=== PATIENT | male | born 1960 ===

== ENCOUNTER 2017-01-07 10:37 | Observation (INO) | payer MEDICARE, MEDICAID ==
[2017-01-07 10:37] VITALS: BMI 26.6
[2017-01-07] MEDS ORDERED: Albuterol-Ipratrop 3 mg / 0.5 (3 ml) UD INH STA (11:18)
--- NOTE | 2017-01-07 12:00 | ED PDOC ---
HPI: Chest Pain Time Seen by Provider: 01/07/17 10:50 Chief Complaint (Nursing): Chest Pain Chief Complaint (Provider): Chest Pain History Per: Patient History/Exam Limitations: no limitations Onset/Duration Of Symptoms: Days Current Symptoms Are (Timing): Still Present Severity: Moderate Quality: "Pain" Associated Symptoms: denies: Nausea Modifying Factors: None Exacerbating Factors: None Alleviating Factors: None Additional Complaint(s): Patient is a 56 year old male who presents to ED for evaluation of chest pain for 2 days. Pain noted to be intermittent but became constant today, took Nitro yesterday with resolution but returned this morning. Pain radiates in the right shoulder, non exertional. Patient also reports SOB and cough for 2 weeks, this started after running out of his medication. Admits he should be taking Albuterol, ASA and Plavix daily but has not taken anything in 2 weeks. 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 Past Medical History Reviewed: Historical Data, Nursing Documentation, Vital Signs Vital Signs: Last Vital Signs Temp 98.2 F 01/07/17 10:46 Pulse 60 01/07/17 12:36 Resp 20 01/07/17 10:46 BP 100/65 01/07/17 12:12 Pulse Ox 97 01/07/17 12:36 - Medical History PMH: Asthma, CAD, COPD, Depression, Emphysema, HTN, Hypercholesterolemia, Schizophrenia Denies: Diabetes, Hepatitis, HIV, Chronic Kidney Disease, Seizures, Sexually Transmitted Disease - Surgical History Surgical History: Coronary Stent (x 4), Tonsillectomy - Family History Family History: States: Unknown Family Hx - Living Arrangements Living Arrangements: With Family - Immunization History Hx Tetanus Toxoid Vaccination: No Hx Influenza Vaccination: No Hx Pneumococcal Vaccination: No - Home Medications Home Medications: Ambulatory Orders Medication Instructions Recorded Albuterol Sulfate [Proair Hfa] 2 puff IH Q4H PRN 10/22/16 Budesonide/Formoterol Fumarate 2 puff IH Q12H 10/22/16 [Symbicort 160-4.5 Mcg Inhaler] Aspirin [Ecotrin] 81 mg PO DAILY #30 tabec 10/24/16 Clopidogrel [Plavix] 75 mg PO DAILY #30 tab 10/24/16 Valsartan [Diovan] 80 mg PO DAILY #30 tab 10/24/16 Multivitamin [Multi-Vitamin Daily] 1 tab PO DAILY 01/07/17 - Allergies Allergies/Adverse Reactions: Allergies Allergy/AdvReac Type Severity Reaction Status Date / Time No Known Allergies Allergy Verified 01/07/17 12:29 Review of Systems ROS Statement: Except As Marked, All Systems Reviewed And Found Negative Constitutional: Negative for: Fever, Chills Cardiovascular: Positive for: Chest Pain. Negative for: Palpitations, Light Headedness Respiratory: Positive for: Cough, Shortness of Breath. Negative for: Hemoptysis , Sputum Gastrointestinal: Negative for: Nausea, Vomiting, Abdominal Pain, Diarrhea Musculoskeletal: Positive for: Shoulder Pain. Negative for: Neck Pain, Back Pain Skin: Negative for: Rash Neurological: Negative for: Weakness, Numbness Physical Exam - Reviewed Nursing Documentation Reviewed: Yes Vital Signs Reviewed: Yes - Physical Exam Appears: Positive for: Non-toxic, No Acute Distress Skin: Positive for: Normal Color, Warm Eye Exam: Positive for: Normal appearance Neck: Positive for: Normal, Painless ROM Cardiovascular/Chest: Positive for: Regular Rate, Rhythm, Chest Non Tender. Negative for: Murmur Respiratory: Positive for: Wheezing (bilaterally ). Negative for: Accessory Muscle Use, Respiratory Distress Back: Positive for: Normal Inspection Extremity: Positive for: Normal ROM. Negative for: Pedal Edema, Calf Tenderness Neurologic/Psych: Positive for: Alert, Oriented - Laboratory Results Result Diagrams: 01/07/17 12:59 01/07/17 12:59 - ECG ECG: Positive for: Interpreted By Me ECG Rhythm: Positive for: Normal QRS, Sinus Rhythm. Negative for: ST/T Changes Interpretation Of Abn EKG: T wave inversions to lateral leads Rate: 60 O2 Sat by Pulse Oximetry: 97 (RA) Pulse Ox Interpretation: Normal - Radiology X-Ray: Viewed By Me, Read By Radiologist X-Ray Interpretation: No Acute Disease, COPD Medical Decision Making Medical Decision Making: Time: 1110 Initial impression: Chest pain r/o ACS, unsteady angina vs End Stemi vs. COPD exacerbation Initial plan: -- EKG -- BnP -- BMP -- Troponin -- CBC -- PT/PTT -- CXR -- ASA, Duoneb, Plavix, Solumedrol and Nitro Stat -- Cardiac monitoring Scribe Attestation: Documented by Zari Du acting as a scribe for GerMD MD Skye Cm Attestation: All medical record entries made by the Skye were at my direction and personally dictated by me. I have reviewed the chart and agree that the record accurately reflects my personal performance of the history, physical exam, medical decision making, and the department course for this patient. I have also personally directed, reviewed, and agree with the discharge instructions and disposition. Disposition - Clinical Impression Clinical Impression: Unstable angina pectoris, COPD exacerbation, Noncompliance with medication regimen - Patient ED Disposition Is Patient to be Admitted: Yes Discussed With DrCyril: Belkys Zelaya Doctor Will See Patient In The: ED Counseled Patient/Family Regarding: Studies Performed, Diagnosis - Disposition Disposition Time: 13:00 Condition: FAIR - Pt Status Changed To: Hospital Disposition Of: Inpatient - Admit Certification Admit to Inpatient:: After my assessment, the patient will require hospitalization for at least two midnights. This is because of the severity of symptoms shown, intensity of services needed, and/or the medical risk in this patient being treated as an outpatient. - POA Present On Arrival: None Core Measure Indicators: Chest Pain
[2017-01-07] MEDS ORDERED: Albuterol-Ipratrop 3 mg / 0.5 (3 ml) UD ONE (12:11)
--- NOTE | 2017-01-07 12:31 | RAD ---
PROCEDURE: CHEST RADIOGRAPH, 1 VIEW HISTORY: Chest pain COMPARISON: 10/22/2016 FINDINGS: LUNGS: The lungs are hyperinflated and there is peribronchial thickening with chronic changes in both lungs. There is no focal consolidation. PLEURA: No pneumothorax or pleural fluid seen. CARDIOVASCULAR: There is persistent mild cardiomegaly OSSEOUS STRUCTURES: No significant abnormalities. VISUALIZED UPPER ABDOMEN: Normal. OTHER FINDINGS: None. IMPRESSION: No active pulmonary disease. COPD.
[2017-01-07 13:28] LABS: BASO # 0.1 K/uL (0.0-0.2); BASO % 0.7 % (0.0-2.0); EOS # 0.5 K/uL (0.0-0.7); EOS % 6.8 % (0.0-4.0); LYMPH # 1.9 K/uL (1.0-4.3); LYMPH % 26.5 % (20.0-40.0); MEAN CELL VOLUME 98.7 fl (80.0-94.0); MEAN CORPUSCULAR HEMOGLOBIN 33.9 pg (27.0-31.0); MEAN CORPUSCULAR HGB CONC 34.4 g/dL (33.0-37.0); MEAN PLATELET VOLUME 9.1 fl (7.2-11.7); MONO # 0.7 K/uL (0.0-0.8); MONO % 10.2 % (0.0-10.0); NEUT % 55.8 % (50.0-75.0); NRBC % 0.1 % (0.0-0.0); RED CELL DISTRIBUTION WIDTH 13.2 % (11.5-14.5); WHITE BLOOD COUNT 7.2 K/uL (4.8-10.8)
[2017-01-07] MEDS ORDERED: Sodium Chloride 0.9% 1,000 ML IV STA (13:45)
[2017-01-07 13:48] LABS: PARTIAL THROMBOPLASTIN TIME 34.8 SECONDS (23.3-32.5)
[2017-01-07 14:07] LABS: POTASSIUM 4.1 MMOL/L (3.6-5.0); SODIUM 139 mmol/l (132-148)
[2017-01-07 14:10] LABS: GFR AFRICAN-AMERICAN > 60
[2017-01-07 14:11] LABS: BLOOD UREA NITROGEN 25 mg/dl (9-20); CALCIUM 9.3 mg/dL (8.4-10.2); CARBON DIOXIDE 24 mmol/L (22-30); GLUCOSE,RANDOM 130 mg/dL (75-110)
[2017-01-07 14:22] LABS: CHLORIDE 101 mmol/L (98-107)
[2017-01-07] MEDS ORDERED: Albuterol HFA 90 mcg/actuation (8 g) INH PRN (15:05)
[2017-01-07] MEDS ORDERED: Albuterol-Ipratrop 3 mg / 0.5 (3 ml) UD INH PRN (15:12)
--- NOTE | 2017-01-07 15:51 | CP.PCM.HP ---
History of Present Illness - History of Present Illness History of Present Illness: CC: Chest pain HPI: The patient is a 56 y/o man w/ pmh of HTN, CAD s/p 4 stents, COPD ( emphysema), and GERD presents with chest pain and shortness of breath. The patient reports chest pain for 2 days, mid-sternal with radiation to left shoulder, constant, stabbing in nature, 5/10 in intensity, relieved with standing up, and exacerbating factors. The patient has not taken regular medication for about 1 month due to running out of refills. The patient last had medications filled in 11/2016. The patient was admitted for similar complaints on 10/2016 and 06/2016. The patient reports mild headache and dizziness. The patient also complains of pain at surgical site from hernia repair done on 06/2016. The patient complains of nausea but no vomiting. The patient denies diarrhea, dysuria, and fevers. allergies: NKDA PMH: HTN, CAD, COPD, and GERD PSHx: left hernia repair 06/2016, coronary stents x4 2014 at [facility], tonsillectomy at 4yrs old FamHx: non-contributory SOC: smokes 1 pack/day for 45 years, drinks 1 case of beer/week, smoked marijuana 1 month ago, hasn't used cocaine in years ROS: negative except HPI ED course: vitals: 98.2 F, 60 beats/min, 100/65 mmHg, 20 breaths/min, O2 97% room air EKG, pro-BNP, CBC, BMP, troponin, Pt/PTT, CXR done given aspirin x1, duoneb x1, plavix x1, solumedrol x1, and nitro x1, levaquin x1 , bolus NS PMD: [facility] Pharmacy: [facility] Present on Admission - Present on Admission Any Indicators Present on Admission: No History of DVT/PE: No History of Uncontrolled Diabetes: No Urinary Catheter: No Decubitus Ulcer Present: No Review of Systems - Review of Systems All systems: reviewed and no additional remarkable complaints except - Constitutional Constitutional: absent: Fever - Cardiovascular Cardiovascular: As Per HPI - Respiratory Respiratory: As Per HPI - Gastrointestinal Gastrointestinal: Nausea. absent: Abdominal Pain, Vomiting - Genitourinary Genitourinary: absent: Dysuria Past Patient History - Infectious Disease Hx of Infectious Diseases: None - Past Social History Smoking Status: Heavy Smoker > 10 Cigarettes Daily - CARDIAC Hx Hypercholesterolemia: Yes Hx Hypertension: Yes - PULMONARY Hx Asthma: Yes Hx Chronic Obstructive Pulmonary Disease (COPD): Yes Hx Emphysema: Yes - NEUROLOGICAL Hx Seizures: No - HEENT Hx HEENT Problems: No - RENAL Hx Chronic Kidney Disease: No - ENDOCRINE/METABOLIC Hx Endocrine Disorders: No - HEMATOLOGICAL/ONCOLOGICAL Hx Human Immunodeficiency Virus (HIV): No - INTEGUMENTARY Hx Dermatological Problems: No - MUSCULOSKELETAL/RHEUMATOLOGICAL Hx Musculoskeletal Disorders: No Hx Falls: No - GASTROINTESTINAL Hx Gastrointestinal Disorders: Yes Other/Comment: igneal hernia - GENITOURINARY/GYNECOLOGICAL Hx Sexually Transmitted Disorders: No - PSYCHIATRIC Hx Depression: Yes Hx Schizophrenia: Yes - SURGICAL HISTORY Hx Coronary Stent: Yes (x 4) Hx Tonsillectomy: Yes - ANESTHESIA Hx Anesthesia: Yes Hx Anesthesia Reactions: No Hx Malignant Hyperthermia: No Meds Allergies/Adverse Reactions: Allergies Allergy/AdvReac Type Severity Reaction Status Date / Time No Known Allergies Allergy Verified 01/07/17 12:29 Physical Exam - Constitutional Appears: No Acute Distress - Head Exam Head Exam: ATRAUMATIC, NORMOCEPHALIC - Eye Exam Eye Exam: EOMI Pupil Exam: PERRL - Neck Exam Neck exam: Positive for: Full Rom. Negative for: Lymphadenopathy - Respiratory Exam Respiratory Exam: Decreased Breath Sounds, Clear to Auscultation Bilateral. absent: Rales, Wheezes, Respiratory Distress - Cardiovascular Exam Cardiovascular Exam: REGULAR RHYTHM, +S1, +S2. absent: Tachycardia - GI/Abdominal Exam GI & Abdominal Exam: Normal Bowel Sounds. absent: Tenderness Additional comments: voluntary guarding, obese abdomen, no ascites - Extremities Exam Extremities exam: Negative for: calf tenderness, tenderness - Neurological Exam Neurological exam: Alert, CN II-XII Intact, Oriented x3 - Skin Skin Exam: Dry, Intact, Warm Results - Vital Signs Recent Vital Signs: Last Vital Signs Temp 98.2 F 01/07/17 10:46 Pulse 60 01/07/17 13:46 Resp 20 01/07/17 10:46 BP 100/65 01/07/17 12:12 Pulse Ox 97 01/07/17 13:46 - Labs Result Diagrams: 01/07/17 12:59 01/07/17 12:59 Assessment & Plan - Assessment and Plan (Free Text) Assessment: The patient is a 56 y/o man w/ pmh of HTN, CAD s/p 4 stents, COPD (emphysema), and GERD presents with chest pain and shortness of breath Plan: 1. Chest Pain - rule out ACS - admit to Tele - 1st troponin: 0.0410 - follow up serial troponin Q8h - EKG: prelim, no acute [place], NSR, inverted T waves, prolonged QT at 472 (similar compared to previous EKG) - given aspirin x1, duoneb x1, plavix x1, solumedrol x1, and nitro x1, levaquin x1, bolus NS in ED - EKG, pro-BNP, CBC, BMP, troponin, Pt/PTT, CXR done in ED - cardiology consult ordered - drug screen ordered - follow up AM CBC, BMP - repeat EKG in AM 2. Dyspnea - history of COPD/emphysema - CXR: COPD, no active pulmonary disease - restarted home meds albuterol and pulmicort - duonebs Q4 prn - levoquin 500 mg IV daily - methylprednisone 40 mg IV Q12h 3. CAD - x4 stents - home meds: plavix 75 mg PO daily and aspirin 81 mg PO daily 4. HTN - controlled BP - home medication valsartan 80 mg PO daily 5.FEN - heart healthy diet - zofran prn for nausea 6. DVT prophylaxis - lovenox 40 mg SC daily - Date & Time Date: 01/07/17 Time: 16:24
--- NOTE | 2017-01-07 18:04 | CARD ---
APPROVED REPORT EKG Measurement Heart [id number] <Conclusion> Normal sinus rhythm Possible Left atrial enlargement ST & T wave abnormality, consider lateral ischemia Abnormal ECG
[2017-01-07] MEDS ORDERED: Budesonide 0.5 mg/2 ml Inhal Susp UD IH SCH (20:00)
[2017-01-07] MEDS: methylPREDNISolone 40 MG in Sodium Chloride 0.9% 50 ML IV SCH (20:17)
[2017-01-08 06:42] LABS: HEMATOCRIT 45.6 % (35.0-51.0); MEAN CELL VOLUME 100.3 fl (80.0-94.0); MEAN CORPUSCULAR HEMOGLOBIN 34.1 pg (27.0-31.0); RED CELL DISTRIBUTION WIDTH 13.1 % (11.5-14.5); WHITE BLOOD COUNT 6.3 K/uL (4.8-10.8)
[2017-01-08 07:27] LABS: BLOOD UREA NITROGEN 27 mg/dl (9-20); CALCIUM 9.6 mg/dL (8.4-10.2); CARBON DIOXIDE 24 mmol/L (22-30); CHLORIDE 103 mmol/L (98-107); GFR AFRICAN-AMERICAN > 60; GLUCOSE,RANDOM 264 mg/dL (75-110); POTASSIUM 4.1 MMOL/L (3.6-5.0); SODIUM 143 mmol/l (132-148)
[2017-01-08 08:06] VITALS: RESP 18
[2017-01-08] MEDS ORDERED: Enoxaparin 40 mg Syringe SC SCH (09:00)
[2017-01-08 11:52] VITALS: PULSE 76
[2017-01-08] MEDS: methylPREDNISolone 40 MG in Sodium Chloride 0.9% 50 ML IV SCH (12:27)
--- NOTE | 2017-01-08 12:38 | CP.PCM.DIS ---
Provider - Provider Date of Admission: 01/07/17 13:38 Attending physician: Nasreen Norman MD Time Spent in preparation of Discharge (in minutes): 30 Diagnosis - Discharge Diagnosis (1) Chest pain Status: Acute Comment: most likely muscular versus due to COPD exacerbation (2) Cocaine abuse Status: Acute (3) COPD exacerbation Status: Acute Comment: COPD bronchitis. emphysema seen on CXR Hospital Course - Lab Results Lab Results: Most Recent Lab Values WBC 6.3 K/uL (4.8-10.8) 01/08/17 04:45 RBC 4.54 Mil/uL (4.40-5.90) 01/08/17 04:45 Hgb 15.5 g/dL (12.0-18.0) 01/08/17 04:45 Hct 45.6 % (35.0-51.0) 01/08/17 04:45 MCV 100.3 fl (80.0-94.0) H 01/08/17 04:45 MCH 34.1 pg (27.0-31.0) H 01/08/17 04:45 MCHC 34.0 g/dL (33.0-37.0) 01/08/17 04:45 RDW 13.1 % (11.5-14.5) 01/08/17 04:45 Plt Count 166 K/uL (130-400) 01/08/17 04:45 MPV 9.1 fl (7.2-11.7) 01/07/17 12:59 Neut % (Auto) 55.8 % (50.0-75.0) 01/07/17 12:59 Lymph % (Auto) 26.5 % (20.0-40.0) 01/07/17 12:59 [place] % (Auto) 10.2 % (0.0-10.0) H 01/07/17 12:59 Eos % (Auto) 6.8 % (0.0-4.0) H 01/07/17 12:59 Baso % (Auto) 0.7 % (0.0-2.0) 01/07/17 12:59 Neut # 4.0 K/uL (1.8-7.0) 01/07/17 12:59 Lymph # 1.9 K/uL (1.0-4.3) 01/07/17 12:59 [place] # 0.7 K/uL (0.0-0.8) 01/07/17 12:59 Eos # 0.5 K/uL (0.0-0.7) 01/07/17 12:59 Baso # 0.1 K/uL (0.0-0.2) 01/07/17 12:59 PT 10.6 SECONDS (9.6-11.2) 01/07/17 12:59 INR 1.02 (0.92-1.08) 01/07/17 12:59 APTT 34.8 SECONDS (23.3-32.5) H 01/07/17 12:59 Sodium 143 mmol/l (132-148) 01/08/17 04:45 Potassium 4.1 MMOL/L (3.6-5.0) 01/08/17 04:45 Chloride 103 mmol/L (98-107) 01/08/17 04:45 Carbon Dioxide 24 mmol/L (22-30) 01/08/17 04:45 Anion Gap 19 (10-20) 01/08/17 04:45 BUN 27 mg/dl (9-20) H 01/08/17 04:45 Creatinine 1.3 mg/dL (0.8-1.5) 01/08/17 04:45 Est GFR ( Amer) > 60 01/08/17 04:45 Est GFR (Non-Af Amer) 57 01/08/17 04:45 Random Glucose 264 mg/dL (75-110) H 01/08/17 04:45 Calcium 9.6 mg/dL (8.4-10.2) 01/08/17 04:45 Troponin I 0.0160 ng/mL (0.00-0.120) 01/08/17 04:45 NT-Pro-B Natriuret Pep 708 pg/ml (0-900) 01/07/17 12:59 Urine Opiates Screen Positive (NEGATIVE) H 01/07/17 15:00 Urine Methadone Screen Negative (NEGATIVE) 01/07/17 15:00 Ur Barbiturates Screen Negative (NEGATIVE) 01/07/17 15:00 Ur Phencyclidine Scrn Negative (NEGATIVE) 01/07/17 15:00 Ur Amphetamines Screen Negative (NEGATIVE) 01/07/17 15:00 U Benzodiazepines Scrn Negative (NEGATIVE) 01/07/17 15:00 U Oth Cocaine Metabols Positive (NEGATIVE) H 01/07/17 15:00 U Cannabinoids Screen Negative (NEGATIVE) 01/07/17 15:00 - Hospital Course Hospital Course: The patient is a 56 y/o man w/ pmh of HTN, CAD s/p 4 stents, COPD (emphysema), and GERD presents with chest pain and shortness of breath. The patient reports chest pain for 2 days, mid-sternal with radiation to left shoulder, constant, stabbing in nature, 5/10 in intensity, relieved with standing up, and exacerbating factors. The patient has not taken regular medication for about 1 month due to running out of refills. The patient last had medications filled in 11/2016. The patient was admitted for similar complaints on 10/2016 and 2015. In the ED, the patient had EKG, pro-BNP, CBC, BMP, troponin, Pt/PTT, CXR done which were all WNL. The patient was given given aspirin x1, duoneb x1, plavix x1, solumedrol x1, and nitro x1, levaquin x1, bolus NS. The patient was sent to Tele 4N. The patient had no complaints overnight and had drastic improvement. Patient had drug screen done which was positive for opiates and cocaine. When asked about drug use while in ED, patient denied. Patient reports improved breathing and no more chest pain. The patient will be discharged to home on PO levaquin 500 mg PO for 5 days daily and oral prednisone 20 mg for 3 days daily. The patient will also be given 1 month refill of home meds. The patient has been seen, examined, and deemed medically fit with no contraindication for discharge home. The patient has a follow up appointment with [facility] on 12/20/2016 @ 14:[address] Taylor. - Date & Time of H&P Date of H&P: 01/07/17 Time of H&P: 15:28 Discharge Exam - Head Exam Head Exam: ATRAUMATIC, NORMOCEPHALIC - Eye Exam Eye Exam: EOMI Pupil Exam: PERRL - Neck Exam Neck exam: Full Rom - Respiratory Exam Respiratory Exam: Clear to PA & Lateral, Wheezes. absent: Accessory Muscle Use , Chest Wall Tenderness, Decreased Breath Sounds, Prolonged Expiratory Phase, Rales, Rhonchi, Respiratory Distress, Stridor Additional comments: faint transient diffuse wheeze - Cardiovascular Exam Cardiovascular Exam: REGULAR RHYTHM, RRR. absent: Tachycardia - GI/Abdominal Exam GI & Abdominal Exam: Distended, Normal Bowel Sounds, Soft. absent: Tenderness Additional comments: obese abdomen, no ascites - Neurological Exam Neurological exam: Alert, Normal Gait, Oriented x3 - Skin Skin Exam: Dry, Intact, Normal Color, Warm Discharge Plan - Discharge Medications Prescriptions: Prednisone [Deltasone] 20 mg PO DAILY #3 tablet Valsartan [Diovan] 80 mg PO DAILY #30 tab Aspirin [Ecotrin] 81 mg PO DAILY #30 tabec levoFLOXacin [Levaquin] 500 mg PO DAILY #5 tab Multivitamin [Multi-Vitamin Daily] 1 tab PO DAILY #30 tablet Clopidogrel [Plavix] 75 mg PO DAILY #30 tab Budesonide/Formoterol Fumarate [Symbicort 160-4.5 Mcg Inhaler] 2 puff IH Q12H # 1 hfa.aer.ad - Follow Up Plan Condition: STABLE Disposition: HOME/ ROUTINE Clinical Quality Measures - Date & Time of Discharge Summary Date of Discharge Summary: 01/08/17 Time of Discharge Summary: 14:59
--- NOTE | 2017-01-08 13:38 | PQF GENQUE ---
Dr. Norman, Etiology of the Chest Pain: if known? OR: Unable to determine H and P: 1.Chest Pain - rule out ACS - admit to Tele - EKG: prelim, no acute DC , NSR, inverted T waves, prolonged QT at 472 (similar compared to previous EKG) - given aspirin x1, duoneb x1, plavix x1, solumedrol x1, and nitro x1 - repeat EKG in AM 2. Dyspnea - history of COPD/emphysema - CXR: COPD, no active pulmonary disease - restarted home meds albuterol and pulmicort - duonebs Q4 prn - levoquin 500 mg IV daily - methylprednisone 40 mg IV Q12h 3. CAD - x4 stents - home meds: plavix 75 mg PO daily and aspirin 81 mg PO daily 4. HTN - controlled BP - home medication valsartan 80 mg PO draft D/C Summary: D/C Diagnosis: (1) Chest pain Status: Acute (2) Cocaine abuse Status: Acute trop x 3: negative cardiology consult ordered: record absent in EMR u/a toxicology: positive for opiates and cocaine This form is a permanent part of the medical record Clarification of your documentation is requested to better reflect the severity of illness and intensity of treatment of your patient. Indicators present [] Specify: [] [] Specify: [] [] Specify: [] [] Specify: [] Location in the medical record that reflects the above clinical findings: [] Treatment Provided: [] PHYSICIAN'S RESPONSE Unable to determine Based on your medical judgment of the clinical indicators outlined above please clarify the following: [] Practitioner response [] If unable to determine, please check the box, sign and date. Present On Admission (POA) Indicator: [] Present at the time of admission [] Not present at the time of admission [] Clinically Undetermined In responding to this query, please exercise your independent professional judgment. The fact that a question is asked does not imply that any particular answer is desired or expected. Thank you for your clarification on this documentation. If you have any questions please call. * Thank you, Paris Carrion RN BSN ext. #[phone] MTDD
--- NOTE | 2017-01-08 13:41 | PQF GENQUE ---
Dr. Norman, Etiology of Dyspnea? OR: please document:Unable to determine ER MD: Impression includes: COPD Exacerbation H and P: Dyspnea - history of COPD/emphysema - CXR: COPD, no active pulmonary disease - restarted home meds albuterol and pulmicort - duonebs Q4 prn - levoquin 500 mg IV daily - methylprednisone 40 mg IV Q12h This form is a permanent part of the medical record Clarification of your documentation is requested to better reflect the severity of illness and intensity of treatment of your patient. Indicators present [] Specify: [] [] Specify: [] [] Specify: [] [] Specify: [] Location in the medical record that reflects the above clinical findings: [] Treatment Provided: [] PHYSICIAN'S RESPONSE Copd exacerbation mild Based on your medical judgment of the clinical indicators outlined above please clarify the following: [] Practitioner response [] If unable to determine, please check the box, sign and date. Present On Admission (POA) Indicator: [] Present at the time of admission [] Not present at the time of admission [] Clinically Undetermined In responding to this query, please exercise your independent professional judgment. The fact that a question is asked does not imply that any particular answer is desired or expected. Thank you for your clarification on this documentation. If you have any questions please call. * Thank you, Paris Carrion RN BSN ext. #[phone] MTDD
--- NOTE | 2017-01-08 13:45 | PQF GENQUE ---
Dr. Julius Vargas, Please clarify type of asthma: versus past history of Asthma:not a current condition:etc. Childhood Cough variant Exercise induced Late onset Mild intermittent Mild persistent Moderate persistent Severe persistent With bronchitis(please clarify acuity of bronchitis) With chronic lung disease (please document specific chronic lung disease) Other (please specify) Unable to determine Unknown 2. Please clarify acuity of asthma: if this is a current condition Uncomplicated With exacerbation(acute) With status asthmaticus Other (please specify) Unable to determine Unknown -ER MD; PMH: Asthma -H and P: Past Patient History:- PULMONARY: Hx Asthma: Yes Hx Chronic Obstructive Pulmonary Disease (COPD): Yes Hx Emphysema: Yes This form is a permanent part of the medical record Clarification of your documentation is requested to better reflect the severity of illness and intensity of treatment of your patient. Indicators present [] Specify: [] [] Specify: [] [] Specify: [] [] Specify: [] Location in the medical record that reflects the above clinical findings: [] Treatment Provided: [] PHYSICIAN'S RESPONSE Pt does not have asthma current;y Based on your medical judgment of the clinical indicators outlined above please clarify the following: [] Practitioner response [] If unable to determine, please check the box, sign and date. Present On Admission (POA) Indicator: [] Present at the time of admission [] Not present at the time of admission [] Clinically Undetermined In responding to this query, please exercise your independent professional judgment. The fact that a question is asked does not imply that any particular answer is desired or expected. Thank you for your clarification on this documentation. If you have any questions please call. * Thank you, Paris Carrion RN BSN ext. #[phone] MTDD
[2017-01-08 16:11] VITALS: BP 148/84; TEMP 97.8; O2SAT 98
== END 2017-01-08 18:00 | disposition home or self-care (01) ==
LOC: H.ER 10:37 → H.ERHOLD 13:38 → INTOOBSV 13:38 → UNDOADMOB 13:38 → H.ERHOLD 17:11 → H.TEL 17:11
PROVIDERS: ADMIT Family Medicine Geriatric Medicine; ATTEND Family Medicine Geriatric Medicine
DX: J44.1 Chronic obstructive pulmonary disease with (acute) exacerbation (principal); I10 Essential (primary) hypertension; I25.110 Atherosclerotic heart disease of native coronary artery with unstable angina pectoris; Z95.5 Presence of coronary angioplasty implant and graft; K21.9 Gastro-esophageal reflux disease without esophagitis; Z87.891 Personal history of nicotine dependence; E78.00 Pure hypercholesterolemia, unspecified; F20.9 Schizophrenia, unspecified; F14.10 Cocaine abuse, uncomplicated
CPT/HCPCS: 36415; 71010; 80048; 83880; 84484; 85025; 85027; 85610; 85730; 86703; 93005; 94640; 96365; 96375; 99285; G0378; G0480; J1650; J2920; J2930; J7040

== ENCOUNTER 2017-04-21 15:00 | Inpatient (IN) | payer MEDICARE, MEDICAID ==
[2017-04-21 15:01] VITALS: BMI 26.6
[2017-04-21] MEDS ORDERED: Albuterol-Ipratrop 3 mg / 0.5 (3 ml) UD INH STA ×2 (15:41→16:57)
--- NOTE | 2017-04-21 15:52 | ED PDOC ---
HPI: Chest Pain History Per: Patient History/Exam Limitations: no limitations Onset/Duration Of Symptoms: Days (2) Current Symptoms Are (Timing): Still Present Quality: "Pain" Associated Symptoms: Dyspnea. denies: Nausea, Diaphoresis, Syncope Exacerbating Factors: Exertion Alleviating Factors: None Additional History Per: Patient <Shamar Ignacio - Last Filed: 04/21/17 17:26> <Susie Valente - Last Filed: 04/21/17 18:52> Time Seen by Provider: 04/21/17 15:16 Chief Complaint (Nursing): Chest Pain Additional Complaint(s): 56 year old male with history of emphysema, CAD s/p 4 stents in 2014, HTN presents with complaints of two day history of worsening chest pain and dyspnea. Pain is left sided, non radiating and feels chest pressure, no alleviating/exacerbating factors. He has dyspnea that has worsened in the past 2 days despite using his inhaler. Right leg pain exacerbated by walking. Pt endorses he ran out of his PO medications 3 weeks ago, and has not made an appointment for refills. Not taking any medications for cholesterol, unclear why. Hx of polysubstance abuse, he did a line of cocaine on Thursday and his heart was racing in his chest, he was also too intoxicated to remember if he had pain. Unsure how much he had to drink. 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 Denies any recent illness, fevers/chills, nausea, vomiting, diarrhea, constipation, pedal edema. PMH: CAD s/p stents x 4 in 2015, HTN, HLD, Emphysema, polysubstance abuse Medications: Diovan 80mg, Plavix 75mg, ASA 81mg, Budesonide/formoterol fumarate Allergies: NKDA Social: smoker, 1/2 PPD, cocaine, marijuana, etoh abuse. 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 Grey Rahman (Shamar Ignacio) Supervising Attending Note - Supervising Attending Note The Documented history was done by the: Physician Reed Fixer, Attending Physician The documented physical exam was done by the: Physician Reed Fixer, Attending Physician The documented procedures were done by the: Physician Reed Fixer, Attending Physician - Attestation: I have personally seen and examined this patient.: Yes I have fully participated in the care of the patient.: Yes I have reviewed all pertinent clinical information: Yes <Susie Valente - Last Filed: 04/21/17 18:52> Past Medical History - Medical History PMH: CAD, COPD, Depression, Emphysema, HTN, Hypercholesterolemia, Schizophrenia Denies: Diabetes, Hepatitis, HIV, Chronic Kidney Disease, Seizures, Sexually Transmitted Disease - Surgical History Surgical History: Coronary Stent (x 4), Tonsillectomy - Family History Family History: States: Unknown Family Hx - Immunization History Hx Tetanus Toxoid Vaccination: No Hx Influenza Vaccination: No Hx Pneumococcal Vaccination: No <Shamar Ignacio - Last Filed: 04/21/17 17:26> <Susie Valente - Last Filed: 04/21/17 18:52> Vital Signs: Last Vital Signs Temp 97.8 F 04/21/17 15:09 Pulse 81 04/21/17 18:14 Resp 19 04/21/17 17:07 BP 151/76 H 04/21/17 17:07 Pulse Ox 96 04/21/17 17:27 - Home Medications Home Medications: Ambulatory Orders Medication Instructions Recorded Aspirin [Ecotrin] 81 mg PO DAILY #30 tabec 01/08/17 Budesonide/Formoterol Fumarate 2 puff IH Q12H #1 hfa.aer.ad 01/08/17 [Symbicort 160-4.5 Mcg Inhaler] Clopidogrel [Plavix] 75 mg PO DAILY #30 tab 01/08/17 Multivitamin [Multi-Vitamin Daily] 1 tab PO DAILY #30 tablet 01/08/17 Valsartan [Diovan] 80 mg PO DAILY #30 tab 01/08/17 - Allergies Allergies/Adverse Reactions: Allergies Allergy/AdvReac Type Severity Reaction Status Date / Time No Known Allergies Allergy Verified 04/21/17 15:03 LISA Risk Score for UA/NSTEMI - LISA Risk Score Age > 64: NO 3 or more CAD Risk Factors: YES Known CAD (Stenosis greater than 50%): YES Aspirin use in past 7 days: NO Severe Angina: NO EKG ST changes greater than 0.5mm: NO LISA Score: 2 Risk %: 8% <Shamar Ignacio - Last Filed: 04/21/17 17:26> - LISA Risk Score Severe Angina: YES LISA Score: 1 Risk %: 5% <Susie Valente Nabeel - Last Filed: 04/21/17 18:52> Curb-65 Severity Score - CURB-65 Severity Score Confusion: No Bun >19mg/dl (>7mmol/L): No Respiratory Rate greater than/equal to 30: No Systolic BP <90 or Diastolic BP less than/equal 60mmHg: No Age >64: No Curb-65 Score: 0 Percentage 30-day mortality: 0.6% <Ignacio,Yangdenzelalee - Last Filed: 04/21/17 17:26> Wells Criteria for PE - Wells Criteria for Pulmonary Embolism Clinical Signs and Symptoms of DVT: No P.E is #1 Diagnosis, or Equally Likely: No Heart Rate >100: No Immobilization at least 3 days;Surgery previous 4 weeks: No Previous, objectively diagnosed PE or DVT: No Hemoptysis: No Malignancy w/treatment within 6 months, or palliative: No Total Score: 0 <Zoe Ignacioalee - Last Filed: 04/21/17 17:26> Review of Systems ROS Statement: Except As Marked, All Systems Reviewed And Found Negative <MateusYangdenzelalee - Last Filed: 04/21/17 17:26> Physical Exam - Reviewed Vital Signs Reviewed: Yes (BP 183/110) - Physical Exam Appears: Positive for: Uncomfortable, In Acute Distress (mild respiratory distress) Skin: Positive for: Warm, Pallor. Negative for: Diaphoresis, Rash, Cyanosis Eye Exam: Positive for: Normal appearance Neck: Positive for: Painless ROM, Trachea Midline. Negative for: Pain On Movement Of Neck Cardiovascular/Chest: Positive for: Regular Rate, Rhythm, Chest Non Tender, Murmur. Negative for: JVD, Bradycardia, Tachycardia Respiratory: Positive for: Decreased Breath Sounds, Accessory Muscle Use (mild supraclavicular retractions), Wheezing (expiratory), Respiratory Distress (mild) . Negative for: Crackles, Rales, Rhonchi Gastrointestinal/Abdominal: Positive for: Normal Exam, Soft. Negative for: Guarding Back: Positive for: Normal Inspection Rectal: Positive for: Deferred Extremity: Negative for: Tenderness, Pedal Edema Neurologic/Psych: Positive for: Alert, manager hospice II-XII, Oriented, Mood/Affect <Shamar Ignacio - Last Filed: 04/21/17 17:26> - Laboratory Results Result Diagrams: 04/21/17 15:44 04/21/17 15:44 - ECG ECG: Positive for: Viewed By Me ECG Rhythm: Positive for: Normal QRS Interpretation Of Abn EKG: left axis deviation Rate: 81 O2 Sat by Pulse Oximetry: 96 Pulse Ox Interpretation: Normal - Radiology X-Ray: Viewed By Me, Read By Radiologist X-Ray Interpretation: No Acute Disease - Progress Condition: Re-examined, Improving,but remains with symptoms (dyspnea improved but persists, chest pain persists) <Shamar Ignacio - Last Filed: 04/21/17 17:26> - Laboratory Results Result Diagrams: 04/21/17 15:44 04/21/17 15:44 <Susie Valente - Last Filed: 04/21/17 18:52> - Progress ED Course And Treament: 56 year old male with worsening chest pain and dyspnea. Workup: * CBC * BMP * BNP * TROPONINS * PT/PTT/INR * EKG * CXR * VENOUS DUPLEX MEDICATIONS: * ASA 325MG * PLAVIX 300MG * NITRO 0.4MG SL * DUONEB * SOLUMEDROL 125MG reassess Case d/w Dr. Valente 17:05 Pts breathing improved after duoneb x 1 and solumedrol, still has expiratory wheezing and mild dyspnea. Still has CP despite nitro SL x 2. * duoneb Labs reviewed: WNL except for the following CBC: MCV 94, no anemia, no leukocytosis CMP: GFR 57, Glucose: 149 Troponins :0.044 * Pending Venous doppler (Shamar Ignacio) Disposition - Patient ED Disposition Is Patient to be Admitted: Yes - Pt Status Changed To: Hospital Disposition Of: Inpatient - Admit Certification Admit to Inpatient:: After my assessment, the patient will require hospitalization for at least two midnights. This is because of the severity of symptoms shown, intensity of services needed, and/or the medical risk in this patient being treated as an outpatient. <Shamar Ignacio - Last Filed: 04/21/17 17:26> - Patient ED Disposition Is Patient to be Admitted: Yes Discussed With : Sheryl Nelson Doctor Will See Patient In The: ED Counseled Patient/Family Regarding: Studies Performed, Diagnosis - Disposition Disposition Time: 17:00 - Pt Status Changed To: Hospital Disposition Of: Inpatient - Admit Certification Admit to Inpatient:: After my assessment, the patient will require hospitalization for at least two midnights. This is because of the severity of symptoms shown, intensity of services needed, and/or the medical risk in this patient being treated as an outpatient. - POA Present On Arrival: None Core Measure Indicators: Chest Pain <Susie Valente - Last Filed: 04/21/17 18:52> - Clinical Impression Clinical Impression: Chest pain, COPD exacerbation - Disposition Condition: FAIR
[2017-04-21 16:00] LABS: BASO # 0.1 K/uL (0.0-0.2); BASO % 0.8 % (0.0-2.0); EOS # 0.3 K/uL (0.0-0.7); EOS % 3.8 % (0.0-4.0); HEMOGLOBIN 16.8 g/dL (12.0-18.0); LYMPH # 1.7 K/uL (1.0-4.3); LYMPH % 21.8 % (20.0-40.0); MEAN CELL VOLUME 97.8 fl (80.0-94.0); MEAN CORPUSCULAR HEMOGLOBIN 33.1 pg (27.0-31.0); MEAN CORPUSCULAR HGB CONC 33.8 g/dL (33.0-37.0); MEAN PLATELET VOLUME 9.1 fl (7.2-11.7); MONO # 0.7 K/uL (0.0-0.8); MONO % 8.8 % (0.0-10.0); NEUT # 4.9 K/uL (1.8-7.0); NEUT % 64.8 % (50.0-75.0); NRBC % 0.2 % (0.0-0.0); RBC 5.08 Mil/uL (4.40-5.90); RED CELL DISTRIBUTION WIDTH 13.7 % (11.5-14.5); WHITE BLOOD COUNT 7.6 K/uL (4.8-10.8)
[2017-04-21 16:09] LABS: BLOOD UREA NITROGEN 17 mg/dl (9-20); CALCIUM 9.1 mg/dL (8.4-10.2); GFR AFRICAN-AMERICAN > 60; GFR NON-AFRICAN AMERICAN 57
--- NOTE | 2017-04-21 16:15 | RAD ---
PROCEDURE: CHEST RADIOGRAPH, 1 VIEW HISTORY: chest pain COMPARISON: 01/07/2017 FINDINGS: LUNGS: Clear. PLEURA: No pneumothorax or pleural fluid seen. CARDIOVASCULAR: Normal. OSSEOUS STRUCTURES: No significant abnormalities. VISUALIZED UPPER ABDOMEN: Normal. OTHER FINDINGS: None. IMPRESSION: No active disease.
[2017-04-21 16:20] LABS: B-TYPE NATRIURETIC PEPTIDE 477 pg/ml (0-900); PARTIAL THROMBOPLASTIN TIME 33.5 Seconds (25.6-37.1); PROTHROMBIN TIME 11.5 Seconds (9.8-13.1)
[2017-04-21] MEDS ORDERED: Albuterol-Ipratrop 3 mg / 0.5 (3 ml) UD ONE (17:06)
--- NOTE | 2017-04-21 18:10 | US ---
PROCEDURE: Right lower extremity duplex venous sonography HISTORY: right leg pain COMPARISON: None available. TECHNIQUE: Common femoral, superficial femoral, popliteal and posterior tibial veins were evaluated. Flow was assessed with color Doppler, compressibility, assessment of phasic flow and augmentation response. FINDINGS: COMMON FEMORAL VEIN: Unremarkable. SUPERFICIAL FEMORAL VEIN: Unremarkable. POPLITEAL VEIN: Unremarkable. POSTERIOR TIBIAL VEIN: Unremarkable. OTHER FINDINGS: None. IMPRESSION: No evidence of deep venous thrombosis in the right lower extremity.
[2017-04-21] MEDS ORDERED: Albuterol-Ipratrop 3 mg / 0.5 (3 ml) UD INH PRN (19:02)
[2017-04-21 19:08] LABS: BARBITURATES, UR NEGATIVE (NEGATIVE); BENZODIAZEPINES, UR NEGATIVE (NEGATIVE); OPIATES, UR NEGATIVE (NEGATIVE); PHENCYCLIDINE, UR NEGATIVE (NEGATIVE)
[2017-04-21] MEDS ORDERED: Patient's Own Med (Budesonide/Formoterol Fumarate [Symbicort 160-4.5 Mcg Inhaler] 2 PUFF) IH SCH (19:15)
--- NOTE | 2017-04-21 20:02 | CP.PCM.HP ---
History of Present Illness - History of Present Illness History of Present Illness: 56 year old male smoker with history of emphysema, CAD s/p 4 stents in 2014, HTN , Cocaine abuse presented to ED with complaints of two day history of worsening chest pain and dyspnea. Pain is left sided, non radiating and described as pressure, no alleviating/exacerbating factors. He has dyspnea that has worsened in the past 2 days despite using his rescue inhaler. 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 Right leg pain exacerbated by walking for months , no trauma or swelling. States ran out of medications 3 weeks ago. He did cocaine on Thursday and his heart was racing in his chest, he was also too intoxicated to remember if he had pain. Last drink was yesterday evening, 6 pack of beer. Denies history of seizures/withdrawals from alcohol. Denies any recent illness, fevers/chills, nausea, vomiting, diarrhea, constipation, pedal edema. No cough present. PMH: CAD s/p stents x 4 in 2014, HTN, HLD, Emphysema, polysubstance abuse Medications: Diovan 80mg, Plavix 75mg, ASA 81mg, Budesonide/formoterol fumarate Allergies: NKDA Social: smoker, 1/2 PPD, cocaine, marijuana, etoh abuse. Surgical hx: stents x 4 PMD: [facility] [employer] Helper: Dr. Leach, Dr. Edmonds ED Course: Vitals stable with elevated BP PE notable for expiratory wheezing, decreased breath sounds and mild respiratory distress Labs: CBC, BMP, BNP, TROPONIN, PT/PTT/INR Labs reviewed: unremarkable EKG - NSR, regular rate, LAD, no acute changes CXR - NAD VENOUS DUPLEX - Neg for DVT (R) MEDS: ASA 325MG, PLAVIX 300MG, NITRO 0.4MG SL x 2, DUONEB x 2, SOLUMEDROL 125MG Breathing improved with mild dyspnea and expiratory wheezing and mild CP continued after interventions Present on Admission - Present on Admission Any Indicators Present on Admission: No Review of Systems - Review of Systems All systems: reviewed and no additional remarkable complaints except (mentioned in HPI) Past Patient History - Infectious Disease Hx of Infectious Diseases: None - Past Social History Smoking Status: Heavy Smoker > 10 Cigarettes Daily - CARDIAC Hx Cardiac Disorders: Yes (HTN,HLD,CAD+4 STENTS) - PULMONARY Hx Respiratory Disorders: Yes (COPD) - NEUROLOGICAL Hx Neurological Disorder: No - HEENT Hx HEENT Problems: No - RENAL Hx Chronic Kidney Disease: No - ENDOCRINE/METABOLIC Hx Endocrine Disorders: No - HEMATOLOGICAL/ONCOLOGICAL Hx Blood Disorders: No - INTEGUMENTARY Hx Dermatological Problems: No - MUSCULOSKELETAL/RHEUMATOLOGICAL Hx Musculoskeletal Disorders: No - GASTROINTESTINAL Hx Gastrointestinal Disorders: Yes Other/Comment: inguinal hernia - GENITOURINARY/GYNECOLOGICAL Hx Genitourinary Disorders: No - PSYCHIATRIC Hx Psychophysiologic Disorder: Yes (DEPRESSION,SCHIZO) - SURGICAL HISTORY Hx Coronary Stent: Yes (x 4) Hx Tonsillectomy: Yes - ANESTHESIA Hx Anesthesia: Yes Hx Anesthesia Reactions: No Hx Malignant Hyperthermia: No Meds Allergies/Adverse Reactions: Allergies Allergy/AdvReac Type Severity Reaction Status Date / Time No Known Allergies Allergy Verified 04/21/17 15:03 Physical Exam - Constitutional Appears: Non-toxic, No Acute Distress - Head Exam Head Exam: ATRAUMATIC, NORMAL INSPECTION, NORMOCEPHALIC - Eye Exam Eye Exam: EOMI, Normal appearance - ENT Exam ENT Exam: Mucous Membranes Moist - Neck Exam Neck exam: Positive for: Normal Inspection - Respiratory Exam Respiratory Exam: Wheezes (scattered expiratory wheezing noted bilaterally), NORMAL BREATHING PATTERN. absent: Respiratory Distress - Cardiovascular Exam Cardiovascular Exam: REGULAR RHYTHM, RRR, +S1, +S2 Additional comments: non-reproducible chest pain - GI/Abdominal Exam GI & Abdominal Exam: Normal Bowel Sounds, Soft. absent: Tenderness - Extremities Exam Extremities exam: Positive for: normal inspection, pedal pulses present. Negative for: calf tenderness, pedal edema - Back Exam Back exam: NORMAL INSPECTION - Neurological Exam Neurological exam: Alert, CN II-XII Intact, Oriented x3 - Psychiatric Exam Psychiatric exam: Normal Affect, Normal Mood - Skin Skin Exam: Dry, Intact, Normal Color, Warm Results - Vital Signs Recent Vital Signs: Last Vital Signs Temp 97.8 F 04/21/17 15:09 Pulse 81 04/21/17 18:14 Resp 19 04/21/17 17:07 BP 151/76 H 04/21/17 17:07 Pulse Ox 96 04/21/17 17:27 - Labs Result Diagrams: 04/21/17 15:44 04/21/17 15:44 Labs: Laboratory Results - last 24 hr 04/21/17 04/21/17 18:41 19:10 Urine Opiates Screen Negative Urine Methadone Screen Negative Ur Barbiturates Screen Negative Ur Phencyclidine Scrn Negative Ur Amphetamines Screen Negative U Benzodiazepines Scrn Negative U Oth Cocaine Metabols Positive H U Cannabinoids Screen Negative Alcohol, Quantitative < 10 Assessment & Plan (1) Chest pain Status: Acute (2) COPD exacerbation Status: Acute (3) Alcohol dependence Status: Chronic (4) Cocaine abuse Status: Chronic (5) Hypertension Status: Acute (6) CAD (coronary artery disease) Status: Chronic (7) DVT prophylaxis Status: Acute - Assessment and Plan (Free Text) Assessment: 56 year old male smoker with history of emphysema, CAD s/p 4 stents in 2014, HTN , Cocaine abuse with two day history of worsening chest pain and dyspnea. PE notable for wheezing. Improved symptoms with interventions. Last cocaine use Thursday, last etoh yesterday. Plan: (1) Chest pain - Asymptomatic at this time, improved with interventions (Nitro) - EKG/CXR/Doppler/labs reviewed, unremarkable - Multiple cardiac risk factors including multiple stents, poor followup, father with early AR - R/O ACS with serial Troponins x 3 (1 negative) - Continuous cardiac monitoring via telemetry unit - Repeat EKG in AM - Lipid panel in AM - O2 prn - Avoid B-Blockers due to cocaine abuse (2) COPD exacerbation - No increased cough/purulence - Mild exacerbation - Improving, mild expiratory wheezes scattered - c/w solumedrol 60mg q12 - duonebs q6h prn - Continue to monitor O2 status (3) Alcohol dependence - Last drink 16 hrs ago (6 pack of beer) - Alcohol serum ordered - CIWA O - No history of withdrawals though will monitor at this time (4) Cocaine abuse - Last use Thursday - UDS pending (5) Hypertension - 116/90 at this time - Continue home meds at this time, continue to monitor (6) CAD (coronary artery disease) - s/p 4 stents in 2014 - poor follow up with PCP, asbestos siding mechanic - No meds in 3 wks - Restart home meds - Ensure close outpatient followup (7) DVT prophylaxis - Lovenox 40mg due to multiple risk factors
[2017-04-21 20:04] LABS: ALBUMIN 4.6 g/dL (3.5-5.0)
[2017-04-21 20:05] LABS: ALB/GLOB RATIO 1.3 (1.0-2.1); BILIRUBIN,DIRECT 0.4 mg/ml (0.0-0.4)
[2017-04-22] MEDS ORDERED: methylPREDNISolone 60 MG in Sodium Chloride 0.9% 50 ML IVPB SCH (01:00)
[2017-04-22 07:36] LABS: HEMOGLOBIN 16.8 g/dL (12.0-18.0); MEAN CELL VOLUME 97.8 fl (80.0-94.0); MEAN CORPUSCULAR HEMOGLOBIN 33.8 pg (27.0-31.0); MEAN CORPUSCULAR HGB CONC 34.5 g/dL (33.0-37.0); RBC 4.99 Mil/uL (4.40-5.90); RED CELL DISTRIBUTION WIDTH 13.2 % (11.5-14.5); WHITE BLOOD COUNT 9.9 K/uL (4.8-10.8)
[2017-04-22 07:44] LABS: ALB/GLOB RATIO 1.4 (1.0-2.1); ALBUMIN 4.4 g/dL (3.5-5.0); ALT/SGPT 41 U/L (21-72); AST/SGOT 31 U/L (17-59); BLOOD UREA NITROGEN 19 mg/dl (9-20); CALCIUM 10.1 mg/dL (8.4-10.2); GFR AFRICAN-AMERICAN > 60; GFR NON-AFRICAN AMERICAN > 60; HDL CHOLESTEROL 51 MG/DL (30-70)
--- NOTE | 2017-04-22 07:53 | PQF CHESTP ---
This form is a permanent part of the medical record 04/22/17 Dr Julius Buchanan, Please clarify the possible etiology of the chest pain after workup. Patient presents with complaints of two day history of worsening chest pain and dyspnea. History of CAD s/p stents, HTN, Hyperlipidemia History of polysubstance abuse, he did a line of cocaine on Thursday and his heart was racing in his chest , he was also too intoxicated to remember if he had pain. Troponin x 2 negative. UDS + cocaine. Treated with aspirin, Plavix, nitro. There is clinical documentation of CHEST PAIN with evaluation, treatment, and / or monitoring present in the medical record. Please clarify the possible / probable cause of CHEST PAIN. Source Documentation: Chart Location: [] Progress Notes [] Consults [] Radiology Results Date: [] Date: [] Date:[] ED Records: [] H&P: [] Other: [] PHYSICIAN RESPONSE CAUSE OF CHEST PAIN: [place] Check [] Documentation: [] CAD with angina [] CAD [] NM [] Musculoskeletal Chest Pain [] Costochondritis [] Gastroesophageal Reflux Disease (GERD) [] Acute Gastritis [] Drug induced [] Other [] Please specify [] Unknown [] In responding to this query, please exercise your independent professional judgment. The fact that a question is asked does not imply that any particular answer is desired or expected. Thank you for your clarification on this documentation. If you have any questions please call:ext [phone] * Thank you, Ebony Magana RN CDMP [facility]
[2017-04-22 07:55] LABS: LDL CHOLESTEROL 174 mg/dL (0-129)
[2017-04-22] MEDS: Enoxaparin 40 mg Syringe SC SCH (08:31)
[2017-04-22] MEDS: Multivitamin With Minerals Tab PO SCH (08:32)
[2017-04-22] MEDS ORDERED: Patient's Own Med (Multivitamin [Multi-Vitamin Daily] 1 TAB) PO SCH (09:00)
[2017-04-22] MEDS: Fluticasone-Salmeterol 250-50mcg Diskus IH SCH ×2 (10:00→22:05)
[2017-04-22 12:23] LABS: AMYLASE 156 U/L (30-110); LIPASE 179 U/L (23-300)
--- NOTE | 2017-04-22 12:41 | CARD ---
APPROVED REPORT EKG Measurement Heart [id number] <Conclusion> Normal sinus rhythm Biatrial enlargement Left axis deviation Septal infarct, age undetermined Inferior infarct, age undetermined T wave abnormality, consider lateral ischemia Abnormal ECG
[2017-04-22] MEDS: methylPREDNISolone 60 MG in Sodium Chloride 0.9% 50 ML IVPB SCH ×2 (12:50→20:43)
--- NOTE | 2017-04-22 16:32 | CP.PCM.PN ---
Subjective - Date & Time of Evaluation Date of Evaluation: 04/22/17 Time of Evaluation: 08:00 - Subjective Subjective: Pt was seen this morning lying in bed in no acute distress. Earlier in the morning he had experienced some chest pain and was given sublingual nitroglycerin. At the time of exam today, he denied chest pain and shortness of breath, but stated that he has shortness of breath on exertion. Pt also complained of RUQ abdominal pain. Denied nausea, vomiting, difficulty urinating or moving bowels, calf/leg pain/swelling. Objective - Vital Signs/Intake and Output Vital Signs (last 24 hours): Temp Pulse Resp BP Pulse Ox 98.1 F 70 20 163/87 H 97 04/22/17 16:09 04/22/17 16:09 04/22/17 16:09 04/22/17 16:09 04/22/17 16:09 - Medications Medications: Current Medications Albuterol/Ipratropium (Duoneb 3 Mg/0.5 Mg (3 Ml) Ud) 3 ml INH RQ6 PRN PRN Reason: Shortness of Breath Aspirin (Ecotrin) 81 mg PO DAILY [facility] Last Admin: 04/22/17 08:31 Dose: 81 mg Clopidogrel Bisulfate (Plavix) 75 mg PO DAILY [facility] Last Admin: 04/22/17 08:31 Dose: 75 mg Enoxaparin Sodium (Lovenox) 40 mg SC DAILY [facility] PRN Reason: Protocol Last Admin: 04/22/17 08:31 Dose: 40 mg Methylprednisolone 60 mg/ (Sodium Chloride) 50 mls @ 100 mls/hr IVPB Q12 [facility] Last Admin: 04/22/17 12:50 Dose: 100 mls/hr Multivitamins/Minerals (Therapeutic-M Tab) 1 tab PO DAILY [facility] Last Admin: 04/22/17 08:32 Dose: 1 tab Nitroglycerin (Nitrostat Sl Tab) 0.4 mg SL Q5M PRN PRN Reason: Other Last Admin: 04/22/17 12:34 Dose: 0.4 mg Fluticasone/Salmeterol (Advair Diskus 250/50) 1 puff IH Q12 [facility] Last Admin: 04/22/17 10:00 Dose: Not Given Valsartan (Diovan) 80 mg PO DAILY [facility] Last Admin: 04/22/17 08:31 Dose: 80 mg - Labs Labs: 07/19/17 06:25 04/22/17 06:25 PT 11.5 Seconds (9.8-13.1) 04/21/17 15:44 INR 1.0 (0.9-1.2) 04/21/17 15:44 APTT 33.5 Seconds (25.6-37.1) 04/21/17 15:44 - Constitutional Appears: Non-toxic - Head Exam Head Exam: ATRAUMATIC - Eye Exam Eye Exam: EOMI, Normal appearance, PERRL - ENT Exam ENT Exam: Mucous Membranes Moist - Neck Exam Neck Exam: Full ROM, Normal Inspection - Respiratory Exam Respiratory Exam: absent: Respiratory Distress Additional comments: coarse lung sounds in anterior lung crouch, clear breath sounds in posterior lung crouch and at bases - Cardiovascular Exam Cardiovascular Exam: REGULAR RHYTHM, +S1, +S2 - GI/Abdominal Exam GI & Abdominal Exam: Guarding, Soft, Tenderness, Normal Bowel Sounds. absent: Distended Additional comments: mild guarding and tenderness upon palpation of RUQ - Extremities Exam Extremities Exam: Normal Capillary Refill, Normal Inspection. absent: Calf Tenderness, Joint Swelling, Pedal Edema, Tenderness - Back Exam Back Exam: NORMAL INSPECTION. absent: CVA tenderness (L), CVA tenderness (R) - Neurological Exam Neurological Exam: Alert, Awake, CN II-XII Intact, Oriented x3 - Psychiatric Exam Psychiatric exam: Normal Mood - Skin Skin Exam: Dry, Intact, Normal Color, Warm Assessment and Plan - Assessment and Plan (Free Text) Assessment: 56 yo M with PMH of emphysema, coronary artery disease, s/p 4 stents in 2014, HTN, cocaine abuse, cigarette smoker who presented to ED with 2 day history of chest pain and shortness of breath, still experiencing symptoms on exertion Plan: 1) Coronary Artery Disease -S/p 4 stents in 2014 -Poor follow up; encourage close follow up -Poor compliance with medications at home; encourage compliance -Aspirin 81mg PO daily, clopidogrel 75mg PO daily, Nitroglycerin 0.4mg SL Q5 PRN -Avoid B-blockers due to cocaine use -Continue cardiac monitoring -Lipid panel results: Cholesterol 233, LDL 174, HDL 53, TG114 -CXR/Doppler unremarkable -f/u serial troponins -f/u repeat EKG 2)COPD exacerbation -Mild exacerbation -Improving -Continue salumedrol -Duonebs Q6 PRN -Monitor O2 sat 3) Hypertension -Valsartan 80mg PO daily -Monitor BP 4) RUQ pain -U/s abdomen -Amylase: 156 -Lipase: 179 4)Alcohol dependence -Last drink last night, 6 beers -Serum alcohol <10 5)Cocaine abuse -last use Thursday -Utox +ve for cocaine 6) DVT prophylaxis Lovenox 40mg
--- NOTE | 2017-04-23 08:28 | US ---
HISTORY: RUQ pain, epigastric pain COMPARISON: None. TECHNIQUE: Sonographic evaluation of the right upper quadrant of the abdomen. FINDINGS: LIVER: Measures 16.8 cm in length. Diffusely increased echogenicity of the liver parenchyma. Consistent with fatty infiltration. No mass. No biliary ductal dilatation. Smooth contour. Normal hepatopetal portal venous flow demonstrated. GALLBLADDER: Contracted. No evidence of cholelithiasis. Mild nonspecific mural thickening up to 4 mm. No pericholecystic fluid. Negative sonographic Martin sign. COMMON BILE DUCT: Measures 4 mm. No stones. No dilatation. PANCREAS: Suboptimally visualized RIGHT KIDNEY: Measures 11.0 cm in length. Normal echogenicity. No calculus, mass, or hydronephrosis. AORTA: No aneurysmal dilatation. IVC: Not evaluated OTHER FINDINGS: Not evaluated IMPRESSION: No evidence of cholelithiasis or cholecystitis. Fatty infiltration of the liver.
[2017-04-23] MEDS: Enoxaparin 40 mg Syringe SC SCH (08:46)
[2017-04-23] MEDS: Multivitamin With Minerals Tab PO SCH (08:47)
[2017-04-23] MEDS: Fluticasone-Salmeterol 250-50mcg Diskus IH SCH (09:39)
[2017-04-23] MEDS: methylPREDNISolone 60 MG in Sodium Chloride 0.9% 50 ML IVPB SCH (09:39)
[2017-04-23 12:13] VITALS: TEMP 97.6
[2017-04-23 15:46] VITALS: RESP 20; O2SAT 96
[2017-04-23] MEDS ORDERED: Labetalol 5 mg/ml Inj 20ML IVP ONE (16:00)
--- NOTE | 2017-04-23 16:35 | CP.PCM.DIS ---
Provider - Provider Date of Admission: 04/21/17 17:15 Attending physician: Nasreen Norman MD [facility] Time Spent in preparation of Discharge (in minutes): 40 Diagnosis - Discharge Diagnosis (1) COPD exacerbation Status: Acute Hospital Course - Lab Results Lab Results: Most Recent Lab Values WBC 9.9 K/uL (4.8-10.8) 04/22/17 06:25 RBC 4.99 Mil/uL (4.40-5.90) 04/22/17 06:25 Hgb 16.8 g/dL (12.0-18.0) 04/22/17 06:25 Hct 48.8 % (35.0-51.0) 04/22/17 06:25 MCV 97.8 fl (80.0-94.0) H 04/22/17 06:25 MCH 33.8 pg (27.0-31.0) H 04/22/17 06:25 MCHC 34.5 g/dL (33.0-37.0) 04/22/17 06:25 RDW 13.2 % (11.5-14.5) 04/22/17 06:25 Plt Count 207 K/uL (130-400) 04/22/17 06:25 MPV 9.1 fl (7.2-11.7) 04/21/17 15:44 Neut % (Auto) 64.8 % (50.0-75.0) 04/21/17 15:44 Lymph % (Auto) 21.8 % (20.0-40.0) 04/21/17 15:44 Kane % (Auto) 8.8 % (0.0-10.0) 04/21/17 15:44 Eos % (Auto) 3.8 % (0.0-4.0) 04/21/17 15:44 Baso % (Auto) 0.8 % (0.0-2.0) 04/21/17 15:44 Neut # 4.9 K/uL (1.8-7.0) 04/21/17 15:44 Lymph # 1.7 K/uL (1.0-4.3) 04/21/17 15:44 Kane # 0.7 K/uL (0.0-0.8) 04/21/17 15:44 Eos # 0.3 K/uL (0.0-0.7) 04/21/17 15:44 Baso # 0.1 K/uL (0.0-0.2) 04/21/17 15:44 PT 11.5 Seconds (9.8-13.1) 04/21/17 15:44 INR 1.0 (0.9-1.2) 04/21/17 15:44 APTT 33.5 Seconds (25.6-37.1) 04/21/17 15:44 Sodium 139 mmol/l (132-148) 04/22/17 06:25 Potassium 4.1 MMOL/L (3.6-5.0) 04/22/17 06:25 Chloride 105 mmol/L (98-107) 04/22/17 06:25 Carbon Dioxide 26 mmol/L (22-30) 04/22/17 06:25 Anion Gap 12 (10-20) 04/22/17 06:25 BUN 19 mg/dl (9-20) 04/22/17 06:25 Creatinine 1.1 mg/dL (0.8-1.5) 04/22/17 06:25 Est GFR ( Amer) > 60 04/22/17 06:25 Est GFR (Non-Af Amer) > 60 04/22/17 06:25 Random Glucose 153 mg/dL (75-110) H 04/22/17 06:25 Calcium 10.1 mg/dL (8.4-10.2) 04/22/17 06:25 Total Bilirubin 0.5 mg/dl (0.2-1.3) 04/22/17 06:25 Direct Bilirubin 0.4 mg/ml (0.0-0.4) 04/21/17 19:00 AST 31 U/L (17-59) 04/22/17 06:25 ALT 41 U/L (21-72) 04/22/17 06:25 Alkaline Phosphatase 93 U/L (38-126) 04/22/17 06:25 Troponin I 0.0350 ng/mL (0.00-0.120) 04/23/17 06:45 NT-Pro-B Natriuret Pep 477 pg/ml (0-900) 04/21/17 15:44 Total Protein 7.6 G/DL (6.3-8.2) 04/22/17 06:25 Albumin 4.4 g/dL (3.5-5.0) 04/22/17 06:25 Globulin 3.2 gm/dL (2.2-3.9) 04/22/17 06:25 Albumin/Globulin Ratio 1.4 (1.0-2.1) 04/22/17 06:25 Triglycerides 114 mg/DL (0-149) 04/22/17 06:25 Cholesterol 233 mg/dL (0-199) H 04/22/17 06:25 LDL Cholesterol Direct 174 mg/dL (0-129) H 04/22/17 06:25 HDL Cholesterol 51 MG/DL (30-70) 04/22/17 06:25 Amylase 156 U/L (30-110) H 04/22/17 12:11 Lipase 179 U/L (23-300) 04/22/17 12:11 TSH 3rd Generation 0.31 mIU/ML (0.46-4.68) L 04/22/17 06:25 Urine Opiates Screen Negative (NEGATIVE) 04/21/17 18:41 Urine Methadone Screen Negative (NEGATIVE) 04/21/17 18:41 Ur Barbiturates Screen Negative (NEGATIVE) 04/21/17 18:41 Ur Phencyclidine Scrn Negative (NEGATIVE) 04/21/17 18:41 Ur Amphetamines Screen Negative (NEGATIVE) 04/21/17 18:41 U Benzodiazepines Scrn Negative (NEGATIVE) 04/21/17 18:41 U Oth Cocaine Metabols Positive (NEGATIVE) H 04/21/17 18:41 U Cannabinoids Screen Negative (NEGATIVE) 04/21/17 18:41 Alcohol, Quantitative < 10 mg/dl (0-10) 04/21/17 19:10 - Hospital Course Hospital Course: Patient with PMH htn, s/p stents in 2014, COPD, polysubstance abuse with poor medication compliance and poor follow up presented to the ED with 2day hx of chest pain and dyspnea. Vital signs in the ED were stable with elevated BP. EKG showed no acute changes from previous EKG, CXR and lower extremity doppler were unremarkable. Labs drawn in ED: troponin, CBC, CMP, BNP, PT/PTT/INR unremarkable. Pt was admitted due to cardiac history and to r/o ACS. Once on the floor, pt experienced intermittent chest pain, getting relief from sublingual nitroglycerin. Pt's home meds were given for BP control. Troponin x3 negative. Salumedrol infusion given on the floor, dyspnea improved. Pt started c /o RUQ abdominal pain- on exam pt endorsed pain to palpation but no grimacing or other signs of discomfort were noted. U/s was ordered to r/o acute issue, was unremarkable. Pt was able to tolerate multiple meals during the day without c/o abdominal discomfort, nausea, vomiting, diarrhea, constipation. Pt continued to c/o vague chest pain, but was seen ambulating easily around his room, and the floor, sitting in bed comfortably chatting with this friend, appeared in no distress. When pt was approached about discharge and f/u appointments, he became very persistent about staying in the hospital until his electric bill could get taken care of, as the electricity in his living space was turned off. It was explained to pt that it is inppropriate to keep a pt admitted for that reason. Pt given appts with PCP and summer clerk and strongly encouraged to attend these appts. - Date & Time of H&P Date of H&P: 04/21/17 Time of H&P: 20:02 Discharge Exam - Head Exam Head Exam: ATRAUMATIC - Eye Exam Eye Exam: EOMI, Normal appearance Pupil Exam: PERRL - ENT Exam ENT Exam: Mucous Membranes Moist - Neck Exam Neck exam: Normal Inspection - Respiratory Exam Respiratory Exam: NORMAL BREATHING PATTERN. absent: Respiratory Distress - Cardiovascular Exam Cardiovascular Exam: REGULAR RHYTHM, +S1, +S2 - GI/Abdominal Exam GI & Abdominal Exam: Normal Bowel Sounds, Soft, Unremarkable - Extremities Exam Extremities exam: full ROM, normal inspection - Back Exam Back exam: NORMAL INSPECTION - Neurological Exam Neurological exam: Alert, CN II-XII Intact, Normal Gait, Oriented x3 - Psychiatric Exam Psychiatric exam: Normal Mood - Skin Skin Exam: Dry, Intact, Normal Color, Warm Discharge Plan - Discharge Medications Prescriptions: Aspirin [Ecotrin] 81 mg PO DAILY #30 tabec Budesonide/Formoterol Fumarate [Symbicort 160-4.5 Mcg Inhaler] 2 puff IH Q12H # 1 hfa.aer.ad Clopidogrel [Plavix] 75 mg PO DAILY #30 tab Valsartan [Diovan] 80 mg PO DAILY #30 tab - Follow Up Plan Condition: FAIR Disposition: HOME/ ROUTINE Instructions: Coronary Artery Disease (DC), Emphysema (DC), COPD (Chronic Obstructive Pulmonary Disease) (DC) Additional Instructions: Please follow up with your PCP (Dr. Taylor)- May 01 @10:20am Please follow up with cardiology- Dr. Leach on - May 12 at 11:15am Your medications have been transcribed to your pharmacy, please make it point to pick them up and take it as prescribed every day. Referrals: Tonny Leach MD [Staff Provider] - Evangelist Taylor MD [Resident] -
[2017-04-23 17:25] VITALS: BP 146/74; PULSE 78
== END 2017-04-23 17:26 | disposition home or self-care (01) | DRG 303 ==
LOC: H.ER 15:00 → H.ERHOLD 17:15 → H.TEL 21:04
PROVIDERS: ADMIT Family Medicine Geriatric Medicine; ATTEND Family Medicine Geriatric Medicine
DX: I25.10 Atherosclerotic heart disease of native coronary artery without angina pectoris (principal); J44.1 Chronic obstructive pulmonary disease with (acute) exacerbation; I10 Essential (primary) hypertension; E78.00 Pure hypercholesterolemia, unspecified; F20.9 Schizophrenia, unspecified; E78.5 Hyperlipidemia, unspecified; F10.20 Alcohol dependence, uncomplicated; F14.10 Cocaine abuse, uncomplicated; F17.210 Nicotine dependence, cigarettes, uncomplicated; I25.119 Atherosclerotic heart disease of native coronary artery with unspecified angina pectoris; Z79.02 Long term (current) use of antithrombotics/antiplatelets; Z79.51 Long term (current) use of inhaled steroids; Z79.82 Long term (current) use of aspirin; Z91.14 Patient's other noncompliance with medication regimen; Z95.5 Presence of coronary angioplasty implant and graft; R07.9 Chest pain, unspecified

== ENCOUNTER 2017-05-26 11:30 | Emergency (ER) | payer MEDICARE, MEDICAID ==
[2017-05-26 11:30] VITALS: BMI 26.6
[2017-05-26 11:52] VITALS: RESP 18
[2017-05-26] MEDS ORDERED: Oxycodone/Acetaminophen 5/325 mg Tab PO STA (12:02)
--- NOTE | 2017-05-26 12:06 | ED PDOC ---
HPI: Back Time Seen by Provider: 05/26/17 11:40 Chief Complaint (Nursing): Back Pain Chief Complaint (Provider): Back pain History Per: Patient Additional Complaint(s): 56 yo male, PMH of CAD s/p Stent placement, HTN, High Cholesterol, presents to ED with complaints of severe lower back pain x 4 days. back pain developed when he caught his friend who fell while having a seizure. Past Medical History Reviewed: Nursing Documentation, Vital Signs Vital Signs: Last Vital Signs Temp 97.8 F 05/26/17 11:47 Pulse 75 05/26/17 11:47 Resp 18 05/26/17 11:47 BP 149/76 05/26/17 11:47 Pulse Ox 99 05/26/17 11:47 - Medical History PMH: Asthma, CAD, COPD, Depression, Emphysema, HTN, Hypercholesterolemia, Schizophrenia Denies: Diabetes, Hepatitis, HIV, Chronic Kidney Disease, Seizures, Sexually Transmitted Disease - Surgical History Surgical History: Coronary Stent (x 4), Tonsillectomy - Family History Family History: States: Unknown Family Hx - Living Arrangements Living Arrangements: With Family - Social History Current smoker - smoking cessation education provided: Yes Alcohol: Social Drugs: Denies - Immunization History Hx Tetanus Toxoid Vaccination: No Hx Influenza Vaccination: No Hx Pneumococcal Vaccination: No - Home Medications Home Medications: Ambulatory Orders Medication Instructions Recorded Multivitamin [Multi-Vitamin Daily] 1 tab PO DAILY #30 tablet 01/08/17 Aspirin [Ecotrin] 81 mg PO DAILY #30 tabec 04/23/17 Budesonide/Formoterol Fumarate 2 puff IH Q12H #1 hfa.aer.ad 04/23/17 [Symbicort 160-4.5 Mcg Inhaler] Clopidogrel [Plavix] 75 mg PO DAILY #30 tab 04/23/17 Valsartan [Diovan] 80 mg PO DAILY #30 tab 04/23/17 Cyclobenzaprine [Cyclobenzaprine 10 mg PO TID #20 tab 05/26/17 HCl] Ibuprofen [Motrin] 600 mg PO Q6 #20 tab 05/26/17 oxyCODONE/Acetaminophen [Percocet 1 ea PO Q6 PRN #5 tab 05/26/17 5/325 mg Tab] - Allergies Allergies/Adverse Reactions: Allergies Allergy/AdvReac Type Severity Reaction Status Date / Time No Known Allergies Allergy Verified 05/26/17 11:47 Review of Systems ROS Statement: Except As Marked, All Systems Reviewed And Found Negative Musculoskeletal: Positive for: Back Pain Physical Exam - Reviewed Nursing Documentation Reviewed: Yes Vital Signs Reviewed: Yes - Physical Exam Appears: Positive for: Well, Non-toxic, No Acute Distress Head Exam: Positive for: ATRAUMATIC, NORMAL INSPECTION, NORMOCEPHALIC Skin: Positive for: Normal Color, Warm, DRY Eye Exam: Positive for: EOMI, Normal appearance, PERRL ENT: Positive for: Normal ENT Inspection Neck: Positive for: Normal, Painless ROM Cardiovascular/Chest: Positive for: Regular Rate, Rhythm Respiratory: Positive for: CNT, Normal Breath Sounds Gastrointestinal/Abdominal: Positive for: Normal Exam, Bowel Sounds, Soft Back: Positive for: Normal Inspection. Negative for: L CVA Tenderness, R CVA Tenderness, Vertebral Tenderness Extremity: Positive for: Normal ROM Neurologic/Psych: Positive for: Alert, Oriented - ECG O2 Sat by Pulse Oximetry: 99 Medical Decision Making Medical Decision Making: Medicated with Perc and Flexeril, reports feeling improved on re-eval Disposition - Clinical Impression Clinical Impression: Back pain - Patient ED Disposition Is Patient to be Admitted: No - Disposition Disposition: Routine/Home Disposition Time: 13:43 Condition: STABLE Prescriptions: Cyclobenzaprine [Cyclobenzaprine HCl] 10 mg PO TID #20 tab Ibuprofen [Motrin] 600 mg PO Q6 #20 tab oxyCODONE/Acetaminophen [Percocet 5/325 mg Tab] 1 ea PO Q6 PRN #5 tab PRN Reason: Pain, Severe (8-10) Instructions: Back Pain (ED) Forms: [employer] (French)
[2017-05-26] MEDS ORDERED: Oxycodone/Acetaminophen 5/325 mg Tab ONE (12:14)
[2017-05-26 13:19] VITALS: BP 154/79; PULSE 78; TEMP 98
[2017-05-26 13:44] VITALS: O2SAT 99
== END 2017-05-26 13:19 | disposition home or self-care (01) ==
LOC: H.ER 11:30
DX: M54.9 Dorsalgia, unspecified (principal); F20.9 Schizophrenia, unspecified; I10 Essential (primary) hypertension; I25.10 Atherosclerotic heart disease of native coronary artery without angina pectoris; Z79.82 Long term (current) use of aspirin; Z95.5 Presence of coronary angioplasty implant and graft

== ENCOUNTER 2017-06-26 05:55 | Inpatient (IN) | payer OTHER, MEDICAID ==
[2017-06-26] MEDS ORDERED: Albuterol-Ipratrop 3 mg / 0.5 (3 ml) UD INH STA ×3 (06:07→06:14)
[2017-06-26] MEDS ORDERED: Nitroglycerin 2% 15 INCH/30 GM TUBE TOP STA (06:14)
[2017-06-26] MEDS ORDERED: Nitroglycerin 2% Ointment Foilpak UD TOP ONE (06:18)
--- NOTE | 2017-06-26 06:22 | ED PDOC ---
HPI: Chest Pain Time Seen by Provider: 06/26/17 05:59 Chief Complaint (Nursing): Shortness Of Breath Chief Complaint (Provider): Chest pain History Per: Patient, EMS History/Exam Limitations: no limitations Onset/Duration Of Symptoms: Hrs (4) Quality: Pressure Additional Complaint(s): Patient is a 56 y/o male with a past medical history of coronary artery disease, hypertension, and PTCA with stents, brought to the emergency department by ALS for pressure-like, substernal and non-radiating chest pain with associated shortness of breath x4 hours. Also complains of nasal congestion. Denies vomiting, diarrhea, or other complaints. Of note, patient was given nitroglycerin, duoneb, and aspirin in the field by ALS. PCP: none provided. Past Medical History Reviewed: Historical Data, Nursing Documentation, Vital Signs Vital Signs: Last Vital Signs Temp 98.3 F 06/26/17 19:16 Pulse 82 06/26/17 20:10 Resp 20 06/26/17 19:16 BP 167/80 H 06/26/17 19:16 Pulse Ox 94 L 06/26/17 19:16 - Medical History PMH: Asthma, CAD, COPD, Depression, Emphysema, HTN, Hypercholesterolemia, Schizophrenia Denies: Diabetes, Hepatitis, HIV, Chronic Kidney Disease, Seizures, Sexually Transmitted Disease - Surgical History Surgical History: Coronary Stent (x 4), Tonsillectomy - Family History Family History: States: Unknown Family Hx - Social History Current smoker - smoking cessation education provided: Yes (one pack/day) Ex-Smoker (has not smoked in the last 12 months): No Alcohol: None - Immunization History Hx Tetanus Toxoid Vaccination: No Hx Influenza Vaccination: No Hx Pneumococcal Vaccination: No - Home Medications Home Medications: Ambulatory Orders Medication Instructions Recorded Multivitamin [Multi-Vitamin Daily] 1 tab PO DAILY #30 tablet 01/08/17 Aspirin [Ecotrin] 81 mg PO DAILY #30 tabec 04/23/17 Budesonide/Formoterol Fumarate 2 puff IH Q12H #1 hfa.aer.ad 04/23/17 [Symbicort 160-4.5 Mcg Inhaler] Clopidogrel [Plavix] 75 mg PO DAILY #30 tab 04/23/17 Valsartan [Diovan] 80 mg PO DAILY #30 tab 04/23/17 Cyclobenzaprine [Cyclobenzaprine 10 mg PO TID #20 tab 05/26/17 HCl] Ibuprofen [Motrin] 600 mg PO Q6 #20 tab 05/26/17 oxyCODONE/Acetaminophen [Percocet 1 ea PO Q6 PRN #5 tab 05/26/17 5/325 mg Tab] - Allergies Allergies/Adverse Reactions: Allergies Allergy/AdvReac Type Severity Reaction Status Date / Time No Known Allergies Allergy Verified 05/26/17 11:47 Review of Systems ROS Statement: Except As Marked, All Systems Reviewed And Found Negative ENT: Positive for: Nose Congestion Cardiovascular: Positive for: Chest Pain (non-radiating, substernal, presssure- like) Respiratory: Positive for: Shortness of Breath Gastrointestinal: Negative for: Vomiting, Diarrhea Physical Exam - Reviewed Nursing Documentation Reviewed: Yes Vital Signs Reviewed: Yes - Physical Exam Appears: Positive for: Uncomfortable (and in mild distress) Head Exam: Positive for: ATRAUMATIC, NORMAL INSPECTION, NORMOCEPHALIC Skin: Positive for: Normal Color, Warm, Dry Eye Exam: Positive for: Normal appearance Neck: Positive for: Normal Cardiovascular/Chest: Positive for: Regular Rate, Rhythm. Negative for: Murmur Respiratory: Positive for: Crackles (bilateral bases), Wheezing (bilateral). Negative for: Normal Breath Sounds Extremity: Positive for: Normal ROM. Negative for: Pedal Edema Neurologic/Psych: Positive for: Alert, Oriented (x3) - Laboratory Results Result Diagrams: 06/26/17 06:23 06/26/17 06:23 - ECG ECG: Positive for: Interpreted By Me, Viewed By Me ECG Rhythm: Positive for: Sinus Tachycardia Interpretation Of Abn EKG: Non-specific ST abnormalities in the lateral leads at 6-10. Rate: 104 O2 Sat by Pulse Oximetry: 96 (RA) Pulse Ox Interpretation: Normal - Radiology X-Ray: Interpreted by Me, Viewed By Me X-Ray Interpretation: Cardiomegaly, Other (Mild pulmonary vascular congestion) Medical Decision Making Medical Decision Making: Time: 06:07 Initial impression: 56 y/o male with chest pain and dyspnea in setting of known coronary artery disease. Initial plan: EKG Labs Chest X-Ray Duoneb 3 mL IN Lasix 40 mg IV SOLU-medrol 125 mg IVP Morphine 4 mg IVP Nitroglycerin 1 Blood Culture Heplock Insertion Peak flow assessment pre/post treatment Reevaluation Scribe Attestation: Documented by Skye Velez, acting as a scribe for Eliazar Lanier MD. Provider Scribe Attestation: All medical record entries made by the Scribe were at my direction and personally dictated by me. I have reviewed the chart and agree that the record accurately reflects my personal performance of the history, physical exam, medical decision making, and the department course for this patient. I have also personally directed, reviewed, and agree with the discharge instructions and disposition. Disposition - Clinical Impression Clinical Impression: Chest pain - Patient ED Disposition Is Patient to be Admitted: Transfer of Care - Disposition Disposition: Transfer of Care Disposition Time: 07:00 Condition: STABLE Patient Signed Over To: Frank Flynn III
[2017-06-26 06:32] LABS: BASO % 0.6 % (0.0-2.0); HEMATOCRIT 45.4 % (35.0-51.0); LYMPH # 0.6 K/uL (1.0-4.3); MEAN CELL VOLUME 97.5 fl (80.0-94.0); MEAN CORPUSCULAR HGB CONC 34.9 g/dL (33.0-37.0); MEAN PLATELET VOLUME 8.7 fl (7.2-11.7); MONO # 0.5 K/uL (0.0-0.8); MONO % 7.3 % (0.0-10.0); NEUT # 5.1 K/uL (1.8-7.0); NEUT % 82.1 % (50.0-75.0); NRBC % 0.3 % (0.0-0.0); RED CELL DISTRIBUTION WIDTH 13.7 % (11.5-14.5); WHITE BLOOD COUNT 6.3 K/uL (4.8-10.8)
[2017-06-26] MEDS ORDERED: Nitroglycerin 2% Ointment Foilpak UD TOP STA (06:43)
[2017-06-26 06:59] LABS: ALCOHOL SERUM < 10 mg/dl (0-10); BLOOD UREA NITROGEN 12 mg/dl (9-20); CALCIUM 9.3 mg/dL (8.4-10.2); CARBON DIOXIDE 22 mmol/L (22-30); CHLORIDE 102 mmol/L (98-107); GFR AFRICAN-AMERICAN > 60; GLUCOSE,RANDOM 117 mg/dL (75-110); POTASSIUM 3.9 MMOL/L (3.6-5.0); SODIUM 139 mmol/l (132-148)
--- NOTE | 2017-06-26 07:06 | ED PDOC ---
- Laboratory Results Result Diagrams: 06/26/17 06:23 06/26/17 06:23 - ECG O2 Sat by Pulse Oximetry: 96 (RA) Medical Decision Making Medical Decision Makinam pending labs, re-eval, dispo Pt received pre hospital ASA. Troponin reported elevated. Admit 4N, FP residents. Disposition - Disposition Condition: STABLE Forms: [facility] (Estonian)
[2017-06-26 07:17] LABS: PARTIAL THROMBOPLASTIN TIME 32.2 Seconds (25.6-37.1)
[2017-06-26 07:30] VITALS: BMI 26.4
[2017-06-26] MEDS ORDERED: Aspirin 325 mg EC Tablets PO STA (07:56)
[2017-06-26] MEDS ORDERED: Sodium Chloride 0.9% 1,000 ML IV SCH (08:00)
--- NOTE | 2017-06-26 08:06 | CT ---
EXAM: CT Head Without Intravenous Contrast CLINICAL HISTORY: 56 years old, male; Pain; Headache; Tension TECHNIQUE: Axial computed tomography images of the head/brain without intravenous contrast. All CT scans at this facility use one or more dose reduction techniques, viz.: automated exposure control; ma/kV adjustment per patient size (including targeted exams where dose is matched to indication; i.e. head); or iterative reconstruction technique. 343 images are submitted. Coronal and sagittal reformatted images were created and reviewed. COMPARISON: No relevant prior studies available. FINDINGS: Brain: Prominent cisterna magna. No hemorrhage. No significant white matter disease. No edema. Ventricles: Unremarkable. No ventriculomegaly. Bones/joints: Ossific density near the left anterior maxillary spine. Correlation with clinical history is recommended if a remote fracture deformity is suspected. Soft tissues: Unremarkable. Vasculature: Vascular calcifications. Sinuses: Patchy sinus disease. Mastoid air cells: Patchy right mastoid disease. IMPRESSION: No evidence of an acute intracranial hemorrhage, midline shift or mass effect is identified.
--- NOTE | 2017-06-26 08:28 | RAD ---
HISTORY: chest pain COMPARISON: Chest x-ray 04/21/17 TECHNIQUE: Chest, one view. FINDINGS: LUNGS: Linear atelectasis, left lower lobe. Mild biapical pleural thickening. Please note that chest x-ray has limited sensitivity for the detection of pulmonary masses. PLEURA: No significant pleural effusion identified. No definite pneumothorax . CARDIOVASCULAR: Heart size appears top normal. Atherosclerotic calcifications of the aortic knob. OSSEOUS STRUCTURES: Degenerative changes of the spine. VISUALIZED UPPER ABDOMEN: Unremarkable. OTHER FINDINGS: None. IMPRESSION: Linear atelectasis, left lower lobe. Mild biapical pleural thickening.
[2017-06-26] MEDS ORDERED: Enoxaparin 80 mg Syringe SC STA (08:31)
--- NOTE | 2017-06-26 08:44 | CARD ---
APPROVED REPORT EKG Measurement Heart [id number] <Conclusion> Sinus tachycardia Biatrial enlargement Left axis deviation ST & T wave abnormality, consider lateral ischemia Abnormal ECG
[2017-06-26] MEDS ORDERED: Enoxaparin 40 mg Syringe SC SCH (09:00)
[2017-06-26 10:20] LABS: CHOLESTEROL 174 mg/dL (0-199)
[2017-06-26 10:53] LABS: THYROID STIMULATING HORMONE 0.86 mIU/ML (0.46-4.68)
--- NOTE | 2017-06-26 11:26 | CP.PCM.HP ---
History of Present Illness - History of Present Illness History of Present Illness: 56yo M smoker with PMHx CAD (stents x5), HTN admitted for NSTEMI. chest pain x5 hours today, started at 2AM, burning, continuous, no radiation, 05/14, currently 11/14. Last cocaine use 2 days ago, snorts drugs, denies IVDA. PMHx: HTN, CAD, COPD FHX: NC Social Hx: smokes 1ppd, cocaine use, EtOH use Allergies: NKDA Meds: checked in [facility] ED course: EKG no ST elevation Troponin elevated ASA in the field lovenox 80 SC x1 Present on Admission - Present on Admission Any Indicators Present on Admission: No Review of Systems - Constitutional Constitutional: absent: Chills, Fever - Cardiovascular Cardiovascular: Chest Pain - Respiratory Respiratory: absent: Cough - Gastrointestinal Gastrointestinal: absent: Abdominal Pain - Genitourinary Genitourinary: absent: Dysuria, Hematuria - Musculoskeletal Musculoskeletal: absent: Back Pain - Neurological Neurological: absent: Headaches, Weakness Past Patient History - Infectious Disease Hx of Infectious Diseases: None - Past Medical History & Family History Past Medical History?: Yes - Past Social History Smoking Status: Heavy Smoker > 10 Cigarettes Daily Alcohol: None Drugs: Cocaine - CARDIAC Hx Hypercholesterolemia: Yes Hx Hypertension: Yes - PULMONARY Hx Asthma: Yes Hx Chronic Obstructive Pulmonary Disease (COPD): Yes Hx Emphysema: Yes - NEUROLOGICAL Hx Seizures: No - HEENT Hx HEENT Problems: No - RENAL Hx Chronic Kidney Disease: No - ENDOCRINE/METABOLIC Hx Endocrine Disorders: No - HEMATOLOGICAL/ONCOLOGICAL Hx Blood Disorders: No Hx Human Immunodeficiency Virus (HIV): No - INTEGUMENTARY Hx Dermatological Problems: No - MUSCULOSKELETAL/RHEUMATOLOGICAL Hx Musculoskeletal Disorders: No Hx Falls: No - GASTROINTESTINAL Hx Gastrointestinal Disorders: Yes Other/Comment: left inguinal hernia - GENITOURINARY/GYNECOLOGICAL Hx Genitourinary Disorders: No Hx Sexually Transmitted Disorders: No - PSYCHIATRIC Hx Anxiety: Yes Hx Depression: Yes Hx Schizophrenia: Yes - SURGICAL HISTORY Hx Coronary Stent: Yes (x 4) Hx Tonsillectomy: Yes - ANESTHESIA Hx Anesthesia: Yes Hx Anesthesia Reactions: No Hx Malignant Hyperthermia: No Meds Allergies/Adverse Reactions: Allergies Allergy/AdvReac Type Severity Reaction Status Date / Time No Known Allergies Allergy Verified 05/26/17 11:47 Physical Exam - Constitutional Appears: Non-toxic, No Acute Distress - Head Exam Head Exam: ATRAUMATIC, NORMAL INSPECTION - Eye Exam Eye Exam: Normal appearance - ENT Exam ENT Exam: Mucous Membranes Moist - Neck Exam Neck exam: Positive for: Normal Inspection - Respiratory Exam Respiratory Exam: Clear to Auscultation Bilateral - Cardiovascular Exam Cardiovascular Exam: REGULAR RHYTHM. absent: Systolic Murmur - GI/Abdominal Exam GI & Abdominal Exam: Normal Bowel Sounds, Soft - Extremities Exam Extremities exam: Positive for: normal inspection. Negative for: pedal edema - Back Exam Back exam: NORMAL INSPECTION - Neurological Exam Neurological exam: Alert, Oriented x3 - Skin Skin Exam: Dry, Warm Results - Vital Signs Recent Vital Signs: Last Vital Signs Temp 99.7 F H 06/26/17 09:15 Pulse 93 H 06/26/17 09:34 Resp 18 06/26/17 09:34 BP 137/74 06/26/17 09:34 Pulse Ox 94 L 06/26/17 09:34 - Labs Result Diagrams: 06/26/17 06:23 06/26/17 06:23 Labs: Laboratory Results - last 24 hr 06/26/17 06/26/17 06/26/17 06:23 06:23 06:23 WBC 6.3 RBC 4.65 Hgb 15.8 Hct 45.4 MCV 97.5 H MCH 34.0 H MCHC 34.9 RDW 13.7 Plt Count 135 MPV 8.7 Neut % (Auto) 82.1 H Lymph % (Auto) 10.0 L Cross % (Auto) 7.3 Eos % (Auto) 0.0 Baso % (Auto) 0.6 Neut # 5.1 Lymph # 0.6 L Cross # 0.5 Eos # 0.0 Baso # 0.0 PT 12.2 INR 1.2 APTT 32.2 Sodium 139 Potassium 3.9 Chloride 102 Carbon Dioxide 22 Anion Gap 18 BUN 12 Creatinine 1.1 Est GFR ( Amer) > 60 Est GFR (Non-Af Amer) > 60 Random Glucose 117 H Lactic Acid Calcium 9.3 Troponin I 0.2640 H* Triglycerides Cholesterol LDL Cholesterol Direct HDL Cholesterol Urine Opiates Screen Urine Methadone Screen Ur Barbiturates Screen Ur Phencyclidine Scrn Ur Amphetamines Screen U Benzodiazepines Scrn U Oth Cocaine Metabols U Cannabinoids Screen Alcohol, Quantitative < 10 06/26/17 06/26/17 06/26/17 06:23 06:57 09:15 WBC RBC Hgb Hct MCV MCH MCHC RDW Plt Count MPV Neut % (Auto) Lymph % (Auto) Cross % (Auto) Eos % (Auto) Baso % (Auto) Neut # Lymph # Cross # Eos # Baso # PT INR APTT Sodium Potassium Chloride Carbon Dioxide Anion Gap BUN Creatinine Est GFR ( Amer) Est GFR (Non-Af Amer) Random Glucose Lactic Acid 1.3 Calcium Troponin I Triglycerides 172 H D Cholesterol 174 LDL Cholesterol Direct 109 HDL Cholesterol 40 Urine Opiates Screen Positive H Urine Methadone Screen Negative Ur Barbiturates Screen Negative Ur Phencyclidine Scrn Negative Ur Amphetamines Screen Negative U Benzodiazepines Scrn Negative U Oth Cocaine Metabols Positive H U Cannabinoids Screen Negative Alcohol, Quantitative Assessment & Plan - Assessment and Plan (Free Text) Assessment: 56yo M with PMHx HTN and CAD admitted for NSTEMI. NSTEMI -cardio on board, appreciate input -lovenox 75mg SC BID -statin high dose -ASA -plavix -trend troponin -ECHO -cardiac cath Thursday -nitro h/o HTN -metoprolol 25 q8 -valsartan h/o asthma -duoneb prn DVT ppx -lovenox Decision To Admit - Pt Status Changed To: Hospital Disposition Of: Inpatient - Admit Certification Admit to Inpatient:: After my assessment, the patient will require hospitalization for at least two midnights. This is because of the severity of symptoms shown, intensity of services needed, and/or the medical risk in this patient being treated as an outpatient. - . Bed Request Type: Telemetry Admitting Physician: Jace Herrmann
[2017-06-26] MEDS: Fluticasone-Salmeterol 250-50mcg Diskus IH SCH ×2 (11:53→21:57)
--- NOTE | 2017-06-26 11:54 | CARD ---
APPROVED REPORT EXAM: Two-dimensional and M-mode echocardiogram with Doppler and color Doppler. Other Information Quality : GoodRhythm : NSR INDICATION LV Function:SystolicDiastolic 2D DIMENSIONS Left Atrium (2D)3.82 (1.6-4.0cm)IVSd1.60 (0.7-1.1cm) Aortic Root (2D)3.06 (2.0-3.7cm)LVDd5.19 (3.9-5.9cm) LVOT Diameter2.33 (1.8-2.4cm)PWd1.42 (0.7-1.1cm) IVSs1.50 (0.8-1.2cm)LVDs4.14 (2.5-4.0cm) FS (%) 20.2 %PWs1.74 (0.8-1.2cm) M-Mode DIMENSIONS Left Atrium (MM)3.74 (2.5-4.0cm)IVSd1.09 (0.7-1.1cm) Aortic Root3.08 (2.2-3.7cm)LVDd5.56 (4.0-5.6cm) Aortic Cusp Exc.2.25 (1.5-2.0cm)PWd0.96 (0.7-1.1cm) IVSs1.09 cmFS (%) 20 % LVDs4.43 (2.0-3.8cm) Mitral Valve MV E Piwmrdfe73.6cm/sMV DECEL [id number] A Rkovbsjt01.6cm/s MV BZT05duV/A ratio0.8MVA (PHT)4.52cm2 TDI Lateral E' Peak V14.75cm/sMedial E' Peak V7.99cm/sE/Lateral E'3.4 E/Medial E'6.3 Pulmonary Valve PV Peak Cxruibsp133.1cm/s Tricuspid Valve TR Peak Ciufhiro342dk/sRAP [id number] Peak Gr.28mmHg [id number] LEFT VENTRICLE The left ventricle is normal size. There is normal left ventricular wall thickness. The left ventricular function is normal. The left ventricular ejection fraction is within the normal range. The Ejection Fraction is 50-55%. There is normal LV segmental wall motion. The left ventricular diastolic function is normal. No left ventricle thrombus noted on this study. There is no mass noted in the left ventricle. RIGHT VENTRICLE The right ventricle is normal size. There is normal right ventricular wall thickness. The right ventricular systolic function is normal. ATRIA The left atrium size is normal. The right atrium size is normal. The interatrial septum is intact with no evidence for an atrial septal defect. AORTIC VALVE The aortic valve is normal in structure and function. No aortic regurgitation is present. There is no aortic valvular stenosis. There is no aortic valvular vegetation. MITRAL VALVE The mitral valve is normal in structure and function. There is no evidence of mitral valve prolapse. There is no mitral valve stenosis. There is no mitral valve regurgitation noted. TRICUSPID VALVE The tricuspid valve is normal in structure and function. There is no tricuspid valve regurgitation noted. There is no tricuspid valve prolapse or vegetation. There is no tricuspid valve stenosis. PULMONIC VALVE The pulmonary valve is normal in structure and function. There is no pulmonic valvular regurgitation. There is no pulmonic valvular stenosis. GREAT VESSELS The aortic root is normal in size. The IVC is normal in size and collapses >50% with inspiration. PERICARDIAL EFFUSION The pericardium appears normal. There is no pleural effusion. <Conclusion> The left ventricle is normal size. The left ventricular function is normal. The left ventricular ejection fraction is within the normal range. The Ejection Fraction is 50-55%.
--- NOTE | 2017-06-26 17:46 | CP.PCM.CON ---
History of Present Illness - History of Present Illness History of Present Illness: pt with multiple hours of chest pressure and lue pain. pt has a hx of pci x 4. he is reportedly noncompliant with medical therapy. he denies following up w cardiology outpt. pt is cp free at time of eval. ekg shows no st elevation. THERE IS HOWEVER, MINIMAL ST DEPRESSIONS LATERALLY AND INVERTED T WAVES IN LAT AND HIGH LAT LEADS. Pt states sx are similar to his prior attacks. he has htn, dyslipidemia, and hx of tobacco and coccaine use. Review of Systems - Constitutional Constitutional: As Per HPI. absent: Anorexia, Chills, Daytime Sleepiness, Excessive Sweating, Fatigue, Fever, Frequent Falls, Headache, Increased Appetite , Lethargy, Malaise, Night Sweats, Snoring, Sleep Apnea, Weight Gain, Weight Loss, Weakness, Other - EENT Eyes: As Per HPI. absent: Blind Spots, Blurred Vision, Change in Vision, Decreased Night Vision, Diplopia, Discharge, Dry Eye, Exophthalmos, Floaters, Irritation, Itchy Eyes, Loss of Peripheral Vision, Pain, Photophobia, Requires Corrective Lenses, Sees Flashes, Spots in Vision, Tunnel Vision, Other Visual Disturbances, Loss of Vision, Other Ears: As Per HPI. absent: Decreased Hearing, Ear Discharge, Ear Pain, Tinnitus , Abnormal Hearing, Disequilibrium, Dizziness, Other Nose/Mouth/Throat: As Per HPI. absent: Epistaxis, Nasal Congestion, Nasal Discharge, Nasal Obstruction, Nasal Trauma, Nose Pain, Post Nasal Drip, Sinus Pain, Sinus Pressure, Bleeding Gums, Change in Voice, Dental Pain, Dry Mouth, Dysphagia, Halitosis, Hoarsness, Lip Swelling, Mouth Lesions, Mouth Pain, Odynophagia, Sore Throat, Throat Swelling, Tongue Swelling, Facial Pain, Neck Pain, Neck Mass, Other - Cardiovascular Cardiovascular: Chest Pain, Chest Pain with Activity, Dyspnea on Exertion, Pain Radiating to Arm/Neck/Jaw. absent: As Per HPI, Acrocyanosis, Chest Pain at Rest , Claudication, Diaphoresis, Dyspnea, Edema, Irregular Heart Rhythm, Leg Edema, Leg Ulcers, Lightheadedness, Orthopnea, Palpitations, Paroxysmal Nocturnal Dyspnea, Pedal Edema, Radiating Pain, Rapid Heart Rate, Slow Heart Rate, Syncope , Other - Respiratory Respiratory: As Per HPI. absent: Cough, Dyspnea, Hemoptysis, Dyspnea on Exertion, Wheezing, Snoring, Stridor, Pain on Inspiration, Chest Congestion, Excessive Mucous Production, Change in Mucous Color, Pain with Coughing, Other - Gastrointestinal Gastrointestinal: As Per HPI. absent: Abdominal Pain, Belching, Bloating, Change in Bowel Habits, Change in Stool Character, Coffee Ground Emesis, Constipation, Cramping, Diarrhea, Dyspepsia, Dysphagia, Early Satiety, Excessive Flatus, Fecal Incontinence, Heartburn, Hematemesis, Hematochezia, Loose Stools, Melena, Nausea, Odynophagia, Temesmus, Vomiting, Other - Genitourinary Genitourinary: As Per HPI. absent: Change in Urinary Stream, Difficulty Urinating, Dysuria, Flank Pain, Hematuria, Pyuria, Nocturia, Urinary Incontinence, Urinary Frequency, Urinary Hesitance, Urinary Urgency, Voiding Freq/Small Amts, Freq UTI, Hx Renal/Bladder Calculi, Hx /Renal Surgery, Bladder Distension, Other - Musculoskeletal Musculoskeletal: As Per HPI. absent: Abnormal Gait, Arthralgias, Atrophy, Back Pain, Deformity, Joint Swelling, Limited Range of Motion, Loss of Height, Muscle Cramps, Muscle Weakness, Myalgias, Neck Pain, Numbness, Radiating Pain into Limb, Stiffness, Tingling, Other - Integumentary Integumentary: As Per HPI. absent: Acne, Alopecia, Bleeding Lesions, Change in Hair, Change in Nails, Change in Pigmentation, Changing Lesions, Dry Skin, Erythema, Furuncle, Hirsutism, Lesions, New Lesions, Non-Healing Lesions, Photosensitivity, Pruritus, Rash, Skin Pain, Skin Ulcer, Sores, Striae, Swelling , Unusual Bruising, Wounds, Jaundice, Other - Neurological Neurological: As Per HPI. absent: Abnormal Gait, Abnormal Hearing, Abnormal Movements, Abnormal Speech, Behavioral Changes, Burning Sensations, Confusion, Convulsions, Disequilibrium, Dizziness, Numbness, Focal Weakness, Frequent Falls , Headaches, Lack of Coordination, Loss of Vision, Memory Loss, Paresthesias, Radicular Pain, Restless Legs, Sensory Deficit, Syncope, Tingling, Tremor, Vertigo, Weakness, Other Visual Disturbances, Other - Psychiatric Psychiatric: As Per HPI. absent: Abnormal Sleep Pattern, Anhedonia, Anxiety, Auditory Hallucinations, Behavioral Changes, Change in Appetite, Change in Libido, Confusion, Depression, Difficulty Concentrating, Hallucinations, Homicidal Ideation, Hopelessness, Irritability, Memory Loss, Mood Swings, Panic Attacks, Paranoia, Suicidal Ideation, Visual Hallucinations, Tactile Hallucinations, Other - Endocrine Endocrine: As Per HPI. absent: Change in Body Appearance, Change in Libido, Cold Intolorance, Deepening of Voice, Excessive Sweating, Fatigue, Flushing, Heat Intolorance, Increase in Ring/Shoe/Hat Size, Palpitations, Polydipsia, Polyphagia, Polyuria, Other - Hematologic/Lymphatic Hematologic: As Per HPI. absent: Easy Bleeding, Easy Bruising, Lymphadenopathy , Other Past Patient History - Infectious Disease Hx of Infectious Diseases: None - Past Medical History & Family History Past Medical History?: Yes - Past Social History Smoking Status: Heavy Smoker > 10 Cigarettes Daily Chewing Tobacco Use: No Cigar Use: No Alcohol: None Drugs: Cocaine - CARDIAC Hx Hypercholesterolemia: Yes Hx Hypertension: Yes - PULMONARY Hx Asthma: Yes Hx Chronic Obstructive Pulmonary Disease (COPD): Yes Hx Emphysema: Yes - NEUROLOGICAL Hx Seizures: No - HEENT Hx HEENT Problems: No - RENAL Hx Chronic Kidney Disease: No - ENDOCRINE/METABOLIC Hx Endocrine Disorders: No - HEMATOLOGICAL/ONCOLOGICAL Hx Blood Disorders: No Hx Human Immunodeficiency Virus (HIV): No - INTEGUMENTARY Hx Dermatological Problems: No - MUSCULOSKELETAL/RHEUMATOLOGICAL Hx Musculoskeletal Disorders: No Hx Falls: No - GASTROINTESTINAL Hx Gastrointestinal Disorders: Yes Other/Comment: left inguinal hernia - GENITOURINARY/GYNECOLOGICAL Hx Genitourinary Disorders: No Hx Sexually Transmitted Disorders: No - PSYCHIATRIC Hx Anxiety: Yes Hx Depression: Yes Hx Schizophrenia: Yes - SURGICAL HISTORY Hx Coronary Stent: Yes (x 4) Hx Tonsillectomy: Yes - ANESTHESIA Hx Anesthesia: Yes Hx Anesthesia Reactions: No Hx Malignant Hyperthermia: No Meds Allergies/Adverse Reactions: Allergies Allergy/AdvReac Type Severity Reaction Status Date / Time No Known Allergies Allergy Verified 05/26/17 11:47 - Medications Medications: Current Medications Albuterol/Ipratropium (Duoneb 3 Mg/0.5 Mg (3 Ml) Ud) 3 ml INH RQ4 PRN PRN Reason: Shortness of Breath Aspirin (Aspirin Chewable) 81 mg PO DAILY [facility] Atorvastatin Calcium (Lipitor) 80 mg PO DAILY [facility] Clopidogrel Bisulfate (Plavix) 75 mg PO DAILY [facility] Enoxaparin Sodium (Lovenox) 70 mg SC Q12 [facility] PRN Reason: Protocol Metoprolol Tartrate (Lopressor) 25 mg PO Q8 [facility] Nitroglycerin (Nitrostat Sl Tab) 0.4 mg SL Q5M PRN PRN Reason: ANGINA Fluticasone/Salmeterol (Advair Diskus 250/50) 1 puff IH Q12 [facility] Last Admin: 06/26/17 11:53 Dose: 1 puff Valsartan (Diovan) 80 mg PO DAILY [facility] Last Admin: 06/26/17 11:52 Dose: 80 mg Physical Exam - Constitutional Appears: Well - Head Exam Head Exam: ATRAUMATIC, NORMAL INSPECTION, NORMOCEPHALIC - Eye Exam Eye Exam: EOMI, Normal appearance, PERRL. absent: Conjunctival injection, Nystagmus, Periorbital swelling, Periorbital tenderness, Scleral icterus Pupil Exam: NORMAL ACCOMODATION, PERRL. absent: Fixed, Irregular, Miosis, Mydriatic, Unequal - ENT Exam ENT Exam: Mucous Membranes Moist, Normal Exam. absent: Mucous Membranes Dry, Normal External Ear Exam, Normal Oropharynx, TM's Normal Bilaterally - Neck Exam Neck exam: Positive for: Normal Inspection. Negative for: Full Rom, Lymphadenopathy, Meningismus, Tenderness, Thyromegaly - Respiratory Exam Respiratory Exam: Clear to Auscultation Bilateral, NORMAL BREATHING PATTERN. absent: Accessory Muscle Use, Chest Wall Tenderness, Decreased Breath Sounds, Prolonged Expiratory Phase, Rales, Rhonchi, Wheezes, Respiratory Distress, Stridor - Cardiovascular Exam Cardiovascular Exam: REGULAR RHYTHM, +S1, +S2, Systolic Murmur. absent: Bradycardia, Tachycardia, Clicks, Diastolic murmur, Gallop, Irregular Rhythm, JVD, RRR, Rubs, +S4 - GI/Abdominal Exam GI & Abdominal Exam: Normal Bowel Sounds, Soft. absent: Bruit, Diminished Bowel Sounds, Distended, Firm, Guarding, Hernia, Hyperactive Bowel Sounds, Hypoactive Bowel Sounds, Mass, Organomegaly, Pulsatile Mass, Rebound, Rigid, Tenderness - Rectal Exam Rectal Exam: Deferred - Extremities Exam Extremities exam: Positive for: normal inspection. Negative for: calf tenderness, full ROM, joint swelling, normal capillary refill, pedal edema, tenderness, pedal pulses present - Back Exam Back exam: NORMAL INSPECTION. absent: CVA tenderness (L), CVA tenderness (R), FULL ROM, muscle spasm, paraspinal tenderness, rash noted, tenderness, vertebral tenderness - Neurological Exam Neurological exam: Alert, CN II-XII Intact, Normal Gait, Oriented x3, Reflexes Normal - Psychiatric Exam Psychiatric exam: Normal Affect, Normal Mood - Skin Skin Exam: Dry, Intact, Normal Color, Warm Results - Vital Signs Recent Vital Signs: Last Vital Signs Temp 98.4 F 06/26/17 15:35 Pulse 88 06/26/17 15:35 Resp 20 06/26/17 15:35 BP 155/73 H 06/26/17 15:35 Pulse Ox 99 06/26/17 15:35 - Labs Result Diagrams: 06/26/17 06:23 06/28/17 05:30 Labs: Laboratory Results - last 24 hr 06/26/17 06/26/17 06/26/17 06:23 06:23 06:23 WBC 6.3 RBC 4.65 Hgb 15.8 Hct 45.4 MCV 97.5 H MCH 34.0 H MCHC 34.9 RDW 13.7 Plt Count 135 MPV 8.7 Neut % (Auto) 82.1 H Lymph % (Auto) 10.0 L [place] % (Auto) 7.3 Eos % (Auto) 0.0 Baso % (Auto) 0.6 Neut # 5.1 Lymph # 0.6 L [place] # 0.5 Eos # 0.0 Baso # 0.0 PT 12.2 INR 1.2 APTT 32.2 Sodium 139 Potassium 3.9 Chloride 102 Carbon Dioxide 22 Anion Gap 18 BUN 12 Creatinine 1.1 Est GFR ( Amer) > 60 Est GFR (Non-Af Amer) > 60 Random Glucose 117 H Hemoglobin A1c Lactic Acid Calcium 9.3 Troponin I 0.2640 H* Triglycerides Cholesterol LDL Cholesterol Direct HDL Cholesterol Vitamin B12 25-OH Vitamin D Total TSH 3rd Generation Urine Opiates Screen Urine Methadone Screen Ur Barbiturates Screen Ur Phencyclidine Scrn Ur Amphetamines Screen U Benzodiazepines Scrn U Oth Cocaine Metabols U Cannabinoids Screen Alcohol, Quantitative < 10 Hepatitis A IgM Ab Hep Bs Antigen Hep B Core IgM Ab Hepatitis C Antibody 06/26/17 06/26/17 06/26/17 06:23 06:57 09:15 WBC RBC Hgb Hct MCV MCH MCHC RDW Plt Count MPV Neut % (Auto) Lymph % (Auto) [place] % (Auto) Eos % (Auto) Baso % (Auto) Neut # Lymph # [place] # Eos # Baso # PT INR APTT Sodium Potassium Chloride Carbon Dioxide Anion Gap BUN Creatinine Est GFR ( Amer) Est GFR (Non-Af Amer) Random Glucose Hemoglobin A1c Lactic Acid 1.3 Calcium Troponin I Triglycerides 172 H D Cholesterol 174 LDL Cholesterol Direct 109 HDL Cholesterol 40 Vitamin B12 744 25-OH Vitamin D Total TSH 3rd Generation 0.86 Urine Opiates Screen Positive H Urine Methadone Screen Negative Ur Barbiturates Screen Negative Ur Phencyclidine Scrn Negative Ur Amphetamines Screen Negative U Benzodiazepines Scrn Negative U Oth Cocaine Metabols Positive H U Cannabinoids Screen Negative Alcohol, Quantitative Hepatitis A IgM Ab Hep Bs Antigen Hep B Core IgM Ab Hepatitis C Antibody Negative 06/26/17 06/26/17 06/26/17 09:15 09:15 09:15 WBC RBC Hgb Hct MCV MCH MCHC RDW Plt Count MPV Neut % (Auto) Lymph % (Auto) [place] % (Auto) Eos % (Auto) Baso % (Auto) Neut # Lymph # [place] # Eos # Baso # PT INR APTT Sodium Potassium Chloride Carbon Dioxide Anion Gap BUN Creatinine Est GFR ( Amer) Est GFR (Non-Af Amer) Random Glucose Hemoglobin A1c 5.7 Lactic Acid Calcium Troponin I Triglycerides Cholesterol LDL Cholesterol Direct HDL Cholesterol Vitamin B12 25-OH Vitamin D Total 32.1 TSH 3rd Generation Urine Opiates Screen Urine Methadone Screen Ur Barbiturates Screen Ur Phencyclidine Scrn Ur Amphetamines Screen U Benzodiazepines Scrn U Oth Cocaine Metabols U Cannabinoids Screen Alcohol, Quantitative Hepatitis A IgM Ab Negative Hep Bs Antigen Negative Hep B Core IgM Ab Negative Hepatitis C Antibody Negative Assessment & Plan (1) History of percutaneous coronary intervention Status: Acute (2) NSTEMI (non-ST elevated myocardial infarction) Status: Acute (3) Hypertension Status: Acute (4) Noncompliance with medication regimen Status: Acute (5) CAD (coronary artery disease) Status: Chronic (6) Cocaine abuse Status: Chronic - Assessment and Plan (Free Text) Plan: pt needs anticoag, asa, and plavix monitor on tele prn sl ntg hr and bp contol bb's, o2 cath in near future trend trop
[2017-06-26 17:48] LABS: FOLATE > 20.0 ng/mL
[2017-06-26] MEDS: Albuterol-Ipratrop 3 mg / 0.5 (3 ml) UD INH PRN (20:10)
[2017-06-26] MEDS ORDERED: Enoxaparin 80 mg Syringe SC SCH (21:00)
[2017-06-26] MEDS: Enoxaparin 80 mg Syringe SC SCH (21:58)
--- NOTE | 2017-06-27 03:19 | CP.PCM.PCO ---
Physician Communication Note - Physician Communication Note Physician Communication Note: Pt continues to refuse blood draws Hospital Course - Lab Results Lab Results: Most Recent Lab Values WBC 6.3 K/uL (4.8-10.8) 06/26/17 06:23 RBC 4.65 Mil/uL (4.40-5.90) 06/26/17 06:23 Hgb 15.8 g/dL (12.0-18.0) 06/26/17 06:23 Hct 45.4 % (35.0-51.0) 06/26/17 06:23 MCV 97.5 fl (80.0-94.0) H 06/26/17 06:23 MCH 34.0 pg (27.0-31.0) H 06/26/17 06:23 MCHC 34.9 g/dL (33.0-37.0) 06/26/17 06:23 RDW 13.7 % (11.5-14.5) 06/26/17 06:23 Plt Count 135 K/uL (130-400) 06/26/17 06:23 MPV 8.7 fl (7.2-11.7) 06/26/17 06:23 Neut % (Auto) 82.1 % (50.0-75.0) H 06/26/17 06:23 Lymph % (Auto) 10.0 % (20.0-40.0) L 06/26/17 06:23 [place] % (Auto) 7.3 % (0.0-10.0) 06/26/17 06:23 Eos % (Auto) 0.0 % (0.0-4.0) 06/26/17 06:23 Baso % (Auto) 0.6 % (0.0-2.0) 06/26/17 06:23 Neut # 5.1 K/uL (1.8-7.0) 06/26/17 06:23 Lymph # 0.6 K/uL (1.0-4.3) L 06/26/17 06:23 [place] # 0.5 K/uL (0.0-0.8) 06/26/17 06:23 Eos # 0.0 K/uL (0.0-0.7) 06/26/17 06:23 Baso # 0.0 K/uL (0.0-0.2) 06/26/17 06:23 PT 12.2 Seconds (9.8-13.1) 06/26/17 06:23 INR 1.2 (0.9-1.2) 06/26/17 06:23 APTT 32.2 Seconds (25.6-37.1) 06/26/17 06:23 Sodium 139 mmol/l (132-148) 06/26/17 06:23 Potassium 3.9 MMOL/L (3.6-5.0) 06/26/17 06:23 Chloride 102 mmol/L (98-107) 06/26/17 06:23 Carbon Dioxide 22 mmol/L (22-30) 06/26/17 06:23 Anion Gap 18 (10-20) 06/26/17 06:23 BUN 12 mg/dl (9-20) 06/26/17 06:23 Creatinine 1.1 mg/dL (0.8-1.5) 06/26/17 06:23 Est GFR ( Amer) > 60 06/26/17 06:23 Est GFR (Non-Af Amer) > 60 06/26/17 06:23 Random Glucose 117 mg/dL (75-110) H 06/26/17 06:23 Hemoglobin A1c 5.7 % (4.2-6.5) 06/26/17 09:15 Lactic Acid 1.3 MMOL/L (0.7-2.1) 06/26/17 06:23 Calcium 9.3 mg/dL (8.4-10.2) 06/26/17 06:23 Troponin I 0.1780 ng/mL (0.00-0.120) H* 06/26/17 19:00 Triglycerides 172 mg/DL (0-149) H D 06/26/17 09:15 Cholesterol 174 mg/dL (0-199) 06/26/17 09:15 LDL Cholesterol Direct 109 mg/dL (0-129) 06/26/17 09:15 HDL Cholesterol 40 MG/DL (30-70) 06/26/17 09:15 Vitamin B12 744 pg/mL (239-931) 06/26/17 09:15 25-OH Vitamin D Total 32.1 NG/ML (30.0-100.0) 06/26/17 09:15 Folate > 20.0 ng/mL 06/26/17 09:15 TSH 3rd Generation 0.86 mIU/ML (0.46-4.68) 06/26/17 09:15 Urine Opiates Screen Positive (NEGATIVE) H 06/26/17 06:57 Urine Methadone Screen Negative (NEGATIVE) 06/26/17 06:57 Ur Barbiturates Screen Negative (NEGATIVE) 06/26/17 06:57 Ur Phencyclidine Scrn Negative (NEGATIVE) 06/26/17 06:57 Ur Amphetamines Screen Negative (NEGATIVE) 06/26/17 06:57 U Benzodiazepines Scrn Negative (NEGATIVE) 06/26/17 06:57 U Oth Cocaine Metabols Positive (NEGATIVE) H 06/26/17 06:57 U Cannabinoids Screen Negative (NEGATIVE) 06/26/17 06:57 Alcohol, Quantitative < 10 mg/dl (0-10) 06/26/17 06:23 Hepatitis A IgM Ab Negative (NEGATIVE) 06/26/17 09:15 Hep Bs Antigen Negative (NEGATIVE) 06/26/17 09:15 Hep B Core IgM Ab Negative (NEGATIVE) 06/26/17 09:15 Hepatitis C Antibody Negative (NEGATIVE) 06/26/17 09:15 - Hospital Course Hospital Course: Pt's 2pm troponin was not drawn till after 6 because he initially refused the 2pm, nurse did not make day team aware until lab was called regarding the results at 6pm. Pt was seen by 6:30pm discussed with pt the importance of having these labs drawn he agreed to have labs, done. Pt nurse just paged me stating he refused 3am troponin again.
[2017-06-27 08:08] LABS: BLOOD UREA NITROGEN 24 mg/dl (9-20); CALCIUM 10.1 mg/dL (8.4-10.2); CARBON DIOXIDE 27 mmol/L (22-30); CHLORIDE 101 mmol/L (98-107); GFR AFRICAN-AMERICAN > 60; GLUCOSE,RANDOM 136 mg/dL (75-110); POTASSIUM 4.2 MMOL/L (3.6-5.0); SODIUM 146 mmol/l (132-148)
[2017-06-27] MEDS: Enoxaparin 80 mg Syringe SC SCH ×2 (09:33→21:13)
[2017-06-27] MEDS: Fluticasone-Salmeterol 250-50mcg Diskus IH SCH ×2 (09:34→21:11)
[2017-06-27] MEDS: guaiFENesin-DM 600-30 mg ER Tab PO SCH ×2 (10:14→16:34)
--- NOTE | 2017-06-27 10:24 | CP.PCM.PN ---
Subjective - Date & Time of Evaluation Date of Evaluation: 06/27/17 Time of Evaluation: 10:24 Objective - Vital Signs/Intake and Output Vital Signs (last 24 hours): Temp Pulse Resp BP Pulse Ox 98 F 65 18 135/77 94 L 06/27/17 08:22 06/27/17 09:35 06/27/17 08:22 06/27/17 09:35 06/27/17 08:22 - Medications Medications: Current Medications Acetaminophen (Tylenol 325mg Tab) 325 mg PO Q6 PRN PRN Reason: Pain, Mild (1-3) Albuterol/Ipratropium (Duoneb 3 Mg/0.5 Mg (3 Ml) Ud) 3 ml INH RQ4 PRN PRN Reason: Shortness of Breath Last Admin: 06/26/17 20:10 Dose: 3 ml Aspirin (Aspirin Chewable) 81 mg PO DAILY [facility] Last Admin: 06/27/17 09:35 Dose: 81 mg Atorvastatin Calcium (Lipitor) 80 mg PO DAILY [facility] Last Admin: 06/27/17 09:34 Dose: 80 mg Clopidogrel Bisulfate (Plavix) 75 mg PO DAILY [facility] Last Admin: 06/27/17 09:35 Dose: 75 mg Enoxaparin Sodium (Lovenox) 70 mg SC Q12 [facility] PRN Reason: Protocol Last Admin: 06/27/17 09:33 Dose: 70 mg Guaifenesin/Dextromethorphan (Mucinex-Dm 600-30 Mg) 1 tab PO BID [facility] Last Admin: 06/27/17 10:14 Dose: 1 tab Metoprolol Tartrate (Lopressor) 25 mg PO Q8 [facility] Last Admin: 06/27/17 09:35 Dose: 25 mg Nicotine (Nicoderm Cq) 1 patch TD DAILY [facility] Last Admin: 06/27/17 09:36 Dose: 1 patch Nitroglycerin (Nitrostat Sl Tab) 0.4 mg SL Q5M PRN PRN Reason: ANGINA Fluticasone/Salmeterol (Advair Diskus 250/50) 1 puff IH Q12 [facility] Last Admin: 06/27/17 09:34 Dose: 1 puff Valsartan (Diovan) 80 mg PO DAILY [facility] Last Admin: 06/27/17 09:35 Dose: 80 mg - Labs Labs: 06/26/17 06:23 06/27/17 05:30 PT 12.2 Seconds (9.8-13.1) 06/26/17 06:23 INR 1.2 (0.9-1.2) 06/26/17 06:23 APTT 32.2 Seconds (25.6-37.1) 06/26/17 06:23
--- NOTE | 2017-06-27 12:26 | CP.PCM.PN ---
Subjective - Date & Time of Evaluation Date of Evaluation: 06/27/17 Time of Evaluation: 12:23 - Subjective Subjective: overnight, pt declined blood draw for troponin. eating/drinking well. Denies chest pain, SOB, abd pain. making urine and BM. Getting duonebs prn. c/o cough and post tussive abd pain Objective - Vital Signs/Intake and Output Vital Signs (last 24 hours): Temp Pulse Resp BP Pulse Ox 98 F 65 18 135/77 94 L 06/27/17 08:22 06/27/17 09:35 06/27/17 08:22 06/27/17 09:35 06/27/17 08:22 - Medications Medications: Current Medications Acetaminophen (Tylenol 325mg Tab) 325 mg PO Q6 PRN PRN Reason: Pain, Mild (1-3) Albuterol/Ipratropium (Duoneb 3 Mg/0.5 Mg (3 Ml) Ud) 3 ml INH RQ4 PRN PRN Reason: Shortness of Breath Last Admin: 06/26/17 20:10 Dose: 3 ml Aspirin (Aspirin Chewable) 81 mg PO DAILY [facility] Last Admin: 06/27/17 09:35 Dose: 81 mg Atorvastatin Calcium (Lipitor) 80 mg PO DAILY [facility] Last Admin: 06/27/17 09:34 Dose: 80 mg Clopidogrel Bisulfate (Plavix) 75 mg PO DAILY [facility] Last Admin: 06/27/17 09:35 Dose: 75 mg Enoxaparin Sodium (Lovenox) 70 mg SC Q12 [facility] PRN Reason: Protocol Last Admin: 06/27/17 09:33 Dose: 70 mg Guaifenesin/Dextromethorphan (Mucinex-Dm 600-30 Mg) 1 tab PO BID [facility] Last Admin: 06/27/17 10:14 Dose: 1 tab Losartan Potassium (Cozaar) 50 mg PO DAILY [facility] Metoprolol Tartrate (Lopressor) 50 mg PO Q6 [facility] Nicotine (Nicoderm Cq) 1 patch TD DAILY [facility] Last Admin: 06/27/17 09:36 Dose: 1 patch Nitroglycerin (Nitrostat Sl Tab) 0.4 mg SL Q5M PRN PRN Reason: ANGINA Fluticasone/Salmeterol (Advair Diskus 250/50) 1 puff IH Q12 [facility] Last Admin: 09/23/17 09:34 Dose: 1 puff - Labs Labs: 06/26/17 06:23 06/27/17 05:30 PT 12.2 Seconds (9.8-13.1) 06/26/17 06:23 INR 1.2 (0.9-1.2) 06/26/17 06:23 APTT 32.2 Seconds (25.6-37.1) 06/26/17 06:23 - Constitutional Appears: Non-toxic, No Acute Distress - Head Exam Head Exam: ATRAUMATIC, NORMAL INSPECTION - Eye Exam Eye Exam: Normal appearance - ENT Exam ENT Exam: Mucous Membranes Moist - Neck Exam Neck Exam: Tenderness - Respiratory Exam Respiratory Exam: Rhonchi, Wheezes - Cardiovascular Exam Cardiovascular Exam: REGULAR RHYTHM - GI/Abdominal Exam GI & Abdominal Exam: Soft, Tenderness - Neurological Exam Neurological Exam: Alert, Oriented x3 Assessment and Plan - Assessment and Plan (Free Text) Assessment: 56yo M with PMHx HTN and CAD admitted for NSTEMI. Plan: cardiac cath Thursday NSTEMI -cardio on board, appreciate input -lovenox 70mg SC BID -statin high dose -ASA -plavix -ECHO LVEF 50-55, otherwise normal -cardiac cath Thursday -nitro h/o HTN -metoprolol 25mg increased frequency to q6 from q8 -valsartan stopped -start cozaar h/o asthma -duoneb prn DVT ppx -lovenox
[2017-06-27] MEDS: Albuterol-Ipratrop 3 mg / 0.5 (3 ml) UD INH PRN ×2 (16:58→23:56)
[2017-06-28 07:44] LABS: BLOOD UREA NITROGEN 28 mg/dl (9-20); CALCIUM 9.4 mg/dL (8.4-10.2); CHLORIDE 105 mmol/L (98-107); GFR AFRICAN-AMERICAN > 60; GLUCOSE,RANDOM 159 mg/dL (75-110); MAGNESIUM 1.9 MG/DL (1.6-2.3); PHOSPHOROUS 4.4 mg/dl (2.5-4.5); POTASSIUM 3.9 MMOL/L (3.6-5.0); SODIUM 144 mmol/l (132-148)
[2017-06-28 08:00] LABS: CARBON DIOXIDE 22 mmol/L (22-30)
--- NOTE | 2017-06-28 09:05 | CP.PCM.PN ---
Subjective - Date & Time of Evaluation Date of Evaluation: 06/28/17 Time of Evaluation: 09:00 - Subjective Subjective: no overnight events. tolerating PO. Making urine and BM. Denies chest pain, SOB. Abd pain and cough improved. Waiting for cath tomorrow Objective - Vital Signs/Intake and Output Vital Signs (last 24 hours): Temp Pulse Resp BP Pulse Ox 98.1 F 61 18 138/82 98 06/28/17 08:11 06/28/17 08:11 06/28/17 08:11 06/28/17 08:11 06/28/17 08:11 - Medications Medications: Current Medications Acetaminophen (Tylenol 325mg Tab) 650 mg PO Q6 PRN PRN Reason: Pain, Mild (1-3) Last Admin: 06/28/17 06:49 Dose: 650 mg Albuterol/Ipratropium (Duoneb 3 Mg/0.5 Mg (3 Ml) Ud) 3 ml INH RQ4 PRN PRN Reason: Shortness of Breath Last Admin: 06/27/17 23:56 Dose: 3 ml Aspirin (Aspirin Chewable) 81 mg PO DAILY [facility] Last Admin: 06/27/17 09:35 Dose: 81 mg Atorvastatin Calcium (Lipitor) 80 mg PO DAILY [facility] Last Admin: 06/27/17 09:34 Dose: 80 mg Clopidogrel Bisulfate (Plavix) 75 mg PO DAILY [facility] Last Admin: 06/27/17 09:35 Dose: 75 mg Enoxaparin Sodium (Lovenox) 70 mg SC Q12 [facility] PRN Reason: Protocol Last Admin: 06/27/17 21:13 Dose: 70 mg Guaifenesin/Dextromethorphan (Mucinex-Dm 600-30 Mg) 1 tab PO BID [facility] Last Admin: 06/27/17 16:34 Dose: 1 tab Losartan Potassium (Cozaar) 50 mg PO DAILY [facility] Metoprolol Tartrate (Lopressor) 50 mg PO Q6 [facility] Last Admin: 06/28/17 04:05 Dose: Not Given Nicotine (Nicoderm Cq) 1 patch TD DAILY [facility] Last Admin: 06/27/17 09:36 Dose: 1 patch Nitroglycerin (Nitrostat Sl Tab) 0.4 mg SL Q5M PRN PRN Reason: ANGINA Last Admin: 06/27/17 23:27 Dose: 0.4 mg Fluticasone/Salmeterol (Advair Diskus 250/50) 1 puff IH Q12 [facility] Last Admin: 06/27/17 21:11 Dose: 1 puff - Labs Labs: 06/26/17 06:23 06/28/17 05:30 PT 12.2 Seconds (9.8-13.1) 06/26/17 06:23 INR 1.2 (0.9-1.2) 06/26/17 06:23 APTT 32.2 Seconds (25.6-37.1) 06/26/17 06:23 - Constitutional Appears: Non-toxic, No Acute Distress - Head Exam Head Exam: ATRAUMATIC, NORMAL INSPECTION - Eye Exam Eye Exam: Normal appearance - ENT Exam ENT Exam: Mucous Membranes Moist - Neck Exam Neck Exam: Normal Inspection - Respiratory Exam Respiratory Exam: Wheezes - Cardiovascular Exam Cardiovascular Exam: REGULAR RHYTHM - GI/Abdominal Exam GI & Abdominal Exam: Soft, Normal Bowel Sounds. absent: Tenderness - Extremities Exam Extremities Exam: Normal Inspection. absent: Pedal Edema - Back Exam Back Exam: NORMAL INSPECTION - Neurological Exam Neurological Exam: Alert, Oriented x3 - Skin Skin Exam: Dry, Warm Assessment and Plan - Assessment and Plan (Free Text) Assessment: 56yo M with PMHx HTN and CAD admitted for NSTEMI. Plan: cardiac cath Thursday, for asthma NSTEMI -cardio on board, appreciate input -lovenox 70mg SC BID -statin high dose -ASA -plavix -ECHO LVEF 50-55, otherwise normal -cardiac cath Thursday, NPO, hold lovenox for tomorrow -nitro acute asthma exacerbation -likely 2/2 smoking -methylprednisolone 125mg x1 today, then start 40mg IV tomorrow -duoneb QID -advair -mucinex -tylenol for post tussive abd pain h/o HTN -metoprolol 25mg q6 -c/w cozaar 50mg daily smoker -nicotine patch DVT ppx -lovenox
[2017-06-28] MEDS: Enoxaparin 80 mg Syringe SC SCH ×2 (09:36→21:38)
[2017-06-28] MEDS: guaiFENesin-DM 600-30 mg ER Tab PO SCH ×2 (09:37→16:58)
[2017-06-28] MEDS: Fluticasone-Salmeterol 250-50mcg Diskus IH SCH ×2 (09:37→21:37)
--- NOTE | 2017-06-28 13:19 | CP.PCM.PN ---
Subjective - Date & Time of Evaluation Date of Evaluation: 06/28/17 Time of Evaluation: 12:00 - Subjective Subjective: no cp or sob. trop decreasing. Objective - Vital Signs/Intake and Output Vital Signs (last 24 hours): Temp Pulse Resp BP Pulse Ox 97.5 F L 56 L 18 132/80 100 06/28/17 12:21 06/28/17 12:21 06/28/17 12:21 06/28/17 12:21 06/28/17 12:21 - Medications Medications: Current Medications Acetaminophen (Tylenol 325mg Tab) 650 mg PO Q6 PRN PRN Reason: Pain, Mild (1-3) Last Admin: 06/28/17 06:49 Dose: 650 mg Albuterol/Ipratropium (Duoneb 3 Mg/0.5 Mg (3 Ml) Ud) 3 ml INH QID [facility] Aspirin (Aspirin Chewable) 81 mg PO DAILY [facility] Last Admin: 06/28/17 09:38 Dose: 81 mg Atorvastatin Calcium (Lipitor) 80 mg PO DAILY [facility] Last Admin: 06/28/17 09:38 Dose: 80 mg Clopidogrel Bisulfate (Plavix) 75 mg PO DAILY [facility] Last Admin: 06/28/17 09:37 Dose: 75 mg Enoxaparin Sodium (Lovenox) 70 mg SC Q12 [facility] PRN Reason: Protocol Last Admin: 06/28/17 09:36 Dose: 70 mg Guaifenesin/Dextromethorphan (Mucinex-Dm 600-30 Mg) 1 tab PO BID [facility] Last Admin: 06/28/17 09:37 Dose: 1 tab Methylprednisolone 40 mg/ (Sodium Chloride) 50 mls @ 100 mls/hr IV DAILY [facility] Losartan Potassium (Cozaar) 50 mg PO DAILY [facility] Last Admin: 06/28/17 09:38 Dose: 50 mg Metoprolol Tartrate (Lopressor) 50 mg PO Q6 [facility] Last Admin: 06/28/17 09:37 Dose: 50 mg Nicotine (Nicoderm Cq) 1 patch TD DAILY [facility] Last Admin: 06/28/17 09:36 Dose: 1 patch Nitroglycerin (Nitrostat Sl Tab) 0.4 mg SL Q5M PRN PRN Reason: ANGINA Last Admin: 06/27/17 23:27 Dose: 0.4 mg Fluticasone/Salmeterol (Advair Diskus 250/50) 1 puff IH Q12 [facility] Last Admin: 06/28/17 09:37 Dose: 1 puff - Labs Labs: 06/26/17 06:23 06/28/17 05:30 PT 12.2 Seconds (9.8-13.1) 06/26/17 06:23 INR 1.2 (0.9-1.2) 06/26/17 06:23 APTT 32.2 Seconds (25.6-37.1) 06/26/17 06:23 - Constitutional Appears: Well - Head Exam Head Exam: ATRAUMATIC, NORMAL INSPECTION, NORMOCEPHALIC - Eye Exam Eye Exam: EOMI, Normal appearance, PERRL. absent: Conjunctival injection, Nystagmus, Periorbital swelling, Periorbital tenderness, Scleral icterus Pupil Exam: NORMAL ACCOMODATION, PERRL - ENT Exam ENT Exam: Mucous Membranes Moist, Normal Exam. absent: Mucous Membranes Dry, Normal External Ear Exam, Normal Oropharynx, TM's Normal Bilaterally - Neck Exam Neck Exam: Full ROM, Normal Inspection. absent: Lymphadenopathy - Respiratory Exam Respiratory Exam: Clear to Ausculation Bilateral, NORMAL BREATHING PATTERN. absent: Accessory Muscle Use, Chest Wall Tenderness, Decreased Breath Sounds, Prolonged Expiratory Phase, Rales, Rhonchi, Wheezes, Respiratory Distress, Stridor - Cardiovascular Exam Cardiovascular Exam: REGULAR RHYTHM, +S1, +S2, Murmur. absent: Bradycardia, Tachycardia, Clicks, Diastolic murmur, Gallop, Irregular Rhythm, JVD, RRR, Rubs , +S4 - GI/Abdominal Exam GI & Abdominal Exam: Soft, Normal Bowel Sounds. absent: Bruit, Distended, Firm , Guarding, Rigid, Tenderness, Diminished Bowel Sounds, Hernia, Hyperactive Bowel Sounds, Hypoactive Bowel Sounds, Organomegaly, Pulsatile Mass, Rebound, Mass - Rectal Exam Rectal Exam: Deferred. absent: Black Stool, Bloody Stool, Hemorrhoids, Fecal Impaction - Extremities Exam Extremities Exam: Full ROM, Normal Capillary Refill, Normal Inspection. absent : Calf Tenderness, Joint Swelling, Pedal Edema, Tenderness - Back Exam Back Exam: NORMAL INSPECTION. absent: CVA tenderness (L), CVA tenderness (R), Full ROM, muscle spasm, paraspinal tenderness, rash noted, tenderness, vertebral tenderness - Neurological Exam Neurological Exam: Alert, Awake, CN II-XII Intact, Normal Gait, Oriented x3. absent: Abnormal Gait, Altered, Motor Sensory Deficit, Reflexes Normal - Psychiatric Exam Psychiatric exam: Normal Affect, Normal Mood. absent: Agitated, Anxious, Depressed, Flat Affect, Homicidal Ideation, Manic, Suicidal Ideation - Skin Skin Exam: Dry, Intact, Normal Color, Warm. absent: Abrasion, Cyanosis, Diaphoretic, Erythema, Mottled, Pallor, Pallor, Petechiae, Rash, Urticaria, Vesicles Assessment and Plan (1) NSTEMI (non-ST elevated myocardial infarction) Status: Acute (2) History of percutaneous coronary intervention Status: Acute (3) Chest pain Status: Acute (4) Hypertension Status: Acute (5) Noncompliance with medication regimen Status: Acute (6) Alcohol dependence Status: Chronic (7) CAD (coronary artery disease) Status: Chronic (8) Cocaine abuse Status: Chronic - Assessment and Plan (Free Text) Plan: pt has hx of 4 prior pcis. for cardiac cath tomorrow npo p mn hold anticoag cr and plt stable
[2017-06-28] MEDS: Albuterol-Ipratrop 3 mg / 0.5 (3 ml) UD INH SCH ×2 (13:43→19:10)
[2017-06-28 15:45] VITALS: RESP 20
[2017-06-29 06:31] LABS: BLOOD UREA NITROGEN 28 mg/dl (9-20); CALCIUM 10.4 mg/dL (8.4-10.2); CARBON DIOXIDE 24 mmol/L (22-30); CHLORIDE 104 mmol/L (98-107); GFR AFRICAN-AMERICAN > 60; GLUCOSE,RANDOM 198 mg/dL (75-110); PHOSPHOROUS 4.1 mg/dl (2.5-4.5); POTASSIUM 4.8 MMOL/L (3.6-5.0); SODIUM 144 mmol/l (132-148)
[2017-06-29 06:46] LABS: PARTIAL THROMBOPLASTIN TIME 34.8 Seconds (25.6-37.1)
[2017-06-29 07:07] LABS: MEAN CELL VOLUME 98.5 fl (80.0-94.0); MEAN CORPUSCULAR HEMOGLOBIN 33.4 pg (27.0-31.0); MEAN CORPUSCULAR HGB CONC 33.9 g/dL (33.0-37.0); RED CELL DISTRIBUTION WIDTH 13.3 % (11.5-14.5)
[2017-06-29] MEDS: Albuterol-Ipratrop 3 mg / 0.5 (3 ml) UD INH SCH ×2 (07:27→11:26)
[2017-06-29 08:15] VITALS: BP 145/86; PULSE 67; TEMP 96.8; O2SAT 96
[2017-06-29] MEDS ORDERED: Sodium Chloride 0.9% 1,000 ML IV SCH (08:15)
[2017-06-29] MEDS ORDERED: methylPREDNISolone 40 MG in Sodium Chloride 0.9% 50 ML IV SCH (09:00)
--- NOTE | 2017-06-29 09:22 | CP.PCM.PN ---
Subjective - Date & Time of Evaluation Date of Evaluation: 06/29/17 Time of Evaluation: 07:55 - Subjective Subjective: Patient seen and examined in Telemetry unit this morning. Feeling better this morning. Denies Cp, SOB, N/V, abdominal pain, dizziness, or other complains. NPO for Cardiac Cath at [facility] (Former[facility]) per Dr. Anderson Afebrile, stable VS Objective - Vital Signs/Intake and Output Vital Signs (last 24 hours): Temp Pulse Resp BP Pulse Ox 96.8 F L 67 20 145/86 96 06/29/17 08:14 06/29/17 08:14 06/29/17 08:14 06/29/17 08:14 06/29/17 08:14 - Medications Medications: Current Medications Acetaminophen (Tylenol 325mg Tab) 650 mg PO Q6 PRN PRN Reason: Pain, Mild (1-3) Last Admin: 06/28/17 14:27 Dose: 650 mg Albuterol/Ipratropium (Duoneb 3 Mg/0.5 Mg (3 Ml) Ud) 3 ml INH QID [facility] Last Admin: 06/29/17 07:27 Dose: 3 ml Aspirin (Aspirin Chewable) 81 mg PO DAILY [facility] Last Admin: 06/28/17 09:38 Dose: 81 mg Atorvastatin Calcium (Lipitor) 80 mg PO DAILY [facility] Last Admin: 06/28/17 09:38 Dose: 80 mg Clopidogrel Bisulfate (Plavix) 75 mg PO DAILY [facility] Last Admin: 06/28/17 09:37 Dose: 75 mg Enoxaparin Sodium (Lovenox) 70 mg SC Q12 [facility] PRN Reason: Protocol Last Admin: 06/28/17 21:38 Dose: 70 mg Guaifenesin/Dextromethorphan (Mucinex-Dm 600-30 Mg) 1 tab PO BID [facility] Last Admin: 06/28/17 16:58 Dose: 1 tab Methylprednisolone 40 mg/ (Sodium Chloride) 50 mls @ 100 mls/hr IV DAILY [facility] Sodium Chloride (Sodium Chloride 0.9%) 1,000 mls @ 100 mls/hr IV .Q10H [facility] Stop: 06/30/17 08:03 Losartan Potassium (Cozaar) 50 mg PO DAILY [facility] Last Admin: 06/28/17 09:38 Dose: 50 mg Metoprolol Tartrate (Lopressor) 50 mg PO Q6 [facility] Last Admin: 06/29/17 04:15 Dose: 50 mg Nicotine (Nicoderm Cq) 1 patch TD DAILY [facility] Last Admin: 06/28/17 09:36 Dose: 1 patch Nitroglycerin (Nitrostat Sl Tab) 0.4 mg SL Q5M PRN PRN Reason: ANGINA Last Admin: 06/27/17 23:27 Dose: 0.4 mg Fluticasone/Salmeterol (Advair Diskus 250/50) 1 puff IH Q12 [facility] Last Admin: 06/28/17 21:37 Dose: 1 puff - Labs Labs: 06/29/17 05:35 06/29/17 05:35 PT 11.0 Seconds (9.8-13.1) 06/29/17 05:35 INR 1.1 (0.9-1.2) 06/29/17 05:35 APTT 34.8 Seconds (25.6-37.1) 06/29/17 05:35 - Constitutional Appears: No Acute Distress - ENT Exam ENT Exam: Mucous Membranes Moist - Respiratory Exam Respiratory Exam: Clear to Ausculation Bilateral, NORMAL BREATHING PATTERN - Cardiovascular Exam Cardiovascular Exam: REGULAR RHYTHM, +S1, +S2 - GI/Abdominal Exam GI & Abdominal Exam: Soft, Normal Bowel Sounds. absent: Distended, Guarding, Rigid, Tenderness - Extremities Exam Extremities Exam: Normal Inspection. absent: Calf Tenderness, Pedal Edema - Neurological Exam Neurological Exam: Alert, Awake, Oriented x3 Assessment and Plan - Assessment and Plan (Free Text) Assessment: 56 y/o M with PMHx HTN and CAD admitted for NSTEMI. Plan: Plan: cardiac cath for asthma NSTEMI NPO after midnight for Cardiac Cath today -cardio on board, appreciate input -Held lovenox 70 mg SC this morning for Cardiac cath today. Patient on Lovenox 70 mg SC Q12 -c/w Atorvastatin 80 mg -c/w aspirin 81 mg PO -c/w plavix 75 mg PO -Nitroglycerine SL as needed x 3 doses max -IV fluids while NPO -ECHO LVEF 50-55, otherwise normal Acute asthma exacerbation -likely 2/2 smoking, improving -Methylprednisolone 40mg IV started today -Duoneb QID -advair Diskus Q12 -mucinex 1 tab po BID -tylenol for post tussive abd pain h/o HTN -c/w metoprolol 25mg q6 PO -c/w Losartan 50 mg daily PO smoker -nicotine patch DVT ppx -Therapeutic Lovenox Held today morning dose for Cardiac cath
[2017-06-29] MEDS: Fluticasone-Salmeterol 250-50mcg Diskus IH SCH (09:41)
[2017-06-29] MEDS: guaiFENesin-DM 600-30 mg ER Tab PO SCH (10:30)
--- NOTE | 2017-06-30 12:31 | CP.PCM.DIS ---
Provider - Provider Date of Admission: 06/26/17 07:21 Attending physician: Jace Herrmann MD Time Spent in preparation of Discharge (in minutes): 30 Hospital Course - Lab Results Lab Results: Micro Results 06/26/17 06:53 Blood Blood Culture - Preliminary NO GROWTH AFTER 4 DAYS 06/26/17 19:00 Blood Blood Culture - Preliminary NO GROWTH AFTER 3 DAYS 06/26/17 18:50 Blood Blood Culture - Preliminary NO GROWTH AFTER 3 DAYS Most Recent Lab Values WBC 8.0 K/uL (4.8-10.8) 06/29/17 05:35 RBC 5.18 Mil/uL (4.40-5.90) 06/29/17 05:35 Hgb 17.3 g/dL (12.0-18.0) 06/29/17 05:35 Hct 51.0 % (35.0-51.0) 06/29/17 05:35 MCV 98.5 fl (80.0-94.0) H 06/29/17 05:35 MCH 33.4 pg (27.0-31.0) H 06/29/17 05:35 MCHC 33.9 g/dL (33.0-37.0) 06/29/17 05:35 RDW 13.3 % (11.5-14.5) 06/29/17 05:35 Plt Count 157 K/uL (130-400) 06/29/17 05:35 MPV 8.7 fl (7.2-11.7) 06/26/17 06:23 Neut % (Auto) 82.1 % (50.0-75.0) H 06/26/17 06:23 Lymph % (Auto) 10.0 % (20.0-40.0) L 06/26/17 06:23 [place] % (Auto) 7.3 % (0.0-10.0) 06/26/17 06:23 Eos % (Auto) 0.0 % (0.0-4.0) 06/26/17 06:23 Baso % (Auto) 0.6 % (0.0-2.0) 06/26/17 06:23 Neut # 5.1 K/uL (1.8-7.0) 06/26/17 06:23 Lymph # 0.6 K/uL (1.0-4.3) L 06/26/17 06:23 [place] # 0.5 K/uL (0.0-0.8) 06/26/17 06:23 Eos # 0.0 K/uL (0.0-0.7) 06/26/17 06:23 Baso # 0.0 K/uL (0.0-0.2) 06/26/17 06:23 PT 11.0 Seconds (9.8-13.1) 06/29/17 05:35 INR 1.1 (0.9-1.2) 06/29/17 05:35 APTT 34.8 Seconds (25.6-37.1) 06/29/17 05:35 Sodium 144 mmol/l (132-148) 06/29/17 05:35 Potassium 4.8 MMOL/L (3.6-5.0) 06/29/17 05:35 Chloride 104 mmol/L (98-107) 06/29/17 05:35 Carbon Dioxide 24 mmol/L (22-30) 06/29/17 05:35 Anion Gap 20 (10-20) 06/29/17 05:35 BUN 28 mg/dl (9-20) H 06/29/17 05:35 Creatinine 1.2 mg/dL (0.8-1.5) 06/29/17 05:35 Est GFR ( Amer) > 60 06/29/17 05:35 Est GFR (Non-Af Amer) > 60 06/29/17 05:35 Random Glucose 198 mg/dL (75-110) H 06/29/17 05:35 Hemoglobin A1c 5.7 % (4.2-6.5) 06/26/17 09:15 Lactic Acid 1.3 MMOL/L (0.7-2.1) 06/26/17 06:23 Calcium 10.4 mg/dL (8.4-10.2) H 06/29/17 05:35 Phosphorus 4.1 mg/dl (2.5-4.5) 06/29/17 05:35 Magnesium 2.0 MG/DL (1.6-2.3) 06/29/17 05:35 Troponin I 0.1780 ng/mL (0.00-0.120) H* 06/26/17 19:00 Triglycerides 172 mg/DL (0-149) H D 06/26/17 09:15 Cholesterol 174 mg/dL (0-199) 06/26/17 09:15 LDL Cholesterol Direct 109 mg/dL (0-129) 06/26/17 09:15 HDL Cholesterol 40 MG/DL (30-70) 06/26/17 09:15 Vitamin B12 744 pg/mL (239-931) 06/26/17 09:15 25-OH Vitamin D Total 32.1 NG/ML (30.0-100.0) 06/26/17 09:15 Folate > 20.0 ng/mL 06/26/17 09:15 TSH 3rd Generation 0.86 mIU/ML (0.46-4.68) 06/26/17 09:15 Urine Opiates Screen Positive (NEGATIVE) H 06/26/17 06:57 Urine Methadone Screen Negative (NEGATIVE) 06/26/17 06:57 Ur Barbiturates Screen Negative (NEGATIVE) 06/26/17 06:57 Ur Phencyclidine Scrn Negative (NEGATIVE) 06/26/17 06:57 Ur Amphetamines Screen Negative (NEGATIVE) 06/26/17 06:57 U Benzodiazepines Scrn Negative (NEGATIVE) 06/26/17 06:57 U Oth Cocaine Metabols Positive (NEGATIVE) H 06/26/17 06:57 U Cannabinoids Screen Negative (NEGATIVE) 06/26/17 06:57 Alcohol, Quantitative < 10 mg/dl (0-10) 06/26/17 06:23 Hepatitis A IgM Ab Negative (NEGATIVE) 06/26/17 09:15 Hep Bs Antigen Negative (NEGATIVE) 06/26/17 09:15 Hep B Core IgM Ab Negative (NEGATIVE) 06/26/17 09:15 Hepatitis C Antibody Negative (NEGATIVE) 06/26/17 09:15 HIV 1&2 Ag/Ab, 4th Gen Nonreactive (Nonreactive) 06/26/17 09:15 - Hospital Course Hospital Course: 56 y/o M with PMHx HTN and CAD admitted for NSTEMI. - Date & Time of H&P Date of H&P: 06/29/17 Discharge Exam - Head Exam Head Exam: ATRAUMATIC, NORMAL INSPECTION, NORMOCEPHALIC Discharge Plan - Follow Up Plan Condition: STABLE Disposition: Trans to Other Acute Care Hosp
== END 2017-06-29 18:30 | disposition short-term general hospital (02) | DRG 281 ==
LOC: H.ER 05:55 → H.ERHOLD 07:21 → H.TEL 09:39 → H.ICU/CCU 06-29 17:41
PROVIDERS: ADMIT Family Medicine; ATTEND Family Medicine
DX: I21.4 Non-ST elevation (NSTEMI) myocardial infarction (principal); J45.901 Unspecified asthma with (acute) exacerbation; J43.9 Emphysema, unspecified; I10 Essential (primary) hypertension; I25.10 Atherosclerotic heart disease of native coronary artery without angina pectoris; Z95.5 Presence of coronary angioplasty implant and graft; Z91.14 Patient's other noncompliance with medication regimen; F14.10 Cocaine abuse, uncomplicated; F10.20 Alcohol dependence, uncomplicated; Y90.0 Blood alcohol level of less than 20 mg/100 ml; E78.5 Hyperlipidemia, unspecified; F17.210 Nicotine dependence, cigarettes, uncomplicated; E78.00 Pure hypercholesterolemia, unspecified; F20.9 Schizophrenia, unspecified

== ENCOUNTER 2017-07-29 12:09 | Observation (INO) | payer OTHER, MEDICAID ==
[2017-07-29 12:11] VITALS: BMI 24.7
--- NOTE | 2017-07-29 12:46 | ED PDOC ---
HPI: Chest Pain Time Seen by Provider: 07/29/17 12:32 Chief Complaint (Nursing): Chest Pain History Per: Patient History/Exam Limitations: no limitations Onset/Duration Of Symptoms: Gradual (2 weeks worse today) Current Symptoms Are (Timing): Still Present Severity: Mild Quality: Dull Associated Symptoms: denies: Nausea, Dyspnea, Diaphoresis, Syncope Modifying Factors: None Exacerbating Factors: Movement Alleviating Factors: None Additional History Per: Patient Past Medical History Reviewed: Historical Data, Nursing Documentation, Vital Signs Vital Signs: Last Vital Signs Temp 98.4 F 07/29/17 12:12 Pulse 77 07/29/17 12:29 Resp 20 07/29/17 12:12 BP 158/96 H 07/29/17 12:12 Pulse Ox 98 07/29/17 12:46 - Medical History PMH: Anxiety, Asthma, CAD, COPD, Depression, Emphysema, HTN, Hypercholesterolemia, Schizophrenia Denies: Diabetes, Hepatitis, HIV, Chronic Kidney Disease, Seizures, Sexually Transmitted Disease - Surgical History Surgical History: Coronary Stent (x 4), Tonsillectomy - Family History Family History: States: Unknown Family Hx - Living Arrangements Living Arrangements: With Family - Social History Current smoker - smoking cessation education provided: Yes Drugs: Denies - Immunization History Hx Tetanus Toxoid Vaccination: No Hx Influenza Vaccination: No Hx Pneumococcal Vaccination: No - Home Medications Home Medications: Ambulatory Orders Medication Instructions Recorded Multivitamin [Multi-Vitamin Daily] 1 tab PO DAILY #30 tablet 01/08/17 Aspirin [Ecotrin] 81 mg PO DAILY #30 tabec 04/23/17 Budesonide/Formoterol Fumarate 2 puff IH Q12H #1 hfa.aer.ad 04/23/17 [Symbicort 160-4.5 Mcg Inhaler] Clopidogrel [Plavix] 75 mg PO DAILY #30 tab 04/23/17 Valsartan [Diovan] 80 mg PO DAILY #30 tab 04/23/17 Cyclobenzaprine [Cyclobenzaprine 10 mg PO TID #20 tab 05/26/17 HCl] Ibuprofen [Motrin] 600 mg PO Q6 #20 tab 05/26/17 oxyCODONE/Acetaminophen [Percocet 1 ea PO Q6 PRN #5 tab 05/26/17 5/325 mg Tab] - Allergies Allergies/Adverse Reactions: Allergies Allergy/AdvReac Type Severity Reaction Status Date / Time No Known Allergies Allergy Verified 07/29/17 12:21 Review of Systems ROS Statement: Except As Marked, All Systems Reviewed And Found Negative Constitutional: Negative for: Fever, Chills Cardiovascular: Positive for: Chest Pain. Negative for: Palpitations, Paroxysmal Noc. Dyspnea, Edema, Light Headedness Respiratory: Negative for: Cough, Shortness of Breath Gastrointestinal: Negative for: Nausea, Vomiting, Abdominal Pain Neurological: Negative for: Weakness, Numbness Physical Exam - Reviewed Nursing Documentation Reviewed: Yes Vital Signs Reviewed: Yes - Physical Exam Appears: Positive for: Uncomfortable Head Exam: Positive for: ATRAUMATIC, NORMAL INSPECTION, NORMOCEPHALIC Eye Exam: Positive for: Normal appearance, EOMI, PERRL Neck: Positive for: Normal, Painless ROM, Supple Cardiovascular/Chest: Positive for: Regular Rate, Rhythm. Negative for: Chest Non Tender (reporduces complaints, multiple well healing surgical wound to chest ), Bradycardia, Ectopy, Friction Rub, Irregularly Irregular Respiratory: Positive for: Normal Breath Sounds. Negative for: Decreased Breath Sounds, Accessory Muscle Use, Crackles, Rales, Rhonchi, Stridor, Wheezing , Respiratory Distress Pulses-Radial (L): 2+ Pulses-Radial (R): 2+ Gastrointestinal/Abdominal: Positive for: Normal Exam, Bowel Sounds, Soft. Negative for: Tenderness Back: Positive for: Normal Inspection. Negative for: L CVA Tenderness, R CVA Tenderness Extremity: Positive for: Normal ROM, Other (right lower leg and thigh with sugical wound with mod erythema). 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 Negative for: Motor/Sensory Deficits - ECG O2 Sat by Pulse Oximetry: 98 Disposition - Disposition Forms: [employer] ([place])
[2017-07-29] MEDS ORDERED: Oxycodone/Acetaminophen 5/325 mg Tab PO STA (13:04)
[2017-07-29] MEDS ORDERED: Vancomycin 1 g Inj ONE (13:39)
[2017-07-29 13:45] LABS: BASO # 0.1 K/uL (0.0-0.2); BASO % 0.8 % (0.0-2.0); EOS % 12.1 % (0.0-4.0); HEMATOCRIT 39.3 % (35.0-51.0); LYMPH # 1.3 K/uL (1.0-4.3); LYMPH % 15.7 % (20.0-40.0); MEAN CELL VOLUME 92.6 fl (80.0-94.0); MEAN CORPUSCULAR HGB CONC 34.6 g/dL (33.0-37.0); MEAN PLATELET VOLUME 7.8 fl (7.2-11.7); MONO # 0.7 K/uL (0.0-0.8); MONO % 7.8 % (0.0-10.0); NEUT # 5.4 K/uL (1.8-7.0); NEUT % 63.6 % (50.0-75.0); WHITE BLOOD COUNT 8.6 K/uL (4.8-10.8)
[2017-07-29 14:00] LABS: ALB/GLOB RATIO 1.2 (1.0-2.1); ALKALINE PHOSPHATASE 187 U/L (38-126); ALT/SGPT 31 U/L (21-72); AST/SGOT 35 U/L (17-59); BILIRUBIN,TOTAL 0.3 mg/dl (0.2-1.3); BLOOD UREA NITROGEN 17 mg/dl (9-20); CALCIUM 9.6 mg/dL (8.4-10.2); CARBON DIOXIDE 25 mmol/L (22-30); CHLORIDE 105 mmol/L (98-107); GFR AFRICAN-AMERICAN > 60; GLUCOSE,RANDOM 96 mg/dL (75-110); LIPASE 477 U/L (23-300); POTASSIUM 4.5 MMOL/L (3.6-5.0); SODIUM 143 mmol/l (132-148)
--- NOTE | 2017-07-29 14:08 | RAD ---
PROCEDURE: CHEST RADIOGRAPH, 1 VIEW HISTORY: Chest pain COMPARISON: 06/26/2017. FINDINGS: LUNGS: There is mild pulmonary venous congestion. There is linear scarring in the left lung base. No focal consolidation. PLEURA: No pneumothorax or pleural fluid seen. CARDIOVASCULAR: There is persistent mild cardiomegaly. Status post CABG. OSSEOUS STRUCTURES: No significant abnormalities. VISUALIZED UPPER ABDOMEN: Normal. OTHER FINDINGS: None. IMPRESSION: Mild cardiomegaly and pulmonary venous congestion. No focal consolidation.
[2017-07-29] MEDS ORDERED: HYDROmorphone 1 mg/ml ISec IVP STA (15:33)
[2017-07-29 15:42] LABS: PARTIAL THROMBOPLASTIN TIME 34.4 Seconds (25.6-37.1)
[2017-07-29] MEDS ORDERED: HYDROmorphone 0.5 mg/0.5 ml ISec IVP STA (15:57)
[2017-07-29] MEDS ORDERED: HYDROmorphone 0.5 mg/0.5 ml ISec ONE (16:01)
[2017-07-29] MEDS ORDERED: Iodixanol 320 MG/ML 100 ML BOTTLE IV ONE (16:03)
[2017-07-29] MEDS ORDERED: Sodium Chloride 0.9% 50 ML IV ONE (16:03)
--- NOTE | 2017-07-29 17:16 | CT ---
PROCEDURE: CT Chest with contrast (Pulmonary Angiogram) HISTORY: Chest pain recent cardiac surgery r/o PE COMPARISON: None available. TECHNIQUE: Axial computed tomography images were obtained of the chest in the pulmonary arterial phase of enhancement. Coronal and sagittal reformatted images were created and reviewed. Intravenous contrast dose: 95 mL Visipaque 320 Radiation dose: Total exam DLP = 407.00 mGy-cm. This CT exam was performed using one or more of the following dose reduction techniques: Automated exposure control, adjustment of the mA and/or kV according to patient size, and/or use of iterative reconstruction technique. FINDINGS: PULMONARY ARTERIES: There are no central filling defects in the pulmonary arteries to suggest acute pulmonary embolism. AORTA: No aortic dissection. No thoracic aortic aneurysm. LUNGS: There is moderate right and mild left paraseptal emphysema in the upper lobes. There is mild diffuse centrilobular emphysema, worse in the right upper and middle lobes. PLEURAL SPACES: Small left pleural effusion. No pneumothorax. HEART: There is mild cardiomegaly and trace pericardial effusion. There atherosclerotic coronary artery calcifications. Status post CABG. LYMPH NODES: There are subcentimeter mediastinal lymph nodes. A prominent prevascular lymph node measures 11 mm in short axis. These are likely reactive in etiology. BONES, CHEST WALL: There are multilevel degenerative changes in the lower thoracic spine. No fracture or destructive lesion OTHER FINDINGS: There is mild thickening of the adrenal glands without discrete nodules. Otherwise the visualized upper abdomen is unremarkable. IMPRESSION: 1. No CT evidence for acute pulmonary embolism. No aortic aneurysm or aortic dissection. 2. Mild cardiomegaly, trace pericardial effusion and small left pleural effusion
--- NOTE | 2017-07-29 17:23 | US ---
HISTORY: Pain in right upper quadrant COMPARISON: None. TECHNIQUE: Grayscale imaging was performed. FINDINGS: LIVER: Measures 17.8 cm in length. There is diffuse increased echogenicity of the liver parenchyma. No mass. No intrahepatic bile duct dilatation. GALLBLADDER: The gallbladder is contracted. COMMON BILE DUCT: Measures 5.0 mm. No stones. No dilatation. PANCREAS: Unremarkable as visualized. No mass. No ductal dilatation. RIGHT KIDNEY: Measures 10.0 cm in length. Normal echogenicity. No calculus, mass, or hydronephrosis. AORTA: No aneurysmal dilatation. IVC: Unremarkable. OTHER FINDINGS: None . IMPRESSION: Mild hepatomegaly. Diffuse increased echogenicity in the liver may reflect hepatic steatosis however parenchymal infectious/ inflammatory etiologies cannot be entirely excluded. Clinical and laboratory correlation is advised. . Contracted gallbladder with
--- NOTE | 2017-07-29 17:33 | CP.PCM.HP ---
History of Present Illness - History of Present Illness History of Present Illness: 56 y/o male with a PMHx remarkable for s/p triple bypass surgery 06/2017, HTN, COPD presented to ED with 2 day history of neck pain. Pt reports he had an episode of posterior neck pain the day before that started when he woke up without any inciting event and sponateously resolved without any intervention. Pt reports neck pain returned early this morning around 2am while he was sleeping. pain woke him up and was "20 out of 10". He reports taking an aspirin and that alleviated the pain somewhat, however it was still constant. It is located specifically to his posterior neck, and radiates up to his occipital prominence. He denies inciting event. He reports it is alleviated with rest and not moving and exacerbated with movement. The pain did not improve during the morning so he called an ambulance to bring him in for further evaluation. -Upon further questioning, pt reports he has chest pain, however this is a dull , constant, nonradiating, 2/10 chest pain, located phuc-incisionally around where he had his triple bypass surgery. He reports this pain is chronic since discharge from [place] and has gradually been improving. He denies any acute changes in the chest pain. He denies any associated diaphoreis, N/V, left arm/jaw pain. He has no other complaints. Denies fever/chills, headaches, changes in vision, dizziness/lightheadedness, N/V/D/C, urinary symtpoms, numbness/tingling. ROS: 12 points reviewed, found to be negative unless mentioned above PMD: [facility], last visit April 2017, pt was supposed to follow up with cardiac surgeon but did not go due to neck pain, rescheduled for next Thursday. 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 Lives in [place] with his son, currently on diability. FamilyHx: denies familial history. ED Course: vitals: T 98.4, HR 84, BP 158/96, RR 20, POX 98% on RA Labs: CBC:wnl CMP: wnl Lipase: 477 P-BNP: 2320 D-dimer: 1777 Troponin I: >0.0120 Imaging: CT Angio: no PE Abd u/s: poss hepatic steatosis admitted to telemetry Present on Admission - Present on Admission Any Indicators Present on Admission: No Past Patient History - Infectious Disease Hx of Infectious Diseases: None - Past Medical History & Family History Past Medical History?: Yes - Past Social History Drugs: Denies - CARDIAC Hx Hypercholesterolemia: Yes Hx Hypertension: Yes - PULMONARY Hx Asthma: Yes Hx Chronic Obstructive Pulmonary Disease (COPD): Yes Hx Emphysema: Yes - NEUROLOGICAL Hx Seizures: No - HEENT Hx HEENT Problems: No - RENAL Hx Chronic Kidney Disease: No - ENDOCRINE/METABOLIC Hx Endocrine Disorders: No - HEMATOLOGICAL/ONCOLOGICAL Hx Human Immunodeficiency Virus (HIV): No - INTEGUMENTARY Hx Dermatological Problems: No - MUSCULOSKELETAL/RHEUMATOLOGICAL Hx Musculoskeletal Disorders: No Hx Falls: No - GASTROINTESTINAL Hx Gastrointestinal Disorders: Yes Other/Comment: left inguinal hernia - GENITOURINARY/GYNECOLOGICAL Hx Sexually Transmitted Disorders: No - PSYCHIATRIC Hx Anxiety: Yes Hx Depression: Yes Hx Schizophrenia: Yes - SURGICAL HISTORY Hx Coronary Stent: Yes (x 4) Hx Tonsillectomy: Yes - ANESTHESIA Hx Anesthesia: Yes Hx Anesthesia Reactions: No Hx Malignant Hyperthermia: No Meds Allergies/Adverse Reactions: Allergies Allergy/AdvReac Type Severity Reaction Status Date / Time No Known Allergies Allergy Verified 07/29/17 12:21 Physical Exam - Constitutional Appears: Non-toxic, No Acute Distress - Head Exam Head Exam: ATRAUMATIC, NORMOCEPHALIC - Eye Exam Eye Exam: EOMI. absent: Conjunctival injection, Scleral icterus - ENT Exam ENT Exam: Mucous Membranes Moist - Neck Exam Neck exam: Positive for: Tenderness. Negative for: Full Rom, Lymphadenopathy, Meningismus Additional comments: tenderness to palpation along cervical spine from T1 up to C3 decreased ROM - Respiratory Exam Respiratory Exam: Chest Wall Tenderness (reproducible chest wall tenderness around incision sites ), Clear to Auscultation Bilateral, NORMAL BREATHING PATTERN. absent: Accessory Muscle Use, Rales, Rhonchi, Wheezes - Cardiovascular Exam Cardiovascular Exam: REGULAR RHYTHM, RRR, +S1, +S2. absent: JVD, Rubs - GI/Abdominal Exam GI & Abdominal Exam: Distended (distention secondary to truncal obesity ), Normal Bowel Sounds, Soft. absent: Firm, Guarding, Rebound, Rigid, Tenderness - Extremities Exam Extremities exam: Positive for: normal capillary refill, normal inspection, pedal pulses present. Negative for: calf tenderness, pedal edema, tenderness - Back Exam Back exam: NORMAL INSPECTION. absent: muscle spasm, paraspinal tenderness, tenderness - Neurological Exam Neurological exam: Alert, CN II-XII Intact, Normal Gait, Oriented x3, Reflexes Normal - Psychiatric Exam Psychiatric exam: Normal Affect, Normal Mood - Skin Skin Exam: Dry, Intact, Normal Color, Warm Results - Vital Signs Recent Vital Signs: Last Vital Signs Temp 98.4 F 07/29/17 12:12 Pulse 85 07/29/17 16:05 Resp 19 07/29/17 16:05 BP 134/86 07/29/17 16:05 Pulse Ox 96 07/29/17 16:05 - Labs Result Diagrams: 07/29/17 13:39 07/29/17 13:39 Labs: Laboratory Results - last 24 hr 07/29/17 07/29/17 07/29/17 13:39 13:39 13:39 WBC 8.6 RBC 4.25 L Hgb 13.6 D Hct 39.3 MCV 92.6 D MCH 32.0 H MCHC 34.6 RDW 15.0 H Plt Count 229 MPV 7.8 Neut % (Auto) 63.6 Lymph % (Auto) 15.7 L [place] % (Auto) 7.8 Eos % (Auto) 12.1 H Baso % (Auto) 0.8 Neut # 5.4 Lymph # 1.3 [place] # 0.7 Eos # 1.0 H Baso # 0.1 PT 12.0 INR 1.1 APTT 34.4 D-Dimer, Quantitative 1777 H Sodium 143 Potassium 4.5 Chloride 105 Carbon Dioxide 25 Anion Gap 17 BUN 17 Creatinine 1.0 Est GFR ( Amer) > 60 Est GFR (Non-Af Amer) > 60 Random Glucose 96 Calcium 9.6 Total Bilirubin 0.3 AST 35 ALT 31 Alkaline Phosphatase 187 H Troponin I 0.0270 NT-Pro-B Natriuret Pep 2320 H Total Protein 8.0 Albumin 4.4 Globulin 3.5 Albumin/Globulin Ratio 1.2 Lipase 477 H Assessment & Plan - Assessment and Plan (Free Text) Assessment: 56 y/o male with PMHx remarkable for CAD s/p triple bypass, HTN, COPD admitted for neck pain and elevated lipase. Plan: 2) Acute Pancreatitis -Lipase: 477 -BISAP score: 1 (pleural effusion found to Chest CTA) -NPO -LR @ 100mls/hr -Zofran 4mg Q6 PRN -pain control 2) Neck pain -lidocaine transdermal patch TID -Pain control 3) Elevated BNP: -2340 -likely secondary to recent cardiac bypass surgery 3) Elevated D-Dimer -[place] secondary to post-op status -Chest CTA negative 4) COPD -controlled -c/w home meds 5) HTN -controlled -c/w home meds 6) Prophylaxis CrCl: 83 -Lovenox 40mg SC QD -SCDs
[2017-07-29] MEDS ORDERED: ARFORMOTEROL IH SCH (18:00)
[2017-07-29] MEDS: Lactated Ringer's 1,000 ML IV SCH (18:44)
[2017-07-29] MEDS ORDERED: Lidocaine 5% Patch TD SCH (19:45)
[2017-07-29] MEDS: Budesonide 0.5 mg/2 ml Inhal Susp UD IH SCH (20:30)
[2017-07-30 01:01] LABS: ALCOHOL SERUM < 10 mg/dl (0-10)
[2017-07-30] MEDS: Lactated Ringer's 1,000 ML IV SCH (05:02)
[2017-07-30] MEDS ORDERED: Influenza Vaccine 18yr & older 0.5 ML/45 MCG SYR IM ONE (07:00)
[2017-07-30] MEDS ORDERED: Pneumococcal 23-Valent Vaccine IM ONE (07:00)
[2017-07-30] MEDS: Budesonide 0.5 mg/2 ml Inhal Susp UD IH SCH (07:36)
--- NOTE | 2017-07-30 08:15 | CARD ---
APPROVED REPORT EKG Measurement Heart [id number] <Conclusion> Normal sinus rhythm Possible Left atrial enlargement Anterior infarct, age undetermined T wave abnormality, consider lateral ischemia Abnormal ECG
[2017-07-30] MEDS ORDERED: Fluticasone-Salmeterol 250-50mcg Diskus IH SCH (09:00)
[2017-07-30] MEDS ORDERED: Enoxaparin 40 mg Syringe SC SCH (09:00)
[2017-07-30] MEDS ORDERED: Multivitamin With Minerals Tab PO SCH (09:00)
--- NOTE | 2017-07-30 11:33 | CP.PCM.DIS ---
Provider - Provider Date of Admission: 07/29/17 16:12 Attending physician: Nasreen Norman MD Time Spent in preparation of Discharge (in minutes): 35 Hospital Course - Lab Results Lab Results: Most Recent Lab Values WBC 8.6 K/uL (4.8-10.8) 07/29/17 13:39 RBC 4.25 Mil/uL (4.40-5.90) L 07/29/17 13:39 Hgb 13.6 g/dL (12.0-18.0) D 07/29/17 13:39 Hct 39.3 % (35.0-51.0) 07/29/17 13:39 MCV 92.6 fl (80.0-94.0) D 07/29/17 13:39 MCH 32.0 pg (27.0-31.0) H 07/29/17 13:39 MCHC 34.6 g/dL (33.0-37.0) 07/29/17 13:39 RDW 15.0 % (11.5-14.5) H 07/29/17 13:39 Plt Count 229 K/uL (130-400) 07/29/17 13:39 MPV 7.8 fl (7.2-11.7) 07/29/17 13:39 Neut % (Auto) 63.6 % (50.0-75.0) 07/29/17 13:39 Lymph % (Auto) 15.7 % (20.0-40.0) L 07/29/17 13:39 Bennett % (Auto) 7.8 % (0.0-10.0) 07/29/17 13:39 Eos % (Auto) 12.1 % (0.0-4.0) H 07/29/17 13:39 Baso % (Auto) 0.8 % (0.0-2.0) 07/29/17 13:39 Neut # 5.4 K/uL (1.8-7.0) 07/29/17 13:39 Lymph # 1.3 K/uL (1.0-4.3) 07/29/17 13:39 Bennett # 0.7 K/uL (0.0-0.8) 07/29/17 13:39 Eos # 1.0 K/uL (0.0-0.7) H 07/29/17 13:39 Baso # 0.1 K/uL (0.0-0.2) 07/29/17 13:39 PT 12.0 Seconds (9.8-13.1) 07/29/17 13:39 INR 1.1 (0.9-1.2) 07/29/17 13:39 APTT 34.4 Seconds (25.6-37.1) 07/29/17 13:39 D-Dimer, Quantitative 1777 ng/mlDDU (0-230) H 07/29/17 13:39 Sodium 143 mmol/l (132-148) 07/29/17 13:39 Potassium 4.5 MMOL/L (3.6-5.0) 07/29/17 13:39 Chloride 105 mmol/L (98-107) 07/29/17 13:39 Carbon Dioxide 25 mmol/L (22-30) 07/29/17 13:39 Anion Gap 17 (10-20) 07/29/17 13:39 BUN 17 mg/dl (9-20) 07/29/17 13:39 Creatinine 1.0 mg/dL (0.8-1.5) 07/29/17 13:39 Est GFR ( Amer) > 60 07/29/17 13:39 Est GFR (Non-Af Amer) > 60 07/29/17 13:39 Random Glucose 96 mg/dL (75-110) 07/29/17 13:39 Calcium 9.6 mg/dL (8.4-10.2) 07/29/17 13:39 Total Bilirubin 0.3 mg/dl (0.2-1.3) 07/29/17 13:39 AST 35 U/L (17-59) 07/29/17 13:39 ALT 31 U/L (21-72) 07/29/17 13:39 Alkaline Phosphatase 187 U/L (38-126) H 07/29/17 13:39 Troponin I 0.0270 ng/mL (0.00-0.120) 07/29/17 13:39 NT-Pro-B Natriuret Pep 2320 pg/ml (0-900) H 07/29/17 13:39 Total Protein 8.0 G/DL (6.3-8.2) 07/29/17 13:39 Albumin 4.4 g/dL (3.5-5.0) 07/29/17 13:39 Globulin 3.5 gm/dL (2.2-3.9) 07/29/17 13:39 Albumin/Globulin Ratio 1.2 (1.0-2.1) 07/29/17 13:39 Lipase 477 U/L (23-300) H 07/29/17 13:39 Urine Opiates Screen Positive (NEGATIVE) H 07/30/17 08:45 Urine Methadone Screen Negative (NEGATIVE) 07/30/17 08:45 Ur Barbiturates Screen Negative (NEGATIVE) 07/30/17 08:45 Ur Phencyclidine Scrn Negative (NEGATIVE) 07/30/17 08:45 Ur Amphetamines Screen Negative (NEGATIVE) 07/30/17 08:45 U Benzodiazepines Scrn Positive (NEGATIVE) 07/30/17 08:45 U Oth Cocaine Metabols Positive (NEGATIVE) H 07/30/17 08:45 U Cannabinoids Screen Negative (NEGATIVE) 07/30/17 08:45 Alcohol, Quantitative < 10 mg/dl (0-10) 07/30/17 00:42 Discharge Exam - Head Exam Head Exam: ATRAUMATIC, NORMOCEPHALIC Discharge Plan - Follow Up Plan Condition: STABLE Disposition: HOME/ ROUTINE Patient education suggested?: Yes Instructions: Chest Pain (DC), Pancreatitis (DC) Additional Instructions: f/u with judge and [facility] cardiac surgeon within 1 week as pt reports he already has an appointment. Referrals: Salazar Anderson MD [Staff Provider] -
[2017-07-30 15:50] VITALS: BP 130/69; PULSE 67; RESP 20; TEMP 97.6; O2SAT 97
[2017-07-30] MEDS ORDERED: Lidocaine 5% Patch TD SCH ×2 (17:39→20:00)
== END 2017-07-30 17:50 | disposition home or self-care (01) ==
LOC: H.ER 12:09 → H.ERHOLD 16:12 → H.TEL 18:05
PROVIDERS: ADMIT Family Medicine Geriatric Medicine; ATTEND Family Medicine Geriatric Medicine
DX: K85.90 Acute pancreatitis without necrosis or infection, unspecified (principal); E78.00 Pure hypercholesterolemia, unspecified; F17.200 Nicotine dependence, unspecified, uncomplicated; F20.9 Schizophrenia, unspecified; I10 Essential (primary) hypertension; I25.10 Atherosclerotic heart disease of native coronary artery without angina pectoris; Z95.5 Presence of coronary angioplasty implant and graft; Z95.1 Presence of aortocoronary bypass graft; J43.9 Emphysema, unspecified; J45.909 Unspecified asthma, uncomplicated; M54.2 Cervicalgia; F32.9 Major depressive disorder, single episode, unspecified; F41.9 Anxiety disorder, unspecified; R79.89 Other specified abnormal findings of blood chemistry; R79.1 Abnormal coagulation profile
CPT/HCPCS: 36415; 71010; 71275; 76705; 80053; 82977; 83690; 83880; 84484; 85025; 85378; 85610; 85730; 93005; 94640; 96365; 96374; 99285; G0378; G0480; J1170; J1650; J1885; J7120; Q9967

== ENCOUNTER 2017-09-23 01:35 | Observation (INO) | payer MEDICARE, MEDICAID ==
[2017-09-23 01:56] VITALS: BMI 27.4
[2017-09-23] MEDS ORDERED: Nitroglycerin 2% 15 INCH/30 GM TUBE TOP STA (01:56)
[2017-09-23] MEDS ORDERED: Iohexol 240 (50 ml) PO ONE (02:06)
[2017-09-23] MEDS ORDERED: Albuterol-Ipratrop 3 mg / 0.5 (3 ml) UD INH STA (02:10)
[2017-09-23] MEDS ORDERED: Morphine 4 MG/ML VIAL ONE (02:13)
[2017-09-23] MEDS ORDERED: Nitroglycerin 2% Ointment Foilpak UD TOP ONE (02:14)
--- NOTE | 2017-09-23 02:24 | ED PDOC ---
HPI: Chest Pain Time Seen by Provider: 09/23/17 01:48 Chief Complaint (Nursing): Chest Pain Chief Complaint (Provider): Chest Pain History Per: Patient History/Exam Limitations: no limitations Onset/Duration Of Symptoms: Days (x2) Current Symptoms Are (Timing): Still Present Quality: Sharp, Other (Stabbing) Associated Symptoms: Dyspnea Nitro Therapy Administered: 1, Per ED Additional Complaint(s): 57 year old male presents to ED with complaints of chest pain and abdominal pain x2 days and has a past medical history of CAD, HTN, bilateral inguinal hernias, substance abuse, and pancreatitis. Patient admits to cocaine, heroin, and EtOH abuse within the last 24 hours. Notes right inguinal hernia is causing worsening pain, which is why he abused substances. Describes pain as sharp and stabbing. (+) SOB and chest tightness. Reports that he usually can reduce the hernia himself, but is unable to do so with this one. PCP: WENDY - Risk Factors TAD Risk Factors: Pos: Hypertension Past Medical History Reviewed: Historical Data, Nursing Documentation, Vital Signs Vital Signs: Last Vital Signs Temp 98.4 F 09/23/17 02:00 Pulse 83 09/23/17 02:32 Resp 20 09/23/17 02:00 BP 116/65 09/23/17 02:32 Pulse Ox 92 L 09/23/17 06:01 - Medical History PMH: Anxiety, Asthma, CAD, COPD, Depression, Emphysema, HTN, Hypercholesterolemia, Schizophrenia Denies: Diabetes, Hepatitis, HIV, Chronic Kidney Disease, Seizures, Sexually Transmitted Disease - Surgical History Surgical History: Coronary Stent (x 4), Tonsillectomy - Family History Family History: States: Unknown Family Hx - Social History Current smoker - smoking cessation education provided: Yes Ex-Smoker (has not smoked in the last 12 months): No Alcohol: > 2 Drinks/Day Drugs: Cocaine, Opiates - Immunization History Hx Tetanus Toxoid Vaccination: No Hx Influenza Vaccination: No Hx Pneumococcal Vaccination: No - Home Medications Home Medications: Ambulatory Orders Medication Instructions Recorded ALPRAZolam [Xanax] 0.25 mg PO BID PRN 07/29/17 Arformoterol [Brovana] 2 ml IH Q12H 07/29/17 Aspirin [Ecotrin] 81 mg PO DAILY 07/29/17 Atorvastatin [Lipitor] 40 mg PO DAILY 07/29/17 Bisacodyl [Dulcolax] 10 mg VA DAILY PRN 07/29/17 Budesonide [Pulmicort Respules] 2 ml IH Q12H 07/29/17 Docusate [Colace] 100 mg PO TID PRN 07/29/17 Fluticasone/Vilanterol [Breo 1 puff IH DAILY 07/29/17 Ellipta 200-25 Mcg INH] Folic Acid 1 mg PO DAILY 07/29/17 Furosemide [Lasix] 20 mg PO DAILY 07/29/17 Metoprolol Tartrate [Lopressor] 25 mg PO Q12H 07/29/17 Multivitamin [Multi-Vitamin Daily] 1 tab PO DAILY 07/29/17 Nitroglycerin [Nitrostat] 0.4 mg SL Q5MIN PRN 07/29/17 Pantoprazole Sodium [Protonix] 40 mg PO DAILY 07/29/17 Potassium Chloride [K-Dur 20 mEq 20 meq PO DAILY 07/29/17 ER Tab] Thiamine [Vitamin B1 Tab] 100 mg PO DAILY 07/29/17 oxyCODONE/Acetaminophen [Percocet 1 tab PO Q4H PRN 07/29/17 5/325 mg Tab] - Allergies Allergies/Adverse Reactions: Allergies Allergy/AdvReac Type Severity Reaction Status Date / Time No Known Allergies Allergy Verified 09/23/17 02:00 LISA Risk Score for UA/NSTEMI - LISA Risk Score Age > 64: NO Known CAD (Stenosis greater than 50%): YES LISA Score: 1 Risk %: 5% Curb-65 Severity Score - CURB-65 Severity Score Confusion: No Respiratory Rate greater than/equal to 30: No Systolic BP <90 or Diastolic BP less than/equal 60mmHg: No Age >64: No Curb-65 Score: 0 Percentage 30-day mortality: 0.6% Wells Criteria for PE - Wells Criteria for Pulmonary Embolism P.E is #1 Diagnosis, or Equally Likely: No Heart Rate >100: No Immobilization at least 3 days;Surgery previous 4 weeks: No Previous, objectively diagnosed PE or DVT: No Hemoptysis: No Total Score: 0 Review of Systems ROS Statement: Except As Marked, All Systems Reviewed And Found Negative Cardiovascular: Positive for: Chest Pain Respiratory: Positive for: Shortness of Breath Gastrointestinal: Positive for: Abdominal Pain Physical Exam - Reviewed Nursing Documentation Reviewed: Yes Vital Signs Reviewed: Yes - Physical Exam Appears: Positive for: Non-toxic, Uncomfortable Skin: Positive for: Normal Color, Warm, Dry Eye Exam: Positive for: Normal appearance ENT: Positive for: Normal ENT Inspection Cardiovascular/Chest: Positive for: Regular Rate, Rhythm. Negative for: Murmur Respiratory: Positive for: Wheezing (bilateral wheeze), Respiratory Distress ( mild), Other (hypoxic) Gastrointestinal/Abdominal: Positive for: Soft, Tenderness (RLQ tenderness), Hernia (right inguinal hernia) Back: Positive for: Normal Inspection Neurologic/Psych: Positive for: Alert, Oriented. Negative for: Motor/Sensory Deficits - Laboratory Results Result Diagrams: 09/23/17 02:20 09/23/17 02:20 - ECG O2 Sat by Pulse Oximetry: 92 (RA) Pulse Ox Interpretation: Abnormal - Critical Care Total Time (In Min): 30 Medical Decision Making Medical Decision Makin Initial impression: chest pain and RLQ pain in setting of known hernia and CAD Initial plan: * CTA A/P * EKG * EtOH serum * BNP * UDrug screen * Lact Acid * Trop I * PTT/PT * CXR * ASA 324mg PO * Duonebs 3mL INH * Morphine 6mg IVP * Nitroglycerin 2% inch TOP * Iohexol 50mL PO * Peak flow pre/post Tx * Re-eval 0550 Labs reviewed: no clinically significant abnormalities. UDrug screen shows cocaine and opiates CXR: shows cardiomegaly and mild pulmunovascular congestion Patient reports improvement of symptoms. 30 minutes of CCT. Discussed case with family practice resident, Dr. Ada Ramires, regarding admission. She will evaluate the patient at bedside in the ED. 0600 CT FINDINGS Limitations: Motion artifact - mild. Lower thorax: No acute findings. ABDOMEN: Liver: Unremarkable. No mass. Gallbladder and bile ducts: No calcified stones. No ductal dilation. Pancreas: No ductal dilation. No mass. Spleen: No splenomegaly. Adrenals: Mild hypertrophy of adrenal glands. Kidneys and ureters: Calculus within LEFT kidney. No hydronephrosis. Stomach and bowel: No definite mural thickening. No obstruction. Appendix: Normal caliber. No inflammation. PELVIS: Bladder: Unremarkable. Reproductive: Unremarkable as visualized. ABDOMEN and PELVIS: Intraperitoneal space: No significant fluid collection. No free air. Bones/joints: Median sternotomy. Degenerative changes of spine. No acute fracture. Soft tissues: Small right inguinal hernia containing loop of small bowel. 2.4 x 2.2 x 2.3 cm fluid collection at origin of left inguinal canal. Vasculature: [id number] atherosclerotic disease. No aneurysm. Lymph nodes: No pathologically enlarged lymph nodes. IMPRESSION: 1. Right inguinal hernia containing bowel. No obstruction. 2. Small fluid collection about left inguinal canal. DDX: Seroma, resolving hematoma, abscess. Favor seroma. 3. Incidental/non-acute findings are described above. Scribe Attestation: Documented by Liv Gordon acting as a scribe for Eliazar Lanier MD. Scribe Attestation: All medical record entries made by the Scribe were at my direction and personally dictated by me. I have reviewed the chart and agree that the record accurately reflects my personal performance of the history, physical exam, medical decision making, and the department course for this patient. I have also personally directed, reviewed, and agree with the discharge instructions and disposition. Disposition - Clinical Impression Clinical Impression: CAD (coronary artery disease), Acute chest pain - Patient ED Disposition Is Patient to be Admitted: Yes Discussed With : Ada Ramires - Disposition Disposition Time: 05:00 Condition: FAIR
[2017-09-23] MEDS ORDERED: Albuterol-Ipratrop 3 mg / 0.5 (3 ml) UD ONE (02:30)
[2017-09-23 03:01] LABS: BASO % 0.5 % (0.0-2.0); EOS # 0.3 K/uL (0.0-0.7); EOS % 2.9 % (0.0-4.0); HEMATOCRIT 49.5 % (35.0-51.0); LYMPH # 1.9 K/uL (1.0-4.3); LYMPH % 19.8 % (20.0-40.0); MEAN CELL VOLUME 97.3 fl (80.0-94.0); MEAN CORPUSCULAR HEMOGLOBIN 32.8 pg (27.0-31.0); MEAN CORPUSCULAR HGB CONC 33.7 g/dL (33.0-37.0); MONO # 0.7 K/uL (0.0-0.8); MONO % 7.8 % (0.0-10.0); NEUT # 6.5 K/uL (1.8-7.0); NRBC % 0.1 % (0.0-0.0); RED CELL DISTRIBUTION WIDTH 14.9 % (11.5-14.5); WHITE BLOOD COUNT 9.5 K/uL (4.8-10.8)
[2017-09-23 03:13] LABS: ALB/GLOB RATIO 1.3 (1.0-2.1); ALCOHOL SERUM 155 mg/dl (0-10); BILIRUBIN,TOTAL 0.7 mg/dl (0.2-1.3); CALCIUM 9.1 mg/dL (8.4-10.2); CARBON DIOXIDE 22 mmol/L (22-30); CHLORIDE 103 mmol/L (98-107); GFR AFRICAN-AMERICAN > 60; GLUCOSE,RANDOM 114 mg/dL (75-110); SODIUM 141 mmol/l (132-148); TOTAL PROTEIN 8.2 G/DL (6.3-8.2)
[2017-09-23 03:15] LABS: PARTIAL THROMBOPLASTIN TIME 41.1 Seconds (25.6-37.1)
[2017-09-23 03:28] LABS: ALKALINE PHOSPHATASE 122 U/L (38-126); ALT/SGPT 37 U/L (21-72); AST/SGOT 36 U/L (17-59); BLOOD UREA NITROGEN 12 mg/dl (9-20); POTASSIUM 3.8 MMOL/L (3.6-5.0)
[2017-09-23] MEDS ORDERED: Iohexol 300 100 ML IJ ONE (04:52)
--- NOTE | 2017-09-23 05:59 | CT ---
EXAM: CT Abdomen and Pelvis With Intravenous Contrast CLINICAL HISTORY: 57 years old, male; Pain; Abdominal pain; Localized; Right; Prior surgery; Surgery date: 6+ months; Surgery type: Lt hernia repair; Additional info: Right inguinal hernia TECHNIQUE: Axial computed tomography images of the abdomen and pelvis with intravenous contrast. All CT scans at this facility use one or more dose reduction techniques, viz.: automated exposure control; ma/kV adjustment per patient size (including targeted exams where dose is matched to indication; i.e. head); or iterative reconstruction technique. Coronal and sagittal reformatted images were created and reviewed. CONTRAST: 90 mL of [id number] administered intravenously. COMPARISON: CT - ABD PELVIS PO IV CONTRAST 2016-06-25 22:55 FINDINGS: Limitations: Motion artifact - mild. Lower thorax: No acute findings. ABDOMEN: Liver: Unremarkable. No mass. Gallbladder and bile ducts: No calcified stones. No ductal dilation. Pancreas: No ductal dilation. No mass. Spleen: No splenomegaly. Adrenals: Mild hypertrophy of adrenal glands. Kidneys and ureters: Calculus within LEFT kidney. No hydronephrosis. Stomach and bowel: No definite mural thickening. No obstruction. Appendix: Normal caliber. No inflammation. PELVIS: Bladder: Unremarkable. Reproductive: Unremarkable as visualized. ABDOMEN and PELVIS: Intraperitoneal space: No significant fluid collection. No free air. Bones/joints: Median sternotomy. Degenerative changes of spine. No acute fracture. Soft tissues: Small right inguinal hernia containing loop of small bowel. 2.4 x 2.2 x 2.3 cm fluid collection at origin of left inguinal canal. Vasculature: [id number] atherosclerotic disease. No aneurysm. Lymph nodes: No pathologically enlarged lymph nodes. IMPRESSION: 1. Right inguinal hernia containing bowel. No obstruction. 2. Small fluid collection about left inguinal canal. DDX: Seroma, resolving hematoma, abscess. Favor seroma. 3. Incidental/non-acute findings are described above.
--- NOTE | 2017-09-23 06:28 | CP.PCM.HP ---
History of Present Illness - History of Present Illness History of Present Illness: 57 yr old M presented to ED with complaint of chest pain and right inguinal hernia with pain. Patient has PMHx including 4 Coronart stents s/p triple bypass surgery 06/2017, COPD/Emphysema, HTN, cocaine/heroin/Etoh abuse, current smoker. Patient reports his chest pain began yesterday while he was moving furniture around in his home, it is substernal, /, sharp, intermittent lasting 2-5 minutes at a time, alleviated by 2 doses of sublingual Nitroglycerin , associated with nausea, SOB and sweating. Patient denies syncope, palpitations , dizziness, radiation of pain, numbness or tingling of extremities. Patient reports he drank alcohol and used heroin and cocaine yesterday as well. He reports he just has not felt well since his bypass surgery. His nausea and sweating have resolved. PCP: went to [facility] for 2 visits (07/2016 and 04/2017) Specialists: Cardiology and Cardiac surgeon at [facility] PMHx: triple bypass surgery 06/2017, COPD/Emphysema, HTN, cocaine/heroin/Etoh abuse, current smoker SurgHx: Coronary stents x 4 s/p triple bypass surgery 06/2017, left inguinal hernia repair SocHx: reports Etoh abuse, heroin and cocaine abuse (last used yesterday), current smoker 30 pack years, lives alone, on disability FMHx: Mother at 80, had DM; Father of MA at 45yrs old-had DM Medications: Clopidogrel 75mg PO QD, Metoprolol 25mg PO BID, Atorvastatin 40mg PO QD, Ventolin HFA 108 mcg 2 puffs INH Q4 PRN, Symbicort 160-4.5mg 2 puffs INH BID ED Course: vital signs stable, patient ambulating in ED, in no acute distress Labs: Troponin negative x 1, CBC wnl, CMP wnl, lactic acid 2.4, proBNP 1110, Utox positive for opiates/cocaine and Etoh EKG: NSR, no new ST-T changes compared to last EKG CXR: report pending Abd/pelvis CT: right inguinal hernia containing bowel-no obstruction ED tx: Albuterol 3ml INH once, ASA 324 mg PO once, Morphine 6mg IVP once, Nitroglycerin 2% topical to chest once Present on Admission - Present on Admission Any Indicators Present on Admission: No History of DVT/PE: No History of Uncontrolled Diabetes: No Urinary Catheter: No Decubitus Ulcer Present: No History Surgical Site Infection Following: None Review of Systems - Review of Systems All systems: reviewed and no additional remarkable complaints except (for what is mentioned in the HPI) - Constitutional Constitutional: absent: Chills, Fever, Weight Loss - EENT Eyes: absent: Change in Vision Ears: absent: Tinnitus Nose/Mouth/Throat: absent: Neck Pain - Cardiovascular Cardiovascular: Chest Pain. absent: Rapid Heart Rate - Respiratory Respiratory: Dyspnea - Gastrointestinal Gastrointestinal: absent: Abdominal Pain, Diarrhea, Nausea - Genitourinary Genitourinary: absent: Dysuria, Flank Pain, Hematuria - Musculoskeletal Musculoskeletal: absent: Arthralgias, Numbness - Neurological Neurological: absent: Abnormal Speech, Disequilibrium, Dizziness - Psychiatric Psychiatric: absent: Change in Appetite - Endocrine Endocrine: absent: Polydipsia, Polyphagia, Polyuria - Hematologic/Lymphatic Hematologic: absent: Easy Bleeding, Easy Bruising Past Patient History - Infectious Disease Hx of Infectious Diseases: None - Past Medical History & Family History Past Medical History?: Yes - Past Social History Alcohol: > 2 Drinks/Day Drugs: Cocaine, Opiates - CARDIAC Hx Hypercholesterolemia: Yes Hx Hypertension: Yes - PULMONARY Hx Asthma: Yes Hx Chronic Obstructive Pulmonary Disease (COPD): Yes Hx Emphysema: Yes - NEUROLOGICAL Hx Seizures: No - HEENT Hx HEENT Problems: No - RENAL Hx Chronic Kidney Disease: No - ENDOCRINE/METABOLIC Hx Endocrine Disorders: No - HEMATOLOGICAL/ONCOLOGICAL Hx Human Immunodeficiency Virus (HIV): No - INTEGUMENTARY Hx Dermatological Problems: No - MUSCULOSKELETAL/RHEUMATOLOGICAL Hx Musculoskeletal Disorders: No Hx Falls: No - GASTROINTESTINAL Hx Gastrointestinal Disorders: Yes Other/Comment: left inguinal hernia - GENITOURINARY/GYNECOLOGICAL Hx Sexually Transmitted Disorders: No - PSYCHIATRIC Hx Anxiety: Yes Hx Depression: Yes Hx Schizophrenia: Yes - SURGICAL HISTORY Hx Coronary Stent: Yes (x 4) Hx Tonsillectomy: Yes - ANESTHESIA Hx Anesthesia: Yes Hx Anesthesia Reactions: No Hx Malignant Hyperthermia: No Meds Allergies/Adverse Reactions: Allergies Allergy/AdvReac Type Severity Reaction Status Date / Time No Known Allergies Allergy Verified 09/23/17 02:00 Physical Exam - Constitutional Appears: No Acute Distress (strong cigarette smoke body odor) - Head Exam Head Exam: ATRAUMATIC, NORMOCEPHALIC - Eye Exam Eye Exam: EOMI, PERRL - ENT Exam ENT Exam: Mucous Membranes Moist - Neck Exam Neck exam: Positive for: Full Rom. Negative for: Lymphadenopathy - Respiratory Exam Respiratory Exam: Wheezes (bilateral, mild), NORMAL BREATHING PATTERN. absent: Accessory Muscle Use, Chest Wall Tenderness - Cardiovascular Exam Cardiovascular Exam: REGULAR RHYTHM, +S1, +S2 - GI/Abdominal Exam GI & Abdominal Exam: Hernia (palpable right inguinal hernia, reducible, tender to palpation), Normal Bowel Sounds, Soft. absent: Tenderness - Extremities Exam Extremities exam: Positive for: full ROM, normal capillary refill, pedal pulses present. Negative for: pedal edema - Back Exam Back exam: NORMAL INSPECTION - Neurological Exam Neurological exam: Alert, CN II-XII Intact, Normal Gait, Oriented x3 - Psychiatric Exam Psychiatric exam: Normal Affect, Normal Mood - Skin Skin Exam: Dry, Intact, Normal Color Results - Vital Signs Recent Vital Signs: Last Vital Signs Temp 98.4 F 09/23/17 02:00 Pulse 83 09/23/17 02:32 Resp 20 09/23/17 02:00 BP 116/65 09/23/17 02:32 Pulse Ox 92 L 09/23/17 06:01 - Labs Result Diagrams: 09/23/17 02:20 09/23/17 02:20 Labs: Laboratory Results - last 24 hr 09/23/17 09/23/17 09/23/17 01:57 02:20 02:20 WBC RBC Hgb Hct MCV MCH MCHC RDW Plt Count MPV Neut % (Auto) Lymph % (Auto) Grady % (Auto) Eos % (Auto) Baso % (Auto) Neut # Lymph # Grady # Eos # Baso # PT INR APTT Sodium 141 Potassium 3.8 Chloride 103 Carbon Dioxide 22 Anion Gap 20 BUN 12 Creatinine 1.1 Est GFR ( Amer) > 60 Est GFR (Non-Af Amer) > 60 POC Glucose (mg/dL) 120 H Random Glucose 114 H Lactic Acid Calcium 9.1 Total Bilirubin 0.7 AST 36 ALT 37 Alkaline Phosphatase 122 Troponin I 0.0290 NT-Pro-B Natriuret Pep 1110 H Total Protein 8.2 Albumin 4.7 Globulin 3.5 Albumin/Globulin Ratio 1.3 Urine Opiates Screen Positive H Urine Methadone Screen Negative Ur Barbiturates Screen Negative Ur Phencyclidine Scrn Negative Ur Amphetamines Screen Negative U Benzodiazepines Scrn Negative U Oth Cocaine Metabols Positive H U Cannabinoids Screen Negative Alcohol, Quantitative 155 H 09/23/17 09/23/17 09/23/17 02:20 02:20 02:20 WBC 9.5 RBC 5.08 Hgb 16.7 D Hct 49.5 MCV 97.3 H D MCH 32.8 H MCHC 33.7 RDW 14.9 H Plt Count 180 MPV 9.0 Neut % (Auto) 69.0 Lymph % (Auto) 19.8 L Grady % (Auto) 7.8 Eos % (Auto) 2.9 Baso % (Auto) 0.5 Neut # 6.5 Lymph # 1.9 Grady # 0.7 Eos # 0.3 Baso # 0.0 PT 11.8 INR 1.1 APTT 41.1 H Sodium Potassium Chloride Carbon Dioxide Anion Gap BUN Creatinine Est GFR ( Amer) Est GFR (Non-Af Amer) POC Glucose (mg/dL) Random Glucose Lactic Acid 2.4 H Calcium Total Bilirubin AST ALT Alkaline Phosphatase Troponin I NT-Pro-B Natriuret Pep Total Protein Albumin Globulin Albumin/Globulin Ratio Urine Opiates Screen Urine Methadone Screen Ur Barbiturates Screen Ur Phencyclidine Scrn Ur Amphetamines Screen U Benzodiazepines Scrn U Oth Cocaine Metabols U Cannabinoids Screen Alcohol, Quantitative Assessment & Plan - Assessment and Plan (Free Text) Assessment: 57 yr old M admitted for chest pain and right inguinal hernia with pain. Patient has PMHx including triple bypass surgery 06/2017, COPD/Emphysema, HTN, cocaine/heroin/Etoh abuse, current smoker. 1. Chest pain -stable, likely secondary to CAD vs cocaine abuse -hx 4 stents s/p triple bypass surgery 06/2017 -stable, troponin negative x 1 -EKG wnl -resume home medications: Clopidogrel 75mg PO QD, Metoprolol 25mg PO BID, Atorvastatin 40mg PO QD -follow up serial troponin 2. COPD -stable -Albuterol HFA 2 puffs INH Q4 PRN, Fluticasone/Salmeterol 1puff Q12H 3. Right Inguinal Hernia -stable -ABd/Pelvis CT: right inguinal hernia containing bowel-no obstruction 4. Etoh abuse, heroin and cocaine abuse -last use yesterday -no signs of withdrawal -Folic Acid 1mg PO QD, Thiamine 100mg PO QD 5. DVT prophylaxis -Lovenox 40mg SC QD - Date & Time Date: 09/23/17 Time: 06:20
[2017-09-23] MEDS ORDERED: Albuterol HFA 90 mcg/actuation (8 g) INH PRN (08:14)
[2017-09-23] MEDS ORDERED: Metoprolol Succinate 25 mg XL Tab PO SCH (09:00)
[2017-09-23] MEDS: Metoprolol Succinate 25 mg XL Tab PO SCH ×2 (09:57→17:00)
[2017-09-23] MEDS: Fluticasone-Salmeterol 100-50mcg Diskus IH SCH ×2 (09:57→20:59)
[2017-09-23] MEDS: Enoxaparin 40 mg Syringe SC SCH (09:59)
--- NOTE | 2017-09-23 10:58 | RAD ---
HISTORY: chest pain COMPARISON: Chest radiograph dated 07/29/2017 FINDINGS: LUNGS: No active pulmonary disease. PLEURA: No significant pleural effusion identified, no pneumothorax apparent. CARDIOVASCULAR: Prior sternotomy with sternal wires and surgical clips redemonstrated. Cardiomediastinal silhouette stably prominent. OSSEOUS STRUCTURES: Unchanged. VISUALIZED UPPER ABDOMEN: Normal. OTHER FINDINGS: None. IMPRESSION: No active disease.
--- NOTE | 2017-09-23 11:16 | CARD ---
APPROVED REPORT EKG Measurement Heart [id number] <Conclusion> Normal sinus rhythm Biatrial enlargement Left ventricular hypertrophy ST & T wave abnormality, consider lateral ischemia Prolonged QT Abnormal ECG
--- NOTE | 2017-09-24 00:55 | CP.PCM.PCO ---
Physician Communication Note - Physician Communication Note Physician Communication Note: paged for chest pain, EKG ordered stat, nitroglycerin 0.4mg sublingual stat Assessment/Plan - Assessment and Plan (Free Text) Assessment: Patient examined at bedside, in no acute distress, verbal, sitting comfortably in bed eating steak and mashed potatoes. -EKG stat showed normal sinus rhythm, no acute ST-T changes -patients pain resolved with nitroglycerin - Date & Time Date: 09/24/17 Time: 01:20
[2017-09-24 08:40] VITALS: RESP 20
[2017-09-24] MEDS: Metoprolol Succinate 25 mg XL Tab PO SCH (08:40)
[2017-09-24] MEDS: Fluticasone-Salmeterol 100-50mcg Diskus IH SCH (08:41)
[2017-09-24] MEDS: Enoxaparin 40 mg Syringe SC SCH (10:01)
--- NOTE | 2017-09-24 10:47 | CP.PCM.CON ---
History of Present Illness - History of Present Illness History of Present Illness: this 57-year-old man with severe coronary artery disease and required triple vessel coronary bypass graft surgery in June of this year came into the hospital complaining of difficulty breathing along with constant cough and chest pain. The patient is a long-time cigarette smoker and a hypertensive who has required coronary stenting in the past. Following his bypass surgery in June he has not seen his patient care technician instructor and has taken his medications erratically. He continues to smoke and has used cocaine as well as opiates.the patient also indicates that coughing spells aggravate his chest pain and turning in bed on abruptly sitting up is quite uncomfortable at the site of his thoracotomy. Patient is extremely anxious about writing on a hernia which has grown in size recently with a persistent cough. He gives history of having had his left inguinal hernia surgically corrected. Physical examination shows an elderly man who is extremely anxious but is alert and awake and coherent and fully aware of his surroundings. Afebrile with a pulse rate of 78 bpm and regular and a blood pressure of 164/70 mmHg. his respirator rate was 18-20 breaths per minute.His jugular venous pressure was not elevated and there was no edema over his lower extremities. The pedal pulses were well felt. There were no carotid bruits. The chest was emphysematous. The apex was not palpable. His extremities were warm and his nailbeds were pink. There was no central or peripheral cyanosis. There was no clubbing. There was a large right inguinal hernia and a scar of surgical correction of left inguinal hernia. The first and second heart sounds were normal there was a brief apical systolic murmur but no gallop rhythm and there were prominent rhonchi all over the chest and his expiration was prolonged. His electrocardiogram taken today shows sinus rhythm with inverted T waves in leads 1 and aVL as well as inverted T waves in V4 V5 and V6 a pattern seen on his admission electrocardiogram yesterday morning at 1:56 AM. There was poor progression of R wave from V1 to V3 to and a pattern suggestive of left ventricular hypertrophy. 3 sets of cardiac enzymes were negative for any evidence of myocyte injury. The rest of his labs were noted. Opiates and cocaine metabolites where evident in his urine. impression: chest wall pain probably secondary to recent surgery and constant cough as a consequence of COPD due to chronic cigarette use.no evidence of acute coronary syndrome.status post recent coronary bypass graft surgery for triple vessel coronary artery disease. No clinical evidence of congestive cardiac failure. Hypertension. Chronic drug abuse and alcohol abuse. I have discussed his case with the residents.the patient will be started on lisinopril and hydrochlorothiazide to control his hypertension the patient has been instructed to take his medications regularly and see his patient care technician instructor on a regular basis. I also cautioned him against using cocaine particularly during this immediate postoperative period The patient is stable from cardiovascular point of view and may return to see his patient care technician instructor as an outpatient. Past Patient History - Infectious Disease Hx of Infectious Diseases: None - Past Medical History & Family History Past Medical History?: Yes - Past Social History Smoking Status: Heavy Smoker > 10 Cigarettes Daily - CARDIAC Hx Hypercholesterolemia: Yes Hx Hypertension: Yes - PULMONARY Hx Asthma: Yes Hx Chronic Obstructive Pulmonary Disease (COPD): Yes Hx Emphysema: Yes - NEUROLOGICAL Hx Seizures: No - HEENT Hx HEENT Problems: No - RENAL Hx Chronic Kidney Disease: No - ENDOCRINE/METABOLIC Hx Endocrine Disorders: No - HEMATOLOGICAL/ONCOLOGICAL Hx Human Immunodeficiency Virus (HIV): No - INTEGUMENTARY Hx Dermatological Problems: No - MUSCULOSKELETAL/RHEUMATOLOGICAL Hx Musculoskeletal Disorders: No Hx Falls: No - GASTROINTESTINAL Hx Gastrointestinal Disorders: Yes Other/Comment: left inguinal hernia - GENITOURINARY/GYNECOLOGICAL Hx Sexually Transmitted Disorders: No - PSYCHIATRIC Hx Anxiety: Yes Hx Depression: Yes Hx Schizophrenia: Yes Hx Substance Use: Yes Other/Comment: heroine,coccaine - SURGICAL HISTORY Hx Coronary Stent: Yes (x 4) Hx Tonsillectomy: Yes - ANESTHESIA Hx Anesthesia: Yes Hx Anesthesia Reactions: No Hx Malignant Hyperthermia: No Has any member of the family had a problem w/ anesthesia?: No Meds Allergies/Adverse Reactions: Allergies Allergy/AdvReac Type Severity Reaction Status Date / Time No Known Allergies Allergy Verified 09/23/17 02:00 - Medications Medications: Current Medications Albuterol (Ventolin Hfa 90 Mcg/Actuation (8 G)) 2 puff INH RQ4 PRN PRN Reason: Shortness of Breath Last Admin: 09/24/17 00:57 Dose: 2 puff Atorvastatin Calcium (Lipitor) 40 mg PO DAILY [facility] Last Admin: 09/24/17 08:39 Dose: 40 mg Clopidogrel Bisulfate (Plavix) 75 mg PO DAILY [facility] Last Admin: 09/24/17 08:40 Dose: 75 mg Enoxaparin Sodium (Lovenox) 40 mg SC DAILY [facility] PRN Reason: Protocol Last Admin: 09/24/17 10:01 Dose: 40 mg Folic Acid (Folic Acid) 1 mg PO DAILY [facility] Last Admin: 09/24/17 08:39 Dose: 1 mg Metoprolol Succinate (Toprol Xl) 25 mg PO BID [facility] Last Admin: 09/24/17 08:40 Dose: 25 mg Fluticasone/Salmeterol (Advair Diskus 100/50) 1 puff IH Q12 [facility] Last Admin: 09/24/17 08:41 Dose: 1 puff Thiamine HCl (Vitamin B1 Tab) 100 mg PO DAILY [facility] Last Admin: 09/24/17 08:40 Dose: 100 mg Results - Vital Signs Recent Vital Signs: Last Vital Signs Temp 98.1 F 09/24/17 08:39 Pulse 72 09/24/17 08:40 Resp 20 09/24/17 08:39 BP 172/101 H 09/24/17 08:40 Pulse Ox 97 09/24/17 08:39 - Labs Result Diagrams: 09/23/17 02:20 09/23/17 02:20 Labs: Laboratory Results - last 24 hr 09/23/17 09/23/17 09/24/17 14:00 22:00 10:05 Lactic Acid Troponin I 0.0260 0.0270 0.0310 09/24/17 10:05 Lactic Acid 1.5 Troponin I
[2017-09-24 13:00] VITALS: BP 167/76; PULSE 70; TEMP 98; O2SAT 96
--- NOTE | 2017-09-24 13:36 | CP.PCM.DIS ---
Provider - Provider Date of Admission: 09/23/17 05:44 Attending physician: Nasreen Norman MD Primary care physician: [facility] Consults: Cardiology Time Spent in preparation of Discharge (in minutes): 30 Hospital Course - Lab Results Lab Results: Most Recent Lab Values WBC 9.5 K/uL (4.8-10.8) 09/23/17 02:20 RBC 5.08 Mil/uL (4.40-5.90) 09/23/17 02:20 Hgb 16.7 g/dL (12.0-18.0) D 09/23/17 02:20 Hct 49.5 % (35.0-51.0) 09/23/17 02:20 MCV 97.3 fl (80.0-94.0) H D 09/23/17 02:20 MCH 32.8 pg (27.0-31.0) H 09/23/17 02:20 MCHC 33.7 g/dL (33.0-37.0) 09/23/17 02:20 RDW 14.9 % (11.5-14.5) H 09/23/17 02:20 Plt Count 180 K/uL (130-400) 09/23/17 02:20 MPV 9.0 fl (7.2-11.7) 09/23/17 02:20 Neut % (Auto) 69.0 % (50.0-75.0) 09/23/17 02:20 Lymph % (Auto) 19.8 % (20.0-40.0) L 09/23/17 02:20 Edmunds % (Auto) 7.8 % (0.0-10.0) 09/23/17 02:20 Eos % (Auto) 2.9 % (0.0-4.0) 09/23/17 02:20 Baso % (Auto) 0.5 % (0.0-2.0) 09/23/17 02:20 Neut # 6.5 K/uL (1.8-7.0) 09/23/17 02:20 Lymph # 1.9 K/uL (1.0-4.3) 09/23/17 02:20 Edmunds # 0.7 K/uL (0.0-0.8) 09/23/17 02:20 Eos # 0.3 K/uL (0.0-0.7) 09/23/17 02:20 Baso # 0.0 K/uL (0.0-0.2) 09/23/17 02:20 PT 11.8 Seconds (9.8-13.1) 09/23/17 02:20 INR 1.1 (0.9-1.2) 09/23/17 02:20 APTT 41.1 Seconds (25.6-37.1) H 09/23/17 02:20 Sodium 141 mmol/l (132-148) 09/23/17 02:20 Potassium 3.8 MMOL/L (3.6-5.0) 09/23/17 02:20 Chloride 103 mmol/L (98-107) 09/23/17 02:20 Carbon Dioxide 22 mmol/L (22-30) 09/23/17 02:20 Anion Gap 20 (10-20) 09/23/17 02:20 BUN 12 mg/dl (9-20) 09/23/17 02:20 Creatinine 1.1 mg/dl (0.8-1.5) 09/23/17 02:20 Est GFR ( Amer) > 60 09/23/17 02:20 Est GFR (Non-Af Amer) > 60 09/23/17 02:20 POC Glucose (mg/dL) 120 mg/dL (65-110) H 09/23/17 01:57 Random Glucose 114 mg/dL (75-110) H 09/23/17 02:20 Lactic Acid 1.5 MMOL/L (0.7-2.1) 09/24/17 10:05 Calcium 9.1 mg/dL (8.4-10.2) 09/23/17 02:20 Total Bilirubin 0.7 mg/dl (0.2-1.3) 09/23/17 02:20 AST 36 U/L (17-59) 09/23/17 02:20 ALT 37 U/L (21-72) 09/23/17 02:20 Alkaline Phosphatase 122 U/L (38-126) 09/23/17 02:20 Troponin I 0.0310 ng/mL (0.00-0.120) 09/24/17 10:05 NT-Pro-B Natriuret Pep 1110 pg/ml (0-900) H 09/23/17 02:20 Total Protein 8.2 G/DL (6.3-8.2) 09/23/17 02:20 Albumin 4.7 g/dL (3.5-5.0) 09/23/17 02:20 Globulin 3.5 gm/dL (2.2-3.9) 09/23/17 02:20 Albumin/Globulin Ratio 1.3 (1.0-2.1) 09/23/17 02:20 Urine Opiates Screen Positive (NEGATIVE) H 09/23/17 02:20 Urine Methadone Screen Negative (NEGATIVE) 09/23/17 02:20 Ur Barbiturates Screen Negative (NEGATIVE) 09/23/17 02:20 Ur Phencyclidine Scrn Negative (NEGATIVE) 09/23/17 02:20 Ur Amphetamines Screen Negative (NEGATIVE) 09/23/17 02:20 U Benzodiazepines Scrn Negative (NEGATIVE) 09/23/17 02:20 U Oth Cocaine Metabols Positive (NEGATIVE) H 09/23/17 02:20 U Cannabinoids Screen Negative (NEGATIVE) 09/23/17 02:20 Alcohol, Quantitative 155 mg/dl (0-10) H 09/23/17 02:20 - Hospital Course Hospital Course: 57 yr old M with pmh 4 coronary stents s/p triple bypass surgery 06/2017, COPD/ Emphysema, HTN, cocaine/heroin/Etoh abuse, current smoker. Presented to ED with complaint of chest pain that began day prior to admission when he was moving furniture around his home, pt's last cocaine use was day of admission. Pt admitted to r/o ACS. In the ED, EKG showed no acute changes from prior EKG, pain was relieved with sublingual nitroglycerin. Troponins were negative x3. Repeat EKG this morning was unchanged from prior EKGs. Cardiology was consulted - consult appreciated, pt's pain is likely due to his chronic cough and not myocardial injury. Advised that pt follow up with supervisor mapping at [facility] and to stop smoking and using cocaine. Pt counseled on importance of compliance with medication, follow up with supervisor mapping, and smoking/cocaine/heroin cessation. Pt has appt with PMD on 10/06/2017. Discharge Exam - Head Exam Head Exam: ATRAUMATIC, NORMOCEPHALIC - Eye Exam Eye Exam: EOMI, Normal appearance - ENT Exam ENT Exam: Mucous Membranes Moist - Respiratory Exam Respiratory Exam: Clear to PA & Lateral, NORMAL BREATHING PATTERN, UNREMARKABLE - Cardiovascular Exam Cardiovascular Exam: REGULAR RHYTHM, +S1, +S2 - GI/Abdominal Exam GI & Abdominal Exam: Hernia (R sided inguinal hernia, reducible. ), Normal Bowel Sounds, Soft - Extremities Exam Extremities exam: full ROM, normal capillary refill, pedal pulses present - Neurological Exam Neurological exam: Alert, Oriented x3 - Skin Skin Exam: Dry, Intact, Normal Color Discharge Plan - Discharge Medications Prescriptions: Budesonide [Pulmicort Respules] 2 ml IH Q12H #1 inhaler Folic Acid 1 mg PO DAILY 30 Days tab Furosemide [Lasix] 20 mg PO DAILY 30 Days tab Metoprolol Tartrate [Lopressor] 25 mg PO Q12H 30 Days tab Multivitamin [Multi-Vitamin Daily] 1 tab PO DAILY 30 Days tablet Potassium Chloride [K-Dur 20 mEq ER Tab] 20 meq PO DAILY 30 Days tab Thiamine [Vitamin B1 Tab] 100 mg PO DAILY 30 Days tab Valsartan [Diovan] 80 mg PO DAILY 30 Days tab - Follow Up Plan Condition: FAIR Disposition: HOME/ ROUTINE Instructions: Chest Pain (DC), Chest Pain (GEN) Additional Instructions: Follow up with private supervisor mapping at [facility]. Follow up with PMD at [address] [place] [address] on 10/06/2017 at 2:20 pm. Phone number [phone]. Return to ED if new onset chest pain, shortness of breath, fever.
--- NOTE | 2017-09-25 15:58 | CARD ---
APPROVED REPORT EKG Measurement Heart [id number] <Conclusion> Normal sinus rhythm Possible Left atrial enlargement Left ventricular hypertrophy Cannot rule out Septal infarct, age undetermined T wave abnormality, consider lateral ischemia Abnormal ECG
== END 2017-09-24 16:00 | disposition home or self-care (01) ==
LOC: H.ER 01:35 → H.ERHOLD 05:44 → H.TEL 11:03
PROVIDERS: ADMIT Family Medicine Geriatric Medicine; ATTEND Family Medicine Geriatric Medicine
DX: R07.89 Other chest pain (principal); I25.10 Atherosclerotic heart disease of native coronary artery without angina pectoris; I10 Essential (primary) hypertension; J43.9 Emphysema, unspecified; E78.00 Pure hypercholesterolemia, unspecified; F14.10 Cocaine abuse, uncomplicated; F17.210 Nicotine dependence, cigarettes, uncomplicated; F11.10 Opioid abuse, uncomplicated; F10.129 Alcohol abuse with intoxication, unspecified; Y90.6 Blood alcohol level of 120-199 mg/100 ml; K40.90 Unilateral inguinal hernia, without obstruction or gangrene, not specified as recurrent; F20.9 Schizophrenia, unspecified; Z79.82 Long term (current) use of aspirin; Z95.5 Presence of coronary angioplasty implant and graft
CPT/HCPCS: 36415; 71010; 74177; 80053; 82948; 83605; 83880; 84484; 85025; 85610; 85730; 93005; 96372; 96374; 99285; G0378; G0480; J1650; J2270; Q9966; Q9967

== ENCOUNTER 2018-04-01 13:22 | Inpatient (IN) | payer MEDICARE, MEDICAID ==
[2018-04-01 13:22] VITALS: BMI 24.1
[~2018-04-01 13:22] MED LIST: levoFLOXacin 750 mg in D5W 750 MG/150 ML BAG IVPB SCH
[2018-04-01] MEDS ORDERED: Naloxone 0.4 mg/ml Inj (Adult) ONE ×2 (13:32)
[2018-04-01] MEDS ORDERED: Sodium Chloride 0.9% 2,000 ML IV STA (13:44)
[2018-04-01] MEDS ORDERED: Sodium Bicarbonate 7.5% (0.9 MEQ/ML) 50ML INJ IV ONE ×2 (13:45→14:05)
[2018-04-01] MEDS ORDERED: Calcium Chloride 1000 mg/10 ml Syringe IV STA (13:46)
[2018-04-01] MEDS ORDERED: Naloxone 0.4 mg/ml Inj (Adult) IVP STA (13:48)
--- NOTE | 2018-04-01 13:51 | ED PDOC ---
HPI: Cardiac Arrest Time Seen by Provider: 04/01/18 13:42 Chief Complaint (Nursing): Cardiac Arrest Chief Complaint (Provider): Cardiac arrest History Per: EMS Reason For Code Blue: Unresponsive Circumstances: Brought To ED By EMS Down-Time Before ACLS: Unknown Treatment Initiated Prior To MD Arrival: Intubation Medications Given Prior To MD Arrival: Epinephrine, Other (Narcan) Additional Complaint(s): Mirza Drew is a 57 year old male, with a past medical history of HTN, COPD , hypercholesterolemia, CAD, CABG and stents, who was brought to the emergency department via EMS after patient was found unresponsive for an unknown amount of time. Upon arrival of BLS patient was given a dosage of Narcan and CPR. ALS report patient was initially asystole, he was given 4 rounds of epinephrine and was intubated, last dose of epi was at 13:14. After last dose they were able to get a pulse back. Upon arrival to ED patient was intubated and sinus hilary with pace maker. PMD: None provided. - Initial Findings Mentation: Unresponsive Past Medical History Reviewed: Historical Data, Nursing Documentation, Vital Signs Vital Signs: Last Vital Signs Temp 92.4 F L 04/01/18 16:36 Pulse 42 L 04/01/18 16:36 Resp 12 04/01/18 16:36 BP 109/62 04/01/18 16:36 Pulse Ox 100 04/01/18 16:36 - Medical History PMH: Anxiety, Asthma, CAD, COPD, Depression, Emphysema, HTN, Hypercholesterolemia, Schizophrenia Denies: Diabetes, Hepatitis, HIV, Chronic Kidney Disease, Seizures, Sexually Transmitted Disease - Surgical History Surgical History: CABG, Coronary Stent (x 4), Tonsillectomy - Family History Family History: States: Unknown Family Hx - Immunization History Hx Tetanus Toxoid Vaccination: No Hx Influenza Vaccination: No Hx Pneumococcal Vaccination: No - Home Medications Home Medications: Ambulatory Orders Medication Instructions Recorded Aspirin [Aspirin Chewable] 81 mg PO DAILY #30 chew 12/11/17 Isosorbide Mononitrate ER [Imdur 60 mg PO DAILY #30 tab 12/11/17 ER] Losartan [Cozaar] 50 mg PO DAILY #30 tab 12/11/17 Multivitamin [Multi-Vitamin Daily] 1 tab PO DAILY 30 Days tablet 12/11/17 Albuterol 0.083% [Albuterol 0.083% 2.5 mg INH RQ4 neb 02/02/18 Inhal Mercedes (2.5 mg/3 ml) UD] Clopidogrel [Plavix] 75 mg PO DAILY #30 tab 02/02/18 Fluticasone/Salmeterol 250/50 1 puff INH RQ12 puff 02/02/18 [Advair Diskus 250/50] Rosuvastatin Calcium [Crestor] 20 mg PO HS #30 tab 02/02/18 amLODIPine [Norvasc] 5 mg PO DAILY #30 tab 02/02/18 traZODone [Desyrel] 100 mg PO HS PRN #30 tab 02/02/18 Carvedilol [Coreg] 25 mg PO BID 02/10/18 - Allergies Allergies/Adverse Reactions: Allergies Allergy/AdvReac Type Severity Reaction Status Date / Time No Known Allergies Allergy Verified 02/10/18 23:14 Review of Systems Review Of Systems: ROS cannot be obtained secondary to pt's inabilty to answer questions. Physical Exam - Reviewed Nursing Documentation Reviewed: Yes Vital Signs Reviewed: Yes - Physical Exam Appears: Positive for: In Acute Distress Head Exam: Positive for: ATRAUMATIC Skin: Positive for: Dry Eye Exam: Positive for: Other (bilaterally fixed and dilated). Negative for: Periorbital swelling ENT: Positive for: Other (ET tube in place to mouth. No oral injuries) Neck: Positive for: Trachea Midline Cardiovascular/Chest: Positive for: Bradycardia Respiratory: Positive for: Normal Breath Sounds (No respirations, patient ventilated. Equal breath sounds bilaterally with ventilation) Gastrointestinal/Abdominal: Negative for: Distended Back: Positive for: Normal Inspection Extremity: Negative for: Deformity, Swelling, Other (No movement of extremities) Neurologic/Psych: Negative for: Alert (unresponsive) - Laboratory Results Result Diagrams: 04/01/18 13:50 04/01/18 13:50 Interpretation Of Abn Labs: 6.9 lactate, elevated wbc, K, bun and cr, opiates and coccaine, alcohol - ECG ECG: Positive for: Interpreted By Me, Viewed By Me ECG Rhythm: Positive for: Sinus Bradycardia O2 Sat by Pulse Oximetry: 100 Pulse Ox Interpretation: Normal - Radiology X-Ray: Interpreted by Me, Viewed By Me X-Ray Interpretation: Infiltrates (RLL angle; ) - CT Scan/US ct Other Rad Studies (CT/US): Read By Radiologist Other Rad Interpretation: edema in head - Progress ED Course And Treament: 1400: Will do hypothermia protocol, ct head and chest, and await labs. Will start levophed. 1430: Lactate elevated, possible code sepsis. X-ray with right angle blunting. 1500: K elevated, but 2 amps bicarb and calcium given. Fluids given. Spoke with Dr. Pacheco. Will admit ICU. 1510: Spoke with friends who came to ER for pt. State pt. was complaining of chest pain and abd pain in his hernia. Then they saw him not responding so EMS called. EMS arrived approx 10 min after pt. found not responding. 1527: Pt. getting IV fluids for hyperkalemia and renal insuff., getting antibiotics for possible pneumonia, and levophed to keep pressure appropriate for hypothermia protocol. [facility] resident spoken to and will admit. 1550: Spoke with Dr. Kim for code heart possibility. He reviewed ekg and notified of findings and presentation. States agree with care and not a code heart. 1600: Spoke with Dr. Skinner. Agrees with current care. Will consult. 1620: Spoke with Dr. Min. Will consult. No additional tx at this time. - Critical Care Total Time (In Min): 120 Documented Critical Care: Time excludes all time spent performint seperately billable procedures Medical Decision Making Medical Decision Making: Time: 13:42 Initial Impression: cardiac arrest Initial Plan: --ABG --Angio chest PE Protocol [CT] --Head w/o contrast [CT] --EKG --Alcohol serum --Ammonia --CMP --Drug screen, urine --Magnesium --Phosphorus --Troponin I --Urine dip --CBC w/ differential --PTT --PT --Chest portable [RAD] --Calcium Chloride 1,000 mg IV --Dextrose 5% in Water 250 ml Norepinephrine [Levophed] 4 mg IV --Sodium Chloride 2,000 ml IV 4,000 mls/hr --Narcan 0.8 mg IVP --Sodium Bicarbonate 7.5% 50 ml 89.2 meq IV --Blood culture --Urine culture --NG --Hadley --Ventilator settings [RT] --Urinalysis --Reevaluation 13:28 -Accuchek 178 13:33 -0.8mg Narcan given 13:35 -Central lumen placed by provider ----- Scribe Attestation: Documented by Jerry Peña, acting as a scribe for Julio César Watkins MD. Provider Scribe Attestation: All medical record entries made by the Scribe were at my direction and personally dictated by me. I have reviewed the chart and agree that the record accurately reflects my personal performance of the history, physical exam, medical decision making, and the department course for this patient. I have also personally directed, reviewed, and agree with the discharge instructions and disposition. Procedures - Central Line Central Line Lumen: triple Central Line Procedure: betadine prep, sterile drapes applied, sterile dressing applied Central Line Postion: femoral (L) Complications: none Central Line Post Position: good blood return Progress: Emergent central line placement due to cardiac arrest. Disposition - Clinical Impression Clinical Impression: Pneumonia, Cardiac arrest, Alcohol abuse, Cocaine abuse, Renal insufficiency, Hyperkalemia, Septic shock, Opiate abuse, episodic, Bradycardia - Patient ED Disposition Is Patient to be Admitted: Yes - Disposition Disposition Time: 15:35 Condition: CRITICAL - Pt Status Changed To: Hospital Disposition Of: Inpatient - Admit Certification Admit to Inpatient:: After my assessment, the patient will require hospitalization for at least two midnights. This is because of the severity of symptoms shown, intensity of services needed, and/or the medical risk in this patient being treated as an outpatient. - POA Present On Arrival: None Core Measure Indicators: Code Freeze, Code Sepsis
[2018-04-01 13:58] LABS: BASO # 0.1 K/uL (0.0-0.2); BASO % 0.4 % (0.0-2.0); EOS # 0.3 K/uL (0.0-0.7); EOS % 1.7 % (0.0-4.0); HEMOGLOBIN 13.5 g/dL (12.0-18.0); LYMPH # 6.7 K/uL (1.0-4.3); LYMPH % 44.4 % (20.0-40.0); MEAN CELL VOLUME 100.8 fl (80.0-94.0); MEAN CORPUSCULAR HEMOGLOBIN 32.8 pg (27.0-31.0); MEAN CORPUSCULAR HGB CONC 32.5 g/dL (33.0-37.0); MEAN PLATELET VOLUME 8.5 fl (7.2-11.7); MONO # 1.3 K/uL (0.0-0.8); MONO % 8.8 % (0.0-10.0); NEUT # 6.8 K/uL (1.8-7.0); NEUT % 44.7 % (50.0-75.0); RBC 4.12 Mil/uL (4.40-5.90); RED CELL DISTRIBUTION WIDTH 14.4 % (11.5-14.5); WHITE BLOOD COUNT 15.1 K/uL (4.8-10.8)
[2018-04-01 14:01] LABS: ABG ALLEN TEST YES; ARTERIAL BLOOD GAS HEMOGLOBIN 11.4 g/dL (11.7-17.4); ARTERIAL BLOOD GAS O2 CAPACITY 16.3 mL/dL (16-24); ARTERIAL BLOOD GAS O2 CONTENT 16.3 ML/dL (15-23); ARTERIAL BLOOD GAS O2 SAT 99.7 % (95-98); ARTERIAL BLOOD GAS PCO2 70 mm/Hg (35-45); ARTERIAL BLOOD GAS PH 6.91 (7.35-7.45); ARTERIAL BLOOD GAS PO2 506 mm/Hg (80-100); ARTERIAL BLOOD GAS TCO2 16.1 mmol/L (22-28)
[2018-04-01] MEDS ORDERED: Midazolam 2 MG/2 ML VIAL IV PRN (14:04)
[2018-04-01] MEDS ORDERED: Midazolam 2 MG/2 ML VIAL ONE (14:11)
[2018-04-01 14:17] LABS: ALB/GLOB RATIO 1.4 (1.0-2.1); ALBUMIN 4.2 g/dL (3.5-5.0); CALCIUM 8.5 mg/dL (8.4-10.2)
[2018-04-01 14:20] LABS: SQUAMOUS EPITHIAL 1 /hpf (0-5); URINE BACTERIA RARE (<OCC); URINE BILIRUBIN NEGATIVE (NEGATIVE); URINE BLOOD LARGE (NEGATIVE); URINE CLARITY CLOUDY (Clear); URINE COLOR YELLOW (YELLOW); URINE GLUCOSE (UA) NEG (Normal); URINE LEUKOCYTE ESTERASE NEG Leu/uL (Negative); URINE PROTEIN 100 mg/dL (NEGATIVE); URINE UROBILINOGEN 0.2-1.0 mg/dL (0.2-1.0)
[2018-04-01 14:21] LABS: TROPONIN I 0.03 ng/mL (0.00-0.120)
[2018-04-01] MEDS ORDERED: Iodixanol 320 MG/ML 100 ML BOTTLE IV ONE (14:24)
[2018-04-01] MEDS ORDERED: Sodium Chloride 0.9% 50 ML IV ONE (14:24)
[2018-04-01 14:28] LABS: BARBITURATES, UR NEGATIVE (NEGATIVE)
[2018-04-01] MEDS ORDERED: Moxifloxacin IV 400mg/250ml NS 400 MG/250 ML BAG IVPB STA (14:32)
[2018-04-01] MEDS ORDERED: Piperacillin/Tazobact 4.5 GM in Sodium Chloride 0.9% 100 ML IVPB STA (14:32)
[2018-04-01 14:33] LABS: BENZODIAZEPINES, UR NEGATIVE (NEGATIVE); OPIATES, UR POSITIVE (NEGATIVE); PHENCYCLIDINE, UR NEGATIVE (NEGATIVE)
[2018-04-01 14:34] LABS: INR 1.1 (0.9-1.2); PARTIAL THROMBOPLASTIN TIME 28.7 Seconds (25.6-37.1); PROTHROMBIN TIME 12.1 Seconds (9.8-13.1)
[2018-04-01 14:54] LABS: ABG ALLEN TEST YES; ARTERIAL BLOOD GAS O2 SAT 99.7 % (95-98); ARTERIAL BLOOD GAS PCO2 70 mm/Hg (35-45); ARTERIAL BLOOD GAS PH 6.91 (7.35-7.45); ARTERIAL BLOOD GAS PO2 506 mm/Hg (80-100); ARTERIAL BLOOD GAS TCO2 16.1 mmol/L (22-28)
[2018-04-01] MEDS ORDERED: Vancomycin 1 g Inj ONE (15:01)
--- NOTE | 2018-04-01 15:04 | CT ---
PROCEDURE: CT HEAD WITHOUT CONTRAST. HISTORY: headache COMPARISON: Comparison made with CT scan brain 06/26/2017. TECHNIQUE: Contiguous helical/transaxial computed tomography images were obtained through the head/brain without intravenous contrast. Radiation dose: Total exam DLP = 1924.33 mGy-cm. This CT exam was performed using one or more of the following dose reduction techniques: Automated exposure control, adjustment of the mA and/or kV according to patient size, and/or use of iterative reconstruction technique. Study is limited by motion artifact. FINDINGS: HEMORRHAGE: No acute parenchymal, subarachnoid or extra-axial hemorrhage. BRAIN: The corticomedullary junction is slightly indistinct compared the prior exam particularly in the more inferiorly located sections. While some of the findings could be related to motion artifact, the possibility of mild diffuse cerebral edema related to mild diffuse hypoxia not excluded. Follow-up CT scan at interval recommended. Re- demonstrated is what is felt to represent mild central volume loss evidenced by slight disproportionate enlargement of the ventricles as compared sulci. VENTRICLES: No obstructive hydrocephalus. CALVARIUM: Calvarium intact PARANASAL SINUSES: There is an apparent small fluid level left chamber sphenoid sinus. There is also partial opacification of the ethmoid air complex and possibly small fluid level and left aspect hypoplastic frontal sinus. Findings could be related to in situ ETT. NGT is seen on the lateral credit underwriter film. MASTOID AIR CELLS: Unremarkable as visualized. No inflammatory changes. OTHER FINDINGS: None. IMPRESSION: Limited motion degraded study. The corticomedullary junction is slightly indistinct compared the prior exam particularly in the more inferiorly located sections. While some of the findings could be related to motion artifact, the possibility of mild diffuse cerebral edema related to mild diffuse hypoxia not excluded. Follow-up CT scan at interval recommended. No acute intracranial hemorrhage. Mucoperiosteal inflammatory changes seen within the aforementioned paranasal sinuses as detailed above.
--- NOTE | 2018-04-01 15:08 | CARD ---
APPROVED REPORT EKG Measurement Heart [id number] <Conclusion> Marked sinus bradycardia Possible Left atrial enlargement Left axis deviation Low voltage QRS Inferior infarct, age undetermined Cannot rule out Anterior infarct, age undetermined ST & T wave abnormality, consider lateral ischemia Abnormal ECG
[2018-04-01] MEDS ORDERED: Midazolam 2 MG/2 ML VIAL IV STA (15:50)
--- NOTE | 2018-04-01 15:55 | CT ---
PROCEDURE: CT Chest with contrast (Pulmonary Angiogram) HISTORY: Chest pain COMPARISON: No prior study available comparison however correlation made with chest radiograph obtained earlier same day TECHNIQUE: Axial computed tomography images were obtained of the chest in the pulmonary arterial phase of enhancement. Coronal and sagittal reformatted images were created and reviewed. Intravenous contrast dose: Radiation dose: Total exam DLP = 495.89 mGy-cm. This CT exam was performed using one or more of the following dose reduction techniques: Automated exposure control, adjustment of the mA and/or kV according to patient size, and/or use of iterative reconstruction technique. FINDINGS: In situ ETT in good position. In situ NGT, distal aspect of which appears be coiled at/just above the level of the true vocal cords and should be repositioned. Note that Dr. Watkins informed these findings at approximately 325 p.m. with written down and read back verification. PULMONARY ARTERIES: The visualized pulmonary trunk, right and left main, lobar, segmental and subsegmental branches of the pulmonary arteries are well opacified with no definitive filling defects seen suggest acute central pulmonary embolus. Pulmonary trunk measures approximately 2.9 cm. AORTA: No acute findings. No thoracic aortic aneurysm. Ascending thoracic aorta measures approximately 3.3 cm and descending thoracic aorta measures approximately 2.8 cm. LUNGS: Centrilobular emphysematous changes upper lobe predominance. There also paraseptal emphysematous changes in the lung apices right greater than left. No acute consolidation. There is a small elliptical shaped pleural-based nodular opacity left posteromedial upper lobe likely postinflammatory with linear scarring changes seen emanating into the adjacent parenchyma. Another small focal area of presumed postinflammatory pleural thickening right posterior sulcus. . Minor chronic scarring changes seen in the lingular, middle lobe regions as well as left lung base. . PLEURAL SPACES: As above. No effusion or pneumothorax. HEART: Sternotomy wires and CABG clips again noted Heart appears enlarged. No significant pericardial effusion. LYMPH NODES: There are multiple on borderline/mildly enlarged mediastinal lymph nodes. The largest right anterior paratracheal lymph node measures approximately 1.9 cm. There is a left lateral para-aortic lymph node that measures approximately 1.6 cm. Left paratracheal lymph node measures approximately 1.8 cm. BONES, CHEST WALL: Median sternotomy. Mild multilevel degenerative spondylosis of the thoracic spine OTHER FINDINGS: Mildly enlarged bilateral adrenal glands. IMPRESSION: No evidence of acute central pulmonary embolus. Multiple of borderline/mildly enlarged mediastinal lymph nodes. Centrilobular emphysematous changes upper lobe predominance. Minor pleural based nodular opacity seen in the right upper and lower lobes likely postinflammatory. Minor scarring changes middle lobe and lingular regions. NGT appears to be coiled at-just above the level of the true vocal cords. Referring emergency room physician aware as detailed above
[2018-04-01 16:28] LABS: ABG ALLEN TEST YES; ARTERIAL BLOOD GAS HCO3 15.5 mmol/L (21-28); ARTERIAL BLOOD GAS PCO2 60 mm/Hg (35-45); ARTERIAL BLOOD GAS PH 7.09 (7.35-7.45); ARTERIAL BLOOD GAS PO2 564 mm/Hg (80-100)
[2018-04-01] MEDS ORDERED: Glucagon Recombinant 1 mg Inj IM PRN (16:37)
[2018-04-01] MEDS ORDERED: Dextrose 50% SYRINGE Inj (50 ml) IVP PRN (16:37)
[2018-04-01] MEDS ORDERED: NALOXONE HCL IVPB ONE (16:53)
[2018-04-01] MEDS ORDERED: SODIUM CHLORIDE 0.9% IVPB ONE (16:53)
--- NOTE | 2018-04-01 16:57 | CP.PCM.HP ---
<Monie Blake - Last Filed: 04/01/18 18:35> History of Present Illness - History of Present Illness History of Present Illness: Patient is unconscious and unresponsive, History collected from review of visits , EMS records and family This is 57 y/o M with PMH of triple bypass surgery 06/2017, COPD/Emphysema, HTN, cocaine/heroin/Etoh abuse, current smoker who was brought in to the ER by EMS after found unconscious at home by friends. As per history reported at ER by friends: patient was c/o chest and right hernia pain for few days, fall wasn't witnessed by friends but they were in the same house. EMS found him unresponsive (asystole), intubated and ACLS started, Narcan and 4 epi given, before arriving to the ED patient was revived. (Emergency Contact: SisterLara, ) PCP: went to [facility] for 2 visits (07/2016 and 04/2017) PMHx: triple bypass surgery 06/2017, COPD/Emphysema, HTN, cocaine/heroin/Etoh abuse, current smoker, right inguinal hernia SurgHx: Coronary stents x 4 s/p triple bypass surgery 06/2017, left inguinal hernia repair SocHx: Etoh abuse, heroin and cocaine abuse (last used yesterday), current smoker 30 pack years, lives alone, on disability FMHx: Mother at 80, had DM; Father of [place] at 45yrs old-had DM Medications: Clopidogrel 75mg PO QD, Metoprolol 25mg PO BID, Atorvastatin 40mg PO QD, Ventolin HFA 108 mcg 2 puffs INH Q4 PRN, Symbicort 160-4.5mg 2 puffs INH BID ROS: Patient is intubated, unconscious and unresponsive but myoclonus jerk was observed ER Course: Initial impression; cardiac arrest Tm 97.5, HR 56, BP 79/49, Mechanically ventilated Spo2 100% Dilated pupils in ER [place] and NG tube placed, Central lumen placed, levophed CBC: 15.1>13.5/41.5<205 CMP: 133/6.1, 99/11, 37/2.7, 185 Ammonia 49 Troponin negative S/p vanco and Zosyn in ER UTox: + Cocain and Opiates UA: neg Leuk and Nitr Alcohol: high 30 ABG: lactate 6.9, PH 6.91 Blood Cx, Urine Cx EKG: NSR with bradycardia CT head: No acute intracranial hemorrhage CT chest: no PE, Coiled NGT, Emphysematous changes CXR: Emphysematous changes, no acute consolidation, right angle blunting Calcium Chloride 1,000 mg IV Dextrose 5% in Water 250 ml Norepinephrine [Levophed] 4 mg IV Sodium Chloride 2,000 ml IV 4,000 mls/hr Narcan 0.8 mg IVP Sodium Bicarbonate 7.5% 50 ml 89.2 meq IV Present on Admission - Present on Admission Any Indicators Present on Admission: No History of DVT/PE: No History of Uncontrolled Diabetes: No Past Patient History - Infectious Disease Hx of Infectious Diseases: None - Past Medical History & Family History Past Medical History?: Yes - Past Social History Smoking Status: Heavy Smoker > 10 Cigarettes Daily - CARDIAC Hx Hypercholesterolemia: Yes Hx Hypertension: Yes - PULMONARY Hx Asthma: Yes Hx Chronic Obstructive Pulmonary Disease (COPD): Yes Hx Emphysema: Yes - NEUROLOGICAL Hx Seizures: No - HEENT Hx HEENT Problems: No - RENAL Hx Chronic Kidney Disease: No - ENDOCRINE/METABOLIC Hx Endocrine Disorders: No - HEMATOLOGICAL/ONCOLOGICAL Hx Human Immunodeficiency Virus (HIV): No - INTEGUMENTARY Hx Dermatological Problems: No - MUSCULOSKELETAL/RHEUMATOLOGICAL Hx Falls: No - GASTROINTESTINAL Hx Gastrointestinal Disorders: Yes Other/Comment: right inguinal hernia - GENITOURINARY/GYNECOLOGICAL Hx Sexually Transmitted Disorders: No - PSYCHIATRIC Hx Anxiety: Yes Hx Depression: Yes Hx Schizophrenia: Yes - SURGICAL HISTORY Hx Coronary Artery Bypass Graft: Yes Hx Coronary Stent: Yes (x 4) Hx Tonsillectomy: Yes - ANESTHESIA Hx Anesthesia: Yes Hx Anesthesia Reactions: No Hx Malignant Hyperthermia: No Meds Allergies/Adverse Reactions: Allergies Allergy/AdvReac Type Severity Reaction Status Date / Time No Known Allergies Allergy Verified 02/10/18 23:14 Physical Exam - Constitutional Additional comments: Unresponsive, Myoclonus jerks seen GCS 3T - Head Exam Head Exam: ATRAUMATIC - Eye Exam Additional comments: Pupil non reactive, PinPoint, midline - Respiratory Exam Respiratory Exam: Decreased Breath Sounds Additional comments: expiratory wheeze - Cardiovascular Exam Cardiovascular Exam: REGULAR RHYTHM, +S1, +S2 Additional comments: hilary Patient is on levophed Open heart surgery scar, midline - GI/Abdominal Exam GI & Abdominal Exam: Hypoactive Bowel Sounds, Soft. absent: Distended - Exam Additional comments: Right side inguinal hernia, reducible - Neurological Exam Additional comments: GCS 3 Flaccid Extremities Unresponsive, Myoclonus jerks seen - Skin Skin Exam: Intact, Normal Color Results - Vital Signs Recent Vital Signs: Last Vital Signs Temp 92.4 F L 04/01/18 16:36 Pulse 43 L 04/01/18 16:45 Resp 12 04/01/18 16:36 BP 109/62 04/01/18 16:36 Pulse Ox 100 04/01/18 16:51 - Labs Result Diagrams: 04/01/18 13:50 04/01/18 13:50 Labs: Laboratory Results - last 24 hr 04/01/18 04/01/18 04/01/18 13:43 13:50 13:50 WBC 15.1 H D RBC 4.12 L Hgb 13.5 D Hct 41.5 MCV 100.8 H D MCH 32.8 H MCHC 32.5 L RDW 14.4 Plt Count 205 MPV 8.5 Neut % (Auto) 44.7 L Lymph % (Auto) 44.4 H [place] % (Auto) 8.8 Eos % (Auto) 1.7 Baso % (Auto) 0.4 Neut # (Auto) 6.8 Lymph # (Auto) 6.7 H [place] # (Auto) 1.3 H Eos # (Auto) 0.3 Baso # (Auto) 0.1 PT INR APTT pCO2 70 H pO2 506 H HCO3 10.0 L ABG pH 6.91 L* ABG Total CO2 16.1 L ABG O2 Saturation 99.7 H ABG O2 Content 16.3 ABG Base Excess -19.0 L ABG Hemoglobin 11.4 L ABG Carboxyhemoglobin 4.6 H POC ABG HHb (Measured) 0.3 ABG Methemoglobin 2.4 ABG O2 Capacity 16.3 Gerald Test Yes ABG Potassium A-a O2 Difference 120.0 Hgb O2 Saturation 92.7 L Glucose Lactate Vent Mode Prvc/ac Mechanical Rate 16 FiO2 100.0 Tidal Volume 500 PEEP 5 Crit Value Called To Dr drake sorensen Crit Value Called By 15 Crit Value Read Back Y Blood Gas Notified Time 1359 Sodium 133 Potassium 6.1 H Chloride 99 Carbon Dioxide 11 L* D Anion Gap 29 H BUN 37 H Creatinine 2.7 H Est GFR ( Amer) 30 Est GFR (Non-Af Amer) 24 Random Glucose 185 H Calcium 8.5 Phosphorus 10.0 H Magnesium 2.2 Total Bilirubin 0.8 AST 61 H D ALT 55 Alkaline Phosphatase 72 Ammonia Troponin I 0.0300 Total Protein 7.3 Albumin 4.2 Globulin 3.1 Albumin/Globulin Ratio 1.4 Arterial Blood Potassium Urine Color Urine Clarity Urine pH Ur Specific [place] Urine Protein Urine Glucose (UA) Urine Ketones Urine Blood Urine Nitrate Urine Bilirubin Urine Urobilinogen Ur Leukocyte Esterase Urine RBC (Auto) Urine Microscopic WBC Ur Squamous Epith Cells Urine Bacteria Hyaline Casts Urine Opiates Screen Urine Methadone Screen Ur Barbiturates Screen Ur Phencyclidine Scrn Ur Amphetamines Screen U Benzodiazepines Scrn U Oth Cocaine Metabols U Cannabinoids Screen Alcohol, Quantitative 30 H 04/01/18 04/01/18 04/01/18 14:00 14:00 14:00 WBC RBC Hgb Hct MCV MCH MCHC RDW Plt Count MPV Neut % (Auto) Lymph % (Auto) [place] % (Auto) Eos % (Auto) Baso % (Auto) Neut # (Auto) Lymph # (Auto) [place] # (Auto) Eos # (Auto) Baso # (Auto) PT INR APTT pCO2 70 H pO2 506 H HCO3 10.0 L ABG pH 6.91 L* ABG Total CO2 16.1 L ABG O2 Saturation 99.7 H ABG O2 Content ABG Base Excess -19.0 L ABG Hemoglobin ABG Carboxyhemoglobin POC ABG HHb (Measured) ABG Methemoglobin ABG O2 Capacity Gerald Test Yes ABG Potassium 5.4 H A-a O2 Difference 120.0 Hgb O2 Saturation Glucose 167 H Lactate 6.9 H* Vent Mode Prvc/ac Mechanical Rate 16 FiO2 100.0 Tidal Volume 500 PEEP 5 Crit Value Called To Dr drake sorensen Crit Value Called By 15 Crit Value Read Back Y Blood Gas Notified Time 1359 Sodium 131.0 L Potassium Chloride 105.0 Carbon Dioxide Anion Gap BUN Creatinine Est GFR ( Amer) Est GFR (Non-Af Amer) Random Glucose Calcium Phosphorus Magnesium Total Bilirubin AST ALT Alkaline Phosphatase Ammonia Troponin I Total Protein Albumin Globulin Albumin/Globulin Ratio Arterial Blood Potassium 5.4 H Urine Color Yellow Urine Clarity Cloudy Urine pH 5.0 Ur Specific [place] 1.016 Urine Protein 100 Urine Glucose (UA) Neg Urine Ketones Negative Urine Blood Large Urine Nitrate Negative Urine Bilirubin Negative Urine Urobilinogen 0.2-1.0 Ur Leukocyte Esterase Neg Urine RBC (Auto) 61 H Urine Microscopic WBC 3 Ur Squamous Epith Cells 1 Urine Bacteria Rare Hyaline Casts 11-20 H Urine Opiates Screen Positive H Urine Methadone Screen Negative Ur Barbiturates Screen Negative Ur Phencyclidine Scrn Negative Ur Amphetamines Screen Negative U Benzodiazepines Scrn Negative U Oth Cocaine Metabols Positive H U Cannabinoids Screen Negative Alcohol, Quantitative 04/01/18 04/01/18 04/01/18 14:10 14:10 16:00 WBC RBC Hgb Hct MCV MCH MCHC RDW Plt Count MPV Neut % (Auto) Lymph % (Auto) [place] % (Auto) Eos % (Auto) Baso % (Auto) Neut # (Auto) Lymph # (Auto) [place] # (Auto) Eos # (Auto) Baso # (Auto) PT 12.1 INR 1.1 APTT 28.7 pCO2 60 H pO2 564 H HCO3 15.5 L ABG pH 7.09 L* ABG Total CO2 20.0 L ABG O2 Saturation 100.0 H ABG O2 Content ABG Base Excess -12.2 L ABG Hemoglobin ABG Carboxyhemoglobin POC ABG HHb (Measured) ABG Methemoglobin ABG O2 Capacity Gerald Test Yes ABG Potassium 4.6 A-a O2 Difference 74.0 Hgb O2 Saturation Glucose 172 H Lactate 1.3 Vent Mode Prvc Mechanical Rate 16 FiO2 100.0 Tidal Volume 500 PEEP 5 Crit Value Called To Dr jessie barron Crit Value Called By Rt Crit Value Read Back Y Blood Gas Notified Time 1625 Sodium 133.0 Potassium Chloride 110.0 H Carbon Dioxide Anion Gap BUN Creatinine Est GFR ( Amer) Est GFR (Non-Af Amer) Random Glucose Calcium Phosphorus Magnesium Total Bilirubin AST ALT Alkaline Phosphatase Ammonia 49 Troponin I Total Protein Albumin Globulin Albumin/Globulin Ratio Arterial Blood Potassium 4.6 Urine Color Urine Clarity Urine pH Ur Specific [place] Urine Protein Urine Glucose (UA) Urine Ketones Urine Blood Urine Nitrate Urine Bilirubin Urine Urobilinogen Ur Leukocyte Esterase Urine RBC (Auto) Urine Microscopic WBC Ur Squamous Epith Cells Urine Bacteria Hyaline Casts Urine Opiates Screen Urine Methadone Screen Ur Barbiturates Screen Ur Phencyclidine Scrn Ur Amphetamines Screen U Benzodiazepines Scrn U Oth Cocaine Metabols U Cannabinoids Screen Alcohol, Quantitative Assessment & Plan - Assessment and Plan (Free Text) Assessment: 57 y/o M brought in to the ER by EMS after found unconscious, S/p [place] intubation, ACLS and ROSC, no acute EKG changes, with in the window of hypothermia protocol. Uncleared precipitating event however patient has significant cardiac history and history of Substance abuse. Cardiac Arrest - Possibly due to substance abuse, UTox: + Cocain and Opiates - Hypothermia protocol in ER, on levophed - Cardio consult, Dr. Trevino, will follow recs - Pulm, Dr. Gallegos, Will follow recs - Neuro, Dr. Brown, will follow recs - ID, Dr. Josue consult, will foloow recs - EKG: NSR with bradycardia, No suggestive acute infarct - CT chest: no PE, Coiled NGT, Emphysematous changes - CXR: Emphysematous changes, no acute consolidation, right angle blunting - C/w Vessopressors - C/w IVF - Narcan drip - F/u Troponin x2, Blood Cx, Urine Cx - Repeat EKG and CXR with ABG tomorrow Acute Respiratory failure - Possibly due to substance abuse , UTox: + Cocain and Opiates - Mechanically ventilated - CT head: No acute intracranial hemorrhage - CT chest: no PE, Coiled NGT, Emphysematous changes - CXR: Emphysematous changes, no acute consolidation, right angle blunting - Pulm, Dr. Gallegos, Will follow recs - F/u Chest Xray daily Substance abuse - Chronic - UTox: + Cocain and Opiates - Mechanically ventilated - Benzo as indicated - Narcan drip Myoclonic seizure with GCS 3T, uncleared if 2/2 hypoxia, anoxia vs substance intoxication - Neuro, Dr. Brown consult, will follow recs - CT head: No acute intracranial hemorrhage - Benzo as indicated - Narcan drip HTN - Chronic, currently hypotensive - Hold BP medications to bradycardia GI PPX - Protonix 40 DVT PPX - SCD for now -(Emergency Contact: SisterLara, ) <Maria D Scales - Last Filed: 04/02/18 08:10> Results - Vital Signs Recent Vital Signs: Last Vital Signs Temp 94.3 F L 04/02/18 07:00 Pulse 47 L 04/02/18 07:00 Resp 31 H 04/02/18 07:00 BP 167/68 H 04/02/18 07:00 Pulse Ox 100 04/02/18 07:00 - Labs Result Diagrams: 04/02/18 06:08 04/02/18 06:11 Labs: Laboratory Results - last 24 hr 04/01/18 04/01/18 04/01/18 13:43 13:50 13:50 WBC 15.1 H D RBC 4.12 L Hgb 13.5 D Hct 41.5 MCV 100.8 H D MCH 32.8 H MCHC 32.5 L RDW 14.4 Plt Count 205 MPV 8.5 Neut % (Auto) 44.7 L Lymph % (Auto) 44.4 H [place] % (Auto) 8.8 Eos % (Auto) 1.7 Baso % (Auto) 0.4 Neut # (Auto) 6.8 Lymph # (Auto) 6.7 H [place] # (Auto) 1.3 H Eos # (Auto) 0.3 Baso # (Auto) 0.1 PT INR APTT pCO2 70 H pO2 506 H HCO3 10.0 L ABG pH 6.91 L* ABG Total CO2 16.1 L ABG O2 Saturation 99.7 H ABG O2 Content 16.3 ABG Base Excess -19.0 L ABG Hemoglobin 11.4 L ABG Carboxyhemoglobin 4.6 H POC ABG HHb (Measured) 0.3 ABG Methemoglobin 2.4 ABG O2 Capacity 16.3 Gerald Test Yes ABG Potassium A-a O2 Difference 120.0 Hgb O2 Saturation 92.7 L Glucose Lactate Vent Mode Prvc/ac Mechanical Rate 16 FiO2 100.0 Tidal Volume 500 PEEP 5 Crit Value Called To Dr drake sorensen Crit Value Called By 15 Crit Value Read Back Y Blood Gas Notified Time 1359 Sodium 133 Potassium 6.1 H Chloride 99 Carbon Dioxide 11 L* D Anion Gap 29 H BUN 37 H Creatinine 2.7 H Est GFR ( Amer) 30 Est GFR (Non-Af Amer) 24 POC Glucose (mg/dL) Random Glucose 185 H Calcium 8.5 Phosphorus 10.0 H Magnesium 2.2 Total Bilirubin 0.8 AST 61 H D ALT 55 Alkaline Phosphatase 72 Ammonia Total Creatine Kinase Troponin I 0.0300 Total Protein 7.3 Albumin 4.2 Globulin 3.1 Albumin/Globulin Ratio 1.4 Arterial Blood Potassium Urine Color Urine Clarity Urine pH Ur Specific [place] Urine Protein Urine Glucose (UA) Urine Ketones Urine Blood Urine Nitrate Urine Bilirubin Urine Urobilinogen Ur Leukocyte Esterase Urine RBC (Auto) Urine Microscopic WBC Ur Squamous Epith Cells Urine Bacteria Hyaline Casts Urine Opiates Screen Urine Methadone Screen Ur Barbiturates Screen Ur Phencyclidine Scrn Ur Amphetamines Screen U Benzodiazepines Scrn U Oth Cocaine Metabols U Cannabinoids Screen Alcohol, Quantitative 30 H Influenza Typ A,B (EIA) 04/01/18 04/01/18 04/01/18 14:00 14:00 14:00 WBC RBC Hgb Hct MCV MCH MCHC RDW Plt Count MPV Neut % (Auto) Lymph % (Auto) [place] % (Auto) Eos % (Auto) Baso % (Auto) Neut # (Auto) Lymph # (Auto) [place] # (Auto) Eos # (Auto) Baso # (Auto) PT INR APTT pCO2 70 H pO2 506 H HCO3 10.0 L ABG pH 6.91 L* ABG Total CO2 16.1 L ABG O2 Saturation 99.7 H ABG O2 Content ABG Base Excess -19.0 L ABG Hemoglobin ABG Carboxyhemoglobin POC ABG HHb (Measured) ABG Methemoglobin ABG O2 Capacity Gerald Test Yes ABG Potassium 5.4 H A-a O2 Difference 120.0 Hgb O2 Saturation Glucose 167 H Lactate 6.9 H* Vent Mode Prvc/ac Mechanical Rate 16 FiO2 100.0 Tidal Volume 500 PEEP 5 Crit Value Called To Dr drake sorensen Crit Value Called By 15 Crit Value Read Back Y Blood Gas Notified Time 1359 Sodium 131.0 L Potassium Chloride 105.0 Carbon Dioxide Anion Gap BUN Creatinine Est GFR ( Amer) Est GFR (Non-Af Amer) POC Glucose (mg/dL) Random Glucose Calcium Phosphorus Magnesium Total Bilirubin AST ALT Alkaline Phosphatase Ammonia Total Creatine Kinase Troponin I Total Protein Albumin Globulin Albumin/Globulin Ratio Arterial Blood Potassium 5.4 H Urine Color Yellow Urine Clarity Cloudy Urine pH 5.0 Ur Specific [place] 1.016 Urine Protein 100 Urine Glucose (UA) Neg Urine Ketones Negative Urine Blood Large Urine Nitrate Negative Urine Bilirubin Negative Urine Urobilinogen 0.2-1.0 Ur Leukocyte Esterase Neg Urine RBC (Auto) 61 H Urine Microscopic WBC 3 Ur Squamous Epith Cells 1 Urine Bacteria Rare Hyaline Casts 11-20 H Urine Opiates Screen Positive H Urine Methadone Screen Negative Ur Barbiturates Screen Negative Ur Phencyclidine Scrn Negative Ur Amphetamines Screen Negative U Benzodiazepines Scrn Negative U Oth Cocaine Metabols Positive H U Cannabinoids Screen Negative Alcohol, Quantitative Influenza Typ A,B (EIA) 04/01/18 04/01/18 04/01/18 14:10 14:10 16:00 WBC RBC Hgb Hct MCV MCH MCHC RDW Plt Count MPV Neut % (Auto) Lymph % (Auto) [place] % (Auto) Eos % (Auto) Baso % (Auto) Neut # (Auto) Lymph # (Auto) [place] # (Auto) Eos # (Auto) Baso # (Auto) PT 12.1 INR 1.1 APTT 28.7 pCO2 60 H pO2 564 H HCO3 15.5 L ABG pH 7.09 L* ABG Total CO2 20.0 L ABG O2 Saturation 100.0 H ABG O2 Content ABG Base Excess -12.2 L ABG Hemoglobin ABG Carboxyhemoglobin POC ABG HHb (Measured) ABG Methemoglobin ABG O2 Capacity Gerald Test Yes ABG Potassium 4.6 A-a O2 Difference 74.0 Hgb O2 Saturation Glucose 172 H Lactate 1.3 Vent Mode Prvc Mechanical Rate 16 FiO2 100.0 Tidal Volume 500 PEEP 5 Crit Value Called To Dr jessie barron Crit Value Called By Rt Crit Value Read Back Y Blood Gas Notified Time 1625 Sodium 133.0 Potassium Chloride 110.0 H Carbon Dioxide Anion Gap BUN Creatinine Est GFR ( Amer) Est GFR (Non-Af Amer) POC Glucose (mg/dL) Random Glucose Calcium Phosphorus Magnesium Total Bilirubin AST ALT Alkaline Phosphatase Ammonia 49 Total Creatine Kinase Troponin I Total Protein Albumin Globulin Albumin/Globulin Ratio Arterial Blood Potassium 4.6 Urine Color Urine Clarity Urine pH Ur Specific [place] Urine Protein Urine Glucose (UA) Urine Ketones Urine Blood Urine Nitrate Urine Bilirubin Urine Urobilinogen Ur Leukocyte Esterase Urine RBC (Auto) Urine Microscopic WBC Ur Squamous Epith Cells Urine Bacteria Hyaline Casts Urine Opiates Screen Urine Methadone Screen Ur Barbiturates Screen Ur Phencyclidine Scrn Ur Amphetamines Screen U Benzodiazepines Scrn U Oth Cocaine Metabols U Cannabinoids Screen Alcohol, Quantitative Influenza Typ A,B (EIA) 04/01/18 04/01/18 04/01/18 16:05 17:25 18:18 WBC RBC Hgb Hct MCV MCH MCHC RDW Plt Count MPV Neut % (Auto) Lymph % (Auto) [place] % (Auto) Eos % (Auto) Baso % (Auto) Neut # (Auto) Lymph # (Auto) [place] # (Auto) Eos # (Auto) Baso # (Auto) PT INR APTT pCO2 pO2 HCO3 ABG pH ABG Total CO2 ABG O2 Saturation ABG O2 Content ABG Base Excess ABG Hemoglobin ABG Carboxyhemoglobin POC ABG HHb (Measured) ABG Methemoglobin ABG O2 Capacity Gerald Test ABG Potassium A-a O2 Difference Hgb O2 Saturation Glucose Lactate Vent Mode Mechanical Rate FiO2 Tidal Volume PEEP Crit Value Called To Crit Value Called By Crit Value Read Back Blood Gas Notified Time Sodium Potassium Chloride Carbon Dioxide Anion Gap BUN Creatinine Est GFR ( Amer) Est GFR (Non-Af Amer) POC Glucose (mg/dL) 159 H Random Glucose Calcium Phosphorus Magnesium Total Bilirubin AST ALT Alkaline Phosphatase Ammonia Total Creatine Kinase 344 H Troponin I Total Protein Albumin Globulin Albumin/Globulin Ratio Arterial Blood Potassium Urine Color Urine Clarity Urine pH Ur Specific [place] Urine Protein Urine Glucose (UA) Urine Ketones Urine Blood Urine Nitrate Urine Bilirubin Urine Urobilinogen Ur Leukocyte Esterase Urine RBC (Auto) Urine Microscopic WBC Ur Squamous Epith Cells Urine Bacteria Hyaline Casts Urine Opiates Screen Urine Methadone Screen Ur Barbiturates Screen Ur Phencyclidine Scrn Ur Amphetamines Screen U Benzodiazepines Scrn U Oth Cocaine Metabols U Cannabinoids Screen Alcohol, Quantitative Influenza Typ A,B (EIA) Negative for flu a/b 04/01/18 04/01/18 04/01/18 21:34 21:34 21:34 WBC 9.2 RBC 4.09 L Hgb 13.4 Hct 39.5 MCV 96.4 H D MCH 32.8 H MCHC 34.0 RDW 13.7 Plt Count 145 MPV Neut % (Auto) Lymph % (Auto) [place] % (Auto) Eos % (Auto) Baso % (Auto) Neut # (Auto) Lymph # (Auto) [place] # (Auto) Eos # (Auto) Baso # (Auto) PT 11.7 INR 1.1 APTT 28.9 pCO2 pO2 HCO3 ABG pH ABG Total CO2 ABG O2 Saturation ABG O2 Content ABG Base Excess ABG Hemoglobin ABG Carboxyhemoglobin POC ABG HHb (Measured) ABG Methemoglobin ABG O2 Capacity Gerald Test ABG Potassium A-a O2 Difference Hgb O2 Saturation Glucose Lactate Vent Mode Mechanical Rate FiO2 Tidal Volume PEEP Crit Value Called To Crit Value Called By Crit Value Read Back Blood Gas Notified Time Sodium 137 Potassium 3.8 Chloride 106 Carbon Dioxide 17 L Anion Gap 18 BUN 34 H Creatinine 1.5 Est GFR ( Amer) 58 Est GFR (Non-Af Amer) 48 POC Glucose (mg/dL) Random Glucose 167 H Calcium 7.7 L Phosphorus 4.5 Magnesium 1.7 Total Bilirubin AST ALT Alkaline Phosphatase Ammonia Total Creatine Kinase Troponin I Total Protein Albumin Globulin Albumin/Globulin Ratio Arterial Blood Potassium Urine Color Urine Clarity Urine pH Ur Specific [place] Urine Protein Urine Glucose (UA) Urine Ketones Urine Blood Urine Nitrate Urine Bilirubin Urine Urobilinogen Ur Leukocyte Esterase Urine RBC (Auto) Urine Microscopic WBC Ur Squamous Epith Cells Urine Bacteria Hyaline Casts Urine Opiates Screen Urine Methadone Screen Ur Barbiturates Screen Ur Phencyclidine Scrn Ur Amphetamines Screen U Benzodiazepines Scrn U Oth Cocaine Metabols U Cannabinoids Screen Alcohol, Quantitative Influenza Typ A,B (EIA) 04/01/18 04/01/18 04/02/18 21:34 23:25 00:29 WBC RBC Hgb Hct MCV MCH MCHC RDW Plt Count MPV Neut % (Auto) Lymph % (Auto) [place] % (Auto) Eos % (Auto) Baso % (Auto) Neut # (Auto) Lymph # (Auto) [place] # (Auto) Eos # (Auto) Baso # (Auto) PT INR APTT pCO2 41 pO2 90 HCO3 18.9 L ABG pH 7.27 L ABG Total CO2 20.1 L ABG O2 Saturation 98.3 H ABG O2 Content 18.8 ABG Base Excess -7.7 L ABG Hemoglobin 14.0 ABG Carboxyhemoglobin 1.9 H POC ABG HHb (Measured) 1.6 ABG Methemoglobin 1.3 ABG O2 Capacity 19.1 Gerald Test Yes ABG Potassium A-a O2 Difference 215.0 Hgb O2 Saturation 95.2 Glucose Lactate Vent Mode A/c Mechanical Rate 26 FiO2 50.0 Tidal Volume 500 PEEP 5 Crit Value Called To Crit Value Called By Crit Value Read Back Blood Gas Notified Time Sodium Potassium Chloride Carbon Dioxide Anion Gap BUN Creatinine Est GFR ( Amer) Est GFR (Non-Af Amer) POC Glucose (mg/dL) Random Glucose Calcium 7.6 L Phosphorus Magnesium Total Bilirubin AST ALT Alkaline Phosphatase Ammonia Total Creatine Kinase Troponin I 0.0300 Total Protein Albumin Globulin Albumin/Globulin Ratio Arterial Blood Potassium Urine Color Urine Clarity Urine pH Ur Specific [place] Urine Protein Urine Glucose (UA) Urine Ketones Urine Blood Urine Nitrate Urine Bilirubin Urine Urobilinogen Ur Leukocyte Esterase Urine RBC (Auto) Urine Microscopic WBC Ur Squamous Epith Cells Urine Bacteria Hyaline Casts Urine Opiates Screen Urine Methadone Screen Ur Barbiturates Screen Ur Phencyclidine Scrn Ur Amphetamines Screen U Benzodiazepines Scrn U Oth Cocaine Metabols U Cannabinoids Screen Alcohol, Quantitative Influenza Typ A,B (EIA) 04/02/18 04/02/18 04/02/18 05:14 06:08 06:08 WBC 9.2 RBC 3.95 L Hgb 13.1 Hct 37.6 MCV 95.2 H MCH 33.2 H MCHC 34.9 RDW 13.4 Plt Count 155 MPV 8.4 Neut % (Auto) 90.9 H Lymph % (Auto) 4.6 L [place] % (Auto) 4.4 Eos % (Auto) 0.1 Baso % (Auto) 0.0 Neut # (Auto) 8.4 H Lymph # (Auto) 0.4 L [place] # (Auto) 0.4 Eos # (Auto) 0.0 Baso # (Auto) 0.0 PT 12.2 INR 1.1 APTT 31.1 pCO2 40 pO2 166 H HCO3 20.5 L ABG pH 7.31 L ABG Total CO2 21.3 L ABG O2 Saturation 99.4 H ABG O2 Content ABG Base Excess -5.8 L ABG Hemoglobin ABG Carboxyhemoglobin POC ABG HHb (Measured) ABG Methemoglobin ABG O2 Capacity Gerald Test Yes ABG Potassium 3.6 A-a O2 Difference 141.0 Hgb O2 Saturation Glucose 163 H Lactate 1.0 Vent Mode A/c Mechanical Rate 26 FiO2 50.0 Tidal Volume 500 PEEP 5 Crit Value Called To Crit Value Called By Crit Value Read Back Blood Gas Notified Time Sodium 134.0 Potassium Chloride 106.0 Carbon Dioxide Anion Gap BUN Creatinine Est GFR ( Amer) Est GFR (Non-Af Amer) POC Glucose (mg/dL) Random Glucose Calcium Phosphorus Magnesium Total Bilirubin AST ALT Alkaline Phosphatase Ammonia Total Creatine Kinase Troponin I Total Protein Albumin Globulin Albumin/Globulin Ratio Arterial Blood Potassium 3.6 Urine Color Urine Clarity Urine pH Ur Specific [place] Urine Protein Urine Glucose (UA) Urine Ketones Urine Blood Urine Nitrate Urine Bilirubin Urine Urobilinogen Ur Leukocyte Esterase Urine RBC (Auto) Urine Microscopic WBC Ur Squamous Epith Cells Urine Bacteria Hyaline Casts Urine Opiates Screen Urine Methadone Screen Ur Barbiturates Screen Ur Phencyclidine Scrn Ur Amphetamines Screen U Benzodiazepines Scrn U Oth Cocaine Metabols U Cannabinoids Screen Alcohol, Quantitative Influenza Typ A,B (EIA) 04/02/18 04/02/18 06:11 06:11 WBC RBC Hgb Hct MCV MCH MCHC RDW Plt Count MPV Neut % (Auto) Lymph % (Auto) [place] % (Auto) Eos % (Auto) Baso % (Auto) Neut # (Auto) Lymph # (Auto) [place] # (Auto) Eos # (Auto) Baso # (Auto) PT INR APTT pCO2 pO2 HCO3 ABG pH ABG Total CO2 ABG O2 Saturation ABG O2 Content ABG Base Excess ABG Hemoglobin ABG Carboxyhemoglobin POC ABG HHb (Measured) ABG Methemoglobin ABG O2 Capacity Gerald Test ABG Potassium A-a O2 Difference Hgb O2 Saturation Glucose Lactate Vent Mode Mechanical Rate FiO2 Tidal Volume PEEP Crit Value Called To Crit Value Called By Crit Value Read Back Blood Gas Notified Time Sodium 137 Potassium 3.8 Chloride 105 Carbon Dioxide 19 L Anion Gap 17 BUN 30 H Creatinine 1.3 Est GFR ( Amer) > 60 Est GFR (Non-Af Amer) 57 POC Glucose (mg/dL) Random Glucose 153 H Calcium 7.9 L Phosphorus 4.3 Magnesium 1.6 Total Bilirubin 0.8 AST 115 H D ALT 101 H D Alkaline Phosphatase 88 Ammonia Total Creatine Kinase 550 H Troponin I 0.0270 Total Protein 6.1 L Albumin 3.6 Globulin 2.6 Albumin/Globulin Ratio 1.4 Arterial Blood Potassium Urine Color Urine Clarity Urine pH Ur Specific [place] Urine Protein Urine Glucose (UA) Urine Ketones Urine Blood Urine Nitrate Urine Bilirubin Urine Urobilinogen Ur Leukocyte Esterase Urine RBC (Auto) Urine Microscopic WBC Ur Squamous Epith Cells Urine Bacteria Hyaline Casts Urine Opiates Screen Urine Methadone Screen Ur Barbiturates Screen Ur Phencyclidine Scrn Ur Amphetamines Screen U Benzodiazepines Scrn U Oth Cocaine Metabols U Cannabinoids Screen Alcohol, Quantitative Influenza Typ A,B (EIA) Attending/Attestation - Attestation I have personally seen and examined this patient.: Yes I have fully participated in the care of the patient.: Yes I have reviewed all pertinent clinical information: Yes
[2018-04-01] MEDS ORDERED: Sodium Chloride 3% for Inhalation 4 ML VIAL.NEB IH PRN (17:07)
--- NOTE | 2018-04-01 17:07 | RAD ---
HISTORY: INTUBATED COMPARISON: Comparison made with prior study 09/23/2017. . Comparison also made with prior CTA chest dated 07/29/2017. FINDINGS: In situ ETT, the tip of which lies in good position well above the dante at approximately the level of the superior margin of the aortic arch. LUNGS: Centrilobular emphysematous changes are less well seen on this study as compared to prior chest radiograph and CTA chest PLEURA: No significant pleural effusion identified, no pneumothorax apparent. CARDIOVASCULAR: Heart size is mildly enlarged. Sternotomy wires and CABG clips again noted OSSEOUS STRUCTURES: No significant abnormalities. VISUALIZED UPPER ABDOMEN: Normal. OTHER FINDINGS: None. IMPRESSION: Centrilobular emphysematous changes less well seen compared prior CTA chest. . No acute consolidation
--- NOTE | 2018-04-01 17:34 | CP.CCUPN ---
CCU Subjective - Physician Review Subjective (Free Text): No information nor HPI information obtainable from patient, EMR chart and previous records reviewed. and discussed with ER MD and Nurses. 57M BIBA after being found unresponsive at home by friends, down time unknown , noted to be in PEA upon EMS arrival, underwent resuscitation attempts, given Epix 4 and had ROSC, and subsequently placed on TcPM for bradycardia at 45/min. In ER, TcPM removed and remains hilary at 45/min, sinus mechanism. In ER. Given 0.8mg dose of Narcan with no initial response, ER MD reports fixed and dilated NR pupils. On re-exam 2 hours later, pupils noted to be 2 mm and remain NR in midline position. Friends with the patient reported he had complained of chest pain and R groin pain, then became unresponsive and they called EMS. They report EMS arrived within 10 min and stated resuscitation, and intubated patient. Central line place and started on Levophed for BP 94/70, measures to start Therapeutic Hypothermia in progress. Otherwise comatose, on MV, breathing 25/ 16 on AC , TV 500ml, PEEP 5 with 100% oxygen, intermittent myoclonic jerks noted involving facial muscles and bilateral legs, non-sustained. Code Sepsis called in ER. Other vitals and I/O's reviewed. No fever spikes. ROS: No other pertinent negs or positives on 10+ system review obtainable due to comatose state. Allergies: NKDA Home Meds: Albuterol, Norvasc, ASA, Coreg, Plavix, Salmetrol, Imdur, Cozaar, MVI, Rovuvastin, Desyrel. PMSFH: CAD/3vessel CABG 06/2107, HTN, COPD with emphysema, ETOH abuse, Cocaine / Heroin abuse, Pancreatitis. All other Nursing and physician documentation reviewed to date; no new pertinent info noted relevant to current medical problems. EXAM- HEENT: no icterus, no gaze preference, pupils 2mm and NR, midline, absent corneals, absent carinal, no cough on ETT suctioning. No dolls eye movements elicitable. NECK: No JVD, supple, carotids equal upstroke bilat/no bruits CHEST: decreased BS bases, no wheezes audible HEART: regular, distant, S1S2, no rubs or murmurs ABD: soft, no distention, no tympany, no palp tenderness, BS hypoactive EXT: No edema, no mottling, no peripheral/ digital cyanosis, no calf tenderness or palpable cords, distal pulses intact and symmetrical. Genitalia: +Testicular enlargement with reducible R sided inguinal hernia NEURO: flaccid x4 extremities, GCS 3T. SKIN: no rashes, warm and dry. LABS: WBC= 15.1 HGB= 13.5 PLTs= 205K Coags normal 6.91 / 70/ 506 Lactate = 6.9 Tr=155 K= 6.1 CL=99 HCO3= 11 BUN/Cr= 37/2.7 BS= 185 CXR: ETT position Ok above dante, no consolidation, hyperlucent Left CPA. ( my interp). EKG: sinus hilary 40/min, poor R progression, , nonpsepcific ST Tchanges interiorly, AVr, anteriorly (my interp) IMPRESSION / MAJOR PROBLEMS NOW: 1. Cardiac Arrest manifest as PEA, r/o AMI versus occult substance abuse sequelae, now in Cardiogenic shock, doubt Severe Sepsis / Shock physiology. 2. Anoxic Encephaopathy 3. Acute Resp Failure 2 #1 4. Azotemia, r/o ATN / URSULA with Hyperkalemia 4. ETOH and Substance Abuse PLAN: 1. Unknown down time noted, and had no BLS for 10 mins, precludes use of Therapeutic Hypothermia, but with pupillary eye changes noted and seemingly appeared to lift head of the stretcher, will continue TH. Present MAP in ER on Levophed is 83. [place] placed and draining light yellow urine, approx. 500ml volume so far. 2. Continue Vasopressor support for cardiogenic shock state, may need chronotropic support as well. 3. IVF hydration, repeat serial chemistry levels. Check CPK levels. 4. Repeat serial Lactate levels as resuscitation attempts, inputted fluids and vasoactive meds are ongoing . Do not suspect Sepsis, though CXR RLLL interstitial changes may be due to aspiration pneumonitis and not bacterial pneumonia. 5. Code heart Interventionalist contacted by ER MD and deemed not to require acute coronary cath. Check VBG. ECHO. 6. MV changes to limit hyperoxia, and improve ventilatory status ( PCO2). 7. Consider Narcan drip given new pupillary changes. 8. Thiamine, Folate supplements. Bilateral bleeding from nares noted during NGT insertion attempts, will place via OGT route. 9. Awaiting family for further HPI information. Unable to prognosticate now given current TH period. 10. Holding all antiHTN home meds, Desyrel, ARB for now. 11. Notify the [facility].
[2018-04-01] MEDS: Propofol 10 mg/ml 1,000 MG/100 ML VIAL IV SCH (18:18)
--- NOTE | 2018-04-01 18:23 | CP.PCM.PN ---
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 Objective - Vital Signs/Intake and Output Vital Signs (last 24 hours): Temp Pulse Resp BP Pulse Ox 90.6 F L 40 L 26 H 154/72 H 100 04/01/18 17:07 04/01/18 17:07 04/01/18 17:07 04/01/18 17:07 04/01/18 17:07 - Medications Medications: Current Medications Norepinephrine Bitartrate 4 mg (/ Dextrose) 254 mls @ 0 mls/hr IV .Q0M [facility]; Per Protocol PRN Reason: Protocol Last Admin: 04/01/18 15:29 Dose: 9 mls/hr Norepinephrine Bitartrate 16 (mg/ Dextrose) 266 mls @ 2.49 mls/hr IV .Q24H ONE PRN Reason: 2.5 MCG/MIN Stop: 04/02/18 14:29 Last Admin: 04/01/18 16:28 Dose: Not Given Naloxone HCl 4 mg/ Sodium (Chloride) 504 mls @ 125.5 mls/hr IVPB ONCE ONE Stop: 04/01/18 20:53 Propofol (Diprivan) 1,000 mg in 100 mls @ 2.177 mls/hr IV .Q24H [facility]; 5 MCG/KG/ MIN PRN Reason: Protocol Stop: 04/02/18 17:56 Piperacillin Sod/Tazobactam (Sod 2.25 gm/ Sodium Chloride) 100 mls @ 100 mls/ hr IVPB Q12 [facility]LA PRN Reason: Protocol Pantoprazole Sodium (Protonix Inj) 40 mg IVP DAILY [facility]LA - Labs Labs: 04/01/18 13:50 04/01/18 13:50 PT 12.1 Seconds (9.8-13.1) 04/01/18 14:10 INR 1.1 (0.9-1.2) 04/01/18 14:10 APTT 28.7 Seconds (25.6-37.1) 04/01/18 14:10
--- NOTE | 2018-04-01 18:41 | CP.PCM.CON ---
History of Present Illness - History of Present Illness History of Present Illness: Neurology Consultation Note: Mr. Drew is a 57-year-old man with a past medical history of triple bypass surgery 06/2017, COPD/Emphysema, HTN, multisubstance abuse, smoking who was brought in by EMS after he was found unresponsive and in asystole. It is not known how long he was down, but he was revived and pulses were present prior to him being brought to the ED. CT scan of the head showed mild diffuse hypoxic brain injury. He was noted to have myoclonic jerks to stimulus. Review of Systems - Review of Systems All systems: reviewed and no additional remarkable complaints except Past Patient History - Infectious Disease Hx of Infectious Diseases: None - Past Medical History & Family History Past Medical History?: Yes - Past Social History Smoking Status: Heavy Smoker > 10 Cigarettes Daily - CARDIAC Hx Hypercholesterolemia: Yes Hx Hypertension: Yes - PULMONARY Hx Asthma: Yes Hx Chronic Obstructive Pulmonary Disease (COPD): Yes Hx Emphysema: Yes - NEUROLOGICAL Hx Seizures: No - HEENT Hx HEENT Problems: No - RENAL Hx Chronic Kidney Disease: No - ENDOCRINE/METABOLIC Hx Endocrine Disorders: No - HEMATOLOGICAL/ONCOLOGICAL Hx Human Immunodeficiency Virus (HIV): No - INTEGUMENTARY Hx Dermatological Problems: No - MUSCULOSKELETAL/RHEUMATOLOGICAL Hx Falls: No - GASTROINTESTINAL Hx Gastrointestinal Disorders: Yes Other/Comment: right inguinal hernia - GENITOURINARY/GYNECOLOGICAL Hx Sexually Transmitted Disorders: No - PSYCHIATRIC Hx Anxiety: Yes Hx Depression: Yes Hx Schizophrenia: Yes - SURGICAL HISTORY Hx Coronary Artery Bypass Graft: Yes Hx Coronary Stent: Yes (x 4) Hx Tonsillectomy: Yes - ANESTHESIA Hx Anesthesia: Yes Hx Anesthesia Reactions: No Hx Malignant Hyperthermia: No Meds Allergies/Adverse Reactions: Allergies Allergy/AdvReac Type Severity Reaction Status Date / Time No Known Allergies Allergy Verified 02/10/18 23:14 - Medications Medications: Current Medications Norepinephrine Bitartrate 4 mg (/ Dextrose) 254 mls @ 0 mls/hr IV .Q0M [facility]; Per Protocol PRN Reason: Protocol Last Admin: 04/01/18 15:29 Dose: 9 mls/hr Norepinephrine Bitartrate 16 (mg/ Dextrose) 266 mls @ 2.49 mls/hr IV .Q24H ONE PRN Reason: 2.5 MCG/MIN Stop: 04/02/18 14:29 Last Admin: 04/01/18 16:28 Dose: Not Given Naloxone HCl 4 mg/ Sodium (Chloride) 504 mls @ 125.5 mls/hr IVPB ONCE ONE Stop: 04/01/18 20:53 Propofol (Diprivan) 1,000 mg in 100 mls @ 2.177 mls/hr IV .Q24H [facility]LA; 5 MCG/KG/ MIN PRN Reason: Protocol Stop: 04/02/18 17:56 Last Titration: 04/01/18 18:32 Dose: 7.5 mcg/kg/min, 3.266 mls/hr Piperacillin Sod/Tazobactam (Sod 2.25 gm/ Sodium Chloride) 100 mls @ 100 mls/ hr IVPB Q12 [facility]LA PRN Reason: Protocol Pantoprazole Sodium (Protonix Inj) 40 mg IVP DAILY CHELA Physical Exam - Neurological Exam Additional comments: Intubated/sedated on propofol. Pupils are sluggishly reactive and about 2 mm. Corneals are present. Breaths over the ventilator. Responds to painful stimulus with myoclonic jerks. GCS is 3T. Results - Vital Signs Recent Vital Signs: Last Vital Signs Temp 90.6 F L 04/01/18 17:07 Pulse 40 L 04/01/18 17:07 Resp 26 H 04/01/18 17:07 BP 154/72 H 04/01/18 17:07 Pulse Ox 100 04/01/18 17:07 - Labs Result Diagrams: 04/01/18 13:50 04/01/18 13:50 Labs: Laboratory Results - last 24 hr 04/01/18 04/01/18 04/01/18 13:43 13:50 13:50 WBC 15.1 H D RBC 4.12 L Hgb 13.5 D Hct 41.5 MCV 100.8 H D MCH 32.8 H MCHC 32.5 L RDW 14.4 Plt Count 205 MPV 8.5 Neut % (Auto) 44.7 L Lymph % (Auto) 44.4 H [place] % (Auto) 8.8 Eos % (Auto) 1.7 Baso % (Auto) 0.4 Neut # (Auto) 6.8 Lymph # (Auto) 6.7 H [place] # (Auto) 1.3 H Eos # (Auto) 0.3 Baso # (Auto) 0.1 PT INR APTT pCO2 70 H pO2 506 H HCO3 10.0 L ABG pH 6.91 L* ABG Total CO2 16.1 L ABG O2 Saturation 99.7 H ABG O2 Content 16.3 ABG Base Excess -19.0 L ABG Hemoglobin 11.4 L ABG Carboxyhemoglobin 4.6 H POC ABG HHb (Measured) 0.3 ABG Methemoglobin 2.4 ABG O2 Capacity 16.3 Gerald Test Yes ABG Potassium A-a O2 Difference 120.0 Hgb O2 Saturation 92.7 L Glucose Lactate Vent Mode Prvc/ac Mechanical Rate 16 FiO2 100.0 Tidal Volume 500 PEEP 5 Crit Value Called To Dr drake sorensen Crit Value Called By 15 Crit Value Read Back Y Blood Gas Notified Time 1359 Sodium 133 Potassium 6.1 H Chloride 99 Carbon Dioxide 11 L* D Anion Gap 29 H BUN 37 H Creatinine 2.7 H Est GFR ( Amer) 30 Est GFR (Non-Af Amer) 24 POC Glucose (mg/dL) Random Glucose 185 H Calcium 8.5 Phosphorus 10.0 H Magnesium 2.2 Total Bilirubin 0.8 AST 61 H D ALT 55 Alkaline Phosphatase 72 Ammonia Total Creatine Kinase Troponin I 0.0300 Total Protein 7.3 Albumin 4.2 Globulin 3.1 Albumin/Globulin Ratio 1.4 Arterial Blood Potassium Urine Color Urine Clarity Urine pH Ur Specific [place] Urine Protein Urine Glucose (UA) Urine Ketones Urine Blood Urine Nitrate Urine Bilirubin Urine Urobilinogen Ur Leukocyte Esterase Urine RBC (Auto) Urine Microscopic WBC Ur Squamous Epith Cells Urine Bacteria Hyaline Casts Urine Opiates Screen Urine Methadone Screen Ur Barbiturates Screen Ur Phencyclidine Scrn Ur Amphetamines Screen U Benzodiazepines Scrn U Oth Cocaine Metabols U Cannabinoids Screen Alcohol, Quantitative 30 H Influenza Typ A,B (EIA) 04/01/18 04/01/18 04/01/18 14:00 14:00 14:00 WBC RBC Hgb Hct MCV MCH MCHC RDW Plt Count MPV Neut % (Auto) Lymph % (Auto) [place] % (Auto) Eos % (Auto) Baso % (Auto) Neut # (Auto) Lymph # (Auto) [place] # (Auto) Eos # (Auto) Baso # (Auto) PT INR APTT pCO2 70 H pO2 506 H HCO3 10.0 L ABG pH 6.91 L* ABG Total CO2 16.1 L ABG O2 Saturation 99.7 H ABG O2 Content ABG Base Excess -19.0 L ABG Hemoglobin ABG Carboxyhemoglobin POC ABG HHb (Measured) ABG Methemoglobin ABG O2 Capacity Gerald Test Yes ABG Potassium 5.4 H A-a O2 Difference 120.0 Hgb O2 Saturation Glucose 167 H Lactate 6.9 H* Vent Mode Prvc/ac Mechanical Rate 16 FiO2 100.0 Tidal Volume 500 PEEP 5 Crit Value Called To Dr drake sorensen Crit Value Called By 15 Crit Value Read Back Y Blood Gas Notified Time 1359 Sodium 131.0 L Potassium Chloride 105.0 Carbon Dioxide Anion Gap BUN Creatinine Est GFR ( Amer) Est GFR (Non-Af Amer) POC Glucose (mg/dL) Random Glucose Calcium Phosphorus Magnesium Total Bilirubin AST ALT Alkaline Phosphatase Ammonia Total Creatine Kinase Troponin I Total Protein Albumin Globulin Albumin/Globulin Ratio Arterial Blood Potassium 5.4 H Urine Color Yellow Urine Clarity Cloudy Urine pH 5.0 Ur Specific [place] 1.016 Urine Protein 100 Urine Glucose (UA) Neg Urine Ketones Negative Urine Blood Large Urine Nitrate Negative Urine Bilirubin Negative Urine Urobilinogen 0.2-1.0 Ur Leukocyte Esterase Neg Urine RBC (Auto) 61 H Urine Microscopic WBC 3 Ur Squamous Epith Cells 1 Urine Bacteria Rare Hyaline Casts 11-20 H Urine Opiates Screen Positive H Urine Methadone Screen Negative Ur Barbiturates Screen Negative Ur Phencyclidine Scrn Negative Ur Amphetamines Screen Negative U Benzodiazepines Scrn Negative U Oth Cocaine Metabols Positive H U Cannabinoids Screen Negative Alcohol, Quantitative Influenza Typ A,B (EIA) 04/01/18 04/01/18 04/01/18 14:10 14:10 16:00 WBC RBC Hgb Hct MCV MCH MCHC RDW Plt Count MPV Neut % (Auto) Lymph % (Auto) [place] % (Auto) Eos % (Auto) Baso % (Auto) Neut # (Auto) Lymph # (Auto) [place] # (Auto) Eos # (Auto) Baso # (Auto) PT 12.1 INR 1.1 APTT 28.7 pCO2 60 H pO2 564 H HCO3 15.5 L ABG pH 7.09 L* ABG Total CO2 20.0 L ABG O2 Saturation 100.0 H ABG O2 Content ABG Base Excess -12.2 L ABG Hemoglobin ABG Carboxyhemoglobin POC ABG HHb (Measured) ABG Methemoglobin ABG O2 Capacity Gerald Test Yes ABG Potassium 4.6 A-a O2 Difference 74.0 Hgb O2 Saturation Glucose 172 H Lactate 1.3 Vent Mode Prvc Mechanical Rate 16 FiO2 100.0 Tidal Volume 500 PEEP 5 Crit Value Called To Dr jessie barron Crit Value Called By Rt Crit Value Read Back Y Blood Gas Notified Time 1625 Sodium 133.0 Potassium Chloride 110.0 H Carbon Dioxide Anion Gap BUN Creatinine Est GFR ( Amer) Est GFR (Non-Af Amer) POC Glucose (mg/dL) Random Glucose Calcium Phosphorus Magnesium Total Bilirubin AST ALT Alkaline Phosphatase Ammonia 49 Total Creatine Kinase Troponin I Total Protein Albumin Globulin Albumin/Globulin Ratio Arterial Blood Potassium 4.6 Urine Color Urine Clarity Urine pH Ur Specific [place] Urine Protein Urine Glucose (UA) Urine Ketones Urine Blood Urine Nitrate Urine Bilirubin Urine Urobilinogen Ur Leukocyte Esterase Urine RBC (Auto) Urine Microscopic WBC Ur Squamous Epith Cells Urine Bacteria Hyaline Casts Urine Opiates Screen Urine Methadone Screen Ur Barbiturates Screen Ur Phencyclidine Scrn Ur Amphetamines Screen U Benzodiazepines Scrn U Oth Cocaine Metabols U Cannabinoids Screen Alcohol, Quantitative Influenza Typ A,B (EIA) 04/01/18 04/01/18 04/01/18 16:05 17:25 18:18 WBC RBC Hgb Hct MCV MCH MCHC RDW Plt Count MPV Neut % (Auto) Lymph % (Auto) [place] % (Auto) Eos % (Auto) Baso % (Auto) Neut # (Auto) Lymph # (Auto) [place] # (Auto) Eos # (Auto) Baso # (Auto) PT INR APTT pCO2 pO2 HCO3 ABG pH ABG Total CO2 ABG O2 Saturation ABG O2 Content ABG Base Excess ABG Hemoglobin ABG Carboxyhemoglobin POC ABG HHb (Measured) ABG Methemoglobin ABG O2 Capacity Gerald Test ABG Potassium A-a O2 Difference Hgb O2 Saturation Glucose Lactate Vent Mode Mechanical Rate FiO2 Tidal Volume PEEP Crit Value Called To Crit Value Called By Crit Value Read Back Blood Gas Notified Time Sodium Potassium Chloride Carbon Dioxide Anion Gap BUN Creatinine Est GFR ( Amer) Est GFR (Non-Af Amer) POC Glucose (mg/dL) 159 H Random Glucose Calcium Phosphorus Magnesium Total Bilirubin AST ALT Alkaline Phosphatase Ammonia Total Creatine Kinase 344 H Troponin I Total Protein Albumin Globulin Albumin/Globulin Ratio Arterial Blood Potassium Urine Color Urine Clarity Urine pH Ur Specific [place] Urine Protein Urine Glucose (UA) Urine Ketones Urine Blood Urine Nitrate Urine Bilirubin Urine Urobilinogen Ur Leukocyte Esterase Urine RBC (Auto) Urine Microscopic WBC Ur Squamous Epith Cells Urine Bacteria Hyaline Casts Urine Opiates Screen Urine Methadone Screen Ur Barbiturates Screen Ur Phencyclidine Scrn Ur Amphetamines Screen U Benzodiazepines Scrn U Oth Cocaine Metabols U Cannabinoids Screen Alcohol, Quantitative Influenza Typ A,B (EIA) Negative for flu a/b Assessment & Plan (1) Hypoxic brain injury Assessment and Plan: Myoclonic jerks are a poor prognostic sign, but may respond to Keppra. We will start Keppra 500 mg IV Q12 and follow exam. A repeat CT head is recommended in the AM to follow degree of hypoxic injury. Thank you. Status: Acute Priority: High
[2018-04-01] MEDS ORDERED: DOPamine 400mg/250ml D5W 400 MG/250 ML BAG IV ONE (18:48)
--- NOTE | 2018-04-01 19:39 | PCM.PROC ---
Procedures Attestation:: I certify that I have explained the specified Operation(s) or Procedure(s), risks, benefits and reasonable alternatives to the Patient and/or other person responsible. The opportunity was given to ask questions and all questions answered - Arterial Line Right Radial Aseptic technique was employed throughout the procedure: Hand Hygiene done prior to procedure, Full sterile barriers (mask, hair cover, sterile gown, sterile gloves), Chloraprep Antiseptic: 30 second prep for IJ or SC sites Time Out Performed: Yes Pt. placed on Pulse Ox Monitor: Yes Central Line Prep: Chlorhexidine-Alcohol Combination Local Anesthesia Used: Lidocaine 1% Amount of Anesthesia Used (mls): 3 Ultrasound Used for Placement: No Gauge (Size): 20 gauge Technique Used: Guide Wire Technique Secured by: Suture Post procedure dressing: Clear vapor permeable, Chlorhexidine disc (Biopatch) Patient Tolerated Procedure: well Immediate Complications: none Additional Comments: Performed under emergent conditions in ICU for frequent ABGs and [id number] measurement of BPs while on multiple vasopressors and vasoactive medications.
[2018-04-01] MEDS ORDERED: levETIRAcetam 500 MG in Sodium Chloride 0.9% 100 ML IVPB SCH (21:00)
[2018-04-01 21:49] LABS: HEMOGLOBIN 13.4 g/dL (12.0-18.0); MEAN CELL VOLUME 96.4 fl (80.0-94.0); MEAN CORPUSCULAR HEMOGLOBIN 32.8 pg (27.0-31.0); RBC 4.09 Mil/uL (4.40-5.90); RED CELL DISTRIBUTION WIDTH 13.7 % (11.5-14.5); WHITE BLOOD COUNT 9.2 K/uL (4.8-10.8)
[2018-04-01 22:06] LABS: CALCIUM 7.7 mg/dL (8.4-10.2)
[2018-04-01 22:28] LABS: INR 1.1 (0.9-1.2); PARTIAL THROMBOPLASTIN TIME 28.9 Seconds (25.6-37.1); PROTHROMBIN TIME 11.7 Seconds (9.8-13.1)
[2018-04-02 00:32] LABS: ABG ALLEN TEST YES; ARTERIAL BLOOD GAS HCO3 18.9 mmol/L (21-28); ARTERIAL BLOOD GAS O2 CAPACITY 19.1 mL/dL (16-24); ARTERIAL BLOOD GAS O2 CONTENT 18.8 ML/dL (15-23); ARTERIAL BLOOD GAS O2 SAT 98.3 % (95-98); ARTERIAL BLOOD GAS PCO2 41 mm/Hg (35-45); ARTERIAL BLOOD GAS PH 7.27 (7.35-7.45); ARTERIAL BLOOD GAS PO2 90 mm/Hg (80-100); ARTERIAL BLOOD GAS TCO2 20.1 mmol/L (22-28)
[2018-04-02] MEDS ORDERED: DOPamine 400mg/250ml D5W 400 MG/250 ML BAG IV ONE (02:45)
[2018-04-02] MEDS: DEXTROSE 5% IV ONE ×3 (04:00→04:13)
[2018-04-02] MEDS: DOPAMINE IV ONE ×3 (04:00→04:13)
[2018-04-02] MEDS: WATER IV ONE ×3 (04:00→04:13)
[2018-04-02] MEDS ORDERED: WATER IV ONE (04:15)
[2018-04-02] MEDS ORDERED: DEXTROSE 5% IV ONE (04:15)
[2018-04-02] MEDS ORDERED: DOPAMINE IV ONE (04:15)
[2018-04-02 05:26] LABS: ABG ALLEN TEST YES; ARTERIAL BLOOD GAS HCO3 20.5 mmol/L (21-28); ARTERIAL BLOOD GAS O2 SAT 99.4 % (95-98); ARTERIAL BLOOD GAS PCO2 40 mm/Hg (35-45); ARTERIAL BLOOD GAS PH 7.31 (7.35-7.45); ARTERIAL BLOOD GAS PO2 166 mm/Hg (80-100); ARTERIAL BLOOD GAS TCO2 21.3 mmol/L (22-28)
[2018-04-02 06:19] LABS: EOS % 0.1 % (0.0-4.0); HEMOGLOBIN 13.1 g/dL (12.0-18.0); LYMPH # 0.4 K/uL (1.0-4.3); LYMPH % 4.6 % (20.0-40.0); MEAN CELL VOLUME 95.2 fl (80.0-94.0); MEAN CORPUSCULAR HEMOGLOBIN 33.2 pg (27.0-31.0); MEAN CORPUSCULAR HGB CONC 34.9 g/dL (33.0-37.0); MEAN PLATELET VOLUME 8.4 fl (7.2-11.7); MONO # 0.4 K/uL (0.0-0.8); MONO % 4.4 % (0.0-10.0); NEUT # 8.4 K/uL (1.8-7.0); NEUT % 90.9 % (50.0-75.0); PLATELET COUNT 155 K/uL (130-400); RBC 3.95 Mil/uL (4.40-5.90); RED CELL DISTRIBUTION WIDTH 13.4 % (11.5-14.5); WHITE BLOOD COUNT 9.2 K/uL (4.8-10.8)
[2018-04-02 06:49] LABS: ALB/GLOB RATIO 1.4 (1.0-2.1); ALBUMIN 3.6 g/dL (3.5-5.0); ALT/SGPT 101 U/L (21-72); AST/SGOT 115 U/L (17-59); BLOOD UREA NITROGEN 30 mg/dl (9-20); CALCIUM 7.9 mg/dL (8.4-10.2); GFR AFRICAN-AMERICAN > 60; GFR NON-AFRICAN AMERICAN 57
[2018-04-02 07:02] LABS: TROPONIN I 0.027 ng/mL (0.00-0.120)
[2018-04-02 07:19] LABS: INR 1.1 (0.9-1.2); PARTIAL THROMBOPLASTIN TIME 31.1 Seconds (25.6-37.1); PROTHROMBIN TIME 12.2 Seconds (9.8-13.1)
--- NOTE | 2018-04-02 07:22 | RAD ---
HISTORY: Cardiac arrest COMPARISON: Portable chest 03/24/2018. FINDINGS: LUNGS: Endotracheal tube is stable in position. A faint line is seen traversing the middle of the mediastinum and entering into the left upper quadrant abdomen questionably reflecting nasogastric tube. Tip is off the image. Clinically correlate. Borderline airspace disease medial right base with remaining lung crouch clear. PLEURA: No significant pleural effusion identified, no pneumothorax apparent. CARDIOVASCULAR: Post CABG changes reiterated with cardiac size stable. No pulmonary vascular congestion. OSSEOUS STRUCTURES: No significant abnormalities. VISUALIZED UPPER ABDOMEN: Normal. OTHER FINDINGS: None. IMPRESSION: Interval NG tube placement in question. Clinically correlate. This may be artifact. Trace patchy density developing medial right base the remaining lung crouch clear. No pleural effusion or pneumothorax bilaterally. No pulmonary vascular congestion.
[2018-04-02] MEDS ORDERED: EPINEPHrine- 1 MG in Sodium Chloride 0.9% 250 ML IVPB ONE (07:46)
[2018-04-02] MEDS: Propofol 10 mg/ml 1,000 MG/100 ML VIAL IV SCH ×2 (08:25→21:10)
[2018-04-02] MEDS ORDERED: levETIRAcetam 1,000 MG in Sodium Chloride 0.9% 100 ML IVPB ONE ×2 (08:32→10:30)
[2018-04-02] MEDS ORDERED: Pneumococcal 23-Valent Vaccine IM ONE (09:00)
--- NOTE | 2018-04-02 09:02 | CP.PCM.PN ---
Subjective - Date & Time of Evaluation Date of Evaluation: 04/02/18 Time of Evaluation: 08:56 - Subjective Subjective: Mr. Drew was seen and examined at the bedside in ICU. He remains on mechanical ventilator on PRVC mode. He doses not have any corneal or gag reflex , pupils not reactive to light accommodation, GCS 3T. He is receiving sedation ( propofol), and noted to have myclonic seizures with his eyes rolling up, upper extremities stiffen in a decelebrate position, twitching of his mouth. His heart rate drops to low 40's during the episode and currently at 60's. He is also receiving vasopressor for blood pressure support. At present, he is on the code chill post cardiac arrest. He has several episodes of myclonic seizures overnight. Objective - Vital Signs/Intake and Output Vital Signs (last 24 hours): Temp Pulse Resp BP Pulse Ox 92.7 F L 53 L 31 H 153/66 H 100 04/02/18 08:00 04/02/18 08:00 04/02/18 08:00 04/02/18 08:00 04/02/18 08:00 Intake and Output: 04/02/18 04/02/18 06:59 18:59 Intake Total 994 46 Output Total 2025 375 Balance -1031 -329 - Medications Medications: Current Medications Propofol (Diprivan) 1,000 mg in 100 mls @ 2.177 mls/hr IV .Q24H CHELA; 5 MCG/KG/ MIN PRN Reason: Protocol Stop: 04/02/18 17:56 Last Titration: 04/02/18 03:49 Dose: 17.5 mcg/kg/min, 7.62 mls/hr Piperacillin Sod/Tazobactam (Sod 2.25 gm/ Sodium Chloride) 100 mls @ 100 mls/ hr IVPB Q12 CHELA PRN Reason: Protocol Last Admin: 04/01/18 21:43 Dose: 100 mls/hr Levetiracetam 500 mg/ Sodium (Chloride) 105 mls @ 210 mls/hr IVPB Q12 CHELA Last Admin: 04/01/18 20:18 Dose: 210 mls/hr Norepinephrine Bitartrate 4 mg (/ Dextrose) 254 mls @ 9.52 mls/hr IV .Q24H CHELA ; 2.5 MCG/MIN PRN Reason: Protocol Last Titration: 04/02/18 03:48 Dose: 0 mcg/min, 0 mls/hr Norepinephrine Bitartrate 16 (mg/ Dextrose) 266 mls @ 2.49 mls/hr IV .Q24H ONE ; 2.5 MCG/MIN PRN Reason: Protocol Stop: 04/03/18 02:45 Epinephrine HCl 1 mg/ Sodium (Chloride) 251 mls @ 15.06 mls/hr IVPB .[id number] ONE; 1 MCG/MIN PRN Reason: Protocol Stop: 04/03/18 00:25 Levetiracetam 1,000 mg/ Sodium (Chloride) 110 mls @ 215 mls/hr IVPB ONCE ONE Stop: 04/02/18 09:02 Lorazepam (Ativan) 2 mg IVP ONCE ONE Stop: 04/02/18 08:32 Pantoprazole Sodium (Protonix Inj) 40 mg IVP DAILY CHELA Pneumococcal Polyvalent Vaccine (Pneumovax 23 Vaccine) 0.5 ml IM .ONCE ONE Stop: 04/02/18 09:01 - Labs Labs: 04/02/18 06:08 04/02/18 06:11 PT 12.2 Seconds (9.8-13.1) 04/02/18 06:08 INR 1.1 (0.9-1.2) 04/02/18 06:08 APTT 31.1 Seconds (25.6-37.1) 04/02/18 06:08 - Constitutional Appears: No Acute Distress - Head Exam Head Exam: NORMAL INSPECTION - Eye Exam Pupil Exam: Fixed Additional comments: 2 mm - Neurological Exam Neuro motor strength exam: Left Upper Extremity: 0, Right Upper Extremity: 0, Left Lower Extremity: 0, Right Lower Extremity: 0 Additional comments: GCS-3T Assessment and Plan (1) Hypoxic brain injury Assessment & Plan: Case discussed with Dr. Brown, continue current medical regimen including ventilator management per ICU team. Ativan 2 mg IVP now and loading dose of Keppra 100 mg IVPB for one dose. CT scan can be done after his rewarming stage. Recommend increasing keppra at 100 mg IVPB Q 12hours, ativen 2 mg IVP Q 6 hoursPRN for the myclonic seizures, blood pressure control, treat any underlying electrolyte abnormalities. Status: Acute
--- NOTE | 2018-04-02 09:35 | CP.PCM.PN ---
<Monie Blake - Last Filed: 04/02/18 14:10> Subjective - Date & Time of Evaluation Date of Evaluation: 04/02/18 Time of Evaluation: 08:00 - Subjective Subjective: Patient seen and examined this morning. Patient is mechanically ventilated, GCS3T, nonresponsive, with Myoclonic jerks, pupils were constricted and mildly responsive to light. Unable to contact patient's Son so far for further treatment plans and discussions. VS: 153/61, HR 60, RR 30 Vent: PRVC A/C, TV 500, R 26, PEEP 5, FIO2 50%, Breathing above vent OGT: 300 cc greenish fluids [place]: 70cc pink urine Drips: Dopamine and Propofol Keppra was started Objective - Vital Signs/Intake and Output Vital Signs (last 24 hours): Temp Pulse Resp BP Pulse Ox 92.7 F L 53 L 31 H 153/66 H 100 04/02/18 08:00 04/02/18 08:00 04/02/18 08:00 04/02/18 08:00 04/02/18 08:00 Intake and Output: 04/02/18 04/02/18 06:59 18:59 Intake Total 994 146 Output Total 2025 375 Balance -1031 -229 - Medications Medications: Current Medications Propofol (Diprivan) 1,000 mg in 100 mls @ 2.177 mls/hr IV .Q24H CHELA; 5 MCG/KG/ MIN PRN Reason: Protocol Stop: 04/02/18 17:56 Last Admin: 04/02/18 08:25 Dose: 17.5 mcg/kg/min, 7.62 mls/hr Piperacillin Sod/Tazobactam (Sod 2.25 gm/ Sodium Chloride) 100 mls @ 100 mls/ hr IVPB Q12 CHELA PRN Reason: Protocol Last Admin: 04/01/18 21:43 Dose: 100 mls/hr Norepinephrine Bitartrate 4 mg (/ Dextrose) 254 mls @ 9.52 mls/hr IV .Q24H CHELA ; 2.5 MCG/MIN PRN Reason: Protocol Last Titration: 04/02/18 03:48 Dose: 0 mcg/min, 0 mls/hr Norepinephrine Bitartrate 16 (mg/ Dextrose) 266 mls @ 2.49 mls/hr IV .Q24H ONE ; 2.5 MCG/MIN PRN Reason: Protocol Stop: 04/03/18 02:45 Epinephrine HCl 1 mg/ Sodium (Chloride) 251 mls @ 15.06 mls/hr IVPB .[id number] ONE; 1 MCG/MIN PRN Reason: Protocol Stop: 04/03/18 00:25 Levetiracetam 1,000 mg/ Sodium (Chloride) 110 mls @ 215 mls/hr IVPB Q12 CHELA Lorazepam (Ativan) 2 mg IVP Q6 PRN PRN Reason: Seizure activity Pantoprazole Sodium (Protonix Inj) 40 mg IVP DAILY CHELA - Labs Labs: 04/02/18 06:08 04/02/18 06:11 PT 12.2 Seconds (9.8-13.1) 04/02/18 06:08 INR 1.1 (0.9-1.2) 04/02/18 06:08 APTT 31.1 Seconds (25.6-37.1) 04/02/18 06:08 - Constitutional Appears: Other (Unresponsive, Myoclonus jerks seen ) - Head Exam Head Exam: ATRAUMATIC - Eye Exam Additional comments: pinpoint pupils, rolled up but mildly reactive to light - ENT Exam ENT Exam: Mucous Membranes Moist - Respiratory Exam Respiratory Exam: Clear to Ausculation Bilateral - Cardiovascular Exam Cardiovascular Exam: REGULAR RHYTHM, +S1, +S2 - GI/Abdominal Exam GI & Abdominal Exam: Soft - Extremities Exam Additional comments: left side Descerebrate posturing - Neurological Exam Additional comments: Left Descerebrate posturing GCS 3T Unresponsive, Myoclonus jerks seen - Skin Skin Exam: Normal Color Assessment and Plan - Assessment and Plan (Free Text) Assessment: 57 y/o M brought in to the ER by EMS after found unconscious, S/p infield intubation, ACLS and ROSC, no acute EKG changes, with in the window of hypothermia protocol. Uncleared precipitating event however patient has significant cardiac history and history of Substance abuse. Cardiac Arrest - Possibly due to substance abuse, UTox: + Cocain and Opiates - Hypothermia protocol in ER, s/p levophed - Cardio consult, Dr. Trevino, will follow recs - Pulm, Dr. Gallegos, Will follow recs - Neuro, Dr. Brown, will follow recs - ID, Dr. Josue consult, will foloow recs - EKG: NSR with bradycardia, No suggestive acute infarct on admission - CT chest: no PE, Coiled NGT, Emphysematous changes on admission - CXR: Emphysematous changes, no acute consolidation, right angle blunting on admission - Repeat EKG, CXR and ABG (04/02) reviewed - S/p Narcan drip, troponin x3 negative, Urine Cx no growth, Blood Cx: NGPD - C/w IVF, Zosyn as per ID - Patient is on Dopamine for hilary and propofol Acute Respiratory failure - Possibly due to substance abuse , UTox: + Cocain and Opiates - Mechanically ventilated - CT head: No acute intracranial hemorrhage on admission - CT chest: no PE, Coiled NGT, Emphysematous changes on admission - CXR: Emphysematous changes, no acute consolidation, right angle blunting on admission - Pulm, Dr. Gallegos, Will follow recs Substance abuse - Chronic - UTox: + Cocain and Opiates - Mechanically ventilated - Benzo as indicated - s/p Narcan drip Myoclonic seizure with GCS 3T, uncleared if 2/2 hypoxia, anoxia vs substance intoxication - Neuro, Dr. Brown consult, recs appreciated - CT head: No acute intracranial hemorrhage on admission - Repeat CT head this morning to r/o any hypoxiand Keppra 500 Q12 as per Neuro - Benzo as indicated - S/p Narcan drip HTN - Chronic, currently hypotensive - Hold BP medications to bradycardia GI PPX - Protonix 40 DVT PPX - SCD for now -(Emergency Contact: SisterLara, ) <Maria D Scales - Last Filed: 04/03/18 09:04> Objective - Vital Signs/Intake and Output Vital Signs (last 24 hours): Temp Pulse Resp BP Pulse Ox 97.4 F L 86 26 H 159/60 H 100 04/03/18 08:00 04/03/18 08:00 04/03/18 08:00 04/03/18 08:00 04/03/18 08:00 Intake and Output: 04/03/18 04/03/18 06:59 18:59 Intake Total 416 17 Output Total 1080 35 Balance -664 -18 - Medications Medications: Current Medications Piperacillin Sod/Tazobactam (Sod 2.25 gm/ Sodium Chloride) 100 mls @ 100 mls/ hr IVPB Q12 CHELA PRN Reason: Protocol Last Admin: 04/03/18 08:33 Dose: 100 mls/hr Levetiracetam 1,000 mg/ Sodium (Chloride) 110 mls @ 215 mls/hr IVPB Q12 CHELA Last Admin: 04/03/18 08:39 Dose: 215 mls/hr Propofol (Diprivan) 1,000 mg in 100 mls @ 9.743 mls/hr IV .[id number] CHELA; 20 MCG/ KG/MIN PRN Reason: Protocol Stop: 04/03/18 21:01 Last Titration: 04/03/18 05:05 Dose: 15 mcg/kg/min, 7.307 mls/hr Lorazepam (Ativan) 2 mg IVP Q6 PRN PRN Reason: Seizure activity Last Admin: 04/03/18 02:06 Dose: 2 mg Pantoprazole Sodium (Protonix Inj) 40 mg IVP DAILY CHELA Last Admin: 04/02/18 09:30 Dose: 40 mg - Labs Labs: 04/03/18 05:30 04/03/18 05:30 PT 12.2 Seconds (9.8-13.1) 04/02/18 06:08 INR 1.1 (0.9-1.2) 04/02/18 06:08 APTT 31.1 Seconds (25.6-37.1) 04/02/18 06:08 Attending/Attestation - Attestation I have personally seen and examined this patient.: Yes I have fully participated in the care of the patient.: Yes I have reviewed all pertinent clinical information, including history, physical exam and plan: Yes
[2018-04-02 10:18] LABS: BANDS 4 % (0-2); LYMPHOCYTE 5 % (20-50); MONOCYTE 5 % (0-10); NEUTROPHIL 86 % (42-75); PLATELET ESTIMATE NORMAL (NORMAL); TOTAL CELLS COUNTED 100
[2018-04-02 10:19] LABS: ANISOCYTOSIS SLIGHT; OVALOCYTES SLIGHT; TEARDROP CELLS SLIGHT
[2018-04-02] MEDS ORDERED: EPINEPHrine- 1 MG in Sodium Chloride 0.9% 250 ML IVPB SCH (11:00)
[2018-04-02] MEDS ORDERED: EPINEPHrine- 1 MG in Sodium Chloride 0.9% 250 ML IV SCH (11:15)
--- NOTE | 2018-04-02 12:48 | CP.CCUPN ---
<Agapito Levine - Last Filed: 04/02/18 13:37> CCU Subjective - Physician Review Subjective (Free Text): 04/02/18 13:23 57 y/o seen at bedside, nonresponsive, breathing over vent, no corneal, pupillary or cough reflex. Descerebrate posturing. Myoclonic jerks improved markedly since this morning after treatment but still present. Afebrile. Persistent bradycardia. BP improved CCU Objective - Vital Signs / Intake & Output Vital Signs (Last 4 hours): Vital Signs Temp Pulse Resp BP Pulse Ox 04/02/18 11:00 66 31 H 121/53 L 100 04/02/18 10:00 91.9 F L 61 31 H 143/58 L 100 04/02/18 09:54 61 33 H 137/62 04/02/18 09:00 33.3 F L 61 33 H 141/57 L 100 Intake and Output (Last 8hrs): Intake & Output 04/01/18 04/02/18 04/02/18 22:59 06:59 14:59 Intake Total 210 784 459 Output Total 700 1325 770 Balance -490 -541 -311 Weight 179 lb 1.6 oz 179 lb Intake: IV 10 784 121 Intake, Piggyback 200 338 Output: Urine 700 1325 770 Urethral ([place]) 700 1325 770 - Physical Exam Physical Exam Limitations: Positive for: Clinical Condition Head: Positive for: Normocephalic Pupils: Positive for: Non-Reactive Conjunctiva: Positive for: Normal Mouth: Positive for: Moist Mucous Membranes Respiratory/Chest: Positive for: Respiratory Distress, Decreased Breath Sounds, Tachypneic Cardiovascular: Positive for: Normal S1, S2, Bradycardic Abdomen: Negative for: Distention Upper Extremity: Negative for: Normal Inspection (Decerebrate posturing) Lower Extremity: Negative for: Normal Inspection Neurological: Negative for: GCS=15 (3T), CN II-XII Intact, Speech Normal, Motor Func Grossly Intact, Normal Sensory Function Skin: Positive for: Warm. Negative for: Rashes Psychiatric: Negative for: Alert, Oriented x 3 - Medications Active Medications: Active Medications Generic Name Dose Route Start Last Admin Trade Name Freq PRN Reason Stop Dose Admin Propofol 1,000 mg in 100 mls @ 2.177 mls/hr 04/01/18 18:00 04/02/18 08:25 Diprivan IV 04/02/18 17:56 17.5 mcg/kg/min .Q24H CHELA 7.62 mls/hr Protocol Administration 5 MCG/KG/MIN Piperacillin Sod/Tazobactam 100 mls @ 100 mls/hr 04/01/18 21:00 04/02/18 10: 02 Sod 2.25 gm/ Sodium Chloride IVPB 100 mls/hr Q12 CHELA Administration Protocol Norepinephrine Bitartrate 4 mg 254 mls @ 9.52 mls/hr 04/01/18 20:32 04/02/18 03:48 / Dextrose IV 0 mcg/min .Q24H CHELA 0 mls/hr Protocol Titration 2.5 MCG/MIN Norepinephrine Bitartrate 16 266 mls @ 2.49 mls/hr 04/02/18 02:46 mg/ Dextrose IV 04/03/18 02:45 .Q24H ONE Protocol 2.5 MCG/MIN Levetiracetam 1,000 mg/ Sodium 110 mls @ 215 mls/hr 04/02/18 21:00 Chloride IVPB Q12 CHELA Epinephrine HCl 1 mg/ Sodium 251 mls @ 15.06 mls/hr 04/02/18 11:15 04/02/18 10:55 Chloride IV 04/03/18 00:25 1.06 mcg/min .[id number] CHELA 15.96 mls/hr Protocol Titration 1 MCG/MIN Lorazepam 2 mg 04/02/18 12:00 Ativan IVP Q6 PRN Seizure activity Pantoprazole Sodium 40 mg 04/02/18 09:00 04/02/18 09:30 Protonix Inj IVP 40 mg DAILY CHELA Administration - Patient Studies Lab Studies: Microbiology Studies 04/01/18 14:00 Urine Culture - Final Urine,Catheterized No Growth (<1,000 CFU/ML) Lab Studies 04/02/18 04/02/18 04/02/18 Range/Units 06:11 06:11 06:08 WBC (4.8-10.8) K/uL RBC (4.40-5.90) Mil/uL Hgb (12.0-18.0) g/dL Hct (35.0-51.0) % MCV (80.0-94.0) fl MCH (27.0-31.0) pg MCHC (33.0-37.0) g/dL RDW (11.5-14.5) % Plt Count (130-400) K/uL MPV (7.2-11.7) fl Neut % (Auto) (50.0-75.0) % Lymph % (Auto) (20.0-40.0) % [place] % (Auto) (0.0-10.0) % Eos % (Auto) (0.0-4.0) % Baso % (Auto) (0.0-2.0) % Neut # (Auto) (1.8-7.0) K/uL Lymph # (Auto) (1.0-4.3) K/uL [place] # (Auto) (0.0-0.8) K/uL Eos # (Auto) (0.0-0.7) K/uL Baso # (Auto) (0.0-0.2) K/uL Neutrophils % (Manual) (42-75) % Band Neutrophils % (0-2) % Lymphocytes % (Manual) (20-50) % Monocytes % (Manual) (0-10) % Platelet Estimate (NORMAL) Anisocytosis (manual) Tear Drop Cells Ovalocytes PT 12.2 (9.8-13.1) Seconds INR 1.1 (0.9-1.2) APTT 31.1 (25.6-37.1) Seconds pCO2 (35-45) mm/Hg pO2 (80-100) mm/Hg HCO3 (21-28) mmol/L ABG pH (7.35-7.45) ABG Total CO2 (22-28) mmol/L ABG O2 Saturation (95-98) % ABG O2 Content (15-23) ML/dL ABG Base Excess (-2.0-3.0) mmol/L ABG Hemoglobin (11.7-17.4) g/dL ABG Carboxyhemoglobin (0.5-1.5) % POC ABG HHb (Measured) (0.0-5.0) % ABG Methemoglobin (0.0-3.0) % ABG O2 Capacity (16-24) mL/dL Gerald Test ABG Potassium (3.6-5.2) mmol/L A-a O2 Difference mm/Hg Hgb O2 Saturation (95.0-98.0) % Glucose (75-110) mg/dL Lactate (0.7-2.1) mmol/L Vent Mode Mechanical Rate FiO2 % Tidal Volume PEEP Crit Value Called To Crit Value Called By Crit Value Read Back Blood Gas Notified Time Sodium 137 (132-148) mmol/l Potassium 3.8 (3.6-5.0) MMOL/L Chloride 105 (98-107) mmol/L Carbon Dioxide 19 L (22-30) mmol/L Anion Gap 17 (10-20) BUN 30 H (9-20) mg/dl Creatinine 1.3 (0.8-1.5) mg/dl Est GFR ( Amer) > 60 Est GFR (Non-Af Amer) 57 POC Glucose (mg/dL) (65-110) mg/dL Random Glucose 153 H (75-110) mg/dL Calcium 7.9 L (8.4-10.2) mg/dL Phosphorus 4.3 (2.5-4.5) mg/dl Magnesium 1.6 (1.6-2.3) MG/DL Total Bilirubin 0.8 (0.2-1.3) mg/dl AST 115 H D (17-59) U/L ALT 101 H D (21-72) U/L Alkaline Phosphatase 88 (38-126) U/L Ammonia (16-60) umo/L Total Creatine Kinase 550 H (55-170) U/L Troponin I 0.0270 (0.00-0.120) ng/mL Total Protein 6.1 L (6.3-8.2) G/DL Albumin 3.6 (3.5-5.0) g/dL Globulin 2.6 (2.2-3.9) gm/dL Albumin/Globulin Ratio 1.4 (1.0-2.1) Arterial Blood Potassium (3.6-5.2) mmol/L Urine Color (YELLOW) Urine Clarity (Clear) Urine pH (5.0-8.0) Ur Specific [place] (1.003-1.030) Urine Protein (NEGATIVE) mg/dL Urine Glucose (UA) (Normal) mg/dL Urine Ketones (NEGATIVE) mg/dL Urine Blood (NEGATIVE) Urine Nitrate (NEGATIVE) Urine Bilirubin (NEGATIVE) Urine Urobilinogen (0.2-1.0) mg/dL Ur Leukocyte Esterase (Negative) Addy/uL Urine RBC (Auto) (0-3) /hpf Urine Microscopic WBC (0-5) /hpf Ur Squamous Epith Cells (0-5) /hpf Urine Bacteria (<OCC) Hyaline Casts (0-2) /hpf Urine Opiates Screen (NEGATIVE) Urine Methadone Screen (NEGATIVE) Ur Barbiturates Screen (NEGATIVE) Ur Phencyclidine Scrn (NEGATIVE) Ur Amphetamines Screen (NEGATIVE) U Benzodiazepines Scrn (NEGATIVE) U Oth Cocaine Metabols (NEGATIVE) U Cannabinoids Screen (NEGATIVE) Alcohol, Quantitative (0-10) mg/dl Influenza Typ A,B (EIA) (NEGATIVE) 04/02/18 04/02/18 04/02/18 Range/Units 06:08 05:14 00:29 WBC 9.2 (4.8-10.8) K/uL RBC 3.95 L (4.40-5.90) Mil/uL Hgb 13.1 (12.0-18.0) g/dL Hct 37.6 (35.0-51.0) % MCV 95.2 H (80.0-94.0) fl MCH 33.2 H (27.0-31.0) pg MCHC 34.9 (33.0-37.0) g/dL RDW 13.4 (11.5-14.5) % Plt Count 155 (130-400) K/uL MPV 8.4 (7.2-11.7) fl Neut % (Auto) 90.9 H (50.0-75.0) % Lymph % (Auto) 4.6 L (20.0-40.0) % [place] % (Auto) 4.4 (0.0-10.0) % Eos % (Auto) 0.1 (0.0-4.0) % Baso % (Auto) 0.0 (0.0-2.0) % Neut # (Auto) 8.4 H (1.8-7.0) K/uL Lymph # (Auto) 0.4 L (1.0-4.3) K/uL [place] # (Auto) 0.4 (0.0-0.8) K/uL Eos # (Auto) 0.0 (0.0-0.7) K/uL Baso # (Auto) 0.0 (0.0-0.2) K/uL Neutrophils % (Manual) 86 H (42-75) % Band Neutrophils % 4 H (0-2) % Lymphocytes % (Manual) 5 L (20-50) % Monocytes % (Manual) 5 (0-10) % Platelet Estimate Normal (NORMAL) Anisocytosis (manual) Slight Tear Drop Cells Slight Ovalocytes Slight PT (9.8-13.1) Seconds INR (0.9-1.2) APTT (25.6-37.1) Seconds pCO2 40 41 (35-45) mm/Hg pO2 166 H 90 (80-100) mm/Hg HCO3 20.5 L 18.9 L (21-28) mmol/L ABG pH 7.31 L 7.27 L (7.35-7.45) ABG Total CO2 21.3 L 20.1 L (22-28) mmol/L ABG O2 Saturation 99.4 H 98.3 H (95-98) % ABG O2 Content 18.8 (15-23) ML/dL ABG Base Excess -5.8 L -7.7 L (-2.0-3.0) mmol/L ABG Hemoglobin 14.0 (11.7-17.4) g/dL ABG Carboxyhemoglobin 1.9 H (0.5-1.5) % POC ABG HHb (Measured) 1.6 (0.0-5.0) % ABG Methemoglobin 1.3 (0.0-3.0) % ABG O2 Capacity 19.1 (16-24) mL/dL Gerald Test Yes Yes ABG Potassium 3.6 (3.6-5.2) mmol/L A-a O2 Difference 141.0 215.0 mm/Hg Hgb O2 Saturation 95.2 (95.0-98.0) % Glucose 163 H (75-110) mg/dL Lactate 1.0 (0.7-2.1) mmol/L Vent Mode A/c A/c Mechanical Rate 26 26 FiO2 50.0 50.0 % Tidal Volume 500 500 PEEP 5 5 Crit Value Called To Crit Value Called By Crit Value Read Back Blood Gas Notified Time Sodium 134.0 (132-148) mmol/l Potassium (3.6-5.0) MMOL/L Chloride 106.0 (98-107) mmol/L Carbon Dioxide (22-30) mmol/L Anion Gap (10-20) BUN (9-20) mg/dl Creatinine (0.8-1.5) mg/dl Est GFR ( Amer) Est GFR (Non-Af Amer) POC Glucose (mg/dL) (65-110) mg/dL Random Glucose (75-110) mg/dL Calcium (8.4-10.2) mg/dL Phosphorus (2.5-4.5) mg/dl Magnesium (1.6-2.3) MG/DL Total Bilirubin (0.2-1.3) mg/dl AST (17-59) U/L ALT (21-72) U/L Alkaline Phosphatase (38-126) U/L Ammonia (16-60) umo/L Total Creatine Kinase (55-170) U/L Troponin I (0.00-0.120) ng/mL Total Protein (6.3-8.2) G/DL Albumin (3.5-5.0) g/dL Globulin (2.2-3.9) gm/dL Albumin/Globulin Ratio (1.0-2.1) Arterial Blood Potassium 3.6 (3.6-5.2) mmol/L Urine Color (YELLOW) Urine Clarity (Clear) Urine pH (5.0-8.0) Ur Specific [place] (1.003-1.030) Urine Protein (NEGATIVE) mg/dL Urine Glucose (UA) (Normal) mg/dL Urine Ketones (NEGATIVE) mg/dL Urine Blood (NEGATIVE) Urine Nitrate (NEGATIVE) Urine Bilirubin (NEGATIVE) Urine Urobilinogen (0.2-1.0) mg/dL Ur Leukocyte Esterase (Negative) Addy/uL Urine RBC (Auto) (0-3) /hpf Urine Microscopic WBC (0-5) /hpf Ur Squamous Epith Cells (0-5) /hpf Urine Bacteria (<OCC) Hyaline Casts (0-2) /hpf Urine Opiates Screen (NEGATIVE) Urine Methadone Screen (NEGATIVE) Ur Barbiturates Screen (NEGATIVE) Ur Phencyclidine Scrn (NEGATIVE) Ur Amphetamines Screen (NEGATIVE) U Benzodiazepines Scrn (NEGATIVE) U Oth Cocaine Metabols (NEGATIVE) U Cannabinoids Screen (NEGATIVE) Alcohol, Quantitative (0-10) mg/dl Influenza Typ A,B (EIA) (NEGATIVE) 04/01/18 04/01/18 04/01/18 Range/Units 23:25 21:34 21:34 WBC (4.8-10.8) K/uL RBC (4.40-5.90) Mil/uL Hgb (12.0-18.0) g/dL Hct (35.0-51.0) % MCV (80.0-94.0) fl MCH (27.0-31.0) pg MCHC (33.0-37.0) g/dL RDW (11.5-14.5) % Plt Count (130-400) K/uL MPV (7.2-11.7) fl Neut % (Auto) (50.0-75.0) % Lymph % (Auto) (20.0-40.0) % [place] % (Auto) (0.0-10.0) % Eos % (Auto) (0.0-4.0) % Baso % (Auto) (0.0-2.0) % Neut # (Auto) (1.8-7.0) K/uL Lymph # (Auto) (1.0-4.3) K/uL [place] # (Auto) (0.0-0.8) K/uL Eos # (Auto) (0.0-0.7) K/uL Baso # (Auto) (0.0-0.2) K/uL Neutrophils % (Manual) (42-75) % Band Neutrophils % (0-2) % Lymphocytes % (Manual) (20-50) % Monocytes % (Manual) (0-10) % Platelet Estimate (NORMAL) Anisocytosis (manual) Tear Drop Cells Ovalocytes PT (9.8-13.1) Seconds INR (0.9-1.2) APTT (25.6-37.1) Seconds pCO2 (35-45) mm/Hg pO2 (80-100) mm/Hg HCO3 (21-28) mmol/L ABG pH (7.35-7.45) ABG Total CO2 (22-28) mmol/L ABG O2 Saturation (95-98) % ABG O2 Content (15-23) ML/dL ABG Base Excess (-2.0-3.0) mmol/L ABG Hemoglobin (11.7-17.4) g/dL ABG Carboxyhemoglobin (0.5-1.5) % POC ABG HHb (Measured) (0.0-5.0) % ABG Methemoglobin (0.0-3.0) % ABG O2 Capacity (16-24) mL/dL Gerald Test ABG Potassium (3.6-5.2) mmol/L A-a O2 Difference mm/Hg Hgb O2 Saturation (95.0-98.0) % Glucose (75-110) mg/dL Lactate (0.7-2.1) mmol/L Vent Mode Mechanical Rate FiO2 % Tidal Volume PEEP Crit Value Called To Crit Value Called By Crit Value Read Back Blood Gas Notified Time Sodium 137 (132-148) mmol/l Potassium 3.8 (3.6-5.0) MMOL/L Chloride 106 (98-107) mmol/L Carbon Dioxide 17 L (22-30) mmol/L Anion Gap 18 (10-20) BUN 34 H (9-20) mg/dl Creatinine 1.5 (0.8-1.5) mg/dl Est GFR ( Amer) 58 Est GFR (Non-Af Amer) 48 POC Glucose (mg/dL) (65-110) mg/dL Random Glucose 167 H (75-110) mg/dL Calcium 7.6 L 7.7 L (8.4-10.2) mg/dL Phosphorus 4.5 (2.5-4.5) mg/dl Magnesium 1.7 (1.6-2.3) MG/DL Total Bilirubin (0.2-1.3) mg/dl AST (17-59) U/L ALT (21-72) U/L Alkaline Phosphatase (38-126) U/L Ammonia (16-60) umo/L Total Creatine Kinase (55-170) U/L Troponin I 0.0300 (0.00-0.120) ng/mL Total Protein (6.3-8.2) G/DL Albumin (3.5-5.0) g/dL Globulin (2.2-3.9) gm/dL Albumin/Globulin Ratio (1.0-2.1) Arterial Blood Potassium (3.6-5.2) mmol/L Urine Color (YELLOW) Urine Clarity (Clear) Urine pH (5.0-8.0) Ur Specific [place] (1.003-1.030) Urine Protein (NEGATIVE) mg/dL Urine Glucose (UA) (Normal) mg/dL Urine Ketones (NEGATIVE) mg/dL Urine Blood (NEGATIVE) Urine Nitrate (NEGATIVE) Urine Bilirubin (NEGATIVE) Urine Urobilinogen (0.2-1.0) mg/dL Ur Leukocyte Esterase (Negative) Addy/uL Urine RBC (Auto) (0-3) /hpf Urine Microscopic WBC (0-5) /hpf Ur Squamous Epith Cells (0-5) /hpf Urine Bacteria (<OCC) Hyaline Casts (0-2) /hpf Urine Opiates Screen (NEGATIVE) Urine Methadone Screen (NEGATIVE) Ur Barbiturates Screen (NEGATIVE) Ur Phencyclidine Scrn (NEGATIVE) Ur Amphetamines Screen (NEGATIVE) U Benzodiazepines Scrn (NEGATIVE) U Oth Cocaine Metabols (NEGATIVE) U Cannabinoids Screen (NEGATIVE) Alcohol, Quantitative (0-10) mg/dl Influenza Typ A,B (EIA) (NEGATIVE) 04/01/18 04/01/18 04/01/18 Range/Units 21:34 21:34 18:18 WBC 9.2 (4.8-10.8) K/uL RBC 4.09 L (4.40-5.90) Mil/uL Hgb 13.4 (12.0-18.0) g/dL Hct 39.5 (35.0-51.0) % MCV 96.4 H D (80.0-94.0) fl MCH 32.8 H (27.0-31.0) pg MCHC 34.0 (33.0-37.0) g/dL RDW 13.7 (11.5-14.5) % Plt Count 145 (130-400) K/uL MPV (7.2-11.7) fl Neut % (Auto) (50.0-75.0) % Lymph % (Auto) (20.0-40.0) % [place] % (Auto) (0.0-10.0) % Eos % (Auto) (0.0-4.0) % Baso % (Auto) (0.0-2.0) % Neut # (Auto) (1.8-7.0) K/uL Lymph # (Auto) (1.0-4.3) K/uL [place] # (Auto) (0.0-0.8) K/uL Eos # (Auto) (0.0-0.7) K/uL Baso # (Auto) (0.0-0.2) K/uL Neutrophils % (Manual) (42-75) % Band Neutrophils % (0-2) % Lymphocytes % (Manual) (20-50) % Monocytes % (Manual) (0-10) % Platelet Estimate (NORMAL) Anisocytosis (manual) Tear Drop Cells Ovalocytes PT 11.7 (9.8-13.1) Seconds INR 1.1 (0.9-1.2) APTT 28.9 (25.6-37.1) Seconds pCO2 (35-45) mm/Hg pO2 (80-100) mm/Hg HCO3 (21-28) mmol/L ABG pH (7.35-7.45) ABG Total CO2 (22-28) mmol/L ABG O2 Saturation (95-98) % ABG O2 Content (15-23) ML/dL ABG Base Excess (-2.0-3.0) mmol/L ABG Hemoglobin (11.7-17.4) g/dL ABG Carboxyhemoglobin (0.5-1.5) % POC ABG HHb (Measured) (0.0-5.0) % ABG Methemoglobin (0.0-3.0) % ABG O2 Capacity (16-24) mL/dL Gerald Test ABG Potassium (3.6-5.2) mmol/L A-a O2 Difference mm/Hg Hgb O2 Saturation (95.0-98.0) % Glucose (75-110) mg/dL Lactate (0.7-2.1) mmol/L Vent Mode Mechanical Rate FiO2 % Tidal Volume PEEP Crit Value Called To Crit Value Called By Crit Value Read Back Blood Gas Notified Time Sodium (132-148) mmol/l Potassium (3.6-5.0) MMOL/L Chloride (98-107) mmol/L Carbon Dioxide (22-30) mmol/L Anion Gap (10-20) BUN (9-20) mg/dl Creatinine (0.8-1.5) mg/dl Est GFR ( Amer) Est GFR (Non-Af Amer) POC Glucose (mg/dL) 159 H (65-110) mg/dL Random Glucose (75-110) mg/dL Calcium (8.4-10.2) mg/dL Phosphorus (2.5-4.5) mg/dl Magnesium (1.6-2.3) MG/DL Total Bilirubin (0.2-1.3) mg/dl AST (17-59) U/L ALT (21-72) U/L Alkaline Phosphatase (38-126) U/L Ammonia (16-60) umo/L Total Creatine Kinase (55-170) U/L Troponin I (0.00-0.120) ng/mL Total Protein (6.3-8.2) G/DL Albumin (3.5-5.0) g/dL Globulin (2.2-3.9) gm/dL Albumin/Globulin Ratio (1.0-2.1) Arterial Blood Potassium (3.6-5.2) mmol/L Urine Color (YELLOW) Urine Clarity (Clear) Urine pH (5.0-8.0) Ur Specific [place] (1.003-1.030) Urine Protein (NEGATIVE) mg/dL Urine Glucose (UA) (Normal) mg/dL Urine Ketones (NEGATIVE) mg/dL Urine Blood (NEGATIVE) Urine Nitrate (NEGATIVE) Urine Bilirubin (NEGATIVE) Urine Urobilinogen (0.2-1.0) mg/dL Ur Leukocyte Esterase (Negative) Addy/uL Urine RBC (Auto) (0-3) /hpf Urine Microscopic WBC (0-5) /hpf Ur Squamous Epith Cells (0-5) /hpf Urine Bacteria (<OCC) Hyaline Casts (0-2) /hpf Urine Opiates Screen (NEGATIVE) Urine Methadone Screen (NEGATIVE) Ur Barbiturates Screen (NEGATIVE) Ur Phencyclidine Scrn (NEGATIVE) Ur Amphetamines Screen (NEGATIVE) U Benzodiazepines Scrn (NEGATIVE) U Oth Cocaine Metabols (NEGATIVE) U Cannabinoids Screen (NEGATIVE) Alcohol, Quantitative (0-10) mg/dl Influenza Typ A,B (EIA) (NEGATIVE) 04/01/18 04/01/18 04/01/18 Range/Units 17:25 16:05 16:00 WBC (4.8-10.8) K/uL RBC (4.40-5.90) Mil/uL Hgb (12.0-18.0) g/dL Hct (35.0-51.0) % MCV (80.0-94.0) fl MCH (27.0-31.0) pg MCHC (33.0-37.0) g/dL RDW (11.5-14.5) % Plt Count (130-400) K/uL MPV (7.2-11.7) fl Neut % (Auto) (50.0-75.0) % Lymph % (Auto) (20.0-40.0) % [place] % (Auto) (0.0-10.0) % Eos % (Auto) (0.0-4.0) % Baso % (Auto) (0.0-2.0) % Neut # (Auto) (1.8-7.0) K/uL Lymph # (Auto) (1.0-4.3) K/uL [place] # (Auto) (0.0-0.8) K/uL Eos # (Auto) (0.0-0.7) K/uL Baso # (Auto) (0.0-0.2) K/uL Neutrophils % (Manual) (42-75) % Band Neutrophils % (0-2) % Lymphocytes % (Manual) (20-50) % Monocytes % (Manual) (0-10) % Platelet Estimate (NORMAL) Anisocytosis (manual) Tear Drop Cells Ovalocytes PT (9.8-13.1) Seconds INR (0.9-1.2) APTT (25.6-37.1) Seconds pCO2 60 H (35-45) mm/Hg pO2 564 H (80-100) mm/Hg HCO3 15.5 L (21-28) mmol/L ABG pH 7.09 L* (7.35-7.45) ABG Total CO2 20.0 L (22-28) mmol/L ABG O2 Saturation 100.0 H (95-98) % ABG O2 Content (15-23) ML/dL ABG Base Excess -12.2 L (-2.0-3.0) mmol/L ABG Hemoglobin (11.7-17.4) g/dL ABG Carboxyhemoglobin (0.5-1.5) % POC ABG HHb (Measured) (0.0-5.0) % ABG Methemoglobin (0.0-3.0) % ABG O2 Capacity (16-24) mL/dL Gerald Test Yes ABG Potassium 4.6 (3.6-5.2) mmol/L A-a O2 Difference 74.0 mm/Hg Hgb O2 Saturation (95.0-98.0) % Glucose 172 H (75-110) mg/dL Lactate 1.3 (0.7-2.1) mmol/L Vent Mode Prvc Mechanical Rate 16 FiO2 100.0 % Tidal Volume 500 PEEP 5 Crit Value Called To Dr chago barron Crit Value Called By Rt Crit Value Read Back Y Blood Gas Notified Time 1625 Sodium 133.0 (132-148) mmol/l Potassium (3.6-5.0) MMOL/L Chloride 110.0 H (98-107) mmol/L Carbon Dioxide (22-30) mmol/L Anion Gap (10-20) BUN (9-20) mg/dl Creatinine (0.8-1.5) mg/dl Est GFR ( Amer) Est GFR (Non-Af Amer) POC Glucose (mg/dL) (65-110) mg/dL Random Glucose (75-110) mg/dL Calcium (8.4-10.2) mg/dL Phosphorus (2.5-4.5) mg/dl Magnesium (1.6-2.3) MG/DL Total Bilirubin (0.2-1.3) mg/dl AST (17-59) U/L ALT (21-72) U/L Alkaline Phosphatase (38-126) U/L Ammonia (16-60) umo/L Total Creatine Kinase 344 H (55-170) U/L Troponin I (0.00-0.120) ng/mL Total Protein (6.3-8.2) G/DL Albumin (3.5-5.0) g/dL Globulin (2.2-3.9) gm/dL Albumin/Globulin Ratio (1.0-2.1) Arterial Blood Potassium 4.6 (3.6-5.2) mmol/L Urine Color (YELLOW) Urine Clarity (Clear) Urine pH (5.0-8.0) Ur Specific [place] (1.003-1.030) Urine Protein (NEGATIVE) mg/dL Urine Glucose (UA) (Normal) mg/dL Urine Ketones (NEGATIVE) mg/dL Urine Blood (NEGATIVE) Urine Nitrate (NEGATIVE) Urine Bilirubin (NEGATIVE) Urine Urobilinogen (0.2-1.0) mg/dL Ur Leukocyte Esterase (Negative) Addy/uL Urine RBC (Auto) (0-3) /hpf Urine Microscopic WBC (0-5) /hpf Ur Squamous Epith Cells (0-5) /hpf Urine Bacteria (<OCC) Hyaline Casts (0-2) /hpf Urine Opiates Screen (NEGATIVE) Urine Methadone Screen (NEGATIVE) Ur Barbiturates Screen (NEGATIVE) Ur Phencyclidine Scrn (NEGATIVE) Ur Amphetamines Screen (NEGATIVE) U Benzodiazepines Scrn (NEGATIVE) U Oth Cocaine Metabols (NEGATIVE) U Cannabinoids Screen (NEGATIVE) Alcohol, Quantitative (0-10) mg/dl Influenza Typ A,B (EIA) Negative for flu a/b (NEGATIVE) 04/01/18 04/01/18 04/01/18 Range/Units 14:10 14:10 14:00 WBC (4.8-10.8) K/uL RBC (4.40-5.90) Mil/uL Hgb (12.0-18.0) g/dL Hct (35.0-51.0) % MCV (80.0-94.0) fl MCH (27.0-31.0) pg MCHC (33.0-37.0) g/dL RDW (11.5-14.5) % Plt Count (130-400) K/uL MPV (7.2-11.7) fl Neut % (Auto) (50.0-75.0) % Lymph % (Auto) (20.0-40.0) % [place] % (Auto) (0.0-10.0) % Eos % (Auto) (0.0-4.0) % Baso % (Auto) (0.0-2.0) % Neut # (Auto) (1.8-7.0) K/uL Lymph # (Auto) (1.0-4.3) K/uL [place] # (Auto) (0.0-0.8) K/uL Eos # (Auto) (0.0-0.7) K/uL Baso # (Auto) (0.0-0.2) K/uL Neutrophils % (Manual) (42-75) % Band Neutrophils % (0-2) % Lymphocytes % (Manual) (20-50) % Monocytes % (Manual) (0-10) % Platelet Estimate (NORMAL) Anisocytosis (manual) Tear Drop Cells Ovalocytes PT 12.1 (9.8-13.1) Seconds INR 1.1 (0.9-1.2) APTT 28.7 (25.6-37.1) Seconds pCO2 70 H (35-45) mm/Hg pO2 506 H (80-100) mm/Hg HCO3 10.0 L (21-28) mmol/L ABG pH 6.91 L* (7.35-7.45) ABG Total CO2 16.1 L (22-28) mmol/L ABG O2 Saturation 99.7 H (95-98) % ABG O2 Content (15-23) ML/dL ABG Base Excess -19.0 L (-2.0-3.0) mmol/L ABG Hemoglobin (11.7-17.4) g/dL ABG Carboxyhemoglobin (0.5-1.5) % POC ABG HHb (Measured) (0.0-5.0) % ABG Methemoglobin (0.0-3.0) % ABG O2 Capacity (16-24) mL/dL Gerald Test Yes ABG Potassium 5.4 H (3.6-5.2) mmol/L A-a O2 Difference 120.0 mm/Hg Hgb O2 Saturation (95.0-98.0) % Glucose 167 H (75-110) mg/dL Lactate 6.9 H* (0.7-2.1) mmol/L Vent Mode Prvc/ac Mechanical Rate 16 FiO2 100.0 % Tidal Volume 500 PEEP 5 Crit Value Called To Dr drake sorensen Crit Value Called By 15 Crit Value Read Back Y Blood Gas Notified Time 1359 Sodium 131.0 L (132-148) mmol/l Potassium (3.6-5.0) MMOL/L Chloride 105.0 (98-107) mmol/L Carbon Dioxide (22-30) mmol/L Anion Gap (10-20) BUN (9-20) mg/dl Creatinine (0.8-1.5) mg/dl Est GFR ( Amer) Est GFR (Non-Af Amer) POC Glucose (mg/dL) (65-110) mg/dL Random Glucose (75-110) mg/dL Calcium (8.4-10.2) mg/dL Phosphorus (2.5-4.5) mg/dl Magnesium (1.6-2.3) MG/DL Total Bilirubin (0.2-1.3) mg/dl AST (17-59) U/L ALT (21-72) U/L Alkaline Phosphatase (38-126) U/L Ammonia 49 (16-60) umo/L Total Creatine Kinase (55-170) U/L Troponin I (0.00-0.120) ng/mL Total Protein (6.3-8.2) G/DL Albumin (3.5-5.0) g/dL Globulin (2.2-3.9) gm/dL Albumin/Globulin Ratio (1.0-2.1) Arterial Blood Potassium 5.4 H (3.6-5.2) mmol/L Urine Color (YELLOW) Urine Clarity (Clear) Urine pH (5.0-8.0) Ur Specific [place] (1.003-1.030) Urine Protein (NEGATIVE) mg/dL Urine Glucose (UA) (Normal) mg/dL Urine Ketones (NEGATIVE) mg/dL Urine Blood (NEGATIVE) Urine Nitrate (NEGATIVE) Urine Bilirubin (NEGATIVE) Urine Urobilinogen (0.2-1.0) mg/dL Ur Leukocyte Esterase (Negative) Addy/uL Urine RBC (Auto) (0-3) /hpf Urine Microscopic WBC (0-5) /hpf Ur Squamous Epith Cells (0-5) /hpf Urine Bacteria (<OCC) Hyaline Casts (0-2) /hpf Urine Opiates Screen (NEGATIVE) Urine Methadone Screen (NEGATIVE) Ur Barbiturates Screen (NEGATIVE) Ur Phencyclidine Scrn (NEGATIVE) Ur Amphetamines Screen (NEGATIVE) U Benzodiazepines Scrn (NEGATIVE) U Oth Cocaine Metabols (NEGATIVE) U Cannabinoids Screen (NEGATIVE) Alcohol, Quantitative (0-10) mg/dl Influenza Typ A,B (EIA) (NEGATIVE) 04/01/18 04/01/18 04/01/18 Range/Units 14:00 14:00 13:50 WBC (4.8-10.8) K/uL RBC (4.40-5.90) Mil/uL Hgb (12.0-18.0) g/dL Hct (35.0-51.0) % MCV (80.0-94.0) fl MCH (27.0-31.0) pg MCHC (33.0-37.0) g/dL RDW (11.5-14.5) % Plt Count (130-400) K/uL MPV (7.2-11.7) fl Neut % (Auto) (50.0-75.0) % Lymph % (Auto) (20.0-40.0) % [place] % (Auto) (0.0-10.0) % Eos % (Auto) (0.0-4.0) % Baso % (Auto) (0.0-2.0) % Neut # (Auto) (1.8-7.0) K/uL Lymph # (Auto) (1.0-4.3) K/uL [place] # (Auto) (0.0-0.8) K/uL Eos # (Auto) (0.0-0.7) K/uL Baso # (Auto) (0.0-0.2) K/uL Neutrophils % (Manual) (42-75) % Band Neutrophils % (0-2) % Lymphocytes % (Manual) (20-50) % Monocytes % (Manual) (0-10) % Platelet Estimate (NORMAL) Anisocytosis (manual) Tear Drop Cells Ovalocytes PT (9.8-13.1) Seconds INR (0.9-1.2) APTT (25.6-37.1) Seconds pCO2 (35-45) mm/Hg pO2 (80-100) mm/Hg HCO3 (21-28) mmol/L ABG pH (7.35-7.45) ABG Total CO2 (22-28) mmol/L ABG O2 Saturation (95-98) % ABG O2 Content (15-23) ML/dL ABG Base Excess (-2.0-3.0) mmol/L ABG Hemoglobin (11.7-17.4) g/dL ABG Carboxyhemoglobin (0.5-1.5) % POC ABG HHb (Measured) (0.0-5.0) % ABG Methemoglobin (0.0-3.0) % ABG O2 Capacity (16-24) mL/dL Gerald Test ABG Potassium (3.6-5.2) mmol/L A-a O2 Difference mm/Hg Hgb O2 Saturation (95.0-98.0) % Glucose (75-110) mg/dL Lactate (0.7-2.1) mmol/L Vent Mode Mechanical Rate FiO2 % Tidal Volume PEEP Crit Value Called To Crit Value Called By Crit Value Read Back Blood Gas Notified Time Sodium 133 (132-148) mmol/l Potassium 6.1 H (3.6-5.0) MMOL/L Chloride 99 (98-107) mmol/L Carbon Dioxide 11 L* D (22-30) mmol/L Anion Gap 29 H (10-20) BUN 37 H (9-20) mg/dl Creatinine 2.7 H (0.8-1.5) mg/dl Est GFR ( Amer) 30 Est GFR (Non-Af Amer) 24 POC Glucose (mg/dL) (65-110) mg/dL Random Glucose 185 H (75-110) mg/dL Calcium 8.5 (8.4-10.2) mg/dL Phosphorus 10.0 H (2.5-4.5) mg/dl Magnesium 2.2 (1.6-2.3) MG/DL Total Bilirubin 0.8 (0.2-1.3) mg/dl AST 61 H D (17-59) U/L ALT 55 (21-72) U/L Alkaline Phosphatase 72 (38-126) U/L Ammonia (16-60) umo/L Total Creatine Kinase (55-170) U/L Troponin I 0.0300 (0.00-0.120) ng/mL Total Protein 7.3 (6.3-8.2) G/DL Albumin 4.2 (3.5-5.0) g/dL Globulin 3.1 (2.2-3.9) gm/dL Albumin/Globulin Ratio 1.4 (1.0-2.1) Arterial Blood Potassium (3.6-5.2) mmol/L Urine Color Yellow (YELLOW) Urine Clarity Cloudy (Clear) Urine pH 5.0 (5.0-8.0) Ur Specific [place] 1.016 (1.003-1.030) Urine Protein 100 (NEGATIVE) mg/dL Urine Glucose (UA) Neg (Normal) mg/dL Urine Ketones Negative (NEGATIVE) mg/dL Urine Blood Large (NEGATIVE) Urine Nitrate Negative (NEGATIVE) Urine Bilirubin Negative (NEGATIVE) Urine Urobilinogen 0.2-1.0 (0.2-1.0) mg/dL Ur Leukocyte Esterase Neg (Negative) Addy/uL Urine RBC (Auto) 61 H (0-3) /hpf Urine Microscopic WBC 3 (0-5) /hpf Ur Squamous Epith Cells 1 (0-5) /hpf Urine Bacteria Rare (<OCC) Hyaline Casts 11-20 H (0-2) /hpf Urine Opiates Screen Positive H (NEGATIVE) Urine Methadone Screen Negative (NEGATIVE) Ur Barbiturates Screen Negative (NEGATIVE) Ur Phencyclidine Scrn Negative (NEGATIVE) Ur Amphetamines Screen Negative (NEGATIVE) U Benzodiazepines Scrn Negative (NEGATIVE) U Oth Cocaine Metabols Positive H (NEGATIVE) U Cannabinoids Screen Negative (NEGATIVE) Alcohol, Quantitative 30 H (0-10) mg/dl Influenza Typ A,B (EIA) (NEGATIVE) 04/01/18 04/01/18 Range/Units 13:50 13:43 WBC 15.1 H D (4.8-10.8) K/uL RBC 4.12 L (4.40-5.90) Mil/uL Hgb 13.5 D (12.0-18.0) g/dL Hct 41.5 (35.0-51.0) % MCV 100.8 H D (80.0-94.0) fl MCH 32.8 H (27.0-31.0) pg MCHC 32.5 L (33.0-37.0) g/dL RDW 14.4 (11.5-14.5) % Plt Count 205 (130-400) K/uL MPV 8.5 (7.2-11.7) fl Neut % (Auto) 44.7 L (50.0-75.0) % Lymph % (Auto) 44.4 H (20.0-40.0) % [place] % (Auto) 8.8 (0.0-10.0) % Eos % (Auto) 1.7 (0.0-4.0) % Baso % (Auto) 0.4 (0.0-2.0) % Neut # (Auto) 6.8 (1.8-7.0) K/uL Lymph # (Auto) 6.7 H (1.0-4.3) K/uL [place] # (Auto) 1.3 H (0.0-0.8) K/uL Eos # (Auto) 0.3 (0.0-0.7) K/uL Baso # (Auto) 0.1 (0.0-0.2) K/uL Neutrophils % (Manual) (42-75) % Band Neutrophils % (0-2) % Lymphocytes % (Manual) (20-50) % Monocytes % (Manual) (0-10) % Platelet Estimate (NORMAL) Anisocytosis (manual) Tear Drop Cells Ovalocytes PT (9.8-13.1) Seconds INR (0.9-1.2) APTT (25.6-37.1) Seconds pCO2 70 H (35-45) mm/Hg pO2 506 H (80-100) mm/Hg HCO3 10.0 L (21-28) mmol/L ABG pH 6.91 L* (7.35-7.45) ABG Total CO2 16.1 L (22-28) mmol/L ABG O2 Saturation 99.7 H (95-98) % ABG O2 Content 16.3 (15-23) ML/dL ABG Base Excess -19.0 L (-2.0-3.0) mmol/L ABG Hemoglobin 11.4 L (11.7-17.4) g/dL ABG Carboxyhemoglobin 4.6 H (0.5-1.5) % POC ABG HHb (Measured) 0.3 (0.0-5.0) % ABG Methemoglobin 2.4 (0.0-3.0) % ABG O2 Capacity 16.3 (16-24) mL/dL Gerald Test Yes ABG Potassium (3.6-5.2) mmol/L A-a O2 Difference 120.0 mm/Hg Hgb O2 Saturation 92.7 L (95.0-98.0) % Glucose (75-110) mg/dL Lactate (0.7-2.1) mmol/L Vent Mode Prvc/ac Mechanical Rate 16 FiO2 100.0 % Tidal Volume 500 PEEP 5 Crit Value Called To Dr drake sorensen Crit Value Called By 15 Crit Value Read Back Y Blood Gas Notified Time 1359 Sodium (132-148) mmol/l Potassium (3.6-5.0) MMOL/L Chloride (98-107) mmol/L Carbon Dioxide (22-30) mmol/L Anion Gap (10-20) BUN (9-20) mg/dl Creatinine (0.8-1.5) mg/dl Est GFR ( Amer) Est GFR (Non-Af Amer) POC Glucose (mg/dL) (65-110) mg/dL Random Glucose (75-110) mg/dL Calcium (8.4-10.2) mg/dL Phosphorus (2.5-4.5) mg/dl Magnesium (1.6-2.3) MG/DL Total Bilirubin (0.2-1.3) mg/dl AST (17-59) U/L ALT (21-72) U/L Alkaline Phosphatase (38-126) U/L Ammonia (16-60) umo/L Total Creatine Kinase (55-170) U/L Troponin I (0.00-0.120) ng/mL Total Protein (6.3-8.2) G/DL Albumin (3.5-5.0) g/dL Globulin (2.2-3.9) gm/dL Albumin/Globulin Ratio (1.0-2.1) Arterial Blood Potassium (3.6-5.2) mmol/L Urine Color (YELLOW) Urine Clarity (Clear) Urine pH (5.0-8.0) Ur Specific [place] (1.003-1.030) Urine Protein (NEGATIVE) mg/dL Urine Glucose (UA) (Normal) mg/dL Urine Ketones (NEGATIVE) mg/dL Urine Blood (NEGATIVE) Urine Nitrate (NEGATIVE) Urine Bilirubin (NEGATIVE) Urine Urobilinogen (0.2-1.0) mg/dL Ur Leukocyte Esterase (Negative) Addy/uL Urine RBC (Auto) (0-3) /hpf Urine Microscopic WBC (0-5) /hpf Ur Squamous Epith Cells (0-5) /hpf Urine Bacteria (<OCC) Hyaline Casts (0-2) /hpf Urine Opiates Screen (NEGATIVE) Urine Methadone Screen (NEGATIVE) Ur Barbiturates Screen (NEGATIVE) Ur Phencyclidine Scrn (NEGATIVE) Ur Amphetamines Screen (NEGATIVE) U Benzodiazepines Scrn (NEGATIVE) U Oth Cocaine Metabols (NEGATIVE) U Cannabinoids Screen (NEGATIVE) Alcohol, Quantitative (0-10) mg/dl Influenza Typ A,B (EIA) (NEGATIVE) Laboratory Results - last 24 hr 04/01/18 04/01/18 04/01/18 13:43 13:50 13:50 WBC 15.1 H D RBC 4.12 L Hgb 13.5 D Hct 41.5 MCV 100.8 H D MCH 32.8 H MCHC 32.5 L RDW 14.4 Plt Count 205 MPV 8.5 Neut % (Auto) 44.7 L Lymph % (Auto) 44.4 H [place] % (Auto) 8.8 Eos % (Auto) 1.7 Baso % (Auto) 0.4 Neut # (Auto) 6.8 Lymph # (Auto) 6.7 H [place] # (Auto) 1.3 H Eos # (Auto) 0.3 Baso # (Auto) 0.1 Neutrophils % (Manual) Band Neutrophils % Lymphocytes % (Manual) Monocytes % (Manual) Platelet Estimate Anisocytosis (manual) Tear Drop Cells Ovalocytes PT INR APTT pCO2 70 H pO2 506 H HCO3 10.0 L ABG pH 6.91 L* ABG Total CO2 16.1 L ABG O2 Saturation 99.7 H ABG O2 Content 16.3 ABG Base Excess -19.0 L ABG Hemoglobin 11.4 L ABG Carboxyhemoglobin 4.6 H POC ABG HHb (Measured) 0.3 ABG Methemoglobin 2.4 ABG O2 Capacity 16.3 Gerald Test Yes ABG Potassium A-a O2 Difference 120.0 Hgb O2 Saturation 92.7 L Glucose Lactate Vent Mode Prvc/ac Mechanical Rate 16 FiO2 100.0 Tidal Volume 500 PEEP 5 Crit Value Called To Dr drake sorensen Crit Value Called By 15 Crit Value Read Back Y Blood Gas Notified Time 1359 Sodium 133 Potassium 6.1 H Chloride 99 Carbon Dioxide 11 L* D Anion Gap 29 H BUN 37 H Creatinine 2.7 H Est GFR ( Amer) 30 Est GFR (Non-Af Amer) 24 POC Glucose (mg/dL) Random Glucose 185 H Calcium 8.5 Phosphorus 10.0 H Magnesium 2.2 Total Bilirubin 0.8 AST 61 H D ALT 55 Alkaline Phosphatase 72 Ammonia Total Creatine Kinase Troponin I 0.0300 Total Protein 7.3 Albumin 4.2 Globulin 3.1 Albumin/Globulin Ratio 1.4 Arterial Blood Potassium Urine Color Urine Clarity Urine pH Ur Specific [place] Urine Protein Urine Glucose (UA) Urine Ketones Urine Blood Urine Nitrate Urine Bilirubin Urine Urobilinogen Ur Leukocyte Esterase Urine RBC (Auto) Urine Microscopic WBC Ur Squamous Epith Cells Urine Bacteria Hyaline Casts Urine Opiates Screen Urine Methadone Screen Ur Barbiturates Screen Ur Phencyclidine Scrn Ur Amphetamines Screen U Benzodiazepines Scrn U Oth Cocaine Metabols U Cannabinoids Screen Alcohol, Quantitative 30 H Influenza Typ A,B (EIA) 04/01/18 04/01/18 04/01/18 14:00 14:00 14:00 WBC RBC Hgb Hct MCV MCH MCHC RDW Plt Count MPV Neut % (Auto) Lymph % (Auto) [place] % (Auto) Eos % (Auto) Baso % (Auto) Neut # (Auto) Lymph # (Auto) [place] # (Auto) Eos # (Auto) Baso # (Auto) Neutrophils % (Manual) Band Neutrophils % Lymphocytes % (Manual) Monocytes % (Manual) Platelet Estimate Anisocytosis (manual) Tear Drop Cells Ovalocytes PT INR APTT pCO2 70 H pO2 506 H HCO3 10.0 L ABG pH 6.91 L* ABG Total CO2 16.1 L ABG O2 Saturation 99.7 H ABG O2 Content ABG Base Excess -19.0 L ABG Hemoglobin ABG Carboxyhemoglobin POC ABG HHb (Measured) ABG Methemoglobin ABG O2 Capacity Gerald Test Yes ABG Potassium 5.4 H A-a O2 Difference 120.0 Hgb O2 Saturation Glucose 167 H Lactate 6.9 H* Vent Mode Prvc/ac Mechanical Rate 16 FiO2 100.0 Tidal Volume 500 PEEP 5 Crit Value Called To Dr drake sorensen Crit Value Called By 15 Crit Value Read Back Y Blood Gas Notified Time 1359 Sodium 131.0 L Potassium Chloride 105.0 Carbon Dioxide Anion Gap BUN Creatinine Est GFR ( Amer) Est GFR (Non-Af Amer) POC Glucose (mg/dL) Random Glucose Calcium Phosphorus Magnesium Total Bilirubin AST ALT Alkaline Phosphatase Ammonia Total Creatine Kinase Troponin I Total Protein Albumin Globulin Albumin/Globulin Ratio Arterial Blood Potassium 5.4 H Urine Color Yellow Urine Clarity Cloudy Urine pH 5.0 Ur Specific [place] 1.016 Urine Protein 100 Urine Glucose (UA) Neg Urine Ketones Negative Urine Blood Large Urine Nitrate Negative Urine Bilirubin Negative Urine Urobilinogen 0.2-1.0 Ur Leukocyte Esterase Neg Urine RBC (Auto) 61 H Urine Microscopic WBC 3 Ur Squamous Epith Cells 1 Urine Bacteria Rare Hyaline Casts 11-20 H Urine Opiates Screen Positive H Urine Methadone Screen Negative Ur Barbiturates Screen Negative Ur Phencyclidine Scrn Negative Ur Amphetamines Screen Negative U Benzodiazepines Scrn Negative U Oth Cocaine Metabols Positive H U Cannabinoids Screen Negative Alcohol, Quantitative Influenza Typ A,B (EIA) 04/01/18 04/01/18 04/01/18 14:10 14:10 16:00 WBC RBC Hgb Hct MCV MCH MCHC RDW Plt Count MPV Neut % (Auto) Lymph % (Auto) [place] % (Auto) Eos % (Auto) Baso % (Auto) Neut # (Auto) Lymph # (Auto) [place] # (Auto) Eos # (Auto) Baso # (Auto) Neutrophils % (Manual) Band Neutrophils % Lymphocytes % (Manual) Monocytes % (Manual) Platelet Estimate Anisocytosis (manual) Tear Drop Cells Ovalocytes PT 12.1 INR 1.1 APTT 28.7 pCO2 60 H pO2 564 H HCO3 15.5 L ABG pH 7.09 L* ABG Total CO2 20.0 L ABG O2 Saturation 100.0 H ABG O2 Content ABG Base Excess -12.2 L ABG Hemoglobin ABG Carboxyhemoglobin POC ABG HHb (Measured) ABG Methemoglobin ABG O2 Capacity Gerald Test Yes ABG Potassium 4.6 A-a O2 Difference 74.0 Hgb O2 Saturation Glucose 172 H Lactate 1.3 Vent Mode Prvc Mechanical Rate 16 FiO2 100.0 Tidal Volume 500 PEEP 5 Crit Value Called To Dr chago barron Crit Value Called By Rt Crit Value Read Back Y Blood Gas Notified Time 1625 Sodium 133.0 Potassium Chloride 110.0 H Carbon Dioxide Anion Gap BUN Creatinine Est GFR ( Amer) Est GFR (Non-Af Amer) POC Glucose (mg/dL) Random Glucose Calcium Phosphorus Magnesium Total Bilirubin AST ALT Alkaline Phosphatase Ammonia 49 Total Creatine Kinase Troponin I Total Protein Albumin Globulin Albumin/Globulin Ratio Arterial Blood Potassium 4.6 Urine Color Urine Clarity Urine pH Ur Specific [place] Urine Protein Urine Glucose (UA) Urine Ketones Urine Blood Urine Nitrate Urine Bilirubin Urine Urobilinogen Ur Leukocyte Esterase Urine RBC (Auto) Urine Microscopic WBC Ur Squamous Epith Cells Urine Bacteria Hyaline Casts Urine Opiates Screen Urine Methadone Screen Ur Barbiturates Screen Ur Phencyclidine Scrn Ur Amphetamines Screen U Benzodiazepines Scrn U Oth Cocaine Metabols U Cannabinoids Screen Alcohol, Quantitative Influenza Typ A,B (EIA) 04/01/18 04/01/18 04/01/18 16:05 17:25 18:18 WBC RBC Hgb Hct MCV MCH MCHC RDW Plt Count MPV Neut % (Auto) Lymph % (Auto) [place] % (Auto) Eos % (Auto) Baso % (Auto) Neut # (Auto) Lymph # (Auto) [place] # (Auto) Eos # (Auto) Baso # (Auto) Neutrophils % (Manual) Band Neutrophils % Lymphocytes % (Manual) Monocytes % (Manual) Platelet Estimate Anisocytosis (manual) Tear Drop Cells Ovalocytes PT INR APTT pCO2 pO2 HCO3 ABG pH ABG Total CO2 ABG O2 Saturation ABG O2 Content ABG Base Excess ABG Hemoglobin ABG Carboxyhemoglobin POC ABG HHb (Measured) ABG Methemoglobin ABG O2 Capacity Gerald Test ABG Potassium A-a O2 Difference Hgb O2 Saturation Glucose Lactate Vent Mode Mechanical Rate FiO2 Tidal Volume PEEP Crit Value Called To Crit Value Called By Crit Value Read Back Blood Gas Notified Time Sodium Potassium Chloride Carbon Dioxide Anion Gap BUN Creatinine Est GFR ( Amer) Est GFR (Non-Af Amer) POC Glucose (mg/dL) 159 H Random Glucose Calcium Phosphorus Magnesium Total Bilirubin AST ALT Alkaline Phosphatase Ammonia Total Creatine Kinase 344 H Troponin I Total Protein Albumin Globulin Albumin/Globulin Ratio Arterial Blood Potassium Urine Color Urine Clarity Urine pH Ur Specific [place] Urine Protein Urine Glucose (UA) Urine Ketones Urine Blood Urine Nitrate Urine Bilirubin Urine Urobilinogen Ur Leukocyte Esterase Urine RBC (Auto) Urine Microscopic WBC Ur Squamous Epith Cells Urine Bacteria Hyaline Casts Urine Opiates Screen Urine Methadone Screen Ur Barbiturates Screen Ur Phencyclidine Scrn Ur Amphetamines Screen U Benzodiazepines Scrn U Oth Cocaine Metabols U Cannabinoids Screen Alcohol, Quantitative Influenza Typ A,B (EIA) Negative for flu a/b 04/01/18 04/01/18 04/01/18 21:34 21:34 21:34 WBC 9.2 RBC 4.09 L Hgb 13.4 Hct 39.5 MCV 96.4 H D MCH 32.8 H MCHC 34.0 RDW 13.7 Plt Count 145 MPV Neut % (Auto) Lymph % (Auto) [place] % (Auto) Eos % (Auto) Baso % (Auto) Neut # (Auto) Lymph # (Auto) [place] # (Auto) Eos # (Auto) Baso # (Auto) Neutrophils % (Manual) Band Neutrophils % Lymphocytes % (Manual) Monocytes % (Manual) Platelet Estimate Anisocytosis (manual) Tear Drop Cells Ovalocytes PT 11.7 INR 1.1 APTT 28.9 pCO2 pO2 HCO3 ABG pH ABG Total CO2 ABG O2 Saturation ABG O2 Content ABG Base Excess ABG Hemoglobin ABG Carboxyhemoglobin POC ABG HHb (Measured) ABG Methemoglobin ABG O2 Capacity Gerald Test ABG Potassium A-a O2 Difference Hgb O2 Saturation Glucose Lactate Vent Mode Mechanical Rate FiO2 Tidal Volume PEEP Crit Value Called To Crit Value Called By Crit Value Read Back Blood Gas Notified Time Sodium 137 Potassium 3.8 Chloride 106 Carbon Dioxide 17 L Anion Gap 18 BUN 34 H Creatinine 1.5 Est GFR ( Amer) 58 Est GFR (Non-Af Amer) 48 POC Glucose (mg/dL) Random Glucose 167 H Calcium 7.7 L Phosphorus 4.5 Magnesium 1.7 Total Bilirubin AST ALT Alkaline Phosphatase Ammonia Total Creatine Kinase Troponin I Total Protein Albumin Globulin Albumin/Globulin Ratio Arterial Blood Potassium Urine Color Urine Clarity Urine pH Ur Specific [place] Urine Protein Urine Glucose (UA) Urine Ketones Urine Blood Urine Nitrate Urine Bilirubin Urine Urobilinogen Ur Leukocyte Esterase Urine RBC (Auto) Urine Microscopic WBC Ur Squamous Epith Cells Urine Bacteria Hyaline Casts Urine Opiates Screen Urine Methadone Screen Ur Barbiturates Screen Ur Phencyclidine Scrn Ur Amphetamines Screen U Benzodiazepines Scrn U Oth Cocaine Metabols U Cannabinoids Screen Alcohol, Quantitative Influenza Typ A,B (EIA) 04/01/18 04/01/18 04/02/18 21:34 23:25 00:29 WBC RBC Hgb Hct MCV MCH MCHC RDW Plt Count MPV Neut % (Auto) Lymph % (Auto) [place] % (Auto) Eos % (Auto) Baso % (Auto) Neut # (Auto) Lymph # (Auto) [place] # (Auto) Eos # (Auto) Baso # (Auto) Neutrophils % (Manual) Band Neutrophils % Lymphocytes % (Manual) Monocytes % (Manual) Platelet Estimate Anisocytosis (manual) Tear Drop Cells Ovalocytes PT INR APTT pCO2 41 pO2 90 HCO3 18.9 L ABG pH 7.27 L ABG Total CO2 20.1 L ABG O2 Saturation 98.3 H ABG O2 Content 18.8 ABG Base Excess -7.7 L ABG Hemoglobin 14.0 ABG Carboxyhemoglobin 1.9 H POC ABG HHb (Measured) 1.6 ABG Methemoglobin 1.3 ABG O2 Capacity 19.1 Gerald Test Yes ABG Potassium A-a O2 Difference 215.0 Hgb O2 Saturation 95.2 Glucose Lactate Vent Mode A/c Mechanical Rate 26 FiO2 50.0 Tidal Volume 500 PEEP 5 Crit Value Called To Crit Value Called By Crit Value Read Back Blood Gas Notified Time Sodium Potassium Chloride Carbon Dioxide Anion Gap BUN Creatinine Est GFR ( Amer) Est GFR (Non-Af Amer) POC Glucose (mg/dL) Random Glucose Calcium 7.6 L Phosphorus Magnesium Total Bilirubin AST ALT Alkaline Phosphatase Ammonia Total Creatine Kinase Troponin I 0.0300 Total Protein Albumin Globulin Albumin/Globulin Ratio Arterial Blood Potassium Urine Color Urine Clarity Urine pH Ur Specific [place] Urine Protein Urine Glucose (UA) Urine Ketones Urine Blood Urine Nitrate Urine Bilirubin Urine Urobilinogen Ur Leukocyte Esterase Urine RBC (Auto) Urine Microscopic WBC Ur Squamous Epith Cells Urine Bacteria Hyaline Casts Urine Opiates Screen Urine Methadone Screen Ur Barbiturates Screen Ur Phencyclidine Scrn Ur Amphetamines Screen U Benzodiazepines Scrn U Oth Cocaine Metabols U Cannabinoids Screen Alcohol, Quantitative Influenza Typ A,B (EIA) 04/02/18 04/02/18 04/02/18 05:14 06:08 06:08 WBC 9.2 RBC 3.95 L Hgb 13.1 Hct 37.6 MCV 95.2 H MCH 33.2 H MCHC 34.9 RDW 13.4 Plt Count 155 MPV 8.4 Neut % (Auto) 90.9 H Lymph % (Auto) 4.6 L [place] % (Auto) 4.4 Eos % (Auto) 0.1 Baso % (Auto) 0.0 Neut # (Auto) 8.4 H Lymph # (Auto) 0.4 L [place] # (Auto) 0.4 Eos # (Auto) 0.0 Baso # (Auto) 0.0 Neutrophils % (Manual) 86 H Band Neutrophils % 4 H Lymphocytes % (Manual) 5 L Monocytes % (Manual) 5 Platelet Estimate Normal Anisocytosis (manual) Slight Tear Drop Cells Slight Ovalocytes Slight PT 12.2 INR 1.1 APTT 31.1 pCO2 40 pO2 166 H HCO3 20.5 L ABG pH 7.31 L ABG Total CO2 21.3 L ABG O2 Saturation 99.4 H ABG O2 Content ABG Base Excess -5.8 L ABG Hemoglobin ABG Carboxyhemoglobin POC ABG HHb (Measured) ABG Methemoglobin ABG O2 Capacity Gerald Test Yes ABG Potassium 3.6 A-a O2 Difference 141.0 Hgb O2 Saturation Glucose 163 H Lactate 1.0 Vent Mode A/c Mechanical Rate 26 FiO2 50.0 Tidal Volume 500 PEEP 5 Crit Value Called To Crit Value Called By Crit Value Read Back Blood Gas Notified Time Sodium 134.0 Potassium Chloride 106.0 Carbon Dioxide Anion Gap BUN Creatinine Est GFR ( Amer) Est GFR (Non-Af Amer) POC Glucose (mg/dL) Random Glucose Calcium Phosphorus Magnesium Total Bilirubin AST ALT Alkaline Phosphatase Ammonia Total Creatine Kinase Troponin I Total Protein Albumin Globulin Albumin/Globulin Ratio Arterial Blood Potassium 3.6 Urine Color Urine Clarity Urine pH Ur Specific [place] Urine Protein Urine Glucose (UA) Urine Ketones Urine Blood Urine Nitrate Urine Bilirubin Urine Urobilinogen Ur Leukocyte Esterase Urine RBC (Auto) Urine Microscopic WBC Ur Squamous Epith Cells Urine Bacteria Hyaline Casts Urine Opiates Screen Urine Methadone Screen Ur Barbiturates Screen Ur Phencyclidine Scrn Ur Amphetamines Screen U Benzodiazepines Scrn U Oth Cocaine Metabols U Cannabinoids Screen Alcohol, Quantitative Influenza Typ A,B (EIA) 04/02/18 04/02/18 06:11 06:11 WBC RBC Hgb Hct MCV MCH MCHC RDW Plt Count MPV Neut % (Auto) Lymph % (Auto) [place] % (Auto) Eos % (Auto) Baso % (Auto) Neut # (Auto) Lymph # (Auto) [place] # (Auto) Eos # (Auto) Baso # (Auto) Neutrophils % (Manual) Band Neutrophils % Lymphocytes % (Manual) Monocytes % (Manual) Platelet Estimate Anisocytosis (manual) Tear Drop Cells Ovalocytes PT INR APTT pCO2 pO2 HCO3 ABG pH ABG Total CO2 ABG O2 Saturation ABG O2 Content ABG Base Excess ABG Hemoglobin ABG Carboxyhemoglobin POC ABG HHb (Measured) ABG Methemoglobin ABG O2 Capacity Gerald Test ABG Potassium A-a O2 Difference Hgb O2 Saturation Glucose Lactate Vent Mode Mechanical Rate FiO2 Tidal Volume PEEP Crit Value Called To Crit Value Called By Crit Value Read Back Blood Gas Notified Time Sodium 137 Potassium 3.8 Chloride 105 Carbon Dioxide 19 L Anion Gap 17 BUN 30 H Creatinine 1.3 Est GFR ( Amer) > 60 Est GFR (Non-Af Amer) 57 POC Glucose (mg/dL) Random Glucose 153 H Calcium 7.9 L Phosphorus 4.3 Magnesium 1.6 Total Bilirubin 0.8 AST 115 H D ALT 101 H D Alkaline Phosphatase 88 Ammonia Total Creatine Kinase 550 H Troponin I 0.0270 Total Protein 6.1 L Albumin 3.6 Globulin 2.6 Albumin/Globulin Ratio 1.4 Arterial Blood Potassium Urine Color Urine Clarity Urine pH Ur Specific [place] Urine Protein Urine Glucose (UA) Urine Ketones Urine Blood Urine Nitrate Urine Bilirubin Urine Urobilinogen Ur Leukocyte Esterase Urine RBC (Auto) Urine Microscopic WBC Ur Squamous Epith Cells Urine Bacteria Hyaline Casts Urine Opiates Screen Urine Methadone Screen Ur Barbiturates Screen Ur Phencyclidine Scrn Ur Amphetamines Screen U Benzodiazepines Scrn U Oth Cocaine Metabols U Cannabinoids Screen Alcohol, Quantitative Influenza Typ A,B (EIA) EKG/Cardiology Studies: Cardiology / EKG Studies 04/01/18 13:43 ELECTROCARDIOGRAM Stat Comment: Mode Of Transportation: Reason For Exam: needed 04/02/18 EKG [ELECTROCARDIOGRAM] Stat Comment: Mode Of Transportation: Reason For Exam: substance abuse 04/02/18 07:00 EKG [ELECTROCARDIOGRAM] Routine Comment: Mode Of Transportation: Reason For Exam: Cardiac arrest Fingerstick Blood Sugar Results: 179 Review of Systems - Review of Systems Systems not reviewed;Unavailable: Acuity of Condition Critical Care Progress Note - Ventilator Checklist Head of Bed 30 Degrees: Yes Daily Sedation Vacation: No Daily Assessment of Readiness to Wean: No Daily Spontaneous Breathing Trial: No PUD Prophalyxis: Yes DVT Prophylaxis: Yes - Vent Settings MODE:: ASSIST CONTROL TIDAL VOLUME:: 500 RESP RATE:: 26 FIO2:: 50 PEEP:: 5 - Extremities/Vascular Does the Patient have a Central Venous Catheter?: Yes Insertion Site: Femoral Vein Does the Patient need a Central Venous Catheter?: Yes Does the Patient have a Hadley Catheter?: Yes Does the Patient need a [place]ley Catheter?: Yes Catheter Insertion Criteria: Need for accurate measurement of output in critically ill patient - Prophylaxis GI Prophylaxis GI: PPI - Prophylaxis DVT Prophylaxis DVT: SCDs Assessment/Plan - Assessment and Plan (Free Text) Assessment: IMPRESSION / MAJOR PROBLEMS NOW: 1. Cardiac Arrest manifest as PEA, r/o AMI versus occult substance abuse sequelae, now likely in Cardiogenic shock. 2. Anoxic Encephaopathy 3. Myoclonic jerks poss due to anoxic encephalopathy 3. Acute Resp Failure 2 #1 4. ETOH and Substance Abuse PLAN: 1. C/W Therapeutic Hypothermia until 17:00(24h) as per protocol as well as ventilation support 2. Continue with Levophed support for persistent bradycardia 3. CPK slightly elevated 4. Repeat serial Lactate levels normal. Do not suspect Sepsis. Previous elevation likely due to cardiac arrest 5. Code heart Interventionalist contacted by ER MD and deemed not to require acute coronary cath. Check VBG. ECHO. 6. MV changes to limit hyperoxia, and improve ventilatory status ( PCO2). 7. S/P Narcan drip. 8. C/W OGT 9. Started on Keppra 1000 mg q12h. S/p loading dose 10. S/P 1 dose of Clonazepam NG 2mg once for myoclonia 10. Holding all antiHTN home meds, Desyrel, ARB for now. <BarronChagon - Last Filed: 04/02/18 17:44> CCU Subjective - Physician Review Subjective (Free Text): Attestation: Patient seen and examined at the bedside with Resident Dr. Rajeev Levine; and I agree with his outline of plans and management documented below as discussed on AM rounds reflecting my review of all applicable clinical data, and participation in the care of the patient throughout the day in ICU; today, April 02, 2018. Time spent with this patient did not overlap with any other provider's medical or critical care time. Additionally the code selected for the services rendered in this note includes the time spent: talking to the patients family, associated physicians and reviewing hospital data/results not listed here which extended to a total of 55 minutes.
--- NOTE | 2018-04-02 13:33 | CP.PCM.CON ---
History of Present Illness - History of Present Illness History of Present Illness: 57 years old male was brought to the ER by EMS after found patient unconscious at home by friends. Patient was complaining of chest pain right inguinal pain for a few days , fall was not witness by friends , time of fall unknown , EMS found him unresponsive in asystole , He was intubated , ACLS started , patient was given Narcan , before arriving to the ER. Patient was in asystole he was given 4 rounds of epinephrine , in ER patient was in sinus bradycardia . Patient treated with hypothermia protocol, Narcan, Levophed bicarb calcium and was transferred to ICU Admitting diagnoses: Cardiac arrest, cardiogenic shock, anoxic encephalopathy, acute respiratory failure, AK I, hyperkalemia EtOH alcohol, urine toxicology positive for opiates and cocaine Review of Systems - Review of Systems Systems not reviewed;Unavailable: Acuity of Condition Past Patient History - Infectious Disease Hx of Infectious Diseases: None - Past Medical History & Family History Past Medical History?: Yes - Past Social History Smoking Status: Heavy Smoker > 10 Cigarettes Daily Alcohol: Other (abuse) Drugs: Cocaine, Other (Heroin) - CARDIAC Hx Hypercholesterolemia: Yes Hx Hypertension: Yes Other/Comment: [facility] 06-24-17 - PULMONARY Hx Asthma: Yes Hx Chronic Obstructive Pulmonary Disease (COPD): Yes Hx Emphysema: Yes - NEUROLOGICAL Hx Seizures: No - HEENT Hx HEENT Problems: No - RENAL Hx Chronic Kidney Disease: No - ENDOCRINE/METABOLIC Hx Endocrine Disorders: No - HEMATOLOGICAL/ONCOLOGICAL Hx Human Immunodeficiency Virus (HIV): No - INTEGUMENTARY Hx Dermatological Problems: No - MUSCULOSKELETAL/RHEUMATOLOGICAL Hx Falls: No - GASTROINTESTINAL Hx Gastrointestinal Disorders: Yes Other/Comment: right inguinal hernia - GENITOURINARY/GYNECOLOGICAL Hx Sexually Transmitted Disorders: No - PSYCHIATRIC Hx Anxiety: Yes Hx Depression: Yes Hx Schizophrenia: Yes - SURGICAL HISTORY Hx Coronary Artery Bypass Graft: Yes (06-24-27 triple bypass surgery) Hx Coronary Stent: Yes (x 4) Hx Tonsillectomy: Yes - ANESTHESIA Hx Anesthesia: Yes Hx Anesthesia Reactions: No Hx Malignant Hyperthermia: No Meds Allergies/Adverse Reactions: Allergies Allergy/AdvReac Type Severity Reaction Status Date / Time No Known Allergies Allergy Verified 02/10/18 23:14 - Medications Medications: Current Medications Propofol (Diprivan) 1,000 mg in 100 mls @ 2.177 mls/hr IV .Q24H CHELA; 5 MCG/KG/ MIN PRN Reason: Protocol Stop: 04/02/18 17:56 Last Admin: 04/02/18 08:25 Dose: 17.5 mcg/kg/min, 7.62 mls/hr Piperacillin Sod/Tazobactam (Sod 2.25 gm/ Sodium Chloride) 100 mls @ 100 mls/ hr IVPB Q12 CHELA PRN Reason: Protocol Last Admin: 04/02/18 10:02 Dose: 100 mls/hr Norepinephrine Bitartrate 4 mg (/ Dextrose) 254 mls @ 9.52 mls/hr IV .Q24H CHELA ; 2.5 MCG/MIN PRN Reason: Protocol Last Titration: 04/02/18 03:48 Dose: 0 mcg/min, 0 mls/hr Norepinephrine Bitartrate 16 (mg/ Dextrose) 266 mls @ 2.49 mls/hr IV .Q24H ONE ; 2.5 MCG/MIN PRN Reason: Protocol Stop: 04/03/18 02:45 Levetiracetam 1,000 mg/ Sodium (Chloride) 110 mls @ 215 mls/hr IVPB Q12 CHELA Epinephrine HCl 1 mg/ Sodium (Chloride) 251 mls @ 15.06 mls/hr IV [id number] CHELA ; 1 MCG/MIN PRN Reason: Protocol Stop: 04/03/18 00:25 Last Titration: 04/02/18 10:55 Dose: 1.06 mcg/min, 15.96 mls/hr Lorazepam (Ativan) 2 mg IVP Q6 PRN PRN Reason: Seizure activity Pantoprazole Sodium (Protonix Inj) 40 mg IVP DAILY [facility] Last Admin: 04/02/18 09:30 Dose: 40 mg Physical Exam - Constitutional Additional comments: intubated - Head Exam Head Exam: NORMAL INSPECTION - Eye Exam Additional comments: Pupils non reactive , no corneal reflex - ENT Exam Additional comments: intubated - Neck Exam Neck exam: Positive for: Normal Inspection - Respiratory Exam Respiratory Exam: Clear to Auscultation Bilateral - Cardiovascular Exam Cardiovascular Exam: REGULAR RHYTHM - GI/Abdominal Exam GI & Abdominal Exam: Normal Bowel Sounds, Soft - Extremities Exam Extremities exam: Positive for: normal inspection - Back Exam Back exam: NORMAL INSPECTION - Neurological Exam Additional comments: unresponsive - Skin Skin Exam: Warm Results - Vital Signs Recent Vital Signs: Last Vital Signs Temp 91.4 F L 04/02/18 12:00 Pulse 51 L 04/02/18 12:00 Resp 34 H 04/02/18 12:00 BP 129/61 04/02/18 12:00 Pulse Ox 110 H 04/02/18 12:00 - Labs Result Diagrams: 04/06/18 04:30 04/06/18 04:30 Labs: Laboratory Results - last 24 hr 04/01/18 04/01/18 04/01/18 13:43 13:50 13:50 WBC 15.1 H D RBC 4.12 L Hgb 13.5 D Hct 41.5 MCV 100.8 H D MCH 32.8 H MCHC 32.5 L RDW 14.4 Plt Count 205 MPV 8.5 Neut % (Auto) 44.7 L Lymph % (Auto) 44.4 H [place] % (Auto) 8.8 Eos % (Auto) 1.7 Baso % (Auto) 0.4 Neut # (Auto) 6.8 Lymph # (Auto) 6.7 H [place] # (Auto) 1.3 H Eos # (Auto) 0.3 Baso # (Auto) 0.1 Neutrophils % (Manual) Band Neutrophils % Lymphocytes % (Manual) Monocytes % (Manual) Platelet Estimate Anisocytosis (manual) Tear Drop Cells Ovalocytes PT INR APTT pCO2 70 H pO2 506 H HCO3 10.0 L ABG pH 6.91 L* ABG Total CO2 16.1 L ABG O2 Saturation 99.7 H ABG O2 Content 16.3 ABG Base Excess -19.0 L ABG Hemoglobin 11.4 L ABG Carboxyhemoglobin 4.6 H POC ABG HHb (Measured) 0.3 ABG Methemoglobin 2.4 ABG O2 Capacity 16.3 Gerald Test Yes ABG Potassium A-a O2 Difference 120.0 Hgb O2 Saturation 92.7 L Glucose Lactate Vent Mode Prvc/ac Mechanical Rate 16 FiO2 100.0 Tidal Volume 500 PEEP 5 Crit Value Called To Dr drake sorensen Crit Value Called By 15 Crit Value Read Back Y Blood Gas Notified Time 1359 Sodium 133 Potassium 6.1 H Chloride 99 Carbon Dioxide 11 L* D Anion Gap 29 H BUN 37 H Creatinine 2.7 H Est GFR ( Amer) 30 Est GFR (Non-Af Amer) 24 POC Glucose (mg/dL) Random Glucose 185 H Calcium 8.5 Phosphorus 10.0 H Magnesium 2.2 Total Bilirubin 0.8 AST 61 H D ALT 55 Alkaline Phosphatase 72 Ammonia Total Creatine Kinase Troponin I 0.0300 Total Protein 7.3 Albumin 4.2 Globulin 3.1 Albumin/Globulin Ratio 1.4 Arterial Blood Potassium Urine Color Urine Clarity Urine pH Ur Specific [place] Urine Protein Urine Glucose (UA) Urine Ketones Urine Blood Urine Nitrate Urine Bilirubin Urine Urobilinogen Ur Leukocyte Esterase Urine RBC (Auto) Urine Microscopic WBC Ur Squamous Epith Cells Urine Bacteria Hyaline Casts Urine Opiates Screen Urine Methadone Screen Ur Barbiturates Screen Ur Phencyclidine Scrn Ur Amphetamines Screen U Benzodiazepines Scrn U Oth Cocaine Metabols U Cannabinoids Screen Alcohol, Quantitative 30 H Influenza Typ A,B (EIA) 04/01/18 04/01/18 04/01/18 14:00 14:00 14:00 WBC RBC Hgb Hct MCV MCH MCHC RDW Plt Count MPV Neut % (Auto) Lymph % (Auto) [place] % (Auto) Eos % (Auto) Baso % (Auto) Neut # (Auto) Lymph # (Auto) [place] # (Auto) Eos # (Auto) Baso # (Auto) Neutrophils % (Manual) Band Neutrophils % Lymphocytes % (Manual) Monocytes % (Manual) Platelet Estimate Anisocytosis (manual) Tear Drop Cells Ovalocytes PT INR APTT pCO2 70 H pO2 506 H HCO3 10.0 L ABG pH 6.91 L* ABG Total CO2 16.1 L ABG O2 Saturation 99.7 H ABG O2 Content ABG Base Excess -19.0 L ABG Hemoglobin ABG Carboxyhemoglobin POC ABG HHb (Measured) ABG Methemoglobin ABG O2 Capacity Gerald Test Yes ABG Potassium 5.4 H A-a O2 Difference 120.0 Hgb O2 Saturation Glucose 167 H Lactate 6.9 H* Vent Mode Prvc/ac Mechanical Rate 16 FiO2 100.0 Tidal Volume 500 PEEP 5 Crit Value Called To Dr drake sorensen Crit Value Called By 15 Crit Value Read Back Y Blood Gas Notified Time 1359 Sodium 131.0 L Potassium Chloride 105.0 Carbon Dioxide Anion Gap BUN Creatinine Est GFR ( Amer) Est GFR (Non-Af Amer) POC Glucose (mg/dL) Random Glucose Calcium Phosphorus Magnesium Total Bilirubin AST ALT Alkaline Phosphatase Ammonia Total Creatine Kinase Troponin I Total Protein Albumin Globulin Albumin/Globulin Ratio Arterial Blood Potassium 5.4 H Urine Color Yellow Urine Clarity Cloudy Urine pH 5.0 Ur Specific [place] 1.016 Urine Protein 100 Urine Glucose (UA) Neg Urine Ketones Negative Urine Blood Large Urine Nitrate Negative Urine Bilirubin Negative Urine Urobilinogen 0.2-1.0 Ur Leukocyte Esterase Neg Urine RBC (Auto) 61 H Urine Microscopic WBC 3 Ur Squamous Epith Cells 1 Urine Bacteria Rare Hyaline Casts 11-20 H Urine Opiates Screen Positive H Urine Methadone Screen Negative Ur Barbiturates Screen Negative Ur Phencyclidine Scrn Negative Ur Amphetamines Screen Negative U Benzodiazepines Scrn Negative U Oth Cocaine Metabols Positive H U Cannabinoids Screen Negative Alcohol, Quantitative Influenza Typ A,B (EIA) 04/01/18 04/01/18 04/01/18 14:10 14:10 16:00 WBC RBC Hgb Hct MCV MCH MCHC RDW Plt Count MPV Neut % (Auto) Lymph % (Auto) [place] % (Auto) Eos % (Auto) Baso % (Auto) Neut # (Auto) Lymph # (Auto) [place] # (Auto) Eos # (Auto) Baso # (Auto) Neutrophils % (Manual) Band Neutrophils % Lymphocytes % (Manual) Monocytes % (Manual) Platelet Estimate Anisocytosis (manual) Tear Drop Cells Ovalocytes PT 12.1 INR 1.1 APTT 28.7 pCO2 60 H pO2 564 H HCO3 15.5 L ABG pH 7.09 L* ABG Total CO2 20.0 L ABG O2 Saturation 100.0 H ABG O2 Content ABG Base Excess -12.2 L ABG Hemoglobin ABG Carboxyhemoglobin POC ABG HHb (Measured) ABG Methemoglobin ABG O2 Capacity Gerald Test Yes ABG Potassium 4.6 A-a O2 Difference 74.0 Hgb O2 Saturation Glucose 172 H Lactate 1.3 Vent Mode Prvc Mechanical Rate 16 FiO2 100.0 Tidal Volume 500 PEEP 5 Crit Value Called To Dr jessie barron Crit Value Called By Rt Crit Value Read Back Y Blood Gas Notified Time 1625 Sodium 133.0 Potassium Chloride 110.0 H Carbon Dioxide Anion Gap BUN Creatinine Est GFR ( Amer) Est GFR (Non-Af Amer) POC Glucose (mg/dL) Random Glucose Calcium Phosphorus Magnesium Total Bilirubin AST ALT Alkaline Phosphatase Ammonia 49 Total Creatine Kinase Troponin I Total Protein Albumin Globulin Albumin/Globulin Ratio Arterial Blood Potassium 4.6 Urine Color Urine Clarity Urine pH Ur Specific [place] Urine Protein Urine Glucose (UA) Urine Ketones Urine Blood Urine Nitrate Urine Bilirubin Urine Urobilinogen Ur Leukocyte Esterase Urine RBC (Auto) Urine Microscopic WBC Ur Squamous Epith Cells Urine Bacteria Hyaline Casts Urine Opiates Screen Urine Methadone Screen Ur Barbiturates Screen Ur Phencyclidine Scrn Ur Amphetamines Screen U Benzodiazepines Scrn U Oth Cocaine Metabols U Cannabinoids Screen Alcohol, Quantitative Influenza Typ A,B (EIA) 04/01/18 04/01/18 04/01/18 16:05 17:25 18:18 WBC RBC Hgb Hct MCV MCH MCHC RDW Plt Count MPV Neut % (Auto) Lymph % (Auto) [place] % (Auto) Eos % (Auto) Baso % (Auto) Neut # (Auto) Lymph # (Auto) [place] # (Auto) Eos # (Auto) Baso # (Auto) Neutrophils % (Manual) Band Neutrophils % Lymphocytes % (Manual) Monocytes % (Manual) Platelet Estimate Anisocytosis (manual) Tear Drop Cells Ovalocytes PT INR APTT pCO2 pO2 HCO3 ABG pH ABG Total CO2 ABG O2 Saturation ABG O2 Content ABG Base Excess ABG Hemoglobin ABG Carboxyhemoglobin POC ABG HHb (Measured) ABG Methemoglobin ABG O2 Capacity Gerald Test ABG Potassium A-a O2 Difference Hgb O2 Saturation Glucose Lactate Vent Mode Mechanical Rate FiO2 Tidal Volume PEEP Crit Value Called To Crit Value Called By Crit Value Read Back Blood Gas Notified Time Sodium Potassium Chloride Carbon Dioxide Anion Gap BUN Creatinine Est GFR ( Amer) Est GFR (Non-Af Amer) POC Glucose (mg/dL) 159 H Random Glucose Calcium Phosphorus Magnesium Total Bilirubin AST ALT Alkaline Phosphatase Ammonia Total Creatine Kinase 344 H Troponin I Total Protein Albumin Globulin Albumin/Globulin Ratio Arterial Blood Potassium Urine Color Urine Clarity Urine pH Ur Specific [place] Urine Protein Urine Glucose (UA) Urine Ketones Urine Blood Urine Nitrate Urine Bilirubin Urine Urobilinogen Ur Leukocyte Esterase Urine RBC (Auto) Urine Microscopic WBC Ur Squamous Epith Cells Urine Bacteria Hyaline Casts Urine Opiates Screen Urine Methadone Screen Ur Barbiturates Screen Ur Phencyclidine Scrn Ur Amphetamines Screen U Benzodiazepines Scrn U Oth Cocaine Metabols U Cannabinoids Screen Alcohol, Quantitative Influenza Typ A,B (EIA) Negative for flu a/b 04/01/18 04/01/1818 21:34 21:34 21:34 WBC 9.2 RBC 4.09 L Hgb 13.4 Hct 39.5 MCV 96.4 H D MCH 32.8 H MCHC 34.0 RDW 13.7 Plt Count 145 MPV Neut % (Auto) Lymph % (Auto) [place] % (Auto) Eos % (Auto) Baso % (Auto) Neut # (Auto) Lymph # (Auto) [place] # (Auto) Eos # (Auto) Baso # (Auto) Neutrophils % (Manual) Band Neutrophils % Lymphocytes % (Manual) Monocytes % (Manual) Platelet Estimate Anisocytosis (manual) Tear Drop Cells Ovalocytes PT 11.7 INR 1.1 APTT 28.9 pCO2 pO2 HCO3 ABG pH ABG Total CO2 ABG O2 Saturation ABG O2 Content ABG Base Excess ABG Hemoglobin ABG Carboxyhemoglobin POC ABG HHb (Measured) ABG Methemoglobin ABG O2 Capacity Gerald Test ABG Potassium A-a O2 Difference Hgb O2 Saturation Glucose Lactate Vent Mode Mechanical Rate FiO2 Tidal Volume PEEP Crit Value Called To Crit Value Called By Crit Value Read Back Blood Gas Notified Time Sodium 137 Potassium 3.8 Chloride 106 Carbon Dioxide 17 L Anion Gap 18 BUN 34 H Creatinine 1.5 Est GFR ( Amer) 58 Est GFR (Non-Af Amer) 48 POC Glucose (mg/dL) Random Glucose 167 H Calcium 7.7 L Phosphorus 4.5 Magnesium 1.7 Total Bilirubin AST ALT Alkaline Phosphatase Ammonia Total Creatine Kinase Troponin I Total Protein Albumin Globulin Albumin/Globulin Ratio Arterial Blood Potassium Urine Color Urine Clarity Urine pH Ur Specific [place] Urine Protein Urine Glucose (UA) Urine Ketones Urine Blood Urine Nitrate Urine Bilirubin Urine Urobilinogen Ur Leukocyte Esterase Urine RBC (Auto) Urine Microscopic WBC Ur Squamous Epith Cells Urine Bacteria Hyaline Casts Urine Opiates Screen Urine Methadone Screen Ur Barbiturates Screen Ur Phencyclidine Scrn Ur Amphetamines Screen U Benzodiazepines Scrn U Oth Cocaine Metabols U Cannabinoids Screen Alcohol, Quantitative Influenza Typ A,B (EIA) 04/01/18 04/01/18 04/02/18 21:34 23:25 00:29 WBC RBC Hgb Hct MCV MCH MCHC RDW Plt Count MPV Neut % (Auto) Lymph % (Auto) [place] % (Auto) Eos % (Auto) Baso % (Auto) Neut # (Auto) Lymph # (Auto) [place] # (Auto) Eos # (Auto) Baso # (Auto) Neutrophils % (Manual) Band Neutrophils % Lymphocytes % (Manual) Monocytes % (Manual) Platelet Estimate Anisocytosis (manual) Tear Drop Cells Ovalocytes PT INR APTT pCO2 41 pO2 90 HCO3 18.9 L ABG pH 7.27 L ABG Total CO2 20.1 L ABG O2 Saturation 98.3 H ABG O2 Content 18.8 ABG Base Excess -7.7 L ABG Hemoglobin 14.0 ABG Carboxyhemoglobin 1.9 H POC ABG HHb (Measured) 1.6 ABG Methemoglobin 1.3 ABG O2 Capacity 19.1 Gerald Test Yes ABG Potassium A-a O2 Difference 215.0 Hgb O2 Saturation 95.2 Glucose Lactate Vent Mode A/c Mechanical Rate 26 FiO2 50.0 Tidal Volume 500 PEEP 5 Crit Value Called To Crit Value Called By Crit Value Read Back Blood Gas Notified Time Sodium Potassium Chloride Carbon Dioxide Anion Gap BUN Creatinine Est GFR ( Amer) Est GFR (Non-Af Amer) POC Glucose (mg/dL) Random Glucose Calcium 7.6 L Phosphorus Magnesium Total Bilirubin AST ALT Alkaline Phosphatase Ammonia Total Creatine Kinase Troponin I 0.0300 Total Protein Albumin Globulin Albumin/Globulin Ratio Arterial Blood Potassium Urine Color Urine Clarity Urine pH Ur Specific [place] Urine Protein Urine Glucose (UA) Urine Ketones Urine Blood Urine Nitrate Urine Bilirubin Urine Urobilinogen Ur Leukocyte Esterase Urine RBC (Auto) Urine Microscopic WBC Ur Squamous Epith Cells Urine Bacteria Hyaline Casts Urine Opiates Screen Urine Methadone Screen Ur Barbiturates Screen Ur Phencyclidine Scrn Ur Amphetamines Screen U Benzodiazepines Scrn U Oth Cocaine Metabols U Cannabinoids Screen Alcohol, Quantitative Influenza Typ A,B (EIA) 04/02/18 04/02/18 04/02/18 05:14 06:08 06:08 WBC 9.2 RBC 3.95 L Hgb 13.1 Hct 37.6 MCV 95.2 H MCH 33.2 H MCHC 34.9 RDW 13.4 Plt Count 155 MPV 8.4 Neut % (Auto) 90.9 H Lymph % (Auto) 4.6 L [place] % (Auto) 4.4 Eos % (Auto) 0.1 Baso % (Auto) 0.0 Neut # (Auto) 8.4 H Lymph # (Auto) 0.4 L [place] # (Auto) 0.4 Eos # (Auto) 0.0 Baso # (Auto) 0.0 Neutrophils % (Manual) 86 H Band Neutrophils % 4 H Lymphocytes % (Manual) 5 L Monocytes % (Manual) 5 Platelet Estimate Normal Anisocytosis (manual) Slight Tear Drop Cells Slight Ovalocytes Slight PT 12.2 INR 1.1 APTT 31.1 pCO2 40 pO2 166 H HCO3 20.5 L ABG pH 7.31 L ABG Total CO2 21.3 L ABG O2 Saturation 99.4 H ABG O2 Content ABG Base Excess -5.8 L ABG Hemoglobin ABG Carboxyhemoglobin POC ABG HHb (Measured) ABG Methemoglobin ABG O2 Capacity Gerald Test Yes ABG Potassium 3.6 A-a O2 Difference 141.0 Hgb O2 Saturation Glucose 163 H Lactate 1.0 Vent Mode A/c Mechanical Rate 26 FiO2 50.0 Tidal Volume 500 PEEP 5 Crit Value Called To Crit Value Called By Crit Value Read Back Blood Gas Notified Time Sodium 134.0 Potassium Chloride 106.0 Carbon Dioxide Anion Gap BUN Creatinine Est GFR ( Amer) Est GFR (Non-Af Amer) POC Glucose (mg/dL) Random Glucose Calcium Phosphorus Magnesium Total Bilirubin AST ALT Alkaline Phosphatase Ammonia Total Creatine Kinase Troponin I Total Protein Albumin Globulin Albumin/Globulin Ratio Arterial Blood Potassium 3.6 Urine Color Urine Clarity Urine pH Ur Specific [place] Urine Protein Urine Glucose (UA) Urine Ketones Urine Blood Urine Nitrate Urine Bilirubin Urine Urobilinogen Ur Leukocyte Esterase Urine RBC (Auto) Urine Microscopic WBC Ur Squamous Epith Cells Urine Bacteria Hyaline Casts Urine Opiates Screen Urine Methadone Screen Ur Barbiturates Screen Ur Phencyclidine Scrn Ur Amphetamines Screen U Benzodiazepines Scrn U Oth Cocaine Metabols U Cannabinoids Screen Alcohol, Quantitative Influenza Typ A,B (EIA) 04/02/18 04/02/18 06:11 06:11 WBC RBC Hgb Hct MCV MCH MCHC RDW Plt Count MPV Neut % (Auto) Lymph % (Auto) [place] % (Auto) Eos % (Auto) Baso % (Auto) Neut # (Auto) Lymph # (Auto) [place] # (Auto) Eos # (Auto) Baso # (Auto) Neutrophils % (Manual) Band Neutrophils % Lymphocytes % (Manual) Monocytes % (Manual) Platelet Estimate Anisocytosis (manual) Tear Drop Cells Ovalocytes PT INR APTT pCO2 pO2 HCO3 ABG pH ABG Total CO2 ABG O2 Saturation ABG O2 Content ABG Base Excess ABG Hemoglobin ABG Carboxyhemoglobin POC ABG HHb (Measured) ABG Methemoglobin ABG O2 Capacity Gerald Test ABG Potassium A-a O2 Difference Hgb O2 Saturation Glucose Lactate Vent Mode Mechanical Rate FiO2 Tidal Volume PEEP Crit Value Called To Crit Value Called By Crit Value Read Back Blood Gas Notified Time Sodium 137 Potassium 3.8 Chloride 105 Carbon Dioxide 19 L Anion Gap 17 BUN 30 H Creatinine 1.3 Est GFR ( Amer) > 60 Est GFR (Non-Af Amer) 57 POC Glucose (mg/dL) Random Glucose 153 H Calcium 7.9 L Phosphorus 4.3 Magnesium 1.6 Total Bilirubin 0.8 AST 115 H D ALT 101 H D Alkaline Phosphatase 88 Ammonia Total Creatine Kinase 550 H Troponin I 0.0270 Total Protein 6.1 L Albumin 3.6 Globulin 2.6 Albumin/Globulin Ratio 1.4 Arterial Blood Potassium Urine Color Urine Clarity Urine pH Ur Specific [place] Urine Protein Urine Glucose (UA) Urine Ketones Urine Blood Urine Nitrate Urine Bilirubin Urine Urobilinogen Ur Leukocyte Esterase Urine RBC (Auto) Urine Microscopic WBC Ur Squamous Epith Cells Urine Bacteria Hyaline Casts Urine Opiates Screen Urine Methadone Screen Ur Barbiturates Screen Ur Phencyclidine Scrn Ur Amphetamines Screen U Benzodiazepines Scrn U Oth Cocaine Metabols U Cannabinoids Screen Alcohol, Quantitative Influenza Typ A,B (EIA) Assessment & Plan (1) Hx-sudden cardiac arrest Status: Acute (2) Anoxic encephalopathy Status: Acute Priority: High (3) Acute respiratory failure Status: Acute Priority: High - Assessment and Plan (Free Text) Plan: continue ventilatory support , hypothermia , Levophed , Keppra ans rest of treatment , prognosis poor ICU Time: 60 min. - Date & Time Date: 04/02/18 Time: 10:30
[2018-04-02] MEDS: levETIRAcetam 1,000 MG in Sodium Chloride 0.9% 100 ML IVPB SCH (22:16)
--- NOTE | 2018-04-02 23:44 | CON ---
DATE: 04/02/2018 CARDIOLOGY CONSULTATION REASON FOR CONSULTATION: Cardiac arrest. HISTORY OF PRESENT ILLNESS: The patient is a 57 years old male who has a history of coronary artery disease, status post coronary artery bypass surgery, history of repeat cocaine abuse at least 10 times in our [facility] records. He was brought in because of unresponsiveness for unknown time. CPR was initiated. Initial response asystole. The patient received a total of 4 rounds of epinephrine and was intubated. Upon arriving to the ER, the patient was in sinus bradycardia with a demand ventricular pacemaker. Again, the patient was in sinus bradycardia with a demand paced rhythm. The patient was evaluated by me in 12/2017 and underwent cardiac catheterization at [facility], which revealed significant tan[place]ross coronary artery disease with 80% stenosis of the distal left main disease and total occlusion of proximal circumflex artery with 70% stenosis of the LAD, 70% stenosis of the proximal left coronary artery with total occlusion of posterior descending artery of the right coronary artery and patent saphenous vein graft of the posterior descending and branch of the right coronary artery with patent REYEZ to the mid LAD and patent graft to the diagonal branch with obtuse marginal branch and patent jump bypass graft to the diagonal and obtuse marginal branch with mildly depressed ejection fraction. The patient was subsequently evaluated by Dr. Grissom. In both situations, the patient was advised to abstain from cocaine abuse. The patient is stable currently overnight in the ICU with hypothermia protocol, requiring Levophed infusion. The patient has been responsive since admission. SOCIAL HISTORY: Smoker, cocaine abuser. MEDICATIONS: Ativan 2 mg intravenously every 6 hours as needed, Levophed infusion, propofol infusion, levetiracetam infusion, Zosyn 2.25 gm intravenously every 12 hours, and Protonix 40 mg intravenously daily. PHYSICAL EXAMINATION: GENERAL: The patient is a middle-aged male who is deeply comatose, on the ventilator. VITAL SIGNS: Blood pressure 143/58, heart rate 61, temperature 91.9, and respirations 31. HEENT: No pallor or icterus. CHEST: Bilateral rhonchi. HEART: S1 and S2 regular. EXTREMITIES: No edema. LABORATORY DATA: Hemoglobin and hematocrit 13.1 and 37.6, white count 9.2, and platelet count 155,000. SMA-7: Sodium 137, potassium 3.3, chloride 105, CO2 of 19, glucose 153, BUN 30, and creatinine 1.3. AST and ALT are elevated at 115 and 101 respectively. INR is 1.1. Urine drug screen is positive for opiates and cannabinoids, and alcohol level was 30. EKG revealed sinus rhythm with rate of 60. Consider old septal infarct. Troponins were 0.[address] scan without contrast: Limited motion study. The corticomedullary junction is slightly indistinct compared to his prior exams. A possibility of mild diffuse cerebral edema related to mild diffuse hypoxia not excluded. Followup CT scan is recommended. Chest CT angio report, no evidence of acute central pulmonary embolus. Multiple of borderline/mildly enlarged mediastinal lymph nodes. Centrilobular emphysematous changes in the upper lobar predominance. ASSESSMENT: 1. Status post cardiac arrest following cocaine abuse. 2. Coronary artery disease, status post coronary artery bypass surgery with severe [place] vessel disease. 3. Anoxic encephalopathy. 4. Cocaine and opiate abuse. 5. Hypertension. RECOMMENDATIONS: Continue current Levophed infusion, IV Zosyn, and hypothermia protocol. Consider repeat head CT scan. We will follow up neurological evaluation. Keo Trevino MD
[2018-04-03 05:33] LABS: ABG ALLEN TEST YES; ARTERIAL BLOOD GAS HEMOGLOBIN 13.8 g/dL (11.7-17.4); ARTERIAL BLOOD GAS O2 CAPACITY 19.1 mL/dL (16-24); ARTERIAL BLOOD GAS O2 CONTENT 19.2 ML/dL (15-23); ARTERIAL BLOOD GAS O2 SAT 100.7 % (95-98); ARTERIAL BLOOD GAS PCO2 34 mm/Hg (35-45); ARTERIAL BLOOD GAS PH 7.41 (7.35-7.45); ARTERIAL BLOOD GAS PO2 204 mm/Hg (80-100); ARTERIAL BLOOD GAS TCO2 22.6 mmol/L (22-28)
[2018-04-03 06:24] LABS: BASO % 0.1 % (0.0-2.0); EOS % 0.1 % (0.0-4.0); HEMOGLOBIN 13.3 g/dL (12.0-18.0); LYMPH # 0.5 K/uL (1.0-4.3); LYMPH % 5.4 % (20.0-40.0); MEAN CELL VOLUME 95.1 fl (80.0-94.0); MEAN CORPUSCULAR HEMOGLOBIN 33.1 pg (27.0-31.0); MEAN CORPUSCULAR HGB CONC 34.8 g/dL (33.0-37.0); MONO # 0.5 K/uL (0.0-0.8); NEUT # 7.8 K/uL (1.8-7.0); NEUT % 88.4 % (50.0-75.0); RBC 4.01 Mil/uL (4.40-5.90); RED CELL DISTRIBUTION WIDTH 13.7 % (11.5-14.5); WHITE BLOOD COUNT 8.8 K/uL (4.8-10.8)
[2018-04-03 06:38] LABS: ALB/GLOB RATIO 1.3 (1.0-2.1); ALBUMIN 3.6 g/dL (3.5-5.0); ALT/SGPT 88 U/L (21-72); AST/SGOT 108 U/L (17-59); BLOOD UREA NITROGEN 23 mg/dl (9-20); CALCIUM 8.5 mg/dL (8.4-10.2); GFR AFRICAN-AMERICAN > 60; GFR NON-AFRICAN AMERICAN > 60
--- NOTE | 2018-04-03 07:43 | RAD ---
PROCEDURE: CHEST RADIOGRAPH, 1 VIEW HISTORY: Intubated COMPARISON: None available. FINDINGS: LUNGS: Clear. PLEURA: No pneumothorax or pleural fluid seen. CARDIOVASCULAR: Normal. OSSEOUS STRUCTURES: No significant abnormalities. VISUALIZED UPPER ABDOMEN: Normal. OTHER FINDINGS: ETT above the dante. Status post median sternotomy. IMPRESSION: ETT above the dante. Status post median sternotomy.
--- NOTE | 2018-04-03 07:47 | CP.PCM.PN ---
<Monie Blake - Last Filed: 04/03/18 12:47> Subjective - Date & Time of Evaluation Date of Evaluation: 04/03/18 Time of Evaluation: 08:00 - Subjective Subjective: Patient seen and examined this morning at bedside. Intubated, non-responsive, no cough or corneal reflexes, Pin point pupils mildly reactive to light. (on decreased propofol) VS: 156/60, HR 86 (not on epi) Vent: PRVC A/C, TV 500, R 26, PEEP 5, FIO2 50%, Not Breathing above vent anymore Propofol 15mcg/kg/min No Myoclonus jerks this morning Objective - Vital Signs/Intake and Output Vital Signs (last 24 hours): Temp Pulse Resp BP Pulse Ox 96.8 F L 71 26 H 142/63 100 04/03/18 06:43 04/03/18 06:43 04/03/18 06:43 04/03/18 06:43 04/03/18 06:43 Intake and Output: 04/03/18 04/03/18 06:59 18:59 Intake Total 416 Output Total 1080 Balance -664 - Medications Medications: Current Medications Piperacillin Sod/Tazobactam (Sod 2.25 gm/ Sodium Chloride) 100 mls @ 100 mls/ hr IVPB Q12 CHELA PRN Reason: Protocol Last Admin: 04/02/18 20:44 Dose: 100 mls/hr Levetiracetam 1,000 mg/ Sodium (Chloride) 110 mls @ 215 mls/hr IVPB Q12 CHELA Last Admin: 04/02/18 22:16 Dose: 215 mls/hr Propofol (Diprivan) 1,000 mg in 100 mls @ 9.743 mls/hr IV .[id number] CHELA; 20 MCG/ KG/MIN PRN Reason: Protocol Stop: 04/03/18 21:01 Last Titration: 04/03/18 05:05 Dose: 15 mcg/kg/min, 7.307 mls/hr Lorazepam (Ativan) 2 mg IVP Q6 PRN PRN Reason: Seizure activity Last Admin: 04/03/18 02:06 Dose: 2 mg Pantoprazole Sodium (Protonix Inj) 40 mg IVP DAILY CHELA Last Admin: 04/02/18 09:30 Dose: 40 mg - Labs Labs: 04/03/18 05:30 04/03/18 05:30 PT 12.2 Seconds (9.8-13.1) 04/02/18 06:08 INR 1.1 (0.9-1.2) 04/02/18 06:08 APTT 31.1 Seconds (25.6-37.1) 04/02/18 06:08 - Constitutional Appears: Other (unresponsive , GCS 3T) - Head Exam Head Exam: NORMAL INSPECTION - Eye Exam Additional comments: pinpoint pupils, rolled up but mildly reactive to light No corneal or cough reflexes - ENT Exam ENT Exam: Mucous Membranes Moist - Respiratory Exam Respiratory Exam: Clear to Ausculation Bilateral - Cardiovascular Exam Cardiovascular Exam: REGULAR RHYTHM - GI/Abdominal Exam GI & Abdominal Exam: Soft - Extremities Exam Additional comments: Improved left side Descerebrate posturing - Neurological Exam Additional comments: GCS 3T Unresponsive, No Myoclonus jerks seen Assessment and Plan - Assessment and Plan (Free Text) Assessment: 57 y/o M brought in to the ER by EMS after found unconscious, S/p infield intubation, ACLS and ROSC, no acute EKG changes, with in the window of hypothermia protocol. Uncleared precipitating event however patient has significant cardiac history and history of Substance abuse. Cardiac Arrest - Possibly due to substance abuse, UTox: + Cocain and Opiates - Hypothermia protocol in ER, s/p levophed - Cardio consult, Dr. Trevino, will follow recs - Pulm, Dr. Gallegos, Will follow recs - Neuro, Dr. Brown, will follow recs - ID, Dr. Josue consult, will foloow recs - EKG: NSR with bradycardia, No suggestive acute infarct on admission - CT chest: no PE, Coiled NGT, Emphysematous changes on admission - CXR: Emphysematous changes, no acute consolidation, right angle blunting on admission - Repeat EKG, CXR and ABG (04/02) reviewed - S/p Dopamine, Narcan drip, troponin x3 negative, Urine Cx no growth, Blood Cx : NGPD - C/w IVF, Zosyn as per ID - C/w Propofol - CT head tomorrow, wean off Propofol tomorrow Acute Respiratory failure - Possibly due to substance abuse , UTox: + Cocain and Opiates - Mechanically ventilated - CT head: No acute intracranial hemorrhage on admission - CT chest: no PE, Coiled NGT, Emphysematous changes on admission - CXR: Emphysematous changes, no acute consolidation, right angle blunting on admission - Pulm, Dr. Gallegos, Will follow recs Substance abuse - Chronic - UTox: + Cocain and Opiates - Mechanically ventilated - Benzo as indicated - s/p Narcan drip Myoclonic seizure with GCS 3T, uncleared if 2/2 hypoxia, anoxia vs substance intoxication - Improved - Neuro, Dr. Brown consult, recs appreciated - CT head: No acute intracranial hemorrhage on admission - Repeat CT head this morning to r/o any hypoxiand Keppra 500 Q12 as per Neuro - Benzo as indicated - S/p Narcan drip - Keprra Q12H - CT head tomorrow, wean off Propofol tomorrow HTN - Chronic, currently hypotensive - Hold BP medications to bradycardia GI PPX - Protonix 40 DVT PPX - SCD for now -(Emergency Contact: 1# Mr. Garza, son, [phone]. 2# Sister, Lara, Cell ) <Maria D Scales - Last Filed: 04/04/18 08:34> Objective - Vital Signs/Intake and Output Vital Signs (last 24 hours): Temp Pulse Resp BP Pulse Ox 97.0 F L 80 28 H 137/68 100 04/04/18 07:00 04/04/18 07:00 04/04/18 07:00 04/04/18 07:00 04/04/18 07:00 Intake and Output: 04/04/18 04/04/18 06:59 18:59 Intake Total 480 0 Output Total 525 Balance -45 0 - Medications Medications: Current Medications Amlodipine Besylate (Norvasc) 5 mg PO DAILY CHELA Last Admin: 04/03/18 16:36 Dose: 5 mg Carvedilol (Coreg) 25 mg PO Q12 CHELA Last Admin: 04/03/18 21:29 Dose: 25 mg Piperacillin Sod/Tazobactam (Sod 2.25 gm/ Sodium Chloride) 100 mls @ 100 mls/ hr IVPB Q12 CHELA PRN Reason: Protocol Last Admin: 04/03/18 21:31 Dose: 100 mls/hr Levetiracetam 1,500 mg/ Sodium (Chloride) 115 mls @ 215 mls/hr IVPB Q12 CHELA Lorazepam (Ativan) 2 mg IVP Q4H PRN PRN Reason: Seizure activity Last Admin: 04/04/18 06:08 Dose: 2 mg Pantoprazole Sodium (Protonix Inj) 40 mg IVP DAILY CHELA Last Admin: 04/03/18 09:57 Dose: 40 mg - Labs Labs: 04/04/18 06:20 04/04/18 06:20 PT 12.2 Seconds (9.8-13.1) 04/02/18 06:08 INR 1.1 (0.9-1.2) 04/02/18 06:08 APTT 31.1 Seconds (25.6-37.1) 04/02/18 06:08 Attending/Attestation - Attestation I have personally seen and examined this patient.: Yes I have fully participated in the care of the patient.: Yes I have reviewed all pertinent clinical information, including history, physical exam and plan: Yes
[2018-04-03] MEDS: levETIRAcetam 1,000 MG in Sodium Chloride 0.9% 100 ML IVPB SCH ×2 (08:39→20:31)
[2018-04-03] MEDS ORDERED: Potassium CL 10mEq/100ml 100 ML IVPB SCH (10:00)
[2018-04-03] MEDS: Potassium CL 10mEq/100ml 100 ML IVPB SCH ×3 (11:29→14:38)
[2018-04-03] MEDS ORDERED: Enalaprilat 2.5 MG/2 ML IVP ONE (12:23)
[2018-04-03] MEDS ORDERED: EnalaprilAT 1.25 mg/ml Inj ONE ×2 (12:32→12:45)
--- NOTE | 2018-04-03 12:52 | CARD ---
APPROVED REPORT EKG Measurement Heart [id number] <Conclusion> Normal sinus rhythm with sinus arrhythmia Septal infarct, age undetermined Prolonged QT Abnormal ECG
--- NOTE | 2018-04-03 13:40 | CP.PCM.PCO ---
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 Garza/Mr. Smith/Mr. Peter present during discussion. Course of events EMS to present time outlined for family, current clinical status discussed to include the fact that patient currently remains unresponsive. Discussed plan to re-image the head, wean off of sedation, and repeat neurological evaluation. Aayush Garza is the primary decision maker however a family meeting was held yesterday evening in which a consensus decision regarding patients wishes was discussed. As per the 3 sons patients wishes were he did not want to be on machines. However they understand that further guidance regarding neurological status is dependent on CT findings, clinical evaluations, and off of sedation. So for now they wound like their father to be full code until that assessment has been made. They have clearly stated that they do not want to be present should terminal extubation take place. - All the questions and concerns were addressed, and Mr. Garza has requested that all the phone calls be directed to him. Contact: # Mr. Garza, son, [phone].
[2018-04-03] MEDS ORDERED: Enalaprilat 2.5 MG/2 ML IVP STA (17:33)
--- NOTE | 2018-04-03 17:33 | CP.PCM.PN ---
Subjective - Date & Time of Evaluation Date of Evaluation: 03/27/18 Time of Evaluation: 14:00 - Subjective Subjective: F/U Respiratory failure Unresponsive, intubated Objective - Vital Signs/Intake and Output Vital Signs (last 24 hours): Temp Pulse Resp BP Pulse Ox 98 F 89 26 H 192/76 H 100 04/03/18 15:00 04/03/18 16:36 04/03/18 15:00 04/03/18 16:36 04/03/18 15:00 Intake and Output: 04/03/18 04/03/18 06:59 18:59 Intake Total 416 735 Output Total 1080 435 Balance -664 300 - Medications Medications: Current Medications Amlodipine Besylate (Norvasc) 5 mg PO DAILY CHELA Last Admin: 04/03/18 16:36 Dose: 5 mg Carvedilol (Coreg) 25 mg PO Q12 CHELA Piperacillin Sod/Tazobactam (Sod 2.25 gm/ Sodium Chloride) 100 mls @ 100 mls/ hr IVPB Q12 CHELA PRN Reason: Protocol Last Admin: 04/03/18 08:33 Dose: 100 mls/hr Levetiracetam 1,000 mg/ Sodium (Chloride) 110 mls @ 215 mls/hr IVPB Q12 CHELA Last Admin: 04/03/18 08:39 Dose: 215 mls/hr Propofol (Diprivan) 1,000 mg in 100 mls @ 9.743 mls/hr IV .[id number] CHEAL; 20 MCG/ KG/MIN PRN Reason: Protocol Stop: 04/03/18 21:01 Last Titration: 04/03/18 14:00 Dose: 15 mcg/kg/min, 7.307 mls/hr Lorazepam (Ativan) 2 mg IVP Q6 PRN PRN Reason: Seizure activity Last Admin: 04/03/18 02:06 Dose: 2 mg Pantoprazole Sodium (Protonix Inj) 40 mg IVP DAILY CHELA Last Admin: 04/03/18 09:57 Dose: 40 mg - Labs Labs: 04/03/18 05:30 04/03/18 05:30 PT 12.2 Seconds (9.8-13.1) 04/02/18 06:08 INR 1.1 (0.9-1.2) 04/02/18 06:08 APTT 31.1 Seconds (25.6-37.1) 04/02/18 06:08 - Constitutional Appears: Other (unresponsive) - Head Exam Head Exam: NORMAL INSPECTION - Eye Exam Additional comments: pupils 2-3mm, sluggish reaction to light , no corneal reflex - ENT Exam Additional comments: intubated - Neck Exam Neck Exam: Normal Inspection - Respiratory Exam Respiratory Exam: Clear to Ausculation Bilateral - Cardiovascular Exam Cardiovascular Exam: REGULAR RHYTHM - GI/Abdominal Exam GI & Abdominal Exam: Soft, Normal Bowel Sounds - Extremities Exam Extremities Exam: Normal Inspection - Back Exam Back Exam: NORMAL INSPECTION - Neurological Exam Additional comments: unresponsive - Skin Skin Exam: Warm Assessment and Plan (1) Hx-sudden cardiac arrest Status: Acute (2) Anoxic encephalopathy Status: Acute (3) Acute respiratory failure Status: Acute - Assessment and Plan (Free Text) Plan: unresponsive , hypertensive, off vasopressors , CXR (-) , continue ventilatory support, f/u EEG , on Keppra , Coreg , Norvasc , prognosis por , discussed with Patient's family at bedside ICU Time: 32 min.
[2018-04-03] MEDS: Propofol 10 mg/ml 1,000 MG/100 ML VIAL IV SCH (17:48)
--- NOTE | 2018-04-03 19:26 | PN ---
DATE: 04/03/2018 SUBJECTIVE: The patient is still unresponsive, on the ventilator. He is no longer hypotensive, in fact he is hypertensive. No reported ventricular tachycardia. PHYSICAL EXAMINATION: VITAL SIGNS: Blood pressure /74, heart rate 89, temperature 98.2, respirations 27. HEENT: No pallor. CHEST: Bilateral rhonchi. HEART: S1 and S2 regular. EXTREMITIES: No edema. LABORATORY DATA: Hemoglobin and hematocrit 13.3 and 38.2. White count and platelet count are within normal limits. SMA-7; sodium 140, potassium 3.1, chloride 105, CO2 of 22, glucose 104, BUN 23, creatinine 0.9. Magnesium is 1.9. Today's chest x-ray, ET tube above the dante status post median sternotomy. ASSESSMENT: 1. Status post cardiac arrest. 2. Status post cocaine, opiate and alcohol abuse. 3. History of coronary artery disease with significant disease of the [facility] coronary circulation status post coronary artery bypass surgery. 4. Uncontrolled hypertension. 5. Anoxic encephalopathy. RECOMMENDATIONS: Continue current Propofol and p.r.n. Ativan. Continue IV Zosyn. Case discussed with the gravel machine operator. The patient can receive Hydralazine 10 mg subcutaneously p.r.n. and will follow Neurology evaluation. Meenakshi Yang DMD
[2018-04-03] MEDS: Nicardipine 20 MG/200 ML 20 MG/200 ML BAG IV ONE ×2 (20:16→23:54)
--- NOTE | 2018-04-03 23:53 | PN ---
DATE: 04/03/2018 CRITICAL CARE PROGRESS NOTE LOCATION: The patient in ICU bed 434. TIME SPENT: 45 minutes. The patient is seen and evaluated at the bedside. Past medical, surgical, social and family history are reviewed. SUBJECTIVE: A 57-year-old male with a history significant for multiple substance abuse, hypertension, coronary artery disease, status post coronary artery bypass graft surgery, was admitted through emergency room on 04/01/2018 after the patient was noted to be unresponsive with no palpable pulse in the field, resuscitated, intubated, brought to emergency room. CT head on admission negative for acute CVA. The patient was placed on hypothermia protocol. Admitted to ICU for further evaluation and followup. Overnight noted myoclonic jerks. Seen by neuro consult, recommended clonazepam and Keppra, remained sedated on Diprivan drip. This morning, remains comatose. No response to verbal stimuli, decorticates to noxious stimuli. PHYSICAL EXAMINATION: VITAL SIGNS: Temperature 99.5, heart rate 89, blood pressure 177/66, mean arterial pressure 103. HEAD, EYES, EARS, NOSE AND THROAT: Pupils 2-3 mm, poorly reactive. No corneal reflex. No conjunctival reflex. Endotracheal tube in place. CHEST: Bilateral breath sounds. Clear to auscultation anteriorly and laterally. HEART: Rhythm regular. S1, S2 rapid. ABDOMEN: Bowel sounds present. Soft. EXTREMITIES: No clubbing or cyanosis. No edema. NEURO EXAMINATION: Remains comatose. No corneal or conjunctival reflex. Decorticates to pain and deep suctioning. Flaccid extremities x 4. Plantar equivocal. CURRENT MEDICATIONS: Diprivan 1000 mg/100 at 10 mL per hour, potassium chloride supplement, Zosyn 2.25 gm IV every 12 hours, Protonix 40 IV daily, Ativan 2 mg IV every 6 hours p.r.n., Keppra 1000 mg every 12 hours. LABORATORY DATA: WBC 8.8, hemoglobin 13.3, hematocrit 38.8, platelet count of 146, neutrophils 88.4, lymphocytes 5.4, monocytes 6. PT 12.2, INR 1.1, PTT 31.1. ABG: The pH of 7.41, pCO2 of 34, pO2 of 204, saturation 100.7 on AC/PRBC, rate 26, FiO2 50%, tidal volume of 500, PEEP of 5. SMA-7: Sodium 140, potassium 3.1, chloride of 105, CO2 of 22, blood urea nitrogen 23, creatinine 0.9, random glucose 104, calcium 8.5, magnesium 1.9. Total bilirubin 0.7, AST 108, ALT 88, alkaline phosphatase 81, total protein 6.4, albumin of 3.6. Urine: Rbc's 61, wbc's 3, bacteria rare. Drug screen: Opiates positive, cocaine positive. Alcohol level 30. Influenza A and B negative. MICROBIOLOGY: Urine culture, no growth. Blood culture no growth. MRSA nasal smear, not detected. IMAGING: Chest x-ray: Endotracheal tube in place. No pneumothorax. Head CT: No acute parenchymal, subarachnoid, or extra-axial hemorrhage. Mucoperiosteal inflammatory changes within the paranasal sinuses. Chest CT: No central pulmonary embolism. NG tube repositioned. IMPRESSION AND PLAN: 1. Neuro: Remains comatose. Anoxic encephalopathy, status post respiratory and/or cardiac arrest. History of substance abuse. Urine drug screen positive for opiates and cocaine. Continue ventilatory support, clonazepam and Keppra for myoclonic jerks. Myoclonic jerks are less visible now. 2. Respiratory: Intubated for airway protection. No evidence of pneumonia. Empirically on Zosyn 2.25 gm IV every 12 hours. 3. Cardiac: History of coronary artery disease, status post coronary artery bypass graft surgery, status post catheterization in 12/22/2017 with patent grafts. Hypertension, currently on Vasotec 2.5 mg IV every 12 hours. 4. Gastrointestinal: Elevated liver enzymes secondary to acute ischemia, secondary to cardiorespiratory arrest with a poor perfusion. History of substance abuse. 5. Renal: BUN and creatine within the normal range. No evidence of rhabdomyolysis. Hypokalemia. Potassium supplemented. Follow up magnesium level. 6. Hematology: No leukocytosis. Hemoglobin, hematocrit, and platelet count within normal limits. 7. Endocrine: Maintain blood sugar below 180 mg. Calcium supplement as needed. 8. Prognosis remains guarded. Aware of discussion of PMD with family. Awaiting for repeat CAT scan. Family wishes to discontinue if there is no significant change in mental status clinically by tomorrow. Patrick Adams MD
[2018-04-04] MEDS ORDERED: Nicardipine 20 MG/200 ML 20 MG/200 ML BAG IV ONE ×3 (02:27→11:15)
[2018-04-04 05:22] LABS: ABG ALLEN TEST YES; ARTERIAL BLOOD GAS HCO3 27.8 mmol/L (21-28); ARTERIAL BLOOD GAS HEMOGLOBIN 15.1 g/dL (11.7-17.4); ARTERIAL BLOOD GAS O2 CAPACITY 20.7 mL/dL (16-24); ARTERIAL BLOOD GAS O2 CONTENT 20.6 ML/dL (15-23); ARTERIAL BLOOD GAS O2 SAT 99.3 % (95-98); ARTERIAL BLOOD GAS PCO2 46 mm/Hg (35-45); ARTERIAL BLOOD GAS PH 7.41 (7.35-7.45); ARTERIAL BLOOD GAS PO2 124 mm/Hg (80-100); ARTERIAL BLOOD GAS TCO2 30.6 mmol/L (22-28)
--- NOTE | 2018-04-04 06:48 | CP.PCM.PN ---
Subjective - Date & Time of Evaluation Date of Evaluation: 04/04/18 Time of Evaluation: 06:48 - Subjective Subjective: Mr. Drew was seen and examined at the bedside in ICU. He remains on mechanical ventilator on PRVC mode. He doses not have any corneal with sclerae edema, or gag reflex, pupils not reactive to light accommodation, his upper extremities does not react to noxious stimuli, however bilateral lower extremities remains responsive to pain stimuli, GCS 4T. He uses accessory muscle for breathing and receiving sedation ( propofol), According to staff, the patient had a partial seizure noted in his right side of the face and right upper extremities, which ativan was given. At present he is not afebrile with temp of 97.5. Objective - Vital Signs/Intake and Output Vital Signs (last 24 hours): Temp Pulse Resp BP Pulse Ox 97.7 F 80 30 H 152/59 H 100 04/04/18 02:00 04/04/18 02:00 04/04/18 02:00 04/04/18 02:00 04/04/18 02:00 Intake and Output: 04/03/18 04/04/18 18:59 06:59 Intake Total 841 380 Output Total 540 525 Balance 301 -145 - Medications Medications: Current Medications Amlodipine Besylate (Norvasc) 5 mg PO DAILY [facility] Last Admin: 04/03/18 16:36 Dose: 5 mg Carvedilol (Coreg) 25 mg PO Q12 CHELA Last Admin: 04/03/18 21:29 Dose: 25 mg Piperacillin Sod/Tazobactam (Sod 2.25 gm/ Sodium Chloride) 100 mls @ 100 mls/ hr IVPB Q12 CHELA PRN Reason: Protocol Last Admin: 04/03/18 21:31 Dose: 100 mls/hr Levetiracetam 1,500 mg/ Sodium (Chloride) 115 mls @ 215 mls/hr IVPB Q12 CHELA Lorazepam (Ativan) 2 mg IVP Q4H PRN PRN Reason: Seizure activity Last Admin: 04/04/18 06:08 Dose: 2 mg Pantoprazole Sodium (Protonix Inj) 40 mg IVP DAILY CHELA Last Admin: 04/03/18 09:57 Dose: 40 mg - Labs Labs: 04/03/18 05:30 04/03/18 05:30 PT 12.2 Seconds (9.8-13.1) 04/02/18 06:08 INR 1.1 (0.9-1.2) 04/02/18 06:08 APTT 31.1 Seconds (25.6-37.1) 04/02/18 06:08 - Constitutional Appears: No Acute Distress - Head Exam Head Exam: NORMAL INSPECTION - Eye Exam Pupil Exam: Fixed Additional comments: 2 mm, with sclera edema noted. - Neurological Exam Neuro motor strength exam: Left Upper Extremity: 0, Right Upper Extremity: 0, Left Lower Extremity: 0, Right Lower Extremity: 0 Additional comments: GCS- 4T. Assessment and Plan (1) Hypoxic brain injury Assessment & Plan: Case discussed with Dr. Brown, continue current medical regimen including ventilator management per ICU team. Agreed to increase Ativan 2 mg IVP Q 4 hours , Recommend increasing keppra to 1500 mg IVPB Q 12hours, pending repeat CT scan of the head without contrast this am, blood pressure control, treat any underlying electrolyte abnormalities. Status: Acute
[2018-04-04] MEDS: Propofol 10 mg/ml 1,000 MG/100 ML VIAL IV SCH ×2 (06:54→08:00)
[2018-04-04 07:08] LABS: BASO % 0.1 % (0.0-2.0); EOS % 0.2 % (0.0-4.0); HEMOGLOBIN 13.5 g/dL (12.0-18.0); LYMPH % 8.9 % (20.0-40.0); MEAN CELL VOLUME 96.3 fl (80.0-94.0); MEAN CORPUSCULAR HEMOGLOBIN 32.6 pg (27.0-31.0); MEAN CORPUSCULAR HGB CONC 33.8 g/dL (33.0-37.0); MEAN PLATELET VOLUME 8.9 fl (7.2-11.7); MONO # 0.7 K/uL (0.0-0.8); MONO % 6.8 % (0.0-10.0); NEUT # 9.2 K/uL (1.8-7.0); RBC 4.15 Mil/uL (4.40-5.90); RED CELL DISTRIBUTION WIDTH 14.1 % (11.5-14.5); WHITE BLOOD COUNT 10.9 K/uL (4.8-10.8)
[2018-04-04 07:56] LABS: ALB/GLOB RATIO 1.1 (1.0-2.1); ALBUMIN 3.7 g/dL (3.5-5.0); ALT/SGPT 69 U/L (21-72); AST/SGOT 128 U/L (17-59); BLOOD UREA NITROGEN 20 mg/dl (9-20); CALCIUM 8.7 mg/dL (8.4-10.2); GFR AFRICAN-AMERICAN > 60; GFR NON-AFRICAN AMERICAN > 60
--- NOTE | 2018-04-04 08:35 | RAD ---
PROCEDURE: CHEST RADIOGRAPH, 1 VIEW HISTORY: Intubated. COMPARISON: 04/03/18 FINDINGS: LUNGS: Interstitial changes. PLEURA: No pneumothorax or pleural fluid seen. CARDIOVASCULAR: Normal. OSSEOUS STRUCTURES: No significant abnormalities. VISUALIZED UPPER ABDOMEN: Normal. OTHER FINDINGS: Tubes and catheters are unchanged. IMPRESSION: No change.
--- NOTE | 2018-04-04 08:42 | CP.PCM.PN ---
<Misty Palm - Last Filed: 04/04/18 11:29> Subjective - Date & Time of Evaluation Date of Evaluation: 04/04/18 Time of Evaluation: 08:37 - Subjective Subjective: Patient seen and examined at bedside, on vent mechanical rate of 26, peep of 5, FiO2 50, not triggering vent. Absent gag reflex, non reactive to pain stimulus, sluggish pupillary reflex 3mm. Afbrile, stable BP, seen by neuro this morning. Nursing notes reviewed. Episode of myoclonic seizure last night. No other acute events Objective - Vital Signs/Intake and Output Vital Signs (last 24 hours): Temp Pulse Resp BP Pulse Ox 97.0 F L 80 28 H 137/68 100 04/04/18 07:00 04/04/18 07:00 04/04/18 07:00 04/04/18 07:00 04/04/18 07:00 Intake and Output: 04/04/18 04/04/18 06:59 18:59 Intake Total 480 0 Output Total 525 Balance -45 0 - Medications Medications: Current Medications Amlodipine Besylate (Norvasc) 5 mg PO DAILY [facility] Last Admin: 04/03/18 16:36 Dose: 5 mg Carvedilol (Coreg) 25 mg PO Q12 [facility] Last Admin: 04/03/18 21:29 Dose: 25 mg Piperacillin Sod/Tazobactam (Sod 2.25 gm/ Sodium Chloride) 100 mls @ 100 mls/ hr IVPB Q12 [facility]LA PRN Reason: Protocol Last Admin: 04/03/18 21:31 Dose: 100 mls/hr Levetiracetam 1,500 mg/ Sodium (Chloride) 115 mls @ 215 mls/hr IVPB Q12 [facility] Potassium Chloride (Potassium Chloride 10 Meq/100 Ml) 100 mls @ 100 mls/hr IVPB Q1 [facility] Stop: 04/04/18 11:59 Lorazepam (Ativan) 2 mg IVP Q4H PRN PRN Reason: Seizure activity Last Admin: 04/04/18 06:08 Dose: 2 mg Pantoprazole Sodium (Protonix Inj) 40 mg IVP DAILY [facility] Last Admin: 04/03/18 09:57 Dose: 40 mg - Labs Labs: 04/04/18 06:20 04/04/18 06:20 PT 12.2 Seconds (9.8-13.1) 04/02/18 06:08 INR 1.1 (0.9-1.2) 04/02/18 06:08 APTT 31.1 Seconds (25.6-37.1) 04/02/18 06:08 - Constitutional Appears: Other (Intubated and sedated) - Eye Exam Pupil Exam: Unequal Additional comments: sluggish pupillary reflex 3mm - Respiratory Exam Respiratory Exam: Accessory Muscle Use, Clear to Ausculation Bilateral - Cardiovascular Exam Cardiovascular Exam: REGULAR RHYTHM, +S1, +S2. absent: Rubs, Murmur - GI/Abdominal Exam GI & Abdominal Exam: Soft, Normal Bowel Sounds. absent: Distended Additional comments: Abdominal respirations visualized - Extremities Exam Extremities Exam: Normal Capillary Refill. absent: Pedal Edema - Neurological Exam Neurological Exam: absent: Alert, Awake, Oriented x3 Additional comments: Glasglow scale 4T - Skin Skin Exam: Dry, Intact, Warm Assessment and Plan - Assessment and Plan (Free Text) Assessment: 57 y/o M to the ER by EMS after found unconscious, S/p infield intubation, ACLS and ROSC, no acute EKG changes, with in the window of hypothermia protocol. Unclear precipitating event; however, patient has significant cardiac history and history of substance abuse. 1. Cardiac Arrest - Possibly due to substance abuse, UTox: + Cocain and Opiates - awaiting Cardio consult, Dr. Trevino, will follow recs - CT chest: no PE, Coiled NGT, Emphysematous changes on admission - ID, Dr. Josue consult appreciated - C/w IVF, Zosyn as per ID - CXR 04/04 ET tube and catheters in appropriate place; no acute changes. 2. Acute Respiratory failure - Possibly due to substance abuse , UTox: + Cocain and Opiates - Mechanically ventilated - Vent settings: FiO2 50, mechanical rate of 26, peep of 5. - ABG: pCo2 46, p02 124, ph 7.4 - Pulm, Dr. Gallegos, appreciate consult 3. Substance abuse - Chronic - UTox: + Cocain and Opiates - Mechanically ventilated - Benzo as indicated - s/p Narcan drip 4. Myoclonic seizure with GCS 4T, unclear if 2/2 hypoxia, anoxia vs substance intoxication - Improved - Neuro, Dr. Brown consult, recommends ativan 2mg Q4. Kepra 1500 mg Q12hrs - repeat CT head today and possible EEG - Benzo as indicated - S/p Narcan drip - on profolol 5. HTN - Chronic, currently hypotensive - Hold BP medications to bradycardia 6. GI PPX - Protonix 40 7. DVT PPX - SCD for now -(Emergency Contact: 1# Mr. Garza, son, [phone]. 2# Sister, Lara, Cell ) <Maria D Scales - Last Filed: 04/05/18 08:08> Objective - Vital Signs/Intake and Output Vital Signs (last 24 hours): Temp Pulse Resp BP Pulse Ox 100.5 F H 86 26 H 213/74 H 100 04/05/18 02:28 04/05/18 07:00 04/05/18 07:00 04/05/18 07:00 04/05/18 07:00 Intake and Output: 04/05/18 04/05/18 06:59 18:59 Intake Total 205 Output Total 600 Balance -395 - Medications Medications: Current Medications Acetaminophen (Tylenol 650mg/20.3ml Solution Ud) 650 mg PO Q6 PRN PRN Reason: Fever >100.4 F Last Admin: 04/04/18 22:42 Dose: 650 mg Amlodipine Besylate (Norvasc) 5 mg PO DAILY [facility] Last Admin: 04/04/18 09:06 Dose: 5 mg Carvedilol (Coreg) 25 mg PO Q12 [facility] Last Admin: 04/04/18 20:06 Dose: 25 mg Piperacillin Sod/Tazobactam (Sod 2.25 gm/ Sodium Chloride) 100 mls @ 100 mls/ hr IVPB Q12 [facility] PRN Reason: Protocol Last Admin: 04/04/18 20:03 Dose: 100 mls/hr Levetiracetam 1,500 mg/ Sodium (Chloride) 115 mls @ 215 mls/hr IVPB Q12 [facility] Last Admin: 04/04/18 20:03 Dose: 215 mls/hr Propofol (Diprivan) 1,000 mg in 100 mls @ 2.381 mls/hr IV .Q24H [facility]LA; 5 MCG/KG/ MIN PRN Reason: Protocol Stop: 04/06/18 11:08 Last Admin: 04/05/18 05:01 Dose: 15 mcg/kg/min, 7.144 mls/hr Lorazepam (Ativan) 2 mg IVP Q4H PRN PRN Reason: Seizure activity Last Admin: 04/05/18 05:02 Dose: 2 mg Pantoprazole Sodium (Protonix Inj) 40 mg IVP DAILY [facility] Last Admin: 04/04/18 09:07 Dose: 40 mg - Labs Labs: 04/05/18 06:28 04/05/18 04:00 PT 12.2 Seconds (9.8-13.1) 04/02/18 06:08 INR 1.1 (0.9-1.2) 04/02/18 06:08 APTT 31.1 Seconds (25.6-37.1) 04/02/18 06:08 Attending/Attestation - Attestation I have personally seen and examined this patient.: Yes I have fully participated in the care of the patient.: Yes I have reviewed all pertinent clinical information, including history, physical exam and plan: Yes
[2018-04-04] MEDS: Potassium CL 10mEq/100ml 100 ML IVPB SCH ×3 (09:07→11:33)
[2018-04-04] MEDS: levETIRAcetam 1,500 MG in Sodium Chloride 0.9% 100 ML IVPB SCH ×2 (09:13→20:03)
--- NOTE | 2018-04-04 15:41 | CP.PCM.PN ---
Subjective - Date & Time of Evaluation Date of Evaluation: 04/04/18 Time of Evaluation: 12:30 - Subjective Subjective: F/U Respiratory failure unresponsive, intubated, myoclonic jerks Objective - Vital Signs/Intake and Output Vital Signs (last 24 hours): Temp Pulse Resp BP Pulse Ox 80 F L 80 26 H 145/65 100 04/04/18 14:00 04/04/18 14:00 04/04/18 14:00 04/04/18 14:00 04/04/18 14:00 Intake and Output: 04/04/18 04/04/18 06:59 18:59 Intake Total 480 1160 Output Total 525 295 Balance -45 865 - Medications Medications: Current Medications Amlodipine Besylate (Norvasc) 5 mg PO DAILY [facility] Last Admin: 04/04/18 09:06 Dose: 5 mg Carvedilol (Coreg) 25 mg PO Q12 [facility]LA Last Admin: 04/04/18 09:10 Dose: 25 mg Piperacillin Sod/Tazobactam (Sod 2.25 gm/ Sodium Chloride) 100 mls @ 100 mls/ hr IVPB Q12 [facility] PRN Reason: Protocol Last Admin: 04/04/18 09:08 Dose: 100 mls/hr Levetiracetam 1,500 mg/ Sodium (Chloride) 115 mls @ 215 mls/hr IVPB Q12 [facility] Last Admin: 04/04/18 09:13 Dose: 215 mls/hr Propofol (Diprivan) 1,000 mg in 100 mls @ 2.381 mls/hr IV .Q24H [facility]; 5 MCG/KG/ MIN PRN Reason: Protocol Stop: 04/06/18 11:08 Last Titration: 04/04/18 11:15 Dose: 15 mcg/kg/min, 7.144 mls/hr Lorazepam (Ativan) 2 mg IVP Q4H PRN PRN Reason: Seizure activity Last Admin: 04/04/18 06:08 Dose: 2 mg Pantoprazole Sodium (Protonix Inj) 40 mg IVP DAILY [facility] Last Admin: 04/04/18 09:07 Dose: 40 mg - Labs Labs: 04/04/18 06:20 04/04/18 06:20 PT 12.2 Seconds (9.8-13.1) 04/02/18 06:08 INR 1.1 (0.9-1.2) 04/02/18 06:08 APTT 31.1 Seconds (25.6-37.1) 04/02/18 06:08 - Constitutional Appears: No Acute Distress, Chronically Ill - Head Exam Head Exam: NORMAL INSPECTION - Eye Exam Additional comments: Pupils 1-2mm, non reactive, no corneal reflex - ENT Exam Additional comments: intubated - Neck Exam Neck Exam: Normal Inspection - Respiratory Exam Respiratory Exam: Decreased Breath Sounds (at bases) - Cardiovascular Exam Cardiovascular Exam: REGULAR RHYTHM - GI/Abdominal Exam GI & Abdominal Exam: Soft, Normal Bowel Sounds - Extremities Exam Extremities Exam: Normal Inspection - Back Exam Back Exam: NORMAL INSPECTION - Neurological Exam Additional comments: unresponsive , comatose , myoclonic jerks - Skin Skin Exam: Warm Assessment and Plan (1) Hx-sudden cardiac arrest Status: Acute (2) Anoxic encephalopathy Status: Acute (3) Acute respiratory failure Status: Acute - Assessment and Plan (Free Text) Plan: ventilatory support, Keppra , Propofol, Coreg ,Zosyn, Patient to have CT Head , EEG , prognosis poor, terminal extubation discussed with Patient's family ICU Time: 30 min.
--- NOTE | 2018-04-04 15:54 | CT ---
PROCEDURE: CT HEAD WITHOUT CONTRAST. HISTORY: anoxic brain injury COMPARISON: None available. TECHNIQUE: Axial computed tomography images were obtained through the head/brain without intravenous contrast. Radiation dose: Total exam DLP = mGy-cm. This CT exam was performed using one or more of the following dose reduction techniques: Automated exposure control, adjustment of the mA and/or kV according to patient size, and/or use of iterative reconstruction technique. FINDINGS: HEMORRHAGE: No intracranial hemorrhage. BRAIN: No mass effect or edema. Abnormal density in the basal ganglia with loss of peripheral sulcal pattern.. VENTRICLES: Unremarkable. No hydrocephalus. CALVARIUM: Unremarkable. PARANASAL SINUSES: Unremarkable as visualized. No significant inflammatory changes. MASTOID AIR CELLS: Unremarkable as visualized. No inflammatory changes. OTHER FINDINGS: None. IMPRESSION: Abnormal appearance of the basal ganglia with loss of peripheral sulci.. Correlate for metabolic abnormality or anoxic injury.
--- NOTE | 2018-04-04 15:57 | RAD ---
HISTORY: intubated COMPARISON: No prior. FINDINGS: LUNGS: No active pulmonary disease. PLEURA: No significant pleural effusion identified, no pneumothorax apparent. CARDIOVASCULAR: Normal. OSSEOUS STRUCTURES: No significant abnormalities. VISUALIZED UPPER ABDOMEN: Normal. OTHER FINDINGS: Ett above dante.. IMPRESSION: No active disease.
--- NOTE | 2018-04-04 18:26 | PN ---
DATE: 04/04/2018 CRITICAL CARE PROGRESS NOTE LOCATION: The patient in ICU, bed 434. TIME SPENT: 45 minutes. The patient is seen and evaluated at the bedside. Past medical, surgical, social, and family history are reviewed. SUBJECTIVE: A 57-year-old male with history significant for multiple substance abuse; hypertension; coronary artery disease, status post coronary artery bypass graft surgery; recent cardiac catheterization in 12/2017, reportedly with patent grafts, admitted after being found unresponsive with no palpable pulse in the field, resuscitated, intubated, brought to ER. Initial CT negative for acute CVA, noted to be hypotensive requiring dopamine initially, placed on hypothermia protocol, rewarming completed by 9 o'clock yesterday. Overnight myoclonic jerks noted. Seen by neuro consult, recommended to continue Keppra with dose increased to 1500 mg a day, clonazepam, and also on Diprivan drip this morning; still noted to have intermittent trembling of both arms. No response to verbal stimuli, minimal response to noxious stimuli by moving his lower extremities. Blood pressure improved. Heart rate controlled. PHYSICAL EXAMINATION: SHU SIGNS: This morning vital signs temperature 97.7, heart rate of 80, regular, and blood pressure of 153/54. Intake 1321, output 1065. Positive balance 256. Weight 175 pounds. HEAD, EYES, EARS, NOSE, AND THROAT: Pupils on the right 2-3 mm, sluggish, poorly reactive. 2-3 mm on the left; no or minimal response to light reflex. LUNGS: Bilateral breath sounds, clear to auscultation. HEART: Rhythm regular. S1 and S2 normal intensity. No S3 or S4 gallop. No audible murmur. ABDOMEN: Bowel sounds are present and soft. Liver and spleen not palpable. Bladder not distended. Hadley in place, draining clear urine. NEUROLOGIC EXAMINATION: Responds to noxious painful stimuli by moving lower extremities. Pupils asymmetric and mildly reactive on the right. No gaze preference. Myoclonic jerks. Flaccid extremities. Plantar equivocal. CURRENT MEDICATIONS: Diprivan at 10 mL per hour, potassium chloride supplement, Zosyn 2.25 g IV every 12 hours, Protonix 40 IV daily, Ativan 2 mg IV every 4 hours p.r.n., Keppra 1500 mg every 12 hours, Coreg 25 mg p.o. every 12 hours, and amlodipine 5 mg daily. LABORATORY DATA: WBC 10.9, hemoglobin 13.5, hematocrit 40, platelet count of 180, neutrophils 84, lymphocytes 8.9. PT 12.2, INR 1.1, and PTT 31.1. ABG: pH 7.41, pCO2 of 46, pO2 of 124, oxygen saturation 99.3 on AC 26, 500, 50%, PEEP of 5. SMA-7: Sodium 142, potassium 3.4, chloride 101, CO2 of 29. Blood, urea, nitrogen 20, creatinine 0.8, random glucose 114, calcium 8.7. Total bilirubin 0.6, AST 128, ALT 69, alkaline phosphatase 94, total protein 6.9, and albumin 3.7. Urinalysis: Leukocyte esterase negative, RBC 61, WBC 3. Toxicology, urine drug screen opiates positive, cocaine positive, and alcohol 30. Serology influenza A and B negative. Microbiology, urine culture, no growth, colony less than 1000 CFU/mL. Blood culture, no growth. MRSA nasal smear negative. Chest x-ray: Tubes and the catheters unchanged in place. No active disease/infiltrate. CT head from this morning pending. IMPRESSION: 1. Neuro: Remains comatose. Anoxic encephalopathy, status post respiratory and/or cardiac arrest. History of substance abuse. Urine drug screen positive for opiates and cocaine. Continue ventilatory support. Keppra at the increased dose to reduce myoclonic jerks. Prognosis remains guarded. Follow CAT scan from this morning. EEG as recommended by Neuro. 2. Respiratory: Intubated for airway protection. No evidence of pneumonia. Empirically on Zosyn 2.25 g IV every 12 hours. 3. Cardiac: History of coronary artery disease, status post coronary artery bypass graft, status post recent catheterization with patent grafts. Hypertension, improved, currently on Coreg and amlodipine. 4. Gastrointestinal: Elevated liver enzymes secondary to acute ischemia secondary to cardiorespiratory arrest with poor perfusion, history of substance abuse. 5. Renal: BUN and creatinine within the range. Hypokalemia being supplemented. Magnesium and phosphorus level within normal limits. 6. Hematology: No leukocytosis. Hemoglobin and hematocrit and platelet count are within normal limits. 7. Endocrine: Maintain blood sugar below 180. Calcium, supplement as needed. 8: Psychiatric: History of substance abuse, unclear evidence of depression. 9. Prognosis remains guarded. Aware of discussion of primary medical doctor with family. Awaiting for repeat CT and EEG. Aware of family wish to discontinue if there is no significant change in his mental status and prognosis remains guarded. Patrick Adams MD
--- NOTE | 2018-04-04 20:37 | PN ---
DATE: 04/04/2018 SUBJECTIVE: The patient is comatose, on a vent, having recurrent seizures since last night. PHYSICAL EXAMINATION: VITAL SIGNS: Blood pressure 145/65, heart rate 80, temperature 98.6, respirations 26. HEENT: No pallor or icterus. CHEST: Minimal rhonchi. HEART: S1 and S2 regular. EXTREMITIES: No edema. LABORATORY DATA: Today's SMA-7 is within normal limits except for glucose of 114 and potassium 3.4. Today's hemoglobin and hematocrit are within normal limit, white count 10.9, platelet count 180,000. ASSESSMENT: 1. Status post cardiac arrest. 2. Consider anoxic encephalopathy. 3. Seizure activity. 4. Cocaine and opiate as well as alcohol abuse. 5. Mild hypokalemia. 6. Coronary artery disease, status post coronary artery bypass surgery. RECOMMENDATIONS: Continue current IV Ativan p.r.n. Continue Coreg at 25 mg twice a day, propofol infusion. Continue levetiracetam intravenously. Continue IV Zosyn 2.25 gm every 12 hours. The patient will go for repeat head CT scan today. Keo Trevino MD
[2018-04-04] MEDS: Acetaminophen 650mg/20.3ml solution UD PO PRN (22:42)
[2018-04-05] MEDS ORDERED: Labetalol 5 mg/ml Inj 20ML IVP STA (04:09)
[2018-04-05] MEDS: Propofol 10 mg/ml 1,000 MG/100 ML VIAL IV SCH ×2 (05:01→13:37)
[2018-04-05 05:56] LABS: ABG ALLEN TEST YES; ARTERIAL BLOOD GAS HCO3 28.3 mmol/L (21-28); ARTERIAL BLOOD GAS HEMOGLOBIN 12.8 g/dL (11.7-17.4); ARTERIAL BLOOD GAS O2 CAPACITY 17.9 mL/dL (16-24); ARTERIAL BLOOD GAS O2 CONTENT 17.8 ML/dL (15-23); ARTERIAL BLOOD GAS O2 SAT 99.4 % (95-98); ARTERIAL BLOOD GAS PCO2 33 mm/Hg (35-45); ARTERIAL BLOOD GAS PH 7.52 (7.35-7.45); ARTERIAL BLOOD GAS PO2 150 mm/Hg (80-100); ARTERIAL BLOOD GAS TCO2 27.9 mmol/L (22-28)
[2018-04-05 06:17] LABS: HEMOGLOBIN 12.3 g/dL (12.0-18.0); MEAN CELL VOLUME 95.5 fl (80.0-94.0); MEAN CORPUSCULAR HEMOGLOBIN 32.6 pg (27.0-31.0); MEAN CORPUSCULAR HGB CONC 34.2 g/dL (33.0-37.0); RBC 3.78 Mil/uL (4.40-5.90); RED CELL DISTRIBUTION WIDTH 13.7 % (11.5-14.5); WHITE BLOOD COUNT 8.4 K/uL (4.8-10.8)
[2018-04-05 07:02] LABS: ALBUMIN 3.3 g/dL (3.5-5.0); ALT/SGPT 50 U/L (21-72); AST/SGOT 114 U/L (17-59); BLOOD UREA NITROGEN 25 mg/dl (9-20); CALCIUM 8.6 mg/dL (8.4-10.2); GFR AFRICAN-AMERICAN > 60; GFR NON-AFRICAN AMERICAN > 60
--- NOTE | 2018-04-05 08:06 | CP.PCM.PN ---
Subjective - Date & Time of Evaluation Date of Evaluation: 04/05/18 Time of Evaluation: 08:06 - Subjective Subjective: Mr. Drew was seen and examined at the bedside in ICU. He remains on mechanical ventilator on PRVC mode. He doses not have any corneal with sclerae edema, or gag reflex, pupils not reactive to light accommodation, does not react to noxious stimuli, GCS- 3T. He uses accessory muscle for breathing and receiving sedation ( propofol) and ativan to aid with his tachypnea. He is febrile at this time with T-max 101.3, on hypothermia blanket and motrin was administered. His blood pressure is elevated with MAP over 100 on both the invasive BP monitoring and non-invasive BP.Repeat CT scan of the head showed anoxic brain injury. Objective - Vital Signs/Intake and Output Vital Signs (last 24 hours): Temp Pulse Resp BP Pulse Ox 100.5 F H 86 26 H 213/74 H 100 04/05/18 02:28 04/05/18 07:00 04/05/18 07:00 04/05/18 07:00 04/05/18 07:00 Intake and Output: 04/05/18 04/05/18 06:59 18:59 Intake Total 205 Output Total 600 Balance -395 - Medications Medications: Current Medications Acetaminophen (Tylenol 650mg/20.3ml Solution Ud) 650 mg PO Q6 PRN PRN Reason: Fever >100.4 F Last Admin: 04/04/18 22:42 Dose: 650 mg Amlodipine Besylate (Norvasc) 5 mg PO DAILY [facility] Last Admin: 04/04/18 09:06 Dose: 5 mg Carvedilol (Coreg) 25 mg PO Q12 [facility] Last Admin: 04/04/18 20:06 Dose: 25 mg Piperacillin Sod/Tazobactam (Sod 2.25 gm/ Sodium Chloride) 100 mls @ 100 mls/ hr IVPB Q12 [facility] PRN Reason: Protocol Last Admin: 04/04/18 20:03 Dose: 100 mls/hr Levetiracetam 1,500 mg/ Sodium (Chloride) 115 mls @ 215 mls/hr IVPB Q12 [facility] Last Admin: 04/04/18 20:03 Dose: 215 mls/hr Propofol (Diprivan) 1,000 mg in 100 mls @ 2.381 mls/hr IV .Q24H [facility]; 5 MCG/KG/ MIN PRN Reason: Protocol Stop: 04/06/18 11:08 Last Admin: 04/05/18 05:01 Dose: 15 mcg/kg/min, 7.144 mls/hr Lorazepam (Ativan) 2 mg IVP Q4H PRN PRN Reason: Seizure activity Last Admin: 04/05/18 05:02 Dose: 2 mg Pantoprazole Sodium (Protonix Inj) 40 mg IVP DAILY [facility] Last Admin: 04/04/18 09:07 Dose: 40 mg - Labs Labs: 04/05/18 06:28 04/05/18 04:00 PT 12.2 Seconds (9.8-13.1) 04/02/18 06:08 INR 1.1 (0.9-1.2) 04/02/18 06:08 APTT 31.1 Seconds (25.6-37.1) 04/02/18 06:08 - Constitutional Appears: No Acute Distress - Head Exam Head Exam: NORMAL INSPECTION - Eye Exam Pupil Exam: Fixed Additional comments: 2 mm - Neurological Exam Neuro motor strength exam: Left Upper Extremity: 0, Right Upper Extremity: 0, Left Lower Extremity: 0, Right Lower Extremity: 0 Additional comments: GCS- 3T. Assessment and Plan (1) Hypoxic brain injury Assessment & Plan: Case discussed with Dr. Brown, continue current medical regimen including ventilator and blood pressure management per ICU team.Pending EEG. Recommend blood pressure control, treat any underlying electrolyte abnormalities. Status: Acute
--- NOTE | 2018-04-05 08:20 | CP.CCUPN ---
CCU Subjective - Physician Review Events Since Last Encounter (Free Text): 04/05/18 The patient was Seen and examined by me at the bedside during ICU round, Medical records reviewed and Management issues were discussed and formulated with the house staff. Events reviewed He remains orally intubated and mechanically intubated PRVC AC20 [id number] FiO2 40% PEEP5. No neurological improvement, Remains unresponsive to painful stimuli, GCS- 3T + Myoclonic seizure Pt doses not have any corneal reflex, or gag reflex, pupils not reactive to light accommodation, But has cough reflex Resp nonlabored, spontaneous resp noted. Elevated BP. restarted on Cardene drip Has been evaluated by organ donation. Repeat CT scan of the head showed anoxic brain injury Scheduled for EEG CCU Objective - Vital Signs / Intake & Output Vital Signs (Last 4 hours): Vital Signs Pulse Resp BP Pulse Ox 04/05/18 07:00 86 26 H 213/74 H 100 04/05/18 06:00 77 26 H 183/75 H 100 04/05/18 05:00 74 25 H 173/66 H 100 Intake and Output (Last 8hrs): Intake & Output 04/04/18 04/05/18 04/05/18 22:59 06:59 14:59 Intake Total 175 85 Output Total 550 600 Balance -375 -515 Intake: IV 55 55 Intake, Piggyback 100 Oral 30 Tube Feeding 20 Output: Gastric Amount 100 Stomach 100 Urine 450 600 Urethral (Hadley) 450 600 - Physical Exam Head: Positive for: Normocephalic Pupils: Positive for: Non-Reactive Conjunctiva: Positive for: Normal Mouth: Positive for: Moist Mucous Membranes Respiratory/Chest: Positive for: Respiratory Distress, Decreased Breath Sounds, Tachypneic Cardiovascular: Positive for: Normal S1, S2, Bradycardic Abdomen: Negative for: Distention Upper Extremity: Negative for: Normal Inspection (Decerebrate posturing) Lower Extremity: Negative for: Normal Inspection Neurological: Negative for: GCS=15 ( GCS=15 (3T)), CN II-XII Intact, Speech Normal, Motor Func Grossly Intact, Normal Sensory Function, Normal Cerebellar Funct, Norm Deep Tendon Reflexes Skin: Positive for: Warm. Negative for: Rashes Psychiatric: Negative for: Alert, Oriented x 3 - Medications Active Medications: Active Medications Generic Name Dose Route Start Last Admin Trade Name Freq PRN Reason Stop Dose Admin Acetaminophen 650 mg 04/04/18 22:23 04/04/18 22:42 Tylenol 650mg/20.3ml Solution Ud PO 650 mg Q6 PRN Administration Fever >100.4 F Amlodipine Besylate 5 mg 04/03/18 15:15 04/04/18 09:06 Norvasc PO 5 mg DAILY CHELA Administration Carvedilol 25 mg 04/03/18 21:00 04/04/18 20:06 Coreg PO 25 mg Q12 CHELA Administration Piperacillin Sod/Tazobactam 100 mls @ 100 mls/hr 04/01/18 21:00 04/04/18 20: 03 Sod 2.25 gm/ Sodium Chloride IVPB 100 mls/hr Q12 CHELA Administration Protocol Levetiracetam 1,500 mg/ Sodium 115 mls @ 215 mls/hr 04/04/18 09:00 04/04/18 20:03 Chloride IVPB 215 mls/hr Q12 CHELA Administration Propofol 1,000 mg in 100 mls @ 2.381 mls/hr 04/04/18 11:15 04/05/18 05:01 Diprivan IV 04/06/18 11:08 15 mcg/kg/min .Q24H CHELA 7.144 mls/hr Protocol Administration 5 MCG/KG/MIN Lorazepam 2 mg 04/04/18 01:09 04/05/18 05:02 Ativan IVP 2 mg Q4H PRN Administration Seizure activity Pantoprazole Sodium 40 mg 04/02/18 09:00 04/04/18 09:07 Protonix Inj IVP 40 mg DAILY CHELA Administration - Patient Studies Lab Studies: Microbiology Studies 04/01/18 14:00 Blood Culture - Preliminary Blood NO GROWTH AFTER 3 DAYS 04/01/18 14:00 Blood Culture - Preliminary Blood NO GROWTH AFTER 3 DAYS Lab Studies 04/05/18 04/05/18 04/05/18 Range/Units 06:28 05:52 05:30 WBC 8.4 (4.8-10.8) K/uL RBC 3.78 L (4.40-5.90) Mil/uL Hgb 12.3 (12.0-18.0) g/dL Hct 36.1 (35.0-51.0) % MCV 95.5 H (80.0-94.0) fl MCH 32.6 H (27.0-31.0) pg MCHC 34.2 (33.0-37.0) g/dL RDW 13.7 (11.5-14.5) % Plt Count 185 (130-400) K/uL pCO2 33 L (35-45) mm/Hg pO2 150 H (80-100) mm/Hg HCO3 28.3 H (21-28) mmol/L ABG pH 7.52 H (7.35-7.45) ABG Total CO2 27.9 (22-28) mmol/L ABG O2 Saturation 99.4 H (95-98) % ABG O2 Content 17.8 (15-23) ML/dL ABG Base Excess 4.3 H (-2.0-3.0) mmol/L ABG Hemoglobin 12.8 (11.7-17.4) g/dL ABG Carboxyhemoglobin 1.2 (0.5-1.5) % POC ABG HHb (Measured) 0.6 (0.0-5.0) % ABG Methemoglobin 1.1 (0.0-3.0) % ABG O2 Capacity 17.9 (16-24) mL/dL Gerald Test Yes A-a O2 Difference 165.0 mm/Hg Hgb O2 Saturation 97.2 (95.0-98.0) % Vent Mode A/c Mechanical Rate 26 FiO2 50.0 % Tidal Volume 500 PEEP 5 Sodium (132-148) mmol/l Potassium (3.6-5.0) MMOL/L Chloride (98-107) mmol/L Carbon Dioxide (22-30) mmol/L Anion Gap (10-20) BUN (9-20) mg/dl Creatinine (0.8-1.5) mg/dl Est GFR ( Amer) Est GFR (Non-Af Amer) Random Glucose (75-110) mg/dL Calcium (8.4-10.2) mg/dL Total Bilirubin (0.2-1.3) mg/dl AST (17-59) U/L ALT (21-72) U/L Alkaline Phosphatase (38-126) U/L Total Protein (6.3-8.2) G/DL Albumin (3.5-5.0) g/dL Globulin (2.2-3.9) gm/dL Albumin/Globulin Ratio (1.0-2.1) BBK History Checked No verified bt 04/05/18 Range/Units 04:00 WBC (4.8-10.8) K/uL RBC (4.40-5.90) Mil/uL Hgb (12.0-18.0) g/dL Hct (35.0-51.0) % MCV (80.0-94.0) fl MCH (27.0-31.0) pg MCHC (33.0-37.0) g/dL RDW (11.5-14.5) % Plt Count (130-400) K/uL pCO2 (35-45) mm/Hg pO2 (80-100) mm/Hg HCO3 (21-28) mmol/L ABG pH (7.35-7.45) ABG Total CO2 (22-28) mmol/L ABG O2 Saturation (95-98) % ABG O2 Content (15-23) ML/dL ABG Base Excess (-2.0-3.0) mmol/L ABG Hemoglobin (11.7-17.4) g/dL ABG Carboxyhemoglobin (0.5-1.5) % POC ABG HHb (Measured) (0.0-5.0) % ABG Methemoglobin (0.0-3.0) % ABG O2 Capacity (16-24) mL/dL Gerald Test A-a O2 Difference mm/Hg Hgb O2 Saturation (95.0-98.0) % Vent Mode Mechanical Rate FiO2 % Tidal Volume PEEP Sodium 141 (132-148) mmol/l Potassium 3.3 L (3.6-5.0) MMOL/L Chloride 104 (98-107) mmol/L Carbon Dioxide 29 (22-30) mmol/L Anion Gap 11 (10-20) BUN 25 H (9-20) mg/dl Creatinine 1.2 (0.8-1.5) mg/dl Est GFR ( Amer) > 60 Est GFR (Non-Af Amer) > 60 Random Glucose 116 H (75-110) mg/dL Calcium 8.6 (8.4-10.2) mg/dL Total Bilirubin 0.6 (0.2-1.3) mg/dl AST 114 H (17-59) U/L ALT 50 (21-72) U/L Alkaline Phosphatase 88 (38-126) U/L Total Protein 6.5 (6.3-8.2) G/DL Albumin 3.3 L (3.5-5.0) g/dL Globulin 3.3 (2.2-3.9) gm/dL Albumin/Globulin Ratio 1.0 (1.0-2.1) BBK History Checked Laboratory Results - last 24 hr 04/05/18 04/05/18 04/05/18 04:00 05:30 05:52 WBC RBC Hgb Hct MCV MCH MCHC RDW Plt Count pCO2 33 L pO2 150 H HCO3 28.3 H ABG pH 7.52 H ABG Total CO2 27.9 ABG O2 Saturation 99.4 H ABG O2 Content 17.8 ABG Base Excess 4.3 H ABG Hemoglobin 12.8 ABG Carboxyhemoglobin 1.2 POC ABG HHb (Measured) 0.6 ABG Methemoglobin 1.1 ABG O2 Capacity 17.9 Gerald Test Yes A-a O2 Difference 165.0 Hgb O2 Saturation 97.2 Vent Mode A/c Mechanical Rate 26 FiO2 50.0 Tidal Volume 500 PEEP 5 Sodium 141 Potassium 3.3 L Chloride 104 Carbon Dioxide 29 Anion Gap 11 BUN 25 H Creatinine 1.2 Est GFR ( Amer) > 60 Est GFR (Non-Af Amer) > 60 Random Glucose 116 H Calcium 8.6 Total Bilirubin 0.6 AST 114 H ALT 50 Alkaline Phosphatase 88 Total Protein 6.5 Albumin 3.3 L Globulin 3.3 Albumin/Globulin Ratio 1.0 BBK History Checked No verified bt 04/05/18 06:28 WBC 8.4 RBC 3.78 L Hgb 12.3 Hct 36.1 MCV 95.5 H MCH 32.6 H MCHC 34.2 RDW 13.7 Plt Count 185 pCO2 pO2 HCO3 ABG pH ABG Total CO2 ABG O2 Saturation ABG O2 Content ABG Base Excess ABG Hemoglobin ABG Carboxyhemoglobin POC ABG HHb (Measured) ABG Methemoglobin ABG O2 Capacity Gerald Test A-a O2 Difference Hgb O2 Saturation Vent Mode Mechanical Rate FiO2 Tidal Volume PEEP Sodium Potassium Chloride Carbon Dioxide Anion Gap BUN Creatinine Est GFR ( Amer) Est GFR (Non-Af Amer) Random Glucose Calcium Total Bilirubin AST ALT Alkaline Phosphatase Total Protein Albumin Globulin Albumin/Globulin Ratio BBK History Checked Fingerstick Blood Sugar Results: 179 Review of Systems - Review of Systems Systems not reviewed;Unavailable: Intubated Critical Care Progress Note - Ventilator Checklist Head of Bed 30 Degrees: Yes Daily Sedation Vacation: Yes Daily Assessment of Readiness to Wean: Yes Daily Spontaneous Breathing Trial: Yes PUD Prophalyxis: Yes DVT Prophylaxis: Yes Oral Care with Chlorhexidine Gluconate {CHG}: Yes - Extremities/Vascular Does the Patient have a Central Venous Catheter?: Yes Does the Patient have a Hadley Catheter?: Yes Assessment/Plan (1) Cardiac arrest Current Visit: Yes Status: Acute Priority: High Comment: Post Hypothermia protocol No neurological improvement, Remains unresponsive to painful stimuli, GCS- 3T Possibly due to substance abuse (2) Acute respiratory failure Current Visit: Yes Status: Acute Priority: High Comment: Full vent support ABG, CXR reviewed, respiratory alkalosis, Vent sitting adjusted (3) Anoxic encephalopathy Current Visit: Yes Status: Acute Priority: High (4) Fever Current Visit: Yes Status: Acute Priority: High Comment: Sepsis work up in progress, Likely central No evidance of infection PRN acetaminophen 650mg PO Q6H Will remove TLC omce PIV placed (5) Myoclonic seizure Current Visit: Yes Status: Acute Priority: High (6) Substance abuse Current Visit: Yes Status: Acute Priority: High Comment: Urine Tox: + Cocain and Opiates
--- NOTE | 2018-04-05 08:24 | RAD ---
HISTORY: intubated COMPARISON: 04/04/2018 FINDINGS: LUNGS: No active pulmonary disease. PLEURA: No significant pleural effusion identified, no pneumothorax apparent. CARDIOVASCULAR: Normal heart size. Status post CABG. Sternotomy wires. ET tube and NG tube unchanged. OSSEOUS STRUCTURES: No significant abnormalities. VISUALIZED UPPER ABDOMEN: Normal. OTHER FINDINGS: None. IMPRESSION: No active disease.
[2018-04-05] MEDS: Acetaminophen 650mg/20.3ml solution UD PO PRN ×2 (08:43→20:15)
--- NOTE | 2018-04-05 08:45 | CP.PCM.PN ---
Subjective - Date & Time of Evaluation Date of Evaluation: 04/05/18 Time of Evaluation: 08:43 - Subjective Subjective: 57 y/o male seen and examined at bedside, on vent mechanical rate of 20, peep of 5, FiO2 40, not triggering vent. Continues to have absent gag reflex, non reactive to pain stimulus, sluggish pupillary reflex 3mm. Spiked a fever of 100.5 last night. Nursing notes reviewed. No other acute events. Objective - Vital Signs/Intake and Output Vital Signs (last 24 hours): Temp Pulse Resp BP Pulse Ox 100.5 F H 92 H 26 H 185/90 H 100 04/05/18 02:28 04/05/18 08:40 04/05/18 07:00 04/05/18 08:40 04/05/18 07:00 Intake and Output: 04/05/18 04/05/18 06:59 18:59 Intake Total 205 Output Total 600 Balance -395 - Medications Medications: Current Medications Acetaminophen (Tylenol 650mg/20.3ml Solution Ud) 650 mg PO Q6 PRN PRN Reason: Fever >100.4 F Last Admin: 04/04/18 22:42 Dose: 650 mg Amlodipine Besylate (Norvasc) 5 mg PO DAILY CHELA Last Admin: 04/05/18 08:40 Dose: 5 mg Carvedilol (Coreg) 25 mg PO Q12 CHELA Last Admin: 04/05/18 08:39 Dose: 25 mg Piperacillin Sod/Tazobactam (Sod 2.25 gm/ Sodium Chloride) 100 mls @ 100 mls/ hr IVPB Q12 CHELA PRN Reason: Protocol Last Admin: 04/04/18 20:03 Dose: 100 mls/hr Levetiracetam 1,500 mg/ Sodium (Chloride) 115 mls @ 215 mls/hr IVPB Q12 CHELA Last Admin: 04/04/18 20:03 Dose: 215 mls/hr Propofol (Diprivan) 1,000 mg in 100 mls @ 2.381 mls/hr IV .Q24H CHELA; 5 MCG/KG/ MIN PRN Reason: Protocol Stop: 04/06/18 11:08 Last Admin: 04/05/18 05:01 Dose: 15 mcg/kg/min, 7.144 mls/hr Lorazepam (Ativan) 2 mg IVP Q4H PRN PRN Reason: Seizure activity Last Admin: 04/05/18 05:02 Dose: 2 mg Pantoprazole Sodium (Protonix Inj) 40 mg IVP DAILY CHELA Last Admin: 04/05/18 08:40 Dose: 40 mg - Labs Labs: 04/05/18 06:28 04/05/18 04:00 PT 12.2 Seconds (9.8-13.1) 04/02/18 06:08 INR 1.1 (0.9-1.2) 04/02/18 06:08 APTT 31.1 Seconds (25.6-37.1) 04/02/18 06:08 - Eye Exam Additional comments: sluggish and minimally reactive pupillary reflex - Respiratory Exam Respiratory Exam: Accessory Muscle Use, Clear to Ausculation Bilateral. absent : Stridor Additional comments: unable to trigger vent on mechanical rate of 26 - Cardiovascular Exam Cardiovascular Exam: REGULAR RHYTHM, +S1, +S2 - GI/Abdominal Exam GI & Abdominal Exam: Soft, Normal Bowel Sounds. absent: Distended Additional comments: Abdominal breathing present - Extremities Exam Extremities Exam: absent: Pedal Edema - Neurological Exam Neurological Exam: absent: Alert, Altered, Awake, Oriented x3, Reflexes Normal Assessment and Plan - Assessment and Plan (Free Text) Assessment: 57 y/o M brought to ER by EMS after found unconscious, S/p infield intubation, ACLS and ROSC, no acute EKG changes, with in the window of hypothermia protocol. Unclear precipitating event; however, patient has significant cardiac history and history of substance abuse. 1. Cardiac Arrest - Possibly due to substance abuse, UTox: + Cocain and Opiates -Seen by cardio, appreciate recs - CT chest: no PE, Coiled NGT, Emphysematous changes on admission - ID, Dr. Josue consult appreciated - C/w IVF, Zosyn as per ID - CXR 04/05 no active disease/ no acute changes, will repeat in AM 2. Acute Respiratory failure -respiratory alkalosis (04/05 ABG: pCo2 33, p02 150, ph 7.52) -adjusting mechanical ventilation to FiO2 of 40, TV of 480 and RR of 20 -repeat ABGs in an hour -Possibly due to substance abuse , UTox: + Cocain and Opiates -Pulm, Dr. Gallegos, appreciate consult 3. Fever -Temp of 100.5 -urine culture and blood culture pending -consider central line removal -On acetaminophen 650mg PO Q6H PRN 4. Substance abuse -Chronic - UTox: + Cocain and Opiates - Mechanically ventilated - Benzo as indicated - s/p Narcan drip 5. Myoclonic seizure with GCS 4T, unclear if 2/2 hypoxia, anoxia vs substance intoxication - Improved - Neuro, Dr. Brown consult, recommends ativan 2mg Q4. Kepra 1500 mg Q12hrs - EEG today - Benzo as indicated - S/p Narcan drip - on profolol 6. HTN - Chronic, currently hypertensive (low 200s/70s oer A-line) -started on Nicardipine 50 mL/hr IVQ4H 7. GI PPX - Protonix 40 8. DVT PPX - SCD for now -(Emergency Contact: 1# Mr. Garza, son, [phone]. 2# Sister, Lara, Cell )
[2018-04-05] MEDS: levETIRAcetam 1,500 MG in Sodium Chloride 0.9% 100 ML IVPB SCH ×2 (10:42→20:07)
[2018-04-05] MEDS ORDERED: Potassium CL 10 MEQ/50 ML 50 ML IVPB SCH (11:00)
[2018-04-05] MEDS: Nicardipine 20 MG/200 ML 20 MG/200 ML BAG IV SCH ×4 (11:42→21:35)
--- NOTE | 2018-04-05 12:14 | RAD ---
HISTORY: intubated COMPARISON: 04/05/2018 FINDINGS: LUNGS: No active pulmonary disease. PLEURA: Mild elevation left hemidiaphragm, nonspecific. No pleural effusion CARDIOVASCULAR: Normal heart size. CABG. ET tube unchanged. NG tube. OSSEOUS STRUCTURES: No significant abnormalities. VISUALIZED UPPER ABDOMEN: Normal. OTHER FINDINGS: None. IMPRESSION: No active disease.
[2018-04-05] MEDS ORDERED: Chlorhexidine Gluconate 1 APPL/PKT TP ONE (15:28)
--- NOTE | 2018-04-05 20:07 | CP.PCM.PN ---
Subjective - Date & Time of Evaluation Date of Evaluation: 04/05/18 Time of Evaluation: 10:00 - Subjective Subjective: F/U respiratory failure Pt unresponsive. Objective - Vital Signs/Intake and Output Vital Signs (last 24 hours): Temp Pulse Resp BP Pulse Ox 104 F H 101 H 11 L 179/72 H 100 04/05/18 19:00 04/05/18 19:00 04/05/18 19:00 04/05/18 19:00 04/05/18 19:00 Intake and Output: 04/05/18 04/06/18 18:59 06:59 Intake Total 1593 200 Output Total 1500 Balance 93 200 - Medications Medications: Current Medications Acetaminophen (Tylenol 650mg/20.3ml Solution Ud) 650 mg PO Q6 PRN PRN Reason: Fever >100.4 F Last Admin: 04/05/18 08:43 Dose: 650 mg Amlodipine Besylate (Norvasc) 5 mg PO DAILY CHELA Last Admin: 04/05/18 08:40 Dose: 5 mg Carvedilol (Coreg) 25 mg PO Q12 CHELA Last Admin: 04/05/18 08:39 Dose: 25 mg Piperacillin Sod/Tazobactam (Sod 2.25 gm/ Sodium Chloride) 100 mls @ 100 mls/ hr IVPB Q12 CHELA PRN Reason: Protocol Last Admin: 04/05/18 20:07 Dose: 100 mls/hr Levetiracetam 1,500 mg/ Sodium (Chloride) 115 mls @ 215 mls/hr IVPB Q12 CEHLA Last Admin: 04/05/18 10:42 Dose: 215 mls/hr Propofol (Diprivan) 1,000 mg in 100 mls @ 2.381 mls/hr IV .Q24H CHELA; 5 MCG/KG/ MIN PRN Reason: Protocol Stop: 04/06/18 11:08 Last Admin: 04/05/18 13:37 Dose: 20 mcg/kg/min, 9.525 mls/hr Nicardipine HCl (Cardene Iv Premix) 20 mg in 200 mls @ 50 mls/hr IV .Q4H CHELA; 5 MG/HR PRN Reason: Protocol Last Admin: 04/05/18 19:27 Dose: 5 mg/hr, 50 mls/hr Lorazepam (Ativan) 2 mg IVP Q4H PRN PRN Reason: Seizure activity Last Admin: 04/05/18 13:57 Dose: 2 mg Pantoprazole Sodium (Protonix Inj) 40 mg IVP DAILY CHELA Last Admin: 04/05/18 08:40 Dose: 40 mg - Labs Labs: 04/05/18 06:28 04/05/18 04:00 PT 12.2 Seconds (9.8-13.1) 04/02/18 06:08 INR 1.1 (0.9-1.2) 04/02/18 06:08 APTT 31.1 Seconds (25.6-37.1) 04/02/18 06:08 - Constitutional Appears: No Acute Distress, Chronically Ill - Head Exam Head Exam: NORMAL INSPECTION - Eye Exam Additional comments: Pupils 1-2 mm, non reactive, no corneal reflex - ENT Exam Additional comments: Intubated - Neck Exam Neck Exam: Normal Inspection - Respiratory Exam Respiratory Exam: Decreased Breath Sounds (at bases) Additional comments: Rapid respiratory rate. - Cardiovascular Exam Cardiovascular Exam: REGULAR RHYTHM - GI/Abdominal Exam GI & Abdominal Exam: Soft, Normal Bowel Sounds - Extremities Exam Extremities Exam: Normal Inspection - Back Exam Back Exam: NORMAL INSPECTION - Neurological Exam Additional comments: Unresponsive, comatose, myoclonic jerks - Skin Skin Exam: Warm Assessment and Plan (1) Hx-sudden cardiac arrest Status: Acute (2) Anoxic encephalopathy Status: Acute (3) Acute respiratory failure Status: Acute (4) High fever Status: Acute - Assessment and Plan (Free Text) Plan: Continue ventilatory support, TMAx 104F neurogenic, on Propofol, high BP on Cardene drip. ICU Time: 32 min.
--- NOTE | 2018-04-05 20:21 | PN ---
DATE: 04/05/2018 SUBJECTIVE: The patient is still deeply comatose, is tachypneic. PHYSICAL EXAMINATION: VITAL SIGNS: Blood pressure 198/60, heart rate 98, temperature 104.1, respirations 34. HEENT: No pallor or icterus. CHEST: Diffuse bilateral rhonchi. HEART: S1 and S2 regular. EXTREMITIES: No edema. LABORATORY DATA: Today's hemoglobin, hematocrit, white count, and platelet count are within normal limit. Today's SMA-7 is within normal limit except glucose of 116, potassium 3.3, and BUN of 25. Repeat chest CT scan done yesterday, abnormal appearance of the basal ganglia as well as peripheral sulci. Chest x-ray was unremarkable. ET tube is in a proper position. ASSESSMENT: 1. Status post cardiac arrest. 2. Consider anoxic encephalopathy. 3. Cocaine and opiate as well as alcohol abuse. 4. Hypokalemia. RECOMMENDATIONS: Case was discussed with the clarification operator, Dr. Yang. Continue current IV Cardene. Continue Coreg 25 mg twice a day and Norvasc 5 mg daily, Zosyn 2.25 gm intravenously every 12 hours. Overall, prognosis is grief. Keo Trevino MD
[2018-04-05 22:47] LABS: SQUAMOUS EPITHIAL < 1 /hpf (0-5); URINE BILIRUBIN NEGATIVE (NEGATIVE); URINE BLOOD LARGE (NEGATIVE); URINE CLARITY SLIGHTY-CLOUDY (Clear); URINE COLOR YELLOW (YELLOW); URINE GLUCOSE (UA) NEG (Normal); URINE LEUKOCYTE ESTERASE NEG Leu/uL (Negative); URINE PROTEIN 100 mg/dL (NEGATIVE); URINE UROBILINOGEN 0.2-1.0 mg/dL (0.2-1.0)
[2018-04-06] MEDS: Propofol 10 mg/ml 1,000 MG/100 ML VIAL IV SCH (01:39)
[2018-04-06] MEDS: Acetaminophen 650mg/20.3ml solution UD PO PRN ×3 (01:40→20:02)
[2018-04-06 04:49] LABS: ABG ALLEN TEST YES; ARTERIAL BLOOD GAS HCO3 28.1 mmol/L (21-28); ARTERIAL BLOOD GAS HEMOGLOBIN 12.5 g/dL (11.7-17.4); ARTERIAL BLOOD GAS O2 CAPACITY 16.9 mL/dL (16-24); ARTERIAL BLOOD GAS O2 CONTENT 16.5 ML/dL (15-23); ARTERIAL BLOOD GAS O2 SAT 97.4 % (95-98); ARTERIAL BLOOD GAS PCO2 35 mm/Hg (35-45); ARTERIAL BLOOD GAS PO2 71 mm/Hg (80-100); ARTERIAL BLOOD GAS TCO2 28.4 mmol/L (22-28)
[2018-04-06 05:50] LABS: HEMOGLOBIN 12.4 g/dL (12.0-18.0); MEAN CELL VOLUME 96.1 fl (80.0-94.0); MEAN CORPUSCULAR HEMOGLOBIN 32.7 pg (27.0-31.0); RBC 3.8 Mil/uL (4.40-5.90); WHITE BLOOD COUNT 8.5 K/uL (4.8-10.8)
[2018-04-06 06:03] LABS: ALB/GLOB RATIO 1.1 (1.0-2.1); ALBUMIN 3.4 g/dL (3.5-5.0); ALT/SGPT 59 U/L (21-72); AST/SGOT 104 U/L (17-59); BLOOD UREA NITROGEN 24 mg/dl (9-20); CALCIUM 8.1 mg/dL (8.4-10.2); GFR AFRICAN-AMERICAN > 60; GFR NON-AFRICAN AMERICAN > 60
--- NOTE | 2018-04-06 07:51 | RAD ---
HISTORY: intubated COMPARISON: Portable chest 04/05/2018. FINDINGS: LUNGS: Endotracheal tube is unchanged with nasogastric tube entering into the abdomen. No active airspace disease appreciable. . PLEURA: No significant pleural effusion identified, no pneumothorax apparent. CARDIOVASCULAR: Cardiac size remains normal. No pulmonary vascular congestion. Post CABG changes reiterated. External pacer/ defibrillator in position. OSSEOUS STRUCTURES: No significant abnormalities. VISUALIZED UPPER ABDOMEN: Normal. OTHER FINDINGS: None. IMPRESSION: Stable chest radiograph with no infiltrate, pleural or pericardial effusion evident or active CHF. ET and nasogastric tubes reiterated.
--- NOTE | 2018-04-06 08:25 | CP.PCM.PN ---
Subjective - Date & Time of Evaluation Date of Evaluation: 04/06/18 Time of Evaluation: 08:23 - Subjective Subjective: 57 y/o male remains seen and examined at bedside, on vent mechanical rate of 20 , peep of 5, FiO2 40, not triggering vent. He is non reactive to pain stimulus, sluggish pupillary reflex, and is now afebrile. Girlfriend is at bedside. No acute events over night. Objective - Vital Signs/Intake and Output Vital Signs (last 24 hours): Temp Pulse Resp BP Pulse Ox 99.4 F 66 25 H 121/51 L 96 04/06/18 07:00 04/06/18 08:00 04/06/18 08:00 04/06/18 08:00 04/06/18 08:00 Intake and Output: 04/06/18 04/06/18 06:59 18:59 Intake Total 915 18 Balance 915 18 - Medications Medications: Current Medications Acetaminophen (Tylenol 650mg/20.3ml Solution Ud) 650 mg PO Q6 PRN PRN Reason: Fever >100.4 F Last Admin: 04/06/18 01:40 Dose: 650 mg Amlodipine Besylate (Norvasc) 5 mg PO DAILY CHELA Last Admin: 04/05/18 08:40 Dose: 5 mg Carvedilol (Coreg) 25 mg PO Q12 CHELA Last Admin: 04/05/18 20:08 Dose: 25 mg Piperacillin Sod/Tazobactam (Sod 2.25 gm/ Sodium Chloride) 100 mls @ 100 mls/ hr IVPB Q12 CHELA PRN Reason: Protocol Last Admin: 04/05/18 20:07 Dose: 100 mls/hr Levetiracetam 1,500 mg/ Sodium (Chloride) 115 mls @ 215 mls/hr IVPB Q12 CHELA Last Admin: 04/05/18 20:07 Dose: 215 mls/hr Propofol (Diprivan) 1,000 mg in 100 mls @ 2.381 mls/hr IV .Q24H CHELA; 5 MCG/KG/ MIN PRN Reason: Protocol Stop: 04/06/18 11:08 Last Admin: 04/06/18 01:39 Dose: 20 mcg/kg/min, 9.525 mls/hr Nicardipine HCl (Cardene Iv Premix) 20 mg in 200 mls @ 50 mls/hr IV .Q4H CHELA; 5 MG/HR PRN Reason: Protocol Last Titration: 04/05/18 21:41 Dose: 0 mg/hr, 0 mls/hr Lorazepam (Ativan) 2 mg IVP Q4H PRN PRN Reason: Seizure activity Last Admin: 04/05/18 13:57 Dose: 2 mg Pantoprazole Sodium (Protonix Inj) 40 mg IVP DAILY CHELA Last Admin: 04/05/18 08:40 Dose: 40 mg - Labs Labs: 04/06/18 04:30 04/06/18 04:30 PT 12.2 Seconds (9.8-13.1) 04/02/18 06:08 INR 1.1 (0.9-1.2) 04/02/18 06:08 APTT 31.1 Seconds (25.6-37.1) 04/02/18 06:08 - Constitutional Appears: No Acute Distress - Eye Exam Additional comments: sluggish pupillary reflex - Neck Exam Neck Exam: Normal Inspection - Respiratory Exam Respiratory Exam: Decreased Breath Sounds Additional comments: On a/c mechanical ventilation - Cardiovascular Exam Cardiovascular Exam: REGULAR RHYTHM, +S1, +S2 - GI/Abdominal Exam GI & Abdominal Exam: Soft - Extremities Exam Extremities Exam: absent: Pedal Edema - Neurological Exam Neurological Exam: absent: Alert, Awake, Oriented x3 Additional comments: Unresponsive, comatose - Skin Skin Exam: Dry, Intact, Warm Assessment and Plan - Assessment and Plan (Free Text) Assessment: Assessment: 57 y/o M brought to ER by EMS after found unconscious, s/p infield intubation, ACLS and ROSC, no acute EKG changes, with in the window of hypothermia protocol. Unclear precipitating event; however, patient has significant cardiac history and history of substance abuse. 1. Cardiac Arrest - Possibly due to substance abuse, UTox: + Cocain and Opiates -Seen by cardio, appreciate recs - CXR 04/06 normal; no infiltrate, pleural or pericardial effusions or active CHF. ET and NG tubes in place. - due to guarded prognosis, pending EEG report, will guide treatment strategies and interventions 2. Acute Respiratory failure -respiratory alkalosis (04/06 HC03 28.1 ABG: pCo2 35, ph 7.5) -mechanical ventilation settings: FiO2 of 40, TV of 480 and RR of 20 -repeat ABG in the AM -Possibly due to substance abuse , UTox: + Cocain and Opiates -PulmDr. Gallegos, appreciate consult 3. Febrile -Temp of 101 today -urine culture and blood culture negative 04/06 -On acetaminophen 650mg PO Q6H PRN -Dr. Joselo garzon, appreciate recs 4. Substance abuse -Chronic - UTox: + Cocain and Opiates - Mechanically ventilated - Benzo as indicated - s/p Narcan drip 5. Myoclonic seizure with GCS 4T, unclear if 2/2 hypoxia, anoxia vs substance intoxication - Improved - Neuro, Dr. Brown consult, recommends ativan 2mg Q4. Kepra 1500 mg Q12hrs - EEG today - Benzo as indicated - S/p Narcan drip - on profolol 6. HTN - Chronic, currently hypotensive at 76/43 -held Nicardipine 50 mL/hr IVQ4H and Carvedilol 25mg PO Q12 7. GI PPX - Protonix 40 8. DVT PPX - SCD for now -(Emergency Contact: 1# Mr. Garza, son, [phone]. 2# Sister, Lara, Cell [phone])
--- NOTE | 2018-04-06 08:31 | CP.CCUPN ---
CCU Objective - Vital Signs / Intake & Output Vital Signs (Last 4 hours): Vital Signs Temp Pulse Resp BP Pulse Ox 04/06/18 08:00 66 25 H 121/51 L 96 04/06/18 07:00 99.4 F 67 18 126/50 L 98 04/06/18 06:36 99.4 F 66 20 123/52 L 98 04/06/18 06:00 99.7 F H 66 18 123/52 L 98 04/06/18 05:00 99.8 F H 66 28 H 109/50 L 95 Intake and Output (Last 8hrs): Intake & Output 04/05/18 04/06/18 04/06/18 22:59 06:59 14:59 Intake Total 1266 85 18 Output Total 1500 Balance -234 85 18 Weight 178 lb Intake: IV 916 43 18 Intake, Piggyback 300 42 Oral 0 Tube Feeding 50 0 Output: Urine 1500 Urethral (Hadley) 1500 Other: # Voids Urethral (Hadley) 600 # Bowel Movements 0 - Physical Exam Head: Positive for: Normocephalic Pupils: Positive for: Non-Reactive Conjunctiva: Positive for: Normal Mouth: Positive for: Moist Mucous Membranes Respiratory/Chest: Positive for: Respiratory Distress, Decreased Breath Sounds, Tachypneic Cardiovascular: Positive for: Normal S1, S2, Bradycardic Abdomen: Negative for: Distention Upper Extremity: Negative for: Normal Inspection (Decerebrate posturing) Lower Extremity: Negative for: Normal Inspection Neurological: Negative for: GCS=15 ( GCS=15 (3T)), CN II-XII Intact, Speech Normal, Motor Func Grossly Intact, Normal Sensory Function, Normal Cerebellar Funct, Norm Deep Tendon Reflexes Skin: Positive for: Warm. Negative for: Rashes Psychiatric: Negative for: Alert, Oriented x 3 - Medications Active Medications: Active Medications Generic Name Dose Route Start Last Admin Trade Name Freq PRN Reason Stop Dose Admin Acetaminophen 650 mg 04/04/18 22:23 04/06/18 01:40 Tylenol 650mg/20.3ml Solution Ud PO 650 mg Q6 PRN Administration Fever >100.4 F Amlodipine Besylate 5 mg 04/03/18 15:15 04/05/18 08:40 Norvasc PO 5 mg DAILY CHELA Administration Carvedilol 25 mg 04/03/18 21:00 04/05/18 20:08 Coreg PO 25 mg Q12 CHELA Administration Piperacillin Sod/Tazobactam 100 mls @ 100 mls/hr 04/01/18 21:00 04/05/18 20: 07 Sod 2.25 gm/ Sodium Chloride IVPB 100 mls/hr Q12 CHELA Administration Protocol Levetiracetam 1,500 mg/ Sodium 115 mls @ 215 mls/hr 04/04/18 09:00 04/05/18 20:07 Chloride IVPB 215 mls/hr Q12 CHELA Administration Propofol 1,000 mg in 100 mls @ 2.381 mls/hr 04/04/18 11:15 04/06/18 01:39 Diprivan IV 04/06/18 11:08 20 mcg/kg/min .Q24H CHELA 9.525 mls/hr Protocol Administration 5 MCG/KG/MIN Nicardipine HCl 20 mg in 200 mls @ 50 mls/hr 04/05/18 10:32 04/05/18 21:41 Cardene Iv Premix IV 0 mg/hr .Q4H CHELA 0 mls/hr Protocol Titration 5 MG/HR Lorazepam 2 mg 04/04/18 01:09 04/05/18 13:57 Ativan IVP 2 mg Q4H PRN Administration Seizure activity Pantoprazole Sodium 40 mg 04/02/18 09:00 04/05/18 08:40 Protonix Inj IVP 40 mg DAILY CHELA Administration - Patient Studies Lab Studies: Microbiology Studies 04/01/18 14:00 Blood Culture - Preliminary Blood NO GROWTH AFTER 4 DAYS 04/01/18 14:00 Blood Culture - Preliminary Blood NO GROWTH AFTER 4 DAYS Lab Studies 04/06/18 04/06/18 04/06/18 Range/Units 04:45 04:30 04:30 WBC 8.5 (4.8-10.8) K/uL RBC 3.80 L (4.40-5.90) Mil/uL Hgb 12.4 (12.0-18.0) g/dL Hct 36.5 (35.0-51.0) % MCV 96.1 H (80.0-94.0) fl MCH 32.7 H (27.0-31.0) pg MCHC 34.0 (33.0-37.0) g/dL RDW 14.0 (11.5-14.5) % Plt Count 169 (130-400) K/uL pCO2 35 (35-45) mm/Hg pO2 71 L (80-100) mm/Hg HCO3 28.1 H (21-28) mmol/L ABG pH 7.50 H (7.35-7.45) ABG Total CO2 28.4 H (22-28) mmol/L ABG O2 Saturation 97.4 (95-98) % ABG O2 Content 16.5 (15-23) ML/dL ABG Base Excess 4.2 H (-2.0-3.0) mmol/L ABG Hemoglobin 12.5 (11.7-17.4) g/dL ABG Carboxyhemoglobin 2.0 H (0.5-1.5) % POC ABG HHb (Measured) 2.5 (0.0-5.0) % ABG Methemoglobin 1.6 (0.0-3.0) % ABG O2 Capacity 16.9 (16-24) mL/dL Gerald Test Yes A-a O2 Difference 170.0 mm/Hg Hgb O2 Saturation 93.8 L (95.0-98.0) % Vent Mode A/c Mechanical Rate 20 FiO2 40.0 % Tidal Volume 480 PEEP 5 Sodium 143 (132-148) mmol/l Potassium 3.1 L (3.6-5.0) MMOL/L Chloride 105 (98-107) mmol/L Carbon Dioxide 30 (22-30) mmol/L Anion Gap 11 (10-20) BUN 24 H (9-20) mg/dl Creatinine 1.1 (0.8-1.5) mg/dl Est GFR ( Amer) > 60 Est GFR (Non-Af Amer) > 60 Random Glucose 154 H (75-110) mg/dL Calcium 8.1 L (8.4-10.2) mg/dL Total Bilirubin 0.9 (0.2-1.3) mg/dl AST 104 H (17-59) U/L ALT 59 (21-72) U/L Alkaline Phosphatase 99 (38-126) U/L Total Protein 6.6 (6.3-8.2) G/DL Albumin 3.4 L (3.5-5.0) g/dL Globulin 3.2 (2.2-3.9) gm/dL Albumin/Globulin Ratio 1.1 (1.0-2.1) Urine Color (YELLOW) Urine Clarity (Clear) Urine pH (5.0-8.0) Ur Specific [place] (1.003-1.030) Urine Protein (NEGATIVE) mg/dL Urine Glucose (UA) (Normal) mg/dL Urine Ketones (NEGATIVE) mg/dL Urine Blood (NEGATIVE) Urine Nitrate (NEGATIVE) Urine Bilirubin (NEGATIVE) Urine Urobilinogen (0.2-1.0) mg/dL Ur Leukocyte Esterase (Negative) Addy/uL Urine RBC (Auto) (0-3) /hpf Urine Microscopic WBC (0-5) /hpf Ur Squamous Epith Cells (0-5) /hpf Blood Type Blood Type Confirm Antibody Screen 04/05/18 04/05/18 04/05/18 Range/Units 22:15 07:04 05:30 WBC (4.8-10.8) K/uL RBC (4.40-5.90) Mil/uL Hgb (12.0-18.0) g/dL Hct (35.0-51.0) % MCV (80.0-94.0) fl MCH (27.0-31.0) pg MCHC (33.0-37.0) g/dL RDW (11.5-14.5) % Plt Count (130-400) K/uL pCO2 (35-45) mm/Hg pO2 (80-100) mm/Hg HCO3 (21-28) mmol/L ABG pH (7.35-7.45) ABG Total CO2 (22-28) mmol/L ABG O2 Saturation (95-98) % ABG O2 Content (15-23) ML/dL ABG Base Excess (-2.0-3.0) mmol/L ABG Hemoglobin (11.7-17.4) g/dL ABG Carboxyhemoglobin (0.5-1.5) % POC ABG HHb (Measured) (0.0-5.0) % ABG Methemoglobin (0.0-3.0) % ABG O2 Capacity (16-24) mL/dL Gerald Test A-a O2 Difference mm/Hg Hgb O2 Saturation (95.0-98.0) % Vent Mode Mechanical Rate FiO2 % Tidal Volume PEEP Sodium (132-148) mmol/l Potassium (3.6-5.0) MMOL/L Chloride (98-107) mmol/L Carbon Dioxide (22-30) mmol/L Anion Gap (10-20) BUN (9-20) mg/dl Creatinine (0.8-1.5) mg/dl Est GFR ( Amer) Est GFR (Non-Af Amer) Random Glucose (75-110) mg/dL Calcium (8.4-10.2) mg/dL Total Bilirubin (0.2-1.3) mg/dl AST (17-59) U/L ALT (21-72) U/L Alkaline Phosphatase (38-126) U/L Total Protein (6.3-8.2) G/DL Albumin (3.5-5.0) g/dL Globulin (2.2-3.9) gm/dL Albumin/Globulin Ratio (1.0-2.1) Urine Color Yellow (YELLOW) Urine Clarity Slighty-cloudy (Clear) Urine pH 6.0 (5.0-8.0) Ur Specific [place] 1.016 (1.003-1.030) Urine Protein 100 (NEGATIVE) mg/dL Urine Glucose (UA) Neg (Normal) mg/dL Urine Ketones Trace (NEGATIVE) mg/dL Urine Blood Large (NEGATIVE) Urine Nitrate Negative (NEGATIVE) Urine Bilirubin Negative (NEGATIVE) Urine Urobilinogen 0.2-1.0 (0.2-1.0) mg/dL Ur Leukocyte Esterase Neg (Negative) Addy/uL Urine RBC (Auto) 304 H (0-3) /hpf Urine Microscopic WBC 3 (0-5) /hpf Ur Squamous Epith Cells < 1 (0-5) /hpf Blood Type O POSITIVE Blood Type Confirm O POSITIVE Antibody Screen Negative Laboratory Results - last 24 hr 04/05/18 04/05/18 04/05/18 05:30 07:04 22:15 WBC RBC Hgb Hct MCV MCH MCHC RDW Plt Count pCO2 pO2 HCO3 ABG pH ABG Total CO2 ABG O2 Saturation ABG O2 Content ABG Base Excess ABG Hemoglobin ABG Carboxyhemoglobin POC ABG HHb (Measured) ABG Methemoglobin ABG O2 Capacity Gerald Test A-a O2 Difference Hgb O2 Saturation Vent Mode Mechanical Rate FiO2 Tidal Volume PEEP Sodium Potassium Chloride Carbon Dioxide Anion Gap BUN Creatinine Est GFR ( Amer) Est GFR (Non-Af Amer) Random Glucose Calcium Total Bilirubin AST ALT Alkaline Phosphatase Total Protein Albumin Globulin Albumin/Globulin Ratio Urine Color Yellow Urine Clarity Slighty-cloudy Urine pH 6.0 Ur Specific [place] 1.016 Urine Protein 100 Urine Glucose (UA) Neg Urine Ketones Trace Urine Blood Large Urine Nitrate Negative Urine Bilirubin Negative Urine Urobilinogen 0.2-1.0 Ur Leukocyte Esterase Neg Urine RBC (Auto) 304 H Urine Microscopic WBC 3 Ur Squamous Epith Cells < 1 Blood Type O POSITIVE Blood Type Confirm O POSITIVE Antibody Screen Negative 04/06/18 04/06/18 04/06/18 04:30 04:30 04:45 WBC 8.5 RBC 3.80 L Hgb 12.4 Hct 36.5 MCV 96.1 H MCH 32.7 H MCHC 34.0 RDW 14.0 Plt Count 169 pCO2 35 pO2 71 L HCO3 28.1 H ABG pH 7.50 H ABG Total CO2 28.4 H ABG O2 Saturation 97.4 ABG O2 Content 16.5 ABG Base Excess 4.2 H ABG Hemoglobin 12.5 ABG Carboxyhemoglobin 2.0 H POC ABG HHb (Measured) 2.5 ABG Methemoglobin 1.6 ABG O2 Capacity 16.9 Gerald Test Yes A-a O2 Difference 170.0 Hgb O2 Saturation 93.8 L Vent Mode A/c Mechanical Rate 20 FiO2 40.0 Tidal Volume 480 PEEP 5 Sodium 143 Potassium 3.1 L Chloride 105 Carbon Dioxide 30 Anion Gap 11 BUN 24 H Creatinine 1.1 Est GFR ( Amer) > 60 Est GFR (Non-Af Amer) > 60 Random Glucose 154 H Calcium 8.1 L Total Bilirubin 0.9 AST 104 H ALT 59 Alkaline Phosphatase 99 Total Protein 6.6 Albumin 3.4 L Globulin 3.2 Albumin/Globulin Ratio 1.1 Urine Color Urine Clarity Urine pH Ur Specific [place] Urine Protein Urine Glucose (UA) Urine Ketones Urine Blood Urine Nitrate Urine Bilirubin Urine Urobilinogen Ur Leukocyte Esterase Urine RBC (Auto) Urine Microscopic WBC Ur Squamous Epith Cells Blood Type Blood Type Confirm Antibody Screen Fingerstick Blood Sugar Results: 179
[2018-04-06] MEDS: levETIRAcetam 1,500 MG in Sodium Chloride 0.9% 100 ML IVPB SCH ×2 (09:52→20:03)
[2018-04-06] MEDS ORDERED: Potassium Chloride 20 mEq/15 ml LIQ UD PO ONE (10:52)
--- NOTE | 2018-04-06 11:08 | CP.PCM.PN ---
Subjective - Date & Time of Evaluation Date of Evaluation: 04/06/18 Time of Evaluation: 11:11 - Subjective Subjective: I D NOTE UNRESPONSIVE ,INTUBATED AFEBRILE ALL CULTURES ARE NEGATIVE WOULD CONTINUE IV ZOSYN FOR ASPIRATION (LIKELY CHRONIC) Objective - Vital Signs/Intake and Output Vital Signs (last 24 hours): Temp Pulse Resp BP Pulse Ox 100.4 F H 61 24 87/54 L 95 04/06/18 10:00 04/06/18 10:52 04/06/18 10:00 04/06/18 10:52 04/06/18 10:00 Intake and Output: 04/06/18 04/06/18 06:59 18:59 Intake Total 915 218 Balance 915 218 - Medications Medications: Current Medications Acetaminophen (Tylenol 650mg/20.3ml Solution Ud) 650 mg PO Q6 PRN PRN Reason: Fever >100.4 F Last Admin: 04/06/18 09:56 Dose: 650 mg Amlodipine Besylate (Norvasc) 5 mg PO DAILY CHELA Last Admin: 04/06/18 09:51 Dose: 5 mg Carvedilol (Coreg) 25 mg PO Q12 CHELA Last Admin: 04/06/18 09:51 Dose: 25 mg Piperacillin Sod/Tazobactam (Sod 2.25 gm/ Sodium Chloride) 100 mls @ 100 mls/ hr IVPB Q12 CHELA PRN Reason: Protocol Last Admin: 04/06/18 09:53 Dose: 100 mls/hr Levetiracetam 1,500 mg/ Sodium (Chloride) 115 mls @ 215 mls/hr IVPB Q12 CHELA Last Admin: 04/06/18 09:52 Dose: 215 mls/hr Propofol (Diprivan) 1,000 mg in 100 mls @ 2.381 mls/hr IV .Q24H CHELA; 5 MCG/KG/ MIN PRN Reason: Protocol Stop: 04/06/18 11:08 Last Admin: 04/06/18 01:39 Dose: 20 mcg/kg/min, 9.525 mls/hr Nicardipine HCl (Cardene Iv Premix) 20 mg in 200 mls @ 50 mls/hr IV .Q4H CHELA; 5 MG/HR PRN Reason: Protocol Last Titration: 04/05/18 21:41 Dose: 0 mg/hr, 0 mls/hr Lorazepam (Ativan) 2 mg IVP Q4H PRN PRN Reason: Seizure activity Last Admin: 04/05/18 13:57 Dose: 2 mg Pantoprazole Sodium (Protonix Inj) 40 mg IVP DAILY CHELA Last Admin: 04/06/18 09:53 Dose: 40 mg - Labs Labs: 04/06/18 04:30 04/06/18 04:30 PT 12.2 Seconds (9.8-13.1) 04/02/18 06:08 INR 1.1 (0.9-1.2) 04/02/18 06:08 APTT 31.1 Seconds (25.6-37.1) 04/02/18 06:08
--- NOTE | 2018-04-06 14:16 | CP.PCM.PN ---
Subjective - Date & Time of Evaluation Date of Evaluation: 04/06/18 Time of Evaluation: 11:00 - Subjective Subjective: F/U respiratory Failure Unresponsive, comatose. Objective - Vital Signs/Intake and Output Vital Signs (last 24 hours): Temp Pulse Resp BP Pulse Ox 100.1 F H 59 L 24 86/42 L 95 04/06/18 14:00 04/06/18 14:00 04/06/18 10:00 04/06/18 14:00 04/06/18 10:00 Intake and Output: 04/06/18 04/06/18 06:59 18:59 Intake Total 915 254 Balance 915 254 - Medications Medications: Current Medications Acetaminophen (Tylenol 650mg/20.3ml Solution Ud) 650 mg PO Q6 PRN PRN Reason: Fever >100.4 F Last Admin: 04/06/18 09:56 Dose: 650 mg Amlodipine Besylate (Norvasc) 5 mg PO DAILY CHELA Last Admin: 04/06/18 09:51 Dose: 5 mg Carvedilol (Coreg) 25 mg PO Q12 CHELA Last Admin: 04/06/18 09:51 Dose: 25 mg Piperacillin Sod/Tazobactam (Sod 2.25 gm/ Sodium Chloride) 100 mls @ 100 mls/ hr IVPB Q12 CHELA PRN Reason: Protocol Last Admin: 04/06/18 09:53 Dose: 100 mls/hr Levetiracetam 1,500 mg/ Sodium (Chloride) 115 mls @ 215 mls/hr IVPB Q12 CHELA Last Admin: 04/06/18 09:52 Dose: 215 mls/hr Nicardipine HCl (Cardene Iv Premix) 20 mg in 200 mls @ 50 mls/hr IV .Q4H CHELA; 5 MG/HR PRN Reason: Protocol Last Titration: 04/05/18 21:41 Dose: 0 mg/hr, 0 mls/hr Lorazepam (Ativan) 2 mg IVP Q4H PRN PRN Reason: Seizure activity Last Admin: 04/05/18 13:57 Dose: 2 mg Pantoprazole Sodium (Protonix Inj) 40 mg IVP DAILY CHELA Last Admin: 04/06/18 09:53 Dose: 40 mg - Labs Labs: 04/06/18 04:30 04/06/18 04:30 PT 12.2 Seconds (9.8-13.1) 04/02/18 06:08 INR 1.1 (0.9-1.2) 04/02/18 06:08 APTT 31.1 Seconds (25.6-37.1) 04/02/18 06:08 - Constitutional Appears: Chronically Ill - Head Exam Head Exam: NORMAL INSPECTION - Eye Exam Additional comments: Pupils 1-2 mm, non reactive, no corneal reflex. - ENT Exam Additional comments: Intubated - Neck Exam Neck Exam: Normal Inspection - Respiratory Exam Respiratory Exam: Decreased Breath Sounds (at bases) - Cardiovascular Exam Cardiovascular Exam: REGULAR RHYTHM - GI/Abdominal Exam GI & Abdominal Exam: Soft, Normal Bowel Sounds - Extremities Exam Extremities Exam: Normal Inspection - Neurological Exam Additional comments: Intubated, unresponsive, comatose - Skin Skin Exam: Warm Assessment and Plan (1) Hx-sudden cardiac arrest Status: Acute (2) Anoxic encephalopathy Status: Acute (3) Acute respiratory failure Status: Acute (4) High fever Status: Acute - Assessment and Plan (Free Text) Plan: CXR today showed no infiltrate, no pleural effusion or pericardial effusion evident of active CHF. Continue respiratory support PRVC AC , FIO2 40%, continue Zosyn, T 100's , Cardene drip , BP low ICU Time: 30 min.
--- NOTE | 2018-04-06 19:28 | PN ---
DATE: 04/06/2018 SUBJECTIVE: The patient is still on a ventilator. PHYSICAL EXAMINATION: VITAL SIGNS: Blood pressure 87/54, hear rate 61, temperature 100.4. HEENT: No pallor or icterus. CHEST: Bilateral rhonchi. HEART: S1 and S2 regular. EXTREMITIES: Trace leg edema. LABORATORY DATA: Today's hemoglobin and hematocrit 12.4 and 36.5. White count and platelet count are within normal limit. Today's SMA-7 is within normal limit except for glucose of 154, potassium 3.1, BUN of 24, 8.1. Chest x-ray report stable. Chest radiograph with no infiltrate, pleural or pericardial effusion. ASSESSMENT: 1. Status post cardiac arrest. 2. Anoxic encephalopathy. 3. Cocaine, opiate and alcohol abuse on presentation. 4. Coronary artery disease, status post coronary artery bypass surgery with severe [place] vessel disease. 5. Hypokalemia. RECOMMENDATIONS: Continue current Coreg 25 mg once a day. Hold Cardene drip. Continue IV Zosyn. Potassium was replaced with 40 mEq via nasogastric tube today. Overall, prognosis is grave and the legal guardian is considering discontinuation of life support. Keo Trevino MD
--- NOTE | 2018-04-07 03:15 | PN ---
DATE: 04/06/2018 CRITICAL CARE PROGRESS NOTE LOCATION: The patient in ICU bed 434. TIME SPENT: 35 minutes. The patient is seen and evaluated at the bedside. Past medical, surgical, social and family history reviewed. SUBJECTIVE: A 57-year-old male with a history significant for multiple substance abuse, hypertension, coronary artery disease, status post coronary artery bypass graft surgery, recent cardiac catheterization in 12/2017, reportedly with patent grafts, admitted after being found unresponsive with no palpable pulse in the field, resuscitated, intubated, brought to ER. Initial CT negative for acute CVA, noted to be hypotensive requiring dopamine initially, placed on hypothermia protocol, rewarming completed by 9:00 two days ago. Hospital course complicated with myoclonic jerks and decorticate posture.. Overnight telemetry, sinus rhythm, less myoclonic jerks noted. Remains unresponsive, off sedation, intubated on mechanical ventilation, AC/PRBC, rate 20, set tidal volume 480, FiO2 of 40%, PEEP of 5. Observed rate 20, exhaled tidal volume 480, minute ventilation 10.2 L, peak airway pressure 26, oxygen saturation 96%, end-tidal CO2 of 12. PHYSICAL EXAMINATION: VITAL SIGNS: Temperature reduced to 100.1, blood pressure 86/42, mean arterial pressure 56. Intake and output of 2508 and 1500, positive balance 1008. Weight 178 pounds. HEAD, EYES, EARS, NOSE AND THROAT: Pupils 2-3 mm, no reaction to light reflex. No corneal reflex. No conjunctival reflex. Endotracheal tube with deep suctioning with no gag reflex. CHEST: Bilateral breath sounds, diminished in intensity. HEART: Rhythm regular. S1, S2 normal. ABDOMEN: Bowel sounds present. Soft. Liver and spleen not palpable. EXTREMITIES: Trace edema. NG tube in place. Feeding in progress. LABORATORY DATA: WBC 8.5, hemoglobin 12.4, hematocrit 36.5, platelet count 169. ABG: The pH of 7.5, pCO2 of 35, pO2 of 71, oxygen saturation 97.4, on AC 20 ,TV_ 480 and PEEP 5. SMA-7: Sodium 143, potassium 3.1, chloride 105, CO2 of 30, blood urea nitrogen 24, creatinine 1.1, random glucose 154, calcium 8.1. Total bilirubin 0.9, AST 104, ALT 59, alkaline phosphatase 99, total protein 6.6, albumin 3.4. Urinalysis negative. Toxicology screen positive for cocaine and opiates. Serology influenza A and B negative. CURRENT MEDICATIONS: Zosyn 2.25 gm IV every 12 hours, Protonix 40 IV daily, Keppra 1500 mg twice daily, Coreg 25 mg every 12 hours, Norvasc 5 mg p.o. daily; hold for blood pressure systolic less than 100. MICROBIOLOGY: Blood culture, no growth reported. Sputum culture pending. Urine culture, no growth reported. IMPRESSION: 1. Neuro: Remains comatose. Anoxic encephalopathy. Repeat CT done shows no new acute findings. History of substance abuse. Urine drug screen positive for opiates and cocaine. Remains comatose. Awake EEG done this morning. Follow the report. Family considering for terminal extubation. We will discuss with neurology after the EEG report. 2. Respiratory: Intubated for airway protection. No evidence of pneumonia. Empirically on Zosyn 2.25 gm IV every 12 hours. 3. Cardiac: History of coronary artery disease, status post coronary artery bypass graft, status post recent catheterization with patent grafts. Hypertension improved, currently on Coreg and amlodipine. Blood pressure noted to be labile. Hold Coreg and amlodipine if systolic pressure is then less than 100. 4. Gastrointestinal: Elevated liver enzymes secondary to acute ischemia secondary to cardiorespiratory arrest with a poor perfusion. 5. Renal: BUN and creatinine within the range. Hypokalemia, being corrected. Potassium supplemented. 6. Hematology: Hemoglobin, hematocrit, platelet count are stable. 7. Endocrine: Continue nasogastric feeding. Maintain blood sugar below 180. 8. Psychiatric: History of substance abuse, unclear evidence of depression. 9. Prognosis remains guarded. Follow EEG. No activity. Consider terminal extubation. We will discuss with the family. Patrick Adams MD MTDD
[2018-04-07 05:11] LABS: ABG ALLEN TEST YES; ARTERIAL BLOOD GAS HCO3 30.9 mmol/L (21-28); ARTERIAL BLOOD GAS HEMOGLOBIN 11.4 g/dL (11.7-17.4); ARTERIAL BLOOD GAS O2 CAPACITY 15.6 mL/dL (16-24); ARTERIAL BLOOD GAS O2 CONTENT 15.1 ML/dL (15-23); ARTERIAL BLOOD GAS O2 SAT 96.9 % (95-98); ARTERIAL BLOOD GAS PCO2 43 mm/Hg (35-45); ARTERIAL BLOOD GAS PH 7.48 (7.35-7.45); ARTERIAL BLOOD GAS PO2 75 mm/Hg (80-100); ARTERIAL BLOOD GAS TCO2 33.3 mmol/L (22-28)
[2018-04-07 05:40] LABS: HEMOGLOBIN 11.4 g/dL (12.0-18.0); MEAN CORPUSCULAR HEMOGLOBIN 32.4 pg (27.0-31.0); MEAN CORPUSCULAR HGB CONC 33.5 g/dL (33.0-37.0); RBC 3.5 Mil/uL (4.40-5.90); RED CELL DISTRIBUTION WIDTH 13.8 % (11.5-14.5); WHITE BLOOD COUNT 6.8 K/uL (4.8-10.8)
[2018-04-07 06:03] LABS: BLOOD UREA NITROGEN 31 mg/dl (9-20); CALCIUM 8.6 mg/dL (8.4-10.2); GFR AFRICAN-AMERICAN > 60; GFR NON-AFRICAN AMERICAN > 60
--- NOTE | 2018-04-07 08:43 | CP.PCM.PN ---
Subjective - Date & Time of Evaluation Date of Evaluation: 04/07/18 Time of Evaluation: 08:41 - Subjective Subjective: 57 y/o male remains seen and examined at bedside, still not triggering vent. Now off of propofol. He is non reactive to pain stimulus, sluggish pupillary reflex. Girlfriend is at bedside again this AM. No acute events over night. Objective - Vital Signs/Intake and Output Vital Signs (last 24 hours): Temp Pulse Resp BP Pulse Ox 98.8 F 62 20 145/62 96 04/07/18 08:17 04/07/18 08:17 04/07/18 08:17 04/07/18 08:17 04/07/18 08:17 Intake and Output: 04/07/18 04/07/18 06:59 18:59 Intake Total 760 100 Output Total 600 Balance 160 100 - Medications Medications: Current Medications Acetaminophen (Tylenol 650mg/20.3ml Solution Ud) 650 mg PO Q6 PRN PRN Reason: Fever >100.4 F Last Admin: 04/06/18 20:02 Dose: 650 mg Amlodipine Besylate (Norvasc) 5 mg PO DAILY CHELA Last Admin: 04/06/18 09:51 Dose: 5 mg Carvedilol (Coreg) 25 mg PO Q12 CHELA Last Admin: 04/06/18 20:01 Dose: 25 mg Piperacillin Sod/Tazobactam (Sod 2.25 gm/ Sodium Chloride) 100 mls @ 100 mls/ hr IVPB Q12 CHELA PRN Reason: Protocol Last Admin: 04/06/18 20:03 Dose: 100 mls/hr Levetiracetam 1,500 mg/ Sodium (Chloride) 115 mls @ 215 mls/hr IVPB Q12 CHELA Last Admin: 04/06/18 20:03 Dose: 215 mls/hr Nicardipine HCl (Cardene Iv Premix) 20 mg in 200 mls @ 50 mls/hr IV .Q4H CHELA; 5 MG/HR PRN Reason: Protocol Last Titration: 04/05/18 21:41 Dose: 0 mg/hr, 0 mls/hr Pantoprazole Sodium (Protonix Inj) 40 mg IVP DAILY CHELA Last Admin: 04/06/18 09:53 Dose: 40 mg - Labs Labs: 04/07/18 04:55 04/07/18 04:55 PT 12.2 Seconds (9.8-13.1) 04/02/18 06:08 INR 1.1 (0.9-1.2) 04/02/18 06:08 APTT 31.1 Seconds (25.6-37.1) 04/02/18 06:08 - Constitutional Appears: No Acute Distress - Eye Exam Additional comments: pupillary reflex 3mm - Respiratory Exam Respiratory Exam: Clear to Ausculation Bilateral Additional comments: On vent, rate of 20 - Cardiovascular Exam Cardiovascular Exam: REGULAR RHYTHM, +S1, +S2 - GI/Abdominal Exam GI & Abdominal Exam: Soft, Hypoactive Bowel Sounds - Exam Additional comments: right sided scrotal hernia noted - Neurological Exam Neurological Exam: absent: Alert, Awake, Oriented x3 - Skin Skin Exam: Dry, Intact, Warm Assessment and Plan - Assessment and Plan (Free Text) Assessment: 57 y/o M brought to ER by EMS after found unconscious, s/p [place] intubation, ACLS and ROSC, no acute EKG changes, with in the window of hypothermia protocol. Unclear precipitating event; however, patient has significant cardiac history and history of substance abuse. 1. Cardiac Arrest - Possibly due to substance abuse, UTox: + Cocain and Opiates -Seen by cardio, appreciate recs - CXR 04/06 normal; no infiltrate, pleural or pericardial effusions or active CHF. ET and NG tubes in place. - due to guarded prognosis, pending EEG report, will guide treatment strategies and interventions 2. Acute Respiratory failure -respiratory alkalosis improving -mechanical ventilation settings: FiO2 of 40, TV of 480 and RR of 20 -repeat ABG in the AM -Possibly due to substance abuse , UTox: + Cocain and Opiates -Pulm, Dr. Gallegos, appreciate consult 3. Febrile -resolved, 98.8 today -urine culture and blood culture negative 04/06 -On acetaminophen 650mg PO Q6H PRN -Dr. Joselo garzon, appreciate recs 4. Substance abuse -Chronic - UTox: + Cocain and Opiates - Mechanically ventilated - Benzo as indicated - s/p Narcan drip 5. Myoclonic seizure with GCS 4T, unclear if 2/2 hypoxia, anoxia vs substance intoxication - Improved - Neuro, Dr. Brown consult, recommends ativan 2mg Q4. Kepra 1500 mg Q12hrs - EEG results pending - Benzo as indicated - S/p Narcan drip - profolol d/c 04/07/18 6. Right scrotal hernia -asymptomatic -cont to monitor 7. HTN - Chronic, currently hypotensive at 76/43 -held Nicardipine 50 mL/hr IVQ4H and Carvedilol 25mg PO Q12 8. GI PPX - Protonix 40 9. DVT PPX - SCD for now
--- NOTE | 2018-04-07 08:46 | CP.CCUPN ---
CCU Subjective - Physician Review Subjective (Free Text): No overall change in neuromental status, no further observed myoclonic activity , is off vasopressors and other vasoactive medications, sedatives-anxiolytics have been withheld and or discontinued. Breathing 20 on AC 20. Eyes closed, blinks bilateral eyelids to bright light stimulation. Other vitals and I/O's reviewed. Tmax 101.7 over the last 24H, none during the last 12H. No polyuria noted. ROS: No other pertinent negs or positives on 10+ system review obtainable due to comatose state. . PMSFH: CAD/3vessel CABG 06/2107, HTN, COPD with emphysema, ETOH abuse, Cocaine / Heroin abuse, Pancreatitis. All other Nursing and physician documentation reviewed to date; no new pertinent info noted relevant to current medical problems. EXAM- HEENT: no icterus, + bilateral upward gaze preference, pupils 1-2mm and REACTIVE , midline, absent corneals, absent carinal, no cough on ETT suctioning. No dolls eye movements elicitable. NECK: No JVD, supple, carotids equal upstroke bilat/no bruits CHEST: decreased BS bases, no wheezes audible HEART: regular, distant, S1S2, no rubs or murmurs ABD: soft, no distention, no tympany, no palp tenderness, BS hypoactive EXT: +edema, no mottling, no peripheral/ digital cyanosis, no calf tenderness or palpable cords, distal pulses intact and symmetrical. NEURO: flaccid x4 extremities, GCS 3T. SKIN: no rashes, warm and dry. LABS: WBC= 6.8 HGB= 11.4 PLTs= 152K 7.48/43/75 Coags normal Wg=568 K= 3.8 OK=798 HCO3= 32 BUN/Cr= 31/1.0 BS= 134 CXR: ETT position Ok above dante, no consolidation( my interp). IMPRESSION / MAJOR PROBLEMS NOW: 1. s/p Cardiac Arrest manifest as PEA, r/o AMI versus occult substance abuse sequelae 2. Anoxic Encephaopathy 3. Acute Resp Failure 2 #1 4. Azotemia, r/o ATN / URSULA with Hyperkalemia 4. ETOH and Substance Abuse PLAN: 1. Awaiting EEG report. Family 9sons) considering terminal extubation. Now day # 7 on MV support. 2. Consider 2-physician DNR given futility in any further resuscitation if recurrent hypotension / shock, cardiac arrest occurs. 3. Fevers appear to have subsided with removal of TLC from Left groin. 4. Improved alkalotic state as evidenced by ABG. CCU Objective - Vital Signs / Intake & Output Vital Signs (Last 4 hours): Vital Signs Temp Pulse Resp BP Pulse Ox 04/07/18 08:17 98.8 F 62 20 145/62 96 04/07/18 07:43 63 20 158/68 H 97 04/07/18 06:36 99 F 63 20 124/50 L 96 04/07/18 06:00 98.9 F 71 23 144/57 L 98 04/07/18 05:00 99.7 F H 52 L 21 136/56 L 97 Intake and Output (Last 8hrs): Intake & Output 04/06/18 04/07/18 04/07/18 22:59 06:59 14:59 Intake Total 952 8 100 Output Total 500 600 Balance 452 -592 100 Weight 178 lb Intake: IV 2 8 Intake, Piggyback 200 Oral 550 0 Free Water Flush 200 100 Output: Urine 500 600 Urethral ([place]) 500 600
[2018-04-07] MEDS: levETIRAcetam 1,500 MG in Sodium Chloride 0.9% 100 ML IVPB SCH ×2 (08:52→20:34)
[2018-04-07] MEDS: Acetaminophen 650mg/20.3ml solution UD PO PRN ×2 (10:23→20:40)
--- NOTE | 2018-04-07 11:36 | RAD ---
HISTORY: intubated COMPARISON: 04/06/2018 FINDINGS: LUNGS: Mild pulmonary vascular congestion. PLEURA: Biapical pleural parenchymal thickening noted. CARDIOVASCULAR: Stable cardiomediastinal silhouette. OSSEOUS STRUCTURES: Degenerative changes. VISUALIZED UPPER ABDOMEN: Suboptimal evaluation of the upper abdomen. OTHER FINDINGS: ETT located above the level of the dante. Feeding tube noted coursing below the diaphragm without visualization of the tip. Mediastinal surgical clips along the left heart border. Pacer pad overlying the projection of the heart. IMPRESSION: Mild pulmonary vascular congestion. Otherwise no significant interval change.
--- NOTE | 2018-04-07 14:56 | CP.PCM.PN ---
Subjective - Date & Time of Evaluation Date of Evaluation: 04/07/18 Time of Evaluation: 13:20 - Subjective Subjective: F/U Respiratory failure unresponsive Objective - Vital Signs/Intake and Output Vital Signs (last 24 hours): Temp Pulse Resp BP Pulse Ox 99.8 F H 55 L 20 122/51 L 97 04/07/18 12:00 04/07/18 12:00 04/07/18 12:00 04/07/18 12:00 04/07/18 12:00 Intake and Output: 04/07/18 04/07/18 06:59 18:59 Intake Total 760 340 Output Total 600 Balance 160 340 - Medications Medications: Current Medications Acetaminophen (Tylenol 650mg/20.3ml Solution Ud) 650 mg PO Q6 PRN PRN Reason: Fever >100.4 F Last Admin: 04/07/18 10:23 Dose: 650 mg Amlodipine Besylate (Norvasc) 5 mg PO DAILY [facility] Last Admin: 04/07/18 08:53 Dose: 5 mg Carvedilol (Coreg) 25 mg PO Q12 [facility] Last Admin: 04/07/18 08:52 Dose: 25 mg Piperacillin Sod/Tazobactam (Sod 2.25 gm/ Sodium Chloride) 100 mls @ 100 mls/ hr IVPB Q12 [facility] PRN Reason: Protocol Last Admin: 04/07/18 08:55 Dose: 100 mls/hr Levetiracetam 1,500 mg/ Sodium (Chloride) 115 mls @ 215 mls/hr IVPB Q12 [facility] Last Admin: 04/07/18 08:52 Dose: 215 mls/hr Nicardipine HCl (Cardene Iv Premix) 20 mg in 200 mls @ 50 mls/hr IV .Q4H [facility]; 5 MG/HR PRN Reason: Protocol Last Titration: 04/05/18 21:41 Dose: 0 mg/hr, 0 mls/hr Pantoprazole Sodium (Protonix Inj) 40 mg IVP DAILY [facility] Last Admin: 04/07/18 08:53 Dose: 40 mg - Labs Labs: 04/07/18 04:55 04/07/18 04:55 PT 12.2 Seconds (9.8-13.1) 04/02/18 06:08 INR 1.1 (0.9-1.2) 04/02/18 06:08 APTT 31.1 Seconds (25.6-37.1) 04/02/18 06:08 - Constitutional Appears: No Acute Distress, Chronically Ill - Head Exam Head Exam: NORMAL INSPECTION - Eye Exam Additional comments: Pupils1-2 mm, non reactive, no corneal reflex. - ENT Exam Additional comments: Intubated - Neck Exam Neck Exam: Normal Inspection - Respiratory Exam Respiratory Exam: Decreased Breath Sounds (at bases) - Cardiovascular Exam Cardiovascular Exam: REGULAR RHYTHM - GI/Abdominal Exam GI & Abdominal Exam: Soft, Normal Bowel Sounds - Extremities Exam Extremities Exam: Normal Inspection - Back Exam Back Exam: NORMAL INSPECTION - Neurological Exam Additional comments: Unresponsive, comatose - Skin Skin Exam: Warm Assessment and Plan (1) Hx-sudden cardiac arrest Status: Acute (2) Anoxic encephalopathy Status: Acute (3) Acute respiratory failure Status: Acute (4) High fever Status: Acute - Assessment and Plan (Free Text) Plan: comatose , continue ventilatory support, T 100's , BP stable , awaiting EEG, discussed with Patient's family at bedside , They will wait EEG result , there after They will consider a family meeting for terminal extubation ICU Time: 35 min.
--- NOTE | 2018-04-07 19:27 | PN ---
DATE: 04/07/2018 SUBJECTIVE: The patient is deeply comatose. No reported ventricular tachycardia or hypertension. PHYSICAL EXAMINATION: VITAL SIGNS: Blood pressure 122/51, heart rate 55, ,temperature 100, respirations 20. HEENT: No pallor or icterus. CHEST: Bilateral rhonchi. HEART: S1 and S2 regular. EXTREMITIES: Trace leg edema. LABORATORY DATA: SMA-7: Sodium 146, potassium 3.8, chloride 107, CO2 of 32, glucose 134, BUN 31, creatinine 1. Today's hemoglobin and hematocrit 11.4 and 33.9. White count and platelet count are within normal limit. Today's chest x-ray, mild pulmonary vascular congestion. Otherwise, no significant interval changes. EEG was performed; however, the report is still pending. Tracheal aspirate is positive for yeast species. Blood cultures were negative after five days and 48 hours. ASSESSMENT: 1. Status post cardiac arrest. 2. Status post cocaine, opiate, and alcohol abuse. 3. Coronary artery disease, status post coronary artery bypass surgery with severe [place] vessel coronary artery disease. 4. Anoxic encephalopathy. 5. Hypertension. RECOMMENDATIONS: Continue Coreg 25 mg daily, Norvasc 5 mg once a day, IV Zosyn at 2.25 gm every 12 hours. Awaiting EEG report. Keo Trevino MD
[2018-04-08] MEDS: Acetaminophen 650mg/20.3ml solution UD PO PRN ×4 (02:23→22:02)
[2018-04-08 05:22] LABS: ABG ALLEN TEST YES; ARTERIAL BLOOD GAS HCO3 29.8 mmol/L (21-28); ARTERIAL BLOOD GAS HEMOGLOBIN 21.7 g/dL (11.7-17.4); ARTERIAL BLOOD GAS O2 CAPACITY 29.5 mL/dL (16-24); ARTERIAL BLOOD GAS O2 CONTENT 27.2 ML/dL (15-23); ARTERIAL BLOOD GAS O2 SAT 92.3 % (95-98); ARTERIAL BLOOD GAS PCO2 42 mm/Hg (35-45); ARTERIAL BLOOD GAS PH 7.48 (7.35-7.45); ARTERIAL BLOOD GAS PO2 57 mm/Hg (80-100); ARTERIAL BLOOD GAS TCO2 32.6 mmol/L (22-28)
[2018-04-08 05:59] LABS: MEAN CELL VOLUME 97.6 fl (80.0-94.0); MEAN CORPUSCULAR HEMOGLOBIN 32.9 pg (27.0-31.0); MEAN CORPUSCULAR HGB CONC 33.7 g/dL (33.0-37.0); RBC 3.66 Mil/uL (4.40-5.90); RED CELL DISTRIBUTION WIDTH 14.1 % (11.5-14.5); WHITE BLOOD COUNT 8.5 K/uL (4.8-10.8)
[2018-04-08 07:07] LABS: ALB/GLOB RATIO 1.1 (1.0-2.1); ALBUMIN 3.5 g/dL (3.5-5.0); ALT/SGPT 127 U/L (21-72); AST/SGOT 184 U/L (17-59); BLOOD UREA NITROGEN 36 mg/dl (9-20); CALCIUM 9.2 mg/dL (8.4-10.2); GFR AFRICAN-AMERICAN > 60; GFR NON-AFRICAN AMERICAN > 60
--- NOTE | 2018-04-08 09:08 | CP.PCM.PN ---
Subjective - Date & Time of Evaluation Date of Evaluation: 04/08/18 Time of Evaluation: 09:07 - Subjective Subjective: Mr. Drew was seen and examined at the bedside in ICU. He remains on mechanical ventilator on PRVC mode. He does not have any corneal or gag reflex , pupils not reactive to light accommodation, does react to deep noxious stimuli only the right upper extremity, GCS- 4T, breaths over the vent with no episode of tachypnea. There was no untoward events overnight. Objective - Vital Signs/Intake and Output Vital Signs (last 24 hours): Temp Pulse Resp BP Pulse Ox 100.3 F H 58 L 22 199/65 H 92 L 04/08/18 09:03 04/08/18 08:44 04/08/18 08:00 04/08/18 08:45 04/08/18 08:00 Intake and Output: 04/08/18 04/08/18 06:59 18:59 Intake Total 582 90 Output Total 600 Balance -18 90 - Medications Medications: Current Medications Acetaminophen (Tylenol 650mg/20.3ml Solution Ud) 650 mg PO Q6 PRN PRN Reason: Fever >100.4 F Last Admin: 04/08/18 09:03 Dose: 650 mg Amlodipine Besylate (Norvasc) 5 mg PO DAILY [facility] Last Admin: 04/08/18 08:45 Dose: 5 mg Carvedilol (Coreg) 25 mg PO Q12 [facility] Last Admin: 04/08/18 08:44 Dose: 25 mg Piperacillin Sod/Tazobactam (Sod 2.25 gm/ Sodium Chloride) 100 mls @ 100 mls/ hr IVPB Q12 [facility] PRN Reason: Protocol Last Admin: 04/08/18 08:45 Dose: 100 mls/hr Levetiracetam 1,500 mg/ Sodium (Chloride) 115 mls @ 215 mls/hr IVPB Q12 [facility] Last Admin: 04/07/18 20:34 Dose: 215 mls/hr Nicardipine HCl (Cardene Iv Premix) 20 mg in 200 mls @ 50 mls/hr IV .Q4H [facility]; 5 MG/HR PRN Reason: Protocol Last Titration: 04/05/18 21:41 Dose: 0 mg/hr, 0 mls/hr Pantoprazole Sodium (Protonix Inj) 40 mg IVP DAILY [facility] Last Admin: 04/08/18 08:45 Dose: 40 mg - Labs Labs: 04/08/18 05:46 04/08/18 05:46 PT 12.2 Seconds (9.8-13.1) 04/02/18 06:08 INR 1.1 (0.9-1.2) 04/02/18 06:08 APTT 31.1 Seconds (25.6-37.1) 04/02/18 06:08 - Constitutional Appears: No Acute Distress - Head Exam Head Exam: NORMAL INSPECTION - Eye Exam Pupil Exam: Fixed Additional comments: 2 mm fixed in an elevated position. - Neurological Exam Neuro motor strength exam: Left Upper Extremity: 0, Right Upper Extremity: 0, Left Lower Extremity: 0, Right Lower Extremity: 0 Additional comments: GCS 4T. Assessment and Plan (1) Hypoxic brain injury Assessment & Plan: Case discussed with Dr. Brown, continue current medical regimen including ventilator and blood pressure management per ICU team.Pending EEG results. Recommend blood pressure control, treat any underlying electrolyte abnormalities. Status: Acute
--- NOTE | 2018-04-08 09:17 | CP.PCM.PN ---
Subjective - Date & Time of Evaluation Date of Evaluation: 04/08/18 Time of Evaluation: 09:15 - Subjective Subjective: 57 y/o male remains comatose. Seen and examined at bedside, still not triggering vent, off of propofol. He is non reactive to pain stimulus, sluggish pupillary reflex more reactive than yesterday. Girlfriend is at bedside again this AM. No acute events over night. Objective - Vital Signs/Intake and Output Vital Signs (last 24 hours): Temp Pulse Resp BP Pulse Ox 100.3 F H 58 L 22 199/65 H 92 L 04/08/18 09:03 04/08/18 08:44 04/08/18 08:00 04/08/18 08:45 04/08/18 08:00 Intake and Output: 04/08/18 04/08/18 06:59 18:59 Intake Total 582 90 Output Total 600 Balance -18 90 - Medications Medications: Current Medications Acetaminophen (Tylenol 650mg/20.3ml Solution Ud) 650 mg PO Q6 PRN PRN Reason: Fever >100.4 F Last Admin: 04/08/18 09:03 Dose: 650 mg Amlodipine Besylate (Norvasc) 5 mg PO DAILY [facility] Last Admin: 04/08/18 08:45 Dose: 5 mg Carvedilol (Coreg) 25 mg PO Q12 [facility] Last Admin: 04/08/18 08:44 Dose: 25 mg Piperacillin Sod/Tazobactam (Sod 2.25 gm/ Sodium Chloride) 100 mls @ 100 mls/ hr IVPB Q12 [facility] PRN Reason: Protocol Last Admin: 04/08/18 08:45 Dose: 100 mls/hr Levetiracetam 1,500 mg/ Sodium (Chloride) 115 mls @ 215 mls/hr IVPB Q12 [facility] Last Admin: 04/07/18 20:34 Dose: 215 mls/hr Nicardipine HCl (Cardene Iv Premix) 20 mg in 200 mls @ 50 mls/hr IV .Q4H [facility]; 5 MG/HR PRN Reason: Protocol Last Titration: 04/05/18 21:41 Dose: 0 mg/hr, 0 mls/hr Pantoprazole Sodium (Protonix Inj) 40 mg IVP DAILY [facility] Last Admin: 04/08/18 08:45 Dose: 40 mg - Labs Labs: 04/08/18 05:46 04/08/18 05:46 PT 12.2 Seconds (9.8-13.1) 04/02/18 06:08 INR 1.1 (0.9-1.2) 04/02/18 06:08 APTT 31.1 Seconds (25.6-37.1) 04/02/18 06:08 - Constitutional Appears: No Acute Distress - Eye Exam Additional comments: sluggish pupillary reflex - ENT Exam ENT Exam: Mucous Membranes Moist - Respiratory Exam Respiratory Exam: Clear to Ausculation Bilateral Additional comments: On mechanical crys - Cardiovascular Exam Cardiovascular Exam: REGULAR RHYTHM, +S1, +S2 - GI/Abdominal Exam GI & Abdominal Exam: Soft, Hypoactive Bowel Sounds - Extremities Exam Extremities Exam: absent: Pedal Edema - Neurological Exam Neurological Exam: absent: Alert, Awake, Oriented x3 Additional comments: Comatose - Skin Skin Exam: Dry, Intact, Warm Assessment and Plan - Assessment and Plan (Free Text) Assessment: 57 y/o M brought to ER by EMS after found unconscious, s/p [place] intubation, ACLS and ROSC, no acute EKG changes, with in the window of hypothermia protocol. Unclear precipitating event; however, patient has significant cardiac history and history of substance abuse. 1. Cardiac Arrest - Possibly due to substance abuse, UTox: + Cocain and Opiates -Seen by cardio, appreciate recs - CXR 7/ normal; no infiltrate, pleural or pericardial effusions or active CHF. ET and NG tubes in place. - due to guarded prognosis, pending EEG report, will guide treatment strategies and interventions 2. HTN -Chronic, 199/65 today -Hydralazine 25 mg NG TID added -Amlodipine increased from 5mg PO to 10mg -held Nicardipine 50 mL/hr IVQ4H -d/c Carvedilol 25mg PO Q12 3. Hypernatremia -Na+ 152 -will give free water -will follow 4. Hypokalemia -K+ 3.4 -likely 2/2 to Lasix 40 -will replace w/ KCl- 40 mEQ via OG tube -will follow 5. Transamenitis -AST 184 today, 104 yesterday -ALT 127 today, 59 yesterday -Will check GGT and NH3 to r/o biliary tract disease per Dr. Pacheco, -Will monitor 6. Acute Respiratory failure -respiratory alkalosis improving -mechanical ventilation settings: FiO2 of 40, TV of 480 and RR of 20; peep of 5 changed to 0 -repeat ABG in the AM -Possibly due to substance abuse , UTox: + Cocain and Opiates -Pulm, Dr. Gallgeos, appreciate consult 7. Febrile -100.3 today -urine culture and blood culture negative 04/06 -TLC removed -On acetaminophen 650mg PO Q6H PRN -Dr. Joselo garzon, appreciate recs 8. Substance abuse -Chronic - UTox: + Cocain and Opiates - Mechanically ventilated - Benzo as indicated - s/p Narcan drip 9. Myoclonic seizure with GCS 4T, unclear if 2/2 hypoxia, anoxia vs substance intoxication - Improved - Neuro, Dr. Brown consult, recommends ativan 2mg Q4. Kepra 1500 mg Q12hrs - EEG results pending - Benzo as indicated - S/p Narcan drip - profolol d/c 04/07/18 10. Right scrotal hernia -asymptomatic -cont to monitor 11. GI PPX -Protonix 40 12. DVT PPX - SCD for now
[2018-04-08] MEDS: levETIRAcetam 1,500 MG in Sodium Chloride 0.9% 100 ML IVPB SCH ×2 (09:18→20:03)
--- NOTE | 2018-04-08 09:32 | RAD ---
HISTORY: intubated COMPARISON: 04/07/2018 FINDINGS: LUNGS: No active pulmonary disease. PLEURA: No significant pleural effusion identified, no pneumothorax apparent. CARDIOVASCULAR: Normal heart size. CABG. ET tube and NG tube unchanged. OSSEOUS STRUCTURES: No significant abnormalities. VISUALIZED UPPER ABDOMEN: Normal. OTHER FINDINGS: None. IMPRESSION: No active disease.
[2018-04-08] MEDS ORDERED: Potassium Chloride 20 mEq/15 ml LIQ UD PO ONE (10:27)
--- NOTE | 2018-04-08 11:30 | CP.CCUPN ---
CCU Subjective - Physician Review Subjective (Free Text): No overall change in neuromental status, no further observed myoclonic activity , is off vasopressors and other vasoactive medications, sedatives-anxiolytics have been withheld and or discontinued several days ago. Breathing 21 on AC 20. Eyes closed, but blinks eyelids to bright light stimulation. Episodes of Bradycardia noted and SBP levels have been trending higher, up to 199 with assoc HRs in 40s 50s. Other vitals and I/O's reviewed. Tmax 100.5F over the last 24H. No polyuria noted. ROS: No other pertinent negs or positives on 10+ system review obtainable due to comatose state. . PMSFH: CAD/3vessel CABG 06/2107, HTN, COPD with emphysema, ETOH abuse, Cocaine / Heroin abuse, Pancreatitis. All other Nursing and physician documentation reviewed to date; no new pertinent info noted relevant to current medical problems. EXAM- HEENT: no icterus, + bilateral upward gaze preference, pupils 1-2mm and REACTIVE , midline, absent corneals, absent carinal, no cough on ETT suctioning. No dolls eye movements elicitable. NECK: No JVD, supple, carotids equal upstroke bilat/no bruits CHEST: decreased BS bases, no wheezes audible HEART: regular, distant, S1S2, no rubs or murmurs ABD: soft, no distention, no tympany, no palp tenderness, BS hypoactive EXT: +edema, no mottling, no peripheral/ digital cyanosis, no calf tenderness or palpable cords, distal pulses intact and symmetrical. NEURO: flaccid x4 extremities, GCS 3T. SKIN: no rashes, warm and dry. LABS: WBC= 8.5 HGB= 12.0 PLTs= 195K 7.48/42/57 Coags normal Ri=336 K= 3.4 AP=380 HCO3= 34 BUN/Cr= 36/1.2 BS= 163 CXR: ETT position Ok above dante, no new consolidation ( my interp). IMPRESSION / MAJOR PROBLEMS NOW: 1. s/p Cardiac Arrest manifest as PEA; possible AMI versus occult substance abuse sequelae 2. Anoxic Encephalopathy 3. Acute Resp Failure 2 #1 4. Hypernatremia (new) 4. ETOH and Substance Abuse PLAN: 1. Free water administration, K supplementation. 2. Consider 2-physician DNR given futility in any further resuscitation if recurrent hypotension / shock, cardiac arrest occurs. 3. Beyond low grade temps, high fevers appear to have subsided with removal of TLC from Left groin. 4. Unclear etiology for new increase in LFTs: ?? intrahepatic cholestasis, r/ o biliary tract disease, check GGT for now and serially monitor levels. Will check serum NH3 level as well, with Lactulose tx as necessary. 5. Awaiting EEG report. Family (sons) considering terminal extubation. Now day #8 on MV support. 6. Cardiology has discontinued BBs, and added new anti-HTN med and re-dosed Amlodipine. CCU Objective - Vital Signs / Intake & Output Vital Signs (Last 4 hours): Vital Signs Temp Pulse Resp BP Pulse Ox 04/08/18 09:03 100.3 F H 04/08/18 09:00 46 L 20 150/62 100 04/08/18 08:45 199/65 H 04/08/18 08:44 58 L 199/65 H 04/08/18 08:00 99.5 F 62 22 197/66 H 92 L Intake and Output (Last 8hrs): Intake & Output 04/07/18 04/08/18 04/08/18 22:59 06:59 14:59 Intake Total 350 312 430 Output Total 400 600 Balance -50 -288 430 Weight 178 lb Intake: IV 12 Intake, Piggyback 200 200 Tube Feeding 150 300 180 Free Water Flush 50 Output: Urine 400 600 Urethral ([place]) 400 600
--- NOTE | 2018-04-08 14:30 | PCM.EEG ---
Electroencephalogram Report - Electroencephalogram Report Procedure Date: 04/05/18 Interpretation: Indication: Anoxic brain injury. Medications were reviewed. Technical: This is a digitally recorded electroencephalogram. The international 10-20 electrode placement system is used for scalp electrode placement. Eighteen channels of scalp EEG are recorded Another channel was used for for ECG. The data are stored digitally and reviewed in reformatted montages for optimal display. Diffuse Abnormality: No well formed alpha activity was seen. Mixed diffuse theta and delta activity was seen. Markedly suppressed EEG activity was observed. EKG artifact was seen throughout as well as machinery artifact. Focal abnormality: Periodic lateralized discharge was seen. Mainly over the Right temporal area. Impression: This EEG is abnormal. Diffuse slowing is seen, suggestive of a diffuse abnormality of the brain. This finding is nonspecific, and can be seen in a diffuse or multifocal abnormality of the brain. PLED's is seen, this is suggestive of a subacute structural abnormality of the brain, and patient may be prone to haveing a clinical seizure. Epileptiform discharge was seen. This can represent a potential seizure focus. Clinical correlation is needed.
--- NOTE | 2018-04-08 14:53 | PN ---
DATE: 04/08/2018 SUBJECTIVE: The patient is unresponsive, on a ventilator. He is in sinus tachycardia. Blood pressure is not controlled. PHYSICAL EXAMINATION: VITAL SIGNS: Blood pressure 150/62, heart rate 46, temperature 100.3 rectally, respiration 20. HEENT: No pallor or icterus. CHEST: Bilateral rhonchi. HEART: S1 and S2 regular. EXTREMITIES: No edema. LABORATORY DATA: Today's hemoglobin and hematocrit 12 and 35.8. White count and platelet count are within normal limit. SMA-7; sodium 152, potassium 3.4, chloride 110, CO2 of 34, glucose 163, BUN 36, creatinine 1.2. Today's chest x-ray report, no active disease. ASSESSMENT: 1. Status post cardiac arrest. 2. Anoxic encephalopathy. 3. Dehydration and . 4. Hypokalemia. 5. Uncontrolled hypertension. 6. Sinus tachycardia. 7. Status post cocaine, opiate and alcohol abuse. RECOMMENDATIONS: Discontinue Coreg. Increase Norvasc 10 mg once a day. Continue IV Zosyn 2.25 gm every 12 hours. Start hydralazine at 25 mg every 8 hours via nasogastric tube, potassium replacement at 20 mEq via nasogastric tube. Keo Trevino MD
--- NOTE | 2018-04-08 17:32 | CP.PCM.PN ---
Subjective - Date & Time of Evaluation Date of Evaluation: 04/08/18 Time of Evaluation: 11:40 - Subjective Subjective: F/U Respiratory Failure Unresponsive Objective - Vital Signs/Intake and Output Vital Signs (last 24 hours): Temp Pulse Resp BP Pulse Ox 101.2 F H 62 21 152/57 H 95 04/08/18 16:37 04/08/18 16:59 04/08/18 16:59 04/08/18 16:59 04/08/18 16:59 Intake and Output: 04/08/18 04/08/18 06:59 18:59 Intake Total 582 850 Output Total 600 -18 850 - Medications Medications: Current Medications Acetaminophen (Tylenol 650mg/20.3ml Solution Ud) 650 mg PO Q6 PRN PRN Reason: Fever >100.4 F Last Admin: 04/08/18 16:37 Dose: 650 mg Amlodipine Besylate (Norvasc) 10 mg PO DAILY [facility] Hydralazine HCl (Apresoline) 25 mg NG TID [facility] Last Admin: 04/08/18 16:37 Dose: 25 mg Piperacillin Sod/Tazobactam (Sod 2.25 gm/ Sodium Chloride) 100 mls @ 100 mls/ hr IVPB Q12 [facility] PRN Reason: Protocol Last Admin: 04/08/18 08:45 Dose: 100 mls/hr Levetiracetam 1,500 mg/ Sodium (Chloride) 115 mls @ 215 mls/hr IVPB Q12 [facility] Last Admin: 04/08/18 09:18 Dose: 215 mls/hr Nicardipine HCl (Cardene Iv Premix) 20 mg in 200 mls @ 50 mls/hr IV .Q4H [facility]; 5 MG/HR PRN Reason: Protocol Last Titration: 04/05/18 21:41 Dose: 0 mg/hr, 0 mls/hr Pantoprazole Sodium (Protonix Inj) 40 mg IVP DAILY [facility] Last Admin: 04/08/18 08:45 Dose: 40 mg - Labs Labs: 04/08/18 05:46 04/08/18 05:46 PT 12.2 Seconds (9.8-13.1) 04/02/18 06:08 INR 1.1 (0.9-1.2) 04/02/18 06:08 APTT 31.1 Seconds (25.6-37.1) 04/02/18 06:08 - Constitutional Appears: Chronically Ill - Head Exam Head Exam: NORMAL INSPECTION - Eye Exam Additional comments: Pupils 1-2 mm, non reactive, no corneal reflex. - ENT Exam Additional comments: Intubated - Neck Exam Neck Exam: Normal Inspection - Respiratory Exam Respiratory Exam: Decreased Breath Sounds (at bases) - Cardiovascular Exam Cardiovascular Exam: REGULAR RHYTHM - GI/Abdominal Exam GI & Abdominal Exam: Soft, Normal Bowel Sounds - Extremities Exam Extremities Exam: Normal Inspection - Back Exam Back Exam: NORMAL INSPECTION - Neurological Exam Additional comments: Unresponsive, comatose - Skin Skin Exam: Warm Assessment and Plan (1) Hx-sudden cardiac arrest Status: Acute (2) Anoxic encephalopathy Status: Acute (3) Acute respiratory failure Status: Acute (4) High fever Status: Acute - Assessment and Plan (Free Text) Plan: EEG diffuse abnormality of the Brain. Epileptiform discharge was seen, Patient's Family is awaiting EEG report to consider terminal extubation. ICU Time: 34 min.
[2018-04-09 04:44] LABS: ABG ALLEN TEST YES; ARTERIAL BLOOD GAS HCO3 31.2 mmol/L (21-28); ARTERIAL BLOOD GAS HEMOGLOBIN 12.4 g/dL (11.7-17.4); ARTERIAL BLOOD GAS O2 CAPACITY 16.9 mL/dL (16-24); ARTERIAL BLOOD GAS O2 CONTENT 16.5 ML/dL (15-23); ARTERIAL BLOOD GAS O2 SAT 97.5 % (95-98); ARTERIAL BLOOD GAS PCO2 41 mm/Hg (35-45); ARTERIAL BLOOD GAS PO2 78 mm/Hg (80-100); ARTERIAL BLOOD GAS TCO2 33.3 mmol/L (22-28)
[2018-04-09] MEDS: Acetaminophen 650mg/20.3ml solution UD PO PRN (05:55)
[2018-04-09 06:05] LABS: ALB/GLOB RATIO 1.1 (1.0-2.1); ALBUMIN 3.7 g/dL (3.5-5.0); ALT/SGPT 155 U/L (21-72); AST/SGOT 144 U/L (17-59); BLOOD UREA NITROGEN 33 mg/dl (9-20); GFR AFRICAN-AMERICAN > 60; GFR NON-AFRICAN AMERICAN > 60
[2018-04-09 06:08] LABS: HEMOGLOBIN 12.2 g/dL (12.0-18.0); MEAN CELL VOLUME 97.9 fl (80.0-94.0); MEAN CORPUSCULAR HEMOGLOBIN 32.9 pg (27.0-31.0); MEAN CORPUSCULAR HGB CONC 33.6 g/dL (33.0-37.0); RBC 3.7 Mil/uL (4.40-5.90); RED CELL DISTRIBUTION WIDTH 14.1 % (11.5-14.5); WHITE BLOOD COUNT 10.9 K/uL (4.8-10.8)
[2018-04-09] MEDS: levETIRAcetam 1,500 MG in Sodium Chloride 0.9% 100 ML IVPB SCH ×2 (08:46→21:39)
--- NOTE | 2018-04-09 08:59 | CP.PCM.PN ---
Subjective - Date & Time of Evaluation Date of Evaluation: 04/09/18 Time of Evaluation: 08:58 - Subjective Subjective: 57 y/o male remains comatose. Seen and examined at bedside, still not triggering vent. He is non reactive to pain stimulus, sluggish pupillary reflex more reactive than yesterday. Girlfriend is at bedside again this AM. No acute events over night. Family meeting today at 11AM. Spoke w/ next of kin, updated on patient's status and prognosis. Decision was made to extubate, based on patient's wishes. Now on NC and morphine. Objective - Vital Signs/Intake and Output Vital Signs (last 24 hours): Temp Pulse Resp BP Pulse Ox 100.1 F H 56 L 24 187/61 H 93 L 04/09/18 08:00 04/09/18 08:00 04/09/18 08:00 04/09/18 08:20 04/09/18 08:00 Intake and Output: 04/09/18 04/09/18 06:59 18:59 Intake Total 1426 140 Output Total 900 Balance 526 140 - Medications Medications: Current Medications Acetaminophen (Tylenol 650mg/20.3ml Solution Ud) 650 mg PO Q6 PRN PRN Reason: Fever >100.4 F Last Admin: 04/09/18 05:55 Dose: 650 mg Amlodipine Besylate (Norvasc) 10 mg PO DAILY CHELA Last Admin: 04/09/18 08:20 Dose: 10 mg Hydralazine HCl (Apresoline) 25 mg NG TID CHELA Last Admin: 04/09/18 08:17 Dose: 25 mg Piperacillin Sod/Tazobactam (Sod 2.25 gm/ Sodium Chloride) 100 mls @ 100 mls/ hr IVPB Q12 CHELA PRN Reason: Protocol Last Admin: 04/09/18 08:20 Dose: 100 mls/hr Levetiracetam 1,500 mg/ Sodium (Chloride) 115 mls @ 215 mls/hr IVPB Q12 CHELA Last Admin: 04/09/18 08:46 Dose: 215 mls/hr Nicardipine HCl (Cardene Iv Premix) 20 mg in 200 mls @ 50 mls/hr IV .Q4H CHELA; 5 MG/HR PRN Reason: Protocol Last Titration: 04/05/18 21:41 Dose: 0 mg/hr, 0 mls/hr Pantoprazole Sodium (Protonix Inj) 40 mg IVP DAILY CHELA Last Admin: 04/09/18 08:20 Dose: 40 mg - Labs Labs: 04/09/18 05:00 04/09/18 05:00 PT 12.2 Seconds (9.8-13.1) 04/02/18 06:08 INR 1.1 (0.9-1.2) 04/02/18 06:08 APTT 31.1 Seconds (25.6-37.1) 04/02/18 06:08 - Constitutional Appears: No Acute Distress - Eye Exam Additional comments: sluggish pupillary response - ENT Exam ENT Exam: Mucous Membranes Moist - Neck Exam Neck Exam: Normal Inspection - Respiratory Exam Respiratory Exam: Decreased Breath Sounds Additional comments: on mechanical vent - Cardiovascular Exam Cardiovascular Exam: REGULAR RHYTHM, +S1, +S2 - GI/Abdominal Exam GI & Abdominal Exam: Soft, Hypoactive Bowel Sounds - Extremities Exam Extremities Exam: Normal Inspection. absent: Pedal Edema - Neurological Exam Neurological Exam: absent: Alert, Awake, Oriented x3 - Skin Skin Exam: Dry, Intact, Warm Assessment and Plan - Assessment and Plan (Free Text) Assessment: 57 y/o M brought to ER by EMS after found unconscious, s/p infield intubation, ACLS and ROSC, no acute EKG changes, with in the window of hypothermia protocol. Unclear precipitating event; however, patient has significant cardiac history and history of substance abuse. 1. Cardiac Arrest - Possibly due to substance abuse, UTox: + Cocain and Opiates -Seen by cardio, appreciate recs - CXR / normal; no infiltrate, pleural or pericardial effusions or active CHF. ET and NG tubes in place. -EEG abnormal -now extubated, on morphine drip and O2 NC 2. HTN -Chronic, 199/65 today -Hydralazine 25 mg NG TID added -Amlodipine increased from 5mg PO to 10mg -held Nicardipine 50 mL/hr IVQ4H -d/c Carvedilol 25mg PO Q12 3. Hypernatremia -Na+ 158 -will give free water -will follow 4. Hypokalemia -resolved K+ 3.7 -replaced w/ KCl- 40 mEQ via OG tube -will follow 5. Transamenitis -AST 144 -ALT 155 -Will check GGT and NH3 to r/o biliary tract disease per Dr. Pacheco, -Will monitor 6. Acute Respiratory failure -respiratory alkalosis i -mechanical ventilation settings: FiO2 of 40, TV of 480 and RR of 20; peep of 5 changed to 0 -repeat ABG in the AM -Possibly due to substance abuse , UTox: + Cocain and Opiates -Pulm, Dr. Gallegos, appreciate consult 7. Febrile -100.1 today -urine culture and blood culture negative 04/06 -TLC removed -On acetaminophen 650mg PO Q6H PRN -Dr. Joselo garzon, appreciate recs 8. Substance abuse -Chronic - UTox: + Cocain and Opiates - Mechanically ventilated - Benzo as indicated - s/p Narcan drip 9. Myoclonic seizure with GCS 4T, unclear if 2/2 hypoxia, anoxia vs substance intoxication - Improved - Neuro, Dr. Brown consult, recommends ativan 2mg Q4. Kepra 1500 mg Q12hrs - EEG results pending - Benzo as indicated - S/p Narcan drip - profolol d/c 04/07/18 10. Right scrotal hernia -asymptomatic -cont to monitor 11. GI PPX -Protonix 40 12. DVT PPX - SCD for now
--- NOTE | 2018-04-09 09:19 | CP.PCM.PN ---
Subjective - Date & Time of Evaluation Date of Evaluation: 04/09/18 Time of Evaluation: 09:19 - Subjective Subjective: Mr. Drew was seen and examined at the bedside in ICU. He remains on mechanical ventilator on PRVC mode. He does not have any corneal or gag reflex , pupils not reactive to light accommodation, does not react to deep noxious stimuli, GCS- 3T, breaths over the vent with no episode of tachypnea. There was no untoward events overnight. EEG results showed diffused slowing and the presence of PLED which can represent structural abnormality of the brain, epileptical discharge was also seen. 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 Objective - Vital Signs/Intake and Output Vital Signs (last 24 hours): Temp Pulse Resp BP Pulse Ox 100.1 F H 56 L 24 187/61 H 93 L 04/09/18 08:00 04/09/18 08:00 04/09/18 08:00 04/09/18 08:20 04/09/18 08:00 Intake and Output: 04/09/18 04/09/18 06:59 18:59 Intake Total 1426 140 Output Total 900 Balance 526 140 - Medications Medications: Current Medications Acetaminophen (Tylenol 650mg/20.3ml Solution Ud) 650 mg PO Q6 PRN PRN Reason: Fever >100.4 F Last Admin: 04/09/18 05:55 Dose: 650 mg Amlodipine Besylate (Norvasc) 10 mg PO DAILY CHELA Last Admin: 04/09/18 08:20 Dose: 10 mg Hydralazine HCl (Apresoline) 25 mg NG TID CHELA Last Admin: 04/09/18 08:17 Dose: 25 mg Piperacillin Sod/Tazobactam (Sod 2.25 gm/ Sodium Chloride) 100 mls @ 100 mls/ hr IVPB Q12 CHELA PRN Reason: Protocol Last Admin: 04/09/18 08:20 Dose: 100 mls/hr Levetiracetam 1,500 mg/ Sodium (Chloride) 115 mls @ 215 mls/hr IVPB Q12 CHELA Last Admin: 04/09/18 08:46 Dose: 215 mls/hr Nicardipine HCl (Cardene Iv Premix) 20 mg in 200 mls @ 50 mls/hr IV .Q4H CHELA; 5 MG/HR PRN Reason: Protocol Last Titration: 04/05/18 21:41 Dose: 0 mg/hr, 0 mls/hr - Labs Labs: 04/09/18 05:00 04/09/18 05:00 PT 12.2 Seconds (9.8-13.1) 04/02/18 06:08 INR 1.1 (0.9-1.2) 04/02/18 06:08 APTT 31.1 Seconds (25.6-37.1) 04/02/18 06:08 - Constitutional Appears: No Acute Distress - Head Exam Head Exam: NORMAL INSPECTION - Eye Exam Pupil Exam: Fixed Additional comments: in an elevated position, non reactive - Neurological Exam Neuro motor strength exam: Left Upper Extremity: 0, Right Upper Extremity: 0, Left Lower Extremity: 0, Right Lower Extremity: 0 Additional comments: GCS 3T Assessment and Plan (1) Hypoxic brain injury Assessment & Plan: Case discussed with Dr. Brown, continue current medical regimen including ventilator and blood pressure management per ICU team. Recommend blood pressure control, treat any underlying electrolyte abnormalities. Status: Acute
--- NOTE | 2018-04-09 14:27 | CP.CCUPN ---
CCU Subjective - Physician Review Subjective (Free Text): Less bradycardic over the last 24H, remains comatose, but triggering the vent noted on low A/C rate. Other vitals and I/O's reviewed. Tmax 101.4F over the last 24H. No polyuria noted. ROS: No other pertinent negs or positives on 10+ system review obtainable due to comatose state. . PMSFH: CAD/3vessel CABG 06/2107, HTN, COPD with emphysema, ETOH abuse, Cocaine / Heroin abuse, Pancreatitis. All other Nursing and physician documentation reviewed to date; no new pertinent info noted relevant to current medical problems. EXAM- HEENT: no icterus, + bilateral upward gaze preference, pupils 1-2mm and REACTIVE , midline, absent corneals, absent carinal, no cough on ETT suctioning. No dolls eye movements elicitable. NECK: No JVD, supple, carotids equal upstroke bilat/no bruits CHEST: decreased BS bases, no wheezes audible HEART: regular, distant, S1S2, no rubs or murmurs ABD: soft, no distention, no tympany, no palp tenderness, BS hypoactive EXT: +edema, no mottling, no peripheral/ digital cyanosis, no calf tenderness or palpable cords, distal pulses intact and symmetrical. NEURO: flaccid x4 extremities, GCS 3T. SKIN: no rashes, warm and dry. LABS: yesterdays WBC= 8.5 HGB= 12.0 PLTs= 195K 7.48/42/57 Coags normal Ix=446 K= 3.4 AA=259 HCO3= 34 BUN/Cr= 36/1.2 BS= 163 CXR: ETT position Ok above dante, no new consolidation ( my interp). IMPRESSION / MAJOR PROBLEMS NOW: 1. s/p Cardiac Arrest manifest as PEA; possible AMI versus occult substance abuse sequelae 2. Anoxic Encephalopathy 3. Acute Resp Failure 2 #1 4. Hypernatremia (new) 4. ETOH and Substance Abuse PLAN: 1. Terminal Extubation with morphine drip for comfort measures. 2. Orders placed for DNR/ DNI 3. Hospice eval if patient survives greater than 24H post terminal extubation. CCU Objective - Vital Signs / Intake & Output Vital Signs (Last 4 hours): Vital Signs Temp Pulse Resp BP Pulse Ox 04/09/18 13:00 62 25 H 163/70 H 86 L 04/09/18 12:00 100.3 F H 66 27 H 227/63 H 86 L Intake and Output (Last 8hrs): Intake & Output 04/08/18 04/09/18 04/09/18 22:59 06:59 14:59 Intake Total 890 876 780 Output Total 700 900 Balance 190 -24 780 Weight 178 lb Intake: IV 0 16 0 Intake, Piggyback 200 200 Tube Feeding 390 560 280 Free Water Flush 300 300 300 Output: Urine 700 900 Urethral ([place]) 700 900
[2018-04-09] MEDS: Morphine 100 MG in Sodium Chloride 0.9% 100 ML IVPB SCH (14:44)
--- NOTE | 2018-04-09 15:52 | CP.PCM.PN ---
Subjective - Date & Time of Evaluation Date of Evaluation: 04/09/18 Time of Evaluation: 10:00 - Subjective Subjective: F/U Respiratory Failure s/p Terminal extubation , unresponsive Objective - Vital Signs/Intake and Output Vital Signs (last 24 hours): Temp Pulse Resp BP Pulse Ox 100.3 F H 62 25 H 224/50 H 86 L 04/09/18 12:00 04/09/18 13:00 04/09/18 13:00 04/09/18 14:44 04/09/18 13:00 Intake and Output: 04/09/18 04/09/18 06:59 18:59 Intake Total 1426 780 Output Total 900 Balance 526 780 - Medications Medications: Current Medications Acetaminophen (Tylenol 650mg/20.3ml Solution Ud) 650 mg PO Q6 PRN PRN Reason: Fever >100.4 F Last Admin: 04/09/18 05:55 Dose: 650 mg Acetaminophen (Tylenol 650 Mg Supp) 650 mg [place] Q4 PRN PRN Reason: Temperature Last Admin: 04/09/18 14:44 Dose: 650 mg Amlodipine Besylate (Norvasc) 10 mg PO DAILY CHELA Last Admin: 04/09/18 08:20 Dose: 10 mg Hydralazine HCl (Apresoline) 25 mg NG TID CHELA Last Admin: 04/09/18 13:09 Dose: Not Given Hydralazine HCl (Apresoline) 40 mg IV Q6 PRN PRN Reason: Systolic Blood Pressure Last Admin: 04/09/18 14:44 Dose: 40 mg Piperacillin Sod/Tazobactam (Sod 2.25 gm/ Sodium Chloride) 100 mls @ 100 mls/ hr IVPB Q12 CHELA PRN Reason: Protocol Last Admin: 04/09/18 08:20 Dose: 100 mls/hr Levetiracetam 1,500 mg/ Sodium (Chloride) 115 mls @ 215 mls/hr IVPB Q12 CHELA Last Admin: 04/09/18 08:46 Dose: 215 mls/hr Nicardipine HCl (Cardene Iv Premix) 20 mg in 200 mls @ 50 mls/hr IV .Q4H CHELA; 5 MG/HR PRN Reason: Protocol Last Titration: 04/05/18 21:41 Dose: 0 mg/hr, 0 mls/hr Morphine Sulfate 100 mg/ (Sodium Chloride) 104 mls @ 3.12 mls/hr IVPB .Q24H CHELA ; 3 MG/HR PRN Reason: Protocol Last Admin: 04/09/18 14:44 Dose: 3.12 mls/hr - Labs Labs: 04/09/18 05:00 04/09/18 05:00 PT 12.2 Seconds (9.8-13.1) 04/02/18 06:08 INR 1.1 (0.9-1.2) 04/02/18 06:08 APTT 31.1 Seconds (25.6-37.1) 04/02/18 06:08 - Constitutional Appears: Chronically Ill - Head Exam Head Exam: NORMAL INSPECTION - Eye Exam Additional comments: Pupils 1-2 mm, non reactive, no corneal reflex. - ENT Exam Additional comments: Intubated - Neck Exam Neck Exam: Normal Inspection - Respiratory Exam Respiratory Exam: Decreased Breath Sounds (at bases) - Cardiovascular Exam Cardiovascular Exam: REGULAR RHYTHM - GI/Abdominal Exam GI & Abdominal Exam: Soft, Normal Bowel Sounds - Extremities Exam Extremities Exam: Normal Inspection - Neurological Exam Additional comments: Unresponsive, comatose - Skin Skin Exam: Warm Assessment and Plan (1) Hx-sudden cardiac arrest Status: Acute (2) Anoxic encephalopathy Status: Acute (3) Acute respiratory failure Status: Acute - Assessment and Plan (Free Text) Plan: Transfer to Telemetry , DNR, DNI, Morphine drip, NR Mask 100%, Hospice if Patient survive more than 24hs
--- NOTE | 2018-04-09 16:31 | PN ---
DATE: 04/09/2018 SUBJECTIVE: No reports of hypotension or ventricular tachycardia. Sinus bradycardia has improved. PHYSICAL EXAMINATION: VITAL SIGNS: Blood pressure , heart rate 53, temperature 100.4, respiration 24. The patient is still deeply comatose. HEENT: No pallor or icterus. CHEST: Minimal rhonchi. HEART: S1 and S2 regular. EXTREMITIES: No edema. LABORATORY DATA: Today's hemoglobin and hematocrit 12.1 and 36.3, white count 10.9, platelet count 129,000. Today's SMA-7; sodium 158, potassium 3.7, chloride 116, CO2 of 31, glucose 139, BUN 33, and creatinine 1.2. Abnormal EEG, diffuse slowing is seen suggestive of diffuse abnormality of the brain. This finding is not specific and can be seen in diffuse or multifocal abnormality of the brain. PLED is seen. This is suggestive of subacute structural abnormality of the brain. The patient may be prone to having clinical seizures. Epileptiform discharge was seen. ASSESSMENT: 1. Status post cardiac arrest. 2. Cocaine, opiate and alcohol abuse on admission. 3. Coronary artery disease with history of recent coronary artery bypass surgery. 4. Hypertension. 5. Mild sinus bradycardia. RECOMMENDATIONS: Continue current hydralazine 25 mg t.i.d., Norvasc 10 mg once a day, Zosyn at 2.25 intravenously every 12 hours. The case was discussed with cutter out. We will discuss the prognosis with the family prior to considering withdrawal of life support Keo Trevino MD
[2018-04-10 05:29] LABS: BASO % 0.1 % (0.0-2.0); EOS % 0.1 % (0.0-4.0); HEMOGLOBIN 13.8 g/dL (12.0-18.0); LYMPH # 1.2 K/uL (1.0-4.3); LYMPH % 7.9 % (20.0-40.0); MEAN CELL VOLUME 97.8 fl (80.0-94.0); MEAN CORPUSCULAR HEMOGLOBIN 32.7 pg (27.0-31.0); MEAN CORPUSCULAR HGB CONC 33.5 g/dL (33.0-37.0); MEAN PLATELET VOLUME 8.9 fl (7.2-11.7); MONO % 6.3 % (0.0-10.0); NEUT # 13.5 K/uL (1.8-7.0); NEUT % 85.6 % (50.0-75.0); NRBC % 0.1 % (0.0-0.0); PLATELET COUNT 300 K/uL (130-400); RBC 4.21 Mil/uL (4.40-5.90); RED CELL DISTRIBUTION WIDTH 14.2 % (11.5-14.5); WHITE BLOOD COUNT 15.7 K/uL (4.8-10.8)
[2018-04-10 05:36] LABS: BLOOD UREA NITROGEN 32 mg/dl (9-20); CALCIUM 9.2 mg/dL (8.4-10.2); GFR AFRICAN-AMERICAN > 60; GFR NON-AFRICAN AMERICAN > 60
[2018-04-10 06:49] LABS: EOSINOPHIL 1 % (0-7); LYMPHOCYTE 12 % (20-50); MONOCYTE 9 % (0-10); NEUTROPHIL 78 % (42-75); PLATELET ESTIMATE NORMAL (NORMAL); TOTAL CELLS COUNTED 100
[2018-04-10 13:22] VITALS: O2SAT 95
--- NOTE | 2018-04-10 13:59 | CP.PCM.PN ---
Subjective - Date & Time of Evaluation Date of Evaluation: 04/10/18 Time of Evaluation: 13:57 - Subjective Subjective: Patient on oxygen mask, morphine drip, made comfortable. Family present at bedside. Objective - Vital Signs/Intake and Output Vital Signs (last 24 hours): Temp Pulse Resp BP Pulse Ox 98.9 F 62 20 125/69 95 04/10/18 13:21 04/10/18 13:21 04/10/18 13:21 04/10/18 13:21 04/10/18 13:21 Intake and Output: 04/10/18 04/10/18 06:59 18:59 Intake Total 233 200 Output Total 800 325 Balance -567 -125 - Medications Medications: Current Medications Acetaminophen (Tylenol 650mg/20.3ml Solution Ud) 650 mg PO Q6 PRN PRN Reason: Fever >100.4 F Last Admin: 04/09/18 05:55 Dose: 650 mg Acetaminophen (Tylenol 650 Mg Supp) 650 mg [place] Q4 PRN PRN Reason: Temperature Last Admin: 04/09/18 14:44 Dose: 650 mg Amlodipine Besylate (Norvasc) 10 mg PO DAILY CHELA Last Admin: 04/09/18 08:20 Dose: 10 mg Hydralazine HCl (Apresoline) 25 mg NG TID CHELA Last Admin: 04/09/18 13:09 Dose: Not Given Hydralazine HCl (Apresoline) 40 mg IV Q6 PRN PRN Reason: Systolic Blood Pressure Last Admin: 04/09/18 22:22 Dose: 40 mg Piperacillin Sod/Tazobactam (Sod 2.25 gm/ Sodium Chloride) 100 mls @ 100 mls/ hr IVPB Q12 CHELA PRN Reason: Protocol Last Admin: 04/09/18 21:39 Dose: 100 mls/hr Levetiracetam 1,500 mg/ Sodium (Chloride) 115 mls @ 215 mls/hr IVPB Q12 CHELA Last Admin: 04/09/18 21:39 Dose: 215 mls/hr Nicardipine HCl (Cardene Iv Premix) 20 mg in 200 mls @ 50 mls/hr IV .Q4H CHELA; 5 MG/HR PRN Reason: Protocol Last Titration: 04/05/18 21:41 Dose: 0 mg/hr, 0 mls/hr Morphine Sulfate 100 mg/ (Sodium Chloride) 104 mls @ 3.12 mls/hr IVPB .Q24H CHELA ; 3 MG/HR PRN Reason: Protocol Last Admin: 04/09/18 14:44 Dose: 3.12 mls/hr - Labs Labs: 04/10/18 04:22 04/10/18 04:22 PT 12.2 Seconds (9.8-13.1) 04/02/18 06:08 INR 1.1 (0.9-1.2) 04/02/18 06:08 APTT 31.1 Seconds (25.6-37.1) 04/02/18 06:08 - Constitutional Appears: No Acute Distress - Eye Exam Additional comments: sluggish pupillary response - Respiratory Exam Respiratory Exam: Clear to Ausculation Bilateral Additional comments: off of vent, on o2 mask - Cardiovascular Exam Cardiovascular Exam: REGULAR RHYTHM, +S1, +S2 - GI/Abdominal Exam GI & Abdominal Exam: Soft, Normal Bowel Sounds - Neurological Exam Neurological Exam: absent: Alert, Awake, Oriented x3 - Skin Skin Exam: Dry, Intact, Warm Assessment and Plan - Assessment and Plan (Free Text) Assessment: 57 y/o M brought to ER by EMS after found unconscious, s/p infield intubation, ACLS and ROSC, no acute EKG changes, with in the window of hypothermia protocol. Unclear precipitating event; however, patient has significant cardiac history and history of substance abuse. 1. Cardiac Arrest - Possibly due to substance abuse, UTox: + Cocain and Opiates -Seen by cardio, appreciate recs - CXR 04/06 normal; no infiltrate, pleural or pericardial effusions or active CHF. ET and NG tubes in place. -EEG abnormal -now extubated, comfort care on morphine drip and O2 NC
[2018-04-10] MEDS: Morphine 100 MG in Sodium Chloride 0.9% 100 ML IVPB SCH (16:07)
[2018-04-10 17:08] VITALS: BP 122/61; PULSE 80; RESP 17; TEMP 99.2
--- NOTE | 2018-04-10 19:47 | CP.PCM.PN ---
Subjective - Date & Time of Evaluation Date of Evaluation: 04/10/18 Time of Evaluation: 15:10 - Subjective Subjective: F/U Respiratory failure Unresponsive Objective - Vital Signs/Intake and Output Vital Signs (last 24 hours): Temp Pulse Resp BP Pulse Ox 99.2 F 80 17 122/61 95 04/10/18 17:07 04/10/18 17:07 04/10/18 17:07 04/10/18 17:07 04/10/18 13:21 Intake and Output: 04/10/18 04/11/18 18:59 06:59 Intake Total 218 Output Total 565 Balance -347 - Medications Medications: Current Medications Acetaminophen (Tylenol 650mg/20.3ml Solution Ud) 650 mg PO Q6 PRN PRN Reason: Fever >100.4 F Last Admin: 04/09/18 05:55 Dose: 650 mg Acetaminophen (Tylenol 650 Mg Supp) 650 mg [place] Q4 PRN PRN Reason: Temperature Last Admin: 04/09/18 14:44 Dose: 650 mg Amlodipine Besylate (Norvasc) 10 mg PO DAILY CHELA Last Admin: 04/09/18 08:20 Dose: 10 mg Hydralazine HCl (Apresoline) 25 mg NG TID CHELA Last Admin: 04/09/18 13:09 Dose: Not Given Hydralazine HCl (Apresoline) 40 mg IV Q6 PRN PRN Reason: Systolic Blood Pressure Last Admin: 04/09/18 22:22 Dose: 40 mg Piperacillin Sod/Tazobactam (Sod 2.25 gm/ Sodium Chloride) 100 mls @ 100 mls/ hr IVPB Q12 CHELA PRN Reason: Protocol Last Admin: 04/09/18 21:39 Dose: 100 mls/hr Levetiracetam 1,500 mg/ Sodium (Chloride) 115 mls @ 215 mls/hr IVPB Q12 CHELA Last Admin: 04/09/18 21:39 Dose: 215 mls/hr Nicardipine HCl (Cardene Iv Premix) 20 mg in 200 mls @ 50 mls/hr IV .Q4H CHELA; 5 MG/HR PRN Reason: Protocol Last Titration: 04/05/18 21:41 Dose: 0 mg/hr, 0 mls/hr Morphine Sulfate 100 mg/ (Sodium Chloride) 104 mls @ 3.12 mls/hr IVPB .Q24H CHELA ; 3 MG/HR PRN Reason: Protocol Last Admin: 04/10/18 16:07 Dose: 3.12 mls/hr - Labs Labs: 04/10/18 04:22 04/10/18 04:22 PT 12.2 Seconds (9.8-13.1) 04/02/18 06:08 INR 1.1 (0.9-1.2) 04/02/18 06:08 APTT 31.1 Seconds (25.6-37.1) 04/02/18 06:08 - Constitutional Appears: Chronically Ill - Head Exam Head Exam: NORMAL INSPECTION - Eye Exam Additional comments: 1-2 mm, non reactive, no corneal reflex - ENT Exam ENT Exam: Normal Exam Additional comments: Extubated, on NC - Neck Exam Neck Exam: Normal Inspection - Respiratory Exam Respiratory Exam: Decreased Breath Sounds - Cardiovascular Exam Cardiovascular Exam: REGULAR RHYTHM - GI/Abdominal Exam GI & Abdominal Exam: Soft, Normal Bowel Sounds - Extremities Exam Extremities Exam: Normal Inspection - Neurological Exam Additional comments: Unresponsive, comatose - Skin Skin Exam: Warm Assessment and Plan (1) Hx-sudden cardiac arrest Status: Acute (2) Anoxic encephalopathy Status: Acute (3) Acute respiratory failure Status: Acute - Assessment and Plan (Free Text) Plan: Patient on Telemetry , DNR, DNI, Morphine drip, NR 100% mask , Hospice if Patient survive more than 24hs
--- NOTE | 2018-04-10 20:36 | CP.PCM.PRO ---
Pronouncement of Note - Clinical Findings Physical Exam: No Response Verbal/Painful Stimuli, Absent Peripheral Pulses{ Carotid & Femoral}, Absent Heart & Breath Sounds, No Pupillary Light Reflex, No Corneal Reflex, Pupils Fixed & Dilated, Absence of Vital Signs - Pronouncement Time Time of Pronouncement of : 08:29 Additional Comments: Girlfrienmarianne Smith at bedside. Pt evaluated by Dr. Carrillo and myself
== END 2018-04-10 23:18 | DRG 207 ==
LOC: H.ER 13:22 → H.ERHOLD 15:35 → H.ICU/CCU 17:37 → H.TEL 04-10 12:53
PROVIDERS: ADMIT Family Medicine Geriatric Medicine; ATTEND Family Medicine Geriatric Medicine
PROC: 5A1955Z Respiratory Ventilation, Greater than 96 Consecutive Hours (ICD-10-PCS; principal; 2018-04-01)
PROC: 0BH17EZ Insertion of Endotracheal Airway into Trachea, Via Natural or Artificial Opening (ICD-10-PCS; 2018-04-01)
PROC: 03HB33Z Insertion of Infusion Device into Right Radial Artery, Percutaneous Approach (ICD-10-PCS; 2018-04-01)
PROC: 0DH673Z Insertion of Infusion Device into Stomach, Via Natural or Artificial Opening (ICD-10-PCS; 2018-04-01)
DX: J96.01 Acute respiratory failure with hypoxia (principal); J18.9 Pneumonia, unspecified organism; R57.0 Cardiogenic shock; G93.1 Anoxic brain damage, not elsewhere classified; E87.0 Hyperosmolality and hypernatremia; E87.3 Alkalosis; E87.5 Hyperkalemia; E87.6 Hypokalemia; E86.0 Dehydration; R40.2432 Glasgow coma scale score 3-8, at arrival to emergency department; F10.129 Alcohol abuse with intoxication, unspecified; Y90.1 Blood alcohol level of 20-39 mg/100 ml; F14.10 Cocaine abuse, uncomplicated; F11.10 Opioid abuse, uncomplicated; I10 Essential (primary) hypertension; G25.3 Myoclonus; I25.10 Atherosclerotic heart disease of native coronary artery without angina pectoris; I25.82 Chronic total occlusion of coronary artery; J43.9 Emphysema, unspecified; F20.9 Schizophrenia, unspecified; K40.90 Unilateral inguinal hernia, without obstruction or gangrene, not specified as recurrent; E78.00 Pure hypercholesterolemia, unspecified; Z66 Do not resuscitate; F17.210 Nicotine dependence, cigarettes, uncomplicated; Z95.5 Presence of coronary angioplasty implant and graft; Z95.1 Presence of aortocoronary bypass graft; Z79.02 Long term (current) use of antithrombotics/antiplatelets